=== PATIENT | male | born 1980 | race Caucasian/White ===

== ENCOUNTER 2023-04-10 11:02 | Emergency (ER) | payer OTHER, SELFPAY ==
--- NOTE | ~2023-04-10 | XR_ITS ---
EXAMINATION: XR CHEST CLINICAL INFORMATION: Cough and fever. COMPARISON: None available. TECHNIQUE: 2 views of the chest were obtained. FINDINGS: No significant abnormality is noted involving the heart, lungs, mediastinum, bony thorax or soft tissues. XR/XR chest 2V IMPRESSION: No acute cardiopulmonary process.
[2023-04-10 11:06] VITALS: BP 130/83; PULSE 120; RESP 20; TEMP 37.5; O2SAT 99; BMI 33.0
--- NOTE | 2023-04-10 11:06 | ED.GENADULT ---
HPI - General Adult General Chief complaint: Fever Stated complaint: fever of 102 Time Seen by Provider: 04/10/23 11:13 Source: patient Mode of arrival: ambulatory Limitations: no limitations History of Present Illness HPI narrative: 42 y/o M with asthma, peripheral vascular disease, alcoholism and ?cardiomyopathy. Patient complains of fevers, chills, non-productive cough and headaches for 2 days. His live-in girlfriend reports similar symptoms and tested positive for Flu-A last week. Patient has tried taking Mucinex for his symptoms and reports minimal improvement. He also reports some nausea, diarrhea, L ear pain, shortness of breath upon exertion and chest discomfort upon coughing. Patient reports past alcoholism but has limited his drinking to 1 beer a day. Patient states that he has been through withdrawals before and this does not feel the same. Patient denies vomiting and dizziness. Patient reports since having COVID in the spring he has had intermittent chest pain/palpitations/headaches/insomnia/brain fog and has been to the ER at [facility] several times. He has seen a tunneling machine operator outpatient and had a echo 2 weeks ago which he does not know the results of. He has not seen his PCP as he recently moved here and doesnt have one. Related Data Allergies Allergy/AdvReac Type Severity Reaction Status Date / Time Penicillins [PCN] Allergy Rash Verified 04/10/23 11:08 Review of Systems Review of Systems: Yes all other systems are reviewed and are negative Constitutional: Constitutional: Reports no additional constitutional complaints, Denies body ache(s), Reports chills, Reports fever(s), Reports headache(s) and Denies weakness Eyes: Eyes: Reports no additional eye complaints and Denies change in vision ENT: Reports system reviewed and no additional complaints, except as documented, Denies dizziness, Reports otalgia, Reports headache(s), Denies nasal congestion, Denies nasal discharge and Denies neck pain Cardiovascular: Cardiovascular: Reports no additional cardiovascular complaints, Reports chest pain, Denies leg edema and Reports dyspnea Respiratory: Respiratory: Reports no additional respiratory complaints, Reports cough and Reports dyspnea Gastrointestinal: Gastrointestinal: Reports no additional gastrointestinal complaints, Denies abdominal pain, Reports diarrhea, Reports nausea and Denies vomiting Genitourinary: Genitourinary: Denies urinary incontinence Musculoskeletal: Musculoskeletal: Reports no additional musculoskeletal complaints, Denies back pain, Denies arthralgias, Denies joint swelling, Denies neck pain, Denies numbness and Denies tingling Integumentary/Breasts: Skin/Breast: Reports system reviewed and no additional complaints, except as docu and Denies rash Neurologic: Reports system reviewed and no additional complaints, except as documented, Denies dizziness, Reports headache(s), Denies numbness, Denies tingling and Denies weakness [facility] Past Medical History Attestation statement: The following information was validated with the patient. Source: old records reviewed and nursing notes reviewed Social History Social History Smoked in Last 30 Days: No Substance Use Type: Marijuana Substance Use Frequency: Occasionally Advance Directives: No Advance Directives Information Provided: Yes Physical Exam ED Vital Signs: Vital Signs - 24 hr 04/10/23 11:06 04/10/23 12:35 04/10/23 14:42 Temperature 99.5 F 100.9 F H 100.4 F Pulse Rate 120 H 104 H Respiratory Rate 20 20 Blood Pressure 130/83 Pulse Oximetry 99 99 Oxygen Delivery Method Room Air BMI result Body Mass Index 33.0 Const General: cooperative, healthy appearing, comfortable and no acute distress Orientation/consciousness: patient oriented x3 Limitations: no limitations HENMT Head: Yes normal to inspection Ears: hearing grossly normal bilaterally and TM's normal bilaterally General nose exam: Normal external nose present Face and sinus: Yes normal facial exam Mouth: Normal oral and palatal mucosa present Throat: Yes posterior oropharynx normal, Yes tonsils normal and Yes uvula midline Eyes General: appearance normal, both eyes and all related structures Pupils: Equal, round and reactive pupils present Neck Neck: Yes normal visual inspection, Yes full ROM, Yes no lymphadenopathy and Yes no meningeal signs Chest Chest palpation & inspection: normal inspection of the chest Resp Effort & Inspection: normal respiratory effort Auscultation: clear to auscultation bilaterally Cardio Rate: tachycardic (112) Rhythm: regular rhythm Peripheral pulses: Peripheral pulses 2+ throughout GI Inspection: Yes normal to inspection Palpation (GI): Soft to palpation and nontender Auscultation: normal bowel sounds General: Yes no CVA tenderness Back/Spine/Pelvis Back: no CVA tenderness Thoracic/Lumbar Spine: thoracic and lumbar spine normal to inspection Skin General skin exam: no rashes or lesions noted Neuro General: patient oriented x3, moves all extremities and no meningeal signs Cranial nerves: Yes Equal, round and reactive pupils present Cognition (Neuro): normal cognition Gait exam (Neuro): Normal gait present Extrem General: Yes normal to inspection, Yes no pedal edema and Yes no calf tenderness Course Course Course Narrative: This is a rapid medical exam: Additional HPI, ROS, PE not included below will be deferred to primary provider. Patient is a 42-year-old male presenting to the emergency department with complaint of fever, tmax of 103, for 2-3 days. Girlfriend reports that she recently tested positive for flu A, was on Tamiflu. She reports that patient has long Covid. He has been having shortness of breath in addition to fevers. Has only been using ibuprofen, no Tylenol. Plan: flu, covid, CXR Reevaluation(s) Reevaluation #1: Labs are unremarkable. EKG shows no ischemic changes. Chest x-ray is negative for infection. Patient is positive for influenza A. Temperature and heart rate are improving. Patient is tolerating p.o.. Will discharge home with supportive care. Reviewed worrisome signs and symptoms of when to return to the emergency room. Comfortable plan for discharge home. Medications Administered Discontinued Medications Generic Name Dose Route Start Last Admin Trade Name Glenny PRN Reason Stop Dose Admin Acetaminophen 975 mg 04/10/23 11:55 04/10/23 12:37 Acetaminophen 325 Mg Tablet PO 04/10/23 11:56 975 mg ONCE ONE Administration Sodium Chloride 1,000 mls @ 999 mls/hr 04/10/23 12:56 04/10/23 13:48 Ns IV 04/10/23 13:56 999 mls/hr .Q1H1M STA Administration Medical Decision Making Medical Decision Making MDM Narrative: 42 y/o M with asthma, peripheral vascular disease, alcoholism and ?cardiomyopathy here w/ fevers, chills, non-productive cough, headaches, ear pain, nausea, diarrhea, SOB, chest discomfort with coughing for 3 days. His live-in girlfriend reports similar symptoms and tested positive for Flu-A last week. Patient has tried taking Mucinex for his symptoms and reports minimal improvement. Patient reports since having COVID in the spring he has had intermittent chest pain/palpitations/headaches/insomnia/brain fog and has been to the ER at [facility] several times. He has seen a tunneling machine operator outpatient and had a echo 2 weeks ago which he does not know the results of. He has not seen his PCP as he recently moved here and doesn't have one. On arrival patient with fever, tachycardia likely secondary to fever. LS CTA. No meningeal signs or lymphadenopathy. Abdomen soft nontender will check labs, EKG, chest x-ray, COVID and flu testing will give Tylenol, place IV and give IV fluid Will obtain echocardiogram report from [facility] Differential Diagnosis Differential Diagnoses: The differential diagnosis associated with the presentation includes influenza, viral syndrome, pneumonia low concern for PE- with no risk factors ( no recent travel, recent surgery, personal or family history), no clinical findings concerning for DVT low concern for ACS with nonexertional symptoms, nonischemic EKG and negative troponin Lab Data MDM Lab Attestation statement: I reviewed the patient's lab results. Unremarkable- with exception of flu A positive 04/10/23 13:40 04/10/23 13:40 Labs: Lab Results 04/10/23 04/10/23 04/10/23 Range/Units 12:11 12:11 13:40 WBC 7.0 (4.8-10.8) X10*3/uL RBC 4.62 (4.60-5.80) X10*6/uL Hgb 14.0 (14.0-18.0) g/dl Hct 41.5 L (42.0-52.0) % MCV 89.8 (80.0-98.0) fL MCH 30.3 (27.0-33.0) pg MCHC 33.7 (31.0-36.0) g/dl RDW 14.5 (11.0-16.0) % Plt Count 200 (160-400) X10*3/uL MPV 10.0 (9.4-12.4) fL Immature Gran % (Auto) 0.3 (0.0-0.4) % Neut % (Auto) 85.4 H (45-73) % Lymph % (Auto) 5.1 L (20-40) % Jerome % (Auto) 8.6 (2-11) % Eos % (Auto) 0.3 (0-4) % Baso % (Auto) 0.3 (0-2) % Lymph # (Auto) 0.4 L (1.2-4.9) X10*3/uL Jerome # (Auto) 0.6 (0.1-1.2) X10*3/uL Eos # (Auto) 0.0 (0.0-0.4) X10*3/uL Baso # (Auto) 0.0 (0.0-0.2) X10*3/uL Abs Immat Gran (auto) 0.02 (0.00-0.03) X10*3/uL Absolute Neuts (auto) 6.0 (2.0-8.3) x10*3/uL Absolute Nucleated RBC 0.000 (0.0-0.012) X10*3/uL Nucleated RBC % (auto) 0.0 (0.0-0.2) /100WBC Sodium (135-145) mmol/L Potassium (3.3-5.1) mmol/L Chloride (96-108) mmol/L Carbon Dioxide (22-29) mmol/L Anion Gap (12-20) BUN (9-16) mg/dL Creatinine (0.5-1.4) mg/dL Estim Creat Clear Calc Estimated GFR Random Glucose (60-115) mg/dL Calcium (8.4-10.2) mg/dL Total Bilirubin (0.0-1.0) mg/dL Direct Bilirubin (0.0-0.5) mg/dL AST (5-37) U/L ALT (0-40) U/L Alkaline Phosphatase (39-117) U/L Troponin I High Sens (<3.5-35.0) ng/L Total Protein (6.5-8.0) g/dL Albumin (3.5-5.0) g/dL COVID-19 (GONZALO) Negative (Negative) COVID-19 Clin Com See Note Influenza Type A (YUDY) Positive A (Negative) Influenza Type B (YUDY) Negative (Negative) Influenza A & B Note See Note 04/10/23 04/10/23 Range/Units 13:40 13:40 WBC (4.8-10.8) X10*3/uL RBC (4.60-5.80) X10*6/uL Hgb (14.0-18.0) g/dl Hct (42.0-52.0) % MCV (80.0-98.0) fL MCH (27.0-33.0) pg MCHC (31.0-36.0) g/dl RDW (11.0-16.0) % Plt Count (160-400) X10*3/uL MPV (9.4-12.4) fL Immature Gran % (Auto) (0.0-0.4) % Neut % (Auto) (45-73) % Lymph % (Auto) (20-40) % Jerome % (Auto) (2-11) % Eos % (Auto) (0-4) % Baso % (Auto) (0-2) % Lymph # (Auto) (1.2-4.9) X10*3/uL Jerome # (Auto) (0.1-1.2) X10*3/uL Eos # (Auto) (0.0-0.4) X10*3/uL Baso # (Auto) (0.0-0.2) X10*3/uL Abs Immat Gran (auto) (0.00-0.03) X10*3/uL Absolute Neuts (auto) (2.0-8.3) x10*3/uL Absolute Nucleated RBC (0.0-0.012) X10*3/uL Nucleated RBC % (auto) (0.0-0.2) /100WBC Sodium 136 (135-145) mmol/L Potassium 3.7 (3.3-5.1) mmol/L Chloride 100 (96-108) mmol/L Carbon Dioxide 23 (22-29) mmol/L Anion Gap 17 (12-20) BUN 6 L (9-16) mg/dL Creatinine 0.76 (0.5-1.4) mg/dL Estim Creat Clear Calc 167.0 Estimated GFR > 60 Random Glucose 114 (60-115) mg/dL Calcium 9.4 (8.4-10.2) mg/dL Total Bilirubin 0.8 (0.0-1.0) mg/dL Direct Bilirubin 0.3 (0.0-0.5) mg/dL AST 27 (5-37) U/L ALT 26 (0-40) U/L Alkaline Phosphatase 86 (39-117) U/L Troponin I High Sens < 2.7 (<3.5-35.0) ng/L Total Protein 8.1 H (6.5-8.0) g/dL Albumin 4.4 (3.5-5.0) g/dL COVID-19 (GONZALO) (Negative) COVID-19 Clin Com Influenza Type A (YUDY) (Negative) Influenza Type B (YUDY) (Negative) Influenza A & B Note Independent Interpretation I performed an independent interpretation of an: EKG and Plain X-Ray Interpretation: I independently reviewed the chest x-ray and agree with the radiology report I independently reviewed the EKG which shows sinus tachycardia with a rate of 109, normal [place], normal QRS, normal QT Radiology Impression Discussion of test interpretation with radiology: I have reviewed the radiologist's reading. Radiologist Impression: [address] [address] XRay Report Signed Patient: Alejandro Sanchez MR#: [id number] : 1980 Acct:[id number] Age/Sex: 42 / M ADM Date: 04/10/23 Loc: .ED Attending Dr: Ordering Physician: Maisha Nunez NP Date of Service: 04/10/23 Procedure(s): XR chest 2V Accession Number(s): [id number] cc: Maisha Nunez NP~ EXAMINATION: XR CHEST CLINICAL INFORMATION: Cough and fever. COMPARISON: None available. TECHNIQUE: 2 views of the chest were obtained. FINDINGS: No significant abnormality is noted involving the heart, lungs, mediastinum, bony thorax or soft tissues. XR/XR chest 2V IMPRESSION: No acute cardiopulmonary process. Independent Historian Clinical information obtained from an independent historian. History obtained from or confirmed by: Spouse External Record Review External record reviewed: Prior outpatient radiology reviewed outpatient echocardiogram from a 03/31/2023 from [facility] which shows normal LV systolic function, EF 58%, normal LV diastolic function. LV concentric remodeling. Normal RV size and systolic function. No significant valvular disease identified Prescription Management I considered prescription management with: Antiviral patient with symptoms for 3 days with nausea and diarrhea. We discussed that Tamiflu is not recommended as patient has GI symptoms currently and due to length of symptoms it would not likely be helpful at this point. Discharge Plan Discharge Clinical Impression: Influenza Patient Disposition: Home, Self-Care Instructions: Influenza (ED) Additional Instructions: Alternate Motrin and Tylenol for pain or fever as needed Increase fluids, rest Return for worsening symptoms Referrals: Physician,Unknown J [Primary Care Provider] - 1 week Interventions: ED Discharge Assessment Last Done: 04/10/23 14:56 Discharge Date/Time: 04/10/23 15:00
[2023-04-10 12:35] VITALS: TEMP 38.3
[2023-04-10] MEDS: Acetaminophen 325 MG TABLET 975 MG PO (12:37)
[2023-04-10 12:40] LABS: COVID-19 Test Negative (Negative); IDNOW Serial# 08D9AD1C; IDNOW Serial# BCCEAD1C; Influenza A Positive (Negative); Influenza B2 Negative (Negative)
--- NOTE | 2023-04-10 12:56 | ECG_ITS ---
Test Reason : sob Blood Pressure : / mmHG Vent. Rate : 109 BPM Atrial Rate : 109 BPM P-R Int : 136 ms QRS Dur : 102 ms QT Int : 336 ms P-R-T Axes : 039 056 049 degrees QTc Int : 452 ms Sinus tachycardia Otherwise normal ECG No previous ECGs available Referred By: Charity Dejesus Electronically Signed By:MIA TORRES
[2023-04-10 13:45] LABS: MANUAL DIFF FLAG NO
[2023-04-10] MEDS: 0.9 % Sodium Chloride 1,000 ML 999 ML IV (13:48)
[2023-04-10 13:52] LABS: Basophils Percent Auto 0.3 % (0-2); Eosinophils Percent Auto 0.3 % (0-4); Hematocrit 41.5 % (42.0-52.0); Imm Gran Abs Auto 0.02 X10*3/uL (0.00-0.03); Imm Gran Pct Auto 0.3 % (0.0-0.4); Lymphocytes Absolute Auto 0.4 X10*3/uL (1.2-4.9); Lymphocytes Percent Auto 5.1 % (20-40); Mean Corpuscular HGB Conc 33.7 g/dl (31.0-36.0); Mean Corpuscular Hemoglobin 30.3 pg (27.0-33.0); Mean Corpuscular Volume 89.8 fL (80.0-98.0); Monocytes Absolute Auto 0.6 X10*3/uL (0.1-1.2); Monocytes Percent Auto 8.6 % (2-11); Neutrophils Percent Auto 85.4 % (45-73); Platelet Count 200 X10*3/uL (160-400); Red Blood Count 4.62 X10*6/uL (4.60-5.80); Red Cell Distribution Width 14.5 % (11.0-16.0)
[2023-04-10 14:08] LABS: Alanine Aminotransferase 26 U/L (0-40); Albumin Level 4.4 g/dL (3.5-5.0); Alkaline Phosphatase 86 U/L (39-117); Anion Gap 17 (12-20); Aspartate Amino Transferase 27 U/L (5-37); Bilirubin Direct 0.3 mg/dL (0.0-0.5); Bilirubin Total 0.8 mg/dL (0.0-1.0); Blood Urea Nitrogen 6 mg/dL (9-16); Calcium 9.4 mg/dL (8.4-10.2); Carbon Dioxide 23 mmol/L (22-29); Chloride 100 mmol/L (96-108); Estimated Glomerular Filt Rate > 60; Glucose Random 114 mg/dL (60-115); Potassium 3.7 mmol/L (3.3-5.1); Sodium 136 mmol/L (135-145); Total Protein 8.1 g/dL (6.5-8.0)
[2023-04-10 14:12] LABS: Troponin-I High Sensitivity < 2.7 ng/L (<3.5-35.0)
[2023-04-10 14:42] VITALS: PULSE 104; RESP 20; TEMP 38; O2SAT 99
== END 2023-04-10 15:00 | disposition home or self-care (01) ==
PROVIDERS: Nurse Practitioner Family; Registered Nurse Emergency; Emergency Provider Emergency Medicine
DX: J10.1 Influenza due to other identified influenza virus with other respiratory manifestations (principal); R50.9 Fever, unspecified; Z20.822 Contact with and (suspected) exposure to COVID-19
CPT/HCPCS: 36415; 71046; 80048; 80076; 84484; 85025; 87502; 87635; 93005; 99283; 99285

== ENCOUNTER → 2023-04-10 12:56 | Outpatient (BNV) | payer OTHER, SELFPAY | PROVIDERS: Emergency Provider Emergency Medicine; Visit Provider Internal Medicine | DX: R00.0 Tachycardia, unspecified (principal) | CPT/HCPCS: 93010 ==

== ENCOUNTER 2023-04-28 10:37 | Emergency (ER) | payer OTHER, SELFPAY ==
[2023-04-28] VITALS (7 sets, daily range): BP systolic 136–160; BP diastolic 68–108; PULSE 81–108; RESP 16–19; TEMP 36.6–36.8; O2SAT 98–100; BMI 35.5
--- NOTE | ~2023-04-28 | CT_ITS ---
EXAMINATION: CT HEAD WITHOUT CONTRAST CLINICAL INFORMATION: Severe headache, rule out intracranial abnormality. COMPARISON: None available. TECHNIQUE: Contiguous axial imaging was performed from the skull base to vertex without intravenous administration of contrast. Coronal and sagittal reformatted images were obtained. This CT examination was performed using dose optimization techniques as appropriate, variously including the following: *Automated exposure control *Adjustment of mA and/or kV according to patient size (this includes techniques or standardized protocols for targeted exams where dose is matched to indication/reason for exam; i.e. extremities or head) *Use of iterative reconstruction technique DLP: 661 mGy-cm FINDINGS: The cortical sulci are normal. The lateral ventricles are symmetrical. The third and fourth ventricles are in their normal midline position. The basilar and prepontine cisterns are unremarkable. There is no acute intra or extracerebral abnormality. There is no mass effect or midline shift. Sections through the bony calvarium are unremarkable. The paranasal sinuses are clear. The bony orbits and orbital contents are unremarkable. CT/CT head/brain wo IV con IMPRESSION: No acute intracranial pathology.
--- NOTE | 2023-04-28 11:03 | ECG_ITS ---
Test Reason : weakness Blood Pressure : / mmHG Vent. Rate : 083 BPM Atrial Rate : 083 BPM P-R Int : 142 ms QRS Dur : 108 ms QT Int : 372 ms P-R-T Axes : 022 048 041 degrees QTc Int : 437 ms Normal sinus rhythm Incomplete right bundle branch block Borderline ECG When compared with ECG of 10-APR-2023 13:07, Incomplete right bundle branch block is now Present Referred By: Yanely Medina Electronically Signed By:RASHID SANTOS
[2023-04-28 11:34] LABS: MANUAL DIFF FLAG NO
--- NOTE | 2023-04-28 11:34 | PC.NURSE ---
Pt reporting long covid since getting covid 6 Months ago. Reporting he had a trip to [facility] recently. He has multiple generalized complaints, LONG/N/dizziness/weakness with no resolve. is at bedside currently. IV placed, labs obtained, provider at bedside.
[2023-04-28 11:37] LABS: Basophils Percent Auto 0.4 % (0-2); Eosinophils Percent Auto 0.4 % (0-4); Hematocrit 40.3 % (42.0-52.0); Hemoglobin 13.7 g/dl (14.0-18.0); Imm Gran Abs Auto 0.01 X10*3/uL (0.00-0.03); Imm Gran Pct Auto 0.2 % (0.0-0.4); Lymphocytes Absolute Auto 0.6 X10*3/uL (1.2-4.9); Lymphocytes Percent Auto 12.1 % (20-40); Mean Corpuscular Hemoglobin 30.8 pg (27.0-33.0); Mean Corpuscular Volume 90.6 fL (80.0-98.0); Mean Platelet Volume 10.1 fL (9.4-12.4); Monocytes Absolute Auto 0.2 X10*3/uL (0.1-1.2); Monocytes Percent Auto 3.6 % (2-11); Neutrophils Absolute Auto 4.4 x10*3/uL (2.0-8.3); Neutrophils Percent Auto 83.3 % (45-73); Platelet Count 188 X10*3/uL (160-400); Red Blood Count 4.45 X10*6/uL (4.60-5.80); Red Cell Distribution Width 14.3 % (11.0-16.0); White Blood Count 5.3 X10*3/uL (4.8-10.8)
--- NOTE | 2023-04-28 11:47 | ED_ITS ---
HPI - General Adult General Chief complaint: Headache Stated complaint: Multiple Complaints Time Seen by Provider: 04/28/23 11:00 Source: patient Mode of arrival: ambulatory Limitations: no limitations History of Present Illness HPI narrative: Patient is a 42 year old male presenting with a primary complaint of headaches over the past 6 months. Patient explains that he has diffuse headaches that ache in his ears, head, and face. Patient explains that over the past 6 months he has also had intermittent palpitations, chest pain, shortness of breath, diarrhea, dysuria, depression and anxiety. Patient explains he had COVID for the fourth time and traveled to [facility] right before the onset of these symptoms. Patient used to drink 2 bottles of tequila per day but has cut down sicne these symptoms started and now endorses drinking about 3 nips and a beer per day. Denies drug use aside from occasional marijuana use. Related Data Previous Rx's Medication Instructions Recorded naproxen 500 mg tablet 500 mg PO BID #14 tabs 04/28/23 Allergies Allergy/AdvReac Type Severity Reaction Status Date / Time Penicillins [PCN] Allergy Rash Verified 04/28/23 10:40 Review of Systems Review of Systems: Constitutional : + 10 pound weight loss over a week ( self reported), Fever, Chills, Fatigue, Malaise ENT/Mouth : No sore throat, No Rhinorrhea Eyes: No Eye Pain, No Swelling, No Redness Cardiovascular : No Chest Pain, No SOB, + Dyspnea on Exertion, No Orthopnea, No Edema, No Palpitations Respiratory : No Cough, No Sputum, No Wheezing Gastrointestinal : No Nausea, No Vomiting, No Diarrhea, No Constipation, No abdo ekta Pain, No Hematochezia, No Melena Genitourinary : + Dysuria, No Urinary Frequency, No Hematuria, Musculoskeletal : + Myalgias, No joint pain, No Joint Swelling Skin : No Skin Lesions, No rash Neuro : +diffuse headche, No Weakness, No Numbness, No Dizziness Psych : + Anxiety/Panic, Depression All other systems reviewed and are negative Yes all other systems are reviewed and are negative [facility] Past Medical History Attestation statement: The following information was validated with the patient. Source: old records reviewed and nursing notes reviewed Social History Social History Alcohol intake: never Smoked in Last 30 Days: No Use of substances other than those prescribed or required for medical reasons: No Substance Use Type: Marijuana Advance Directives: No Physical Exam ED Vital Signs: Vital Signs - 24 hr 04/28/23 10:40 04/28/23 10:58 04/28/23 11:35 Temperature 98 F 98.3 F Pulse Rate 100 82 83 Respiratory Rate 19 16 Blood Pressure 160/100 H 148/93 H 148/90 H Pulse Oximetry 100 98 Oxygen Delivery Method Room Air Room Air 04/28/23 11:39 04/28/23 11:41 04/28/23 14:50 Temperature 97.9 F Pulse Rate 97 108 H 81 Respiratory Rate 18 Blood Pressure 148/101 H 146/108 H 136/68 Pulse Oximetry 100 Oxygen Delivery Method Room Air BMI result Body Mass Index 35.5 VSS Appearance: Alert.? Oriented X3.? No acute distress.? Head: Normocephalic, atraumatic, no step-offs or deformities Eyes: Pupils equal, round and reactive to light.? ENT: Pharynx normal.? Neck: Normal inspection.? Neck supple.?No meningeal signs CVS: Normal heart rate and rhythm.? Pulses normal.? Respiratory: No respiratory distress.? Breath sounds normal.? Abdomen: Soft and nontender.? Skin: Skin warm and dry.? Normal skin color.? Normal skin turgor.? Extremities: No lower extremity edema.? No calf ttp. 5/5 strength to bilateral upper and lower extremities Back: No midline tenderness, no C-spine tenderness, full range of motion, no CVA tenderness bilaterally Neuro: Coordination including finger to nose and arm raise intact. Oriented X 3.? No motor deficit.? No sensory deficit. CN 2-12 intact NIH Stroke Scale 0 Course Reevaluation(s) Reevaluation #1: CBC with a normocytic anemia, appears to be around patient's baseline. Chemistry no acute electrolyte abnormalities requiring intervention. Patient's transaminases are elevated in the 2-1 fashion likely secondary to chronic alcohol abuse, bilirubin of 1.5 however no abdominal tenderness to palpation, no signs of acute abdomen, cholangitis, cholecystitis, pancreatitis. Troponin negative, EKG nonischemic unlikely ACS. Patient's D-dimer negative, unlikely PE. Coags unremarkable. Head CT unremarkable. Time: 13:40 Reevaluation #2: ESR normal. Unlikely temporal arteritis. CIWA not impressive (4), unlikely acute alcohol withdrawal. UA without infection. Patient to be discharged home with naproxen. Will have him follow-up with neurology due to headaches. Educated patient on diagnosis and treatment plan, answered all question, patient verbalizes understanding. At this time patient will be discharged home, advised to return with new or worsening symptoms. Educated on worrisome signs and symptoms and when to return. At this time I feel comfortable discharge home. Time: 15:38 Reevaluation #3: Patient does report he is feeling much better at time of discharge, headache gone. Would like information for Neurology office in the area will give him neuro follow-up information. Time: 15:42 Medications Administered Discontinued Medications Generic Name Dose Route Start Last Admin Trade Name Freq PRN Reason Stop Dose Admin Ketorolac Tromethamine 30 mg 04/28/23 12:38 04/28/23 12:58 Ketorolac Tromethamine 15 Mg/Ml Vial IM 04/28/23 12:39 30 mg ONCE ONE Administration Medical Decision Making Medical Decision Making MDM Narrative: 12:15 42 year old male presenting with a primary complaint of headaches worsening over the past 6 months. Overwhelming review of systems for the past few months. Exam benign. NIH Stroke Scale 0. This is potentially headaches secondary to dehydration as patient has expressed that they do not drink much water at all. This is unlikely encephalopathy, meningitis, encephalitis. No signs of intracranial hemorrhage, stroke, posterior stroke. Chest pain and shortness of breath appear to be chronic in nature, no signs of ACS, PE at this time. I do not suspect pneumonia. No signs of flail chest, pneumothorax, dissection, ruptured aneurysm. Diarrhea likely chronic, no recent antibiotic use, unlikely C diff, will rule out electrolyte abnormalities. Will rule out UTI. I do not suspect temporal arteritis/giant cell. Unlikely Guillain-Latta. Other differentials include acute alcohol intox ication or alcohol withdrawal. This could also be sinusitis versus allergies. Plan: labs, urine, imaging Differential Diagnosis Differential Diagnoses: The differential diagnosis associated with the presentation includes This is potentially headaches secondary to dehydration as patient has expressed that they do not drink much water at all. This is unlikely encephalopathy, meningitis, encephalitis. No signs of intracranial hemorrhage, stroke, posterior stroke. Chest pain and shortness of breath appear to be chronic in nature, no signs of ACS, PE at this time. I do not suspect pneumonia. No signs of flail chest, pneumothorax, dissection, ruptured aneurysm. Diarrhea likely chronic, no recent antibiotic use, unlikely C diff, will rule out electrolyte abnormalities. Will rule out UTI. I do not suspect temporal arteritis/giant cell. Unlikely Guillain-Latta. Other differentials include acute alcohol intoxication or alcohol withdrawal. This could also be sinusitis versus allergies. Admission/Observation Consideration of admission/observation: Escalation of care including admission/observation considered Not indicated. Lab Data MDM Lab Attestation statement: I reviewed the patient's lab results. AST ALT elevated in a 2:1 fasion consistent with chronic alcohol use. 04/28/23 11:30 04/28/23 11:30 Labs: Lab Results 04/28/23 04/28/23 04/28/23 Range/Units 11:30 11:30 11:30 WBC 5.3 (4.8-10.8) X10*3/uL RBC 4.45 L (4.60-5.80) X10*6/uL Hgb 13.7 L (14.0-18.0) g/dl Hct 40.3 L (42.0-52.0) % MCV 90.6 (80.0-98.0) fL MCH 30.8 (27.0-33.0) pg MCHC 34.0 (31.0-36.0) g/dl RDW 14.3 (11.0-16.0) % Plt Count 188 (160-400) X10*3/uL MPV 10.1 (9.4-12.4) fL Immature Gran % (Auto) 0.2 (0.0-0.4) % Neut % (Auto) 83.3 H (45-73) % Lymph % (Auto) 12.1 L (20-40) % [place] % (Auto) 3.6 (2-11) % Eos % (Auto) 0.4 (0-4) % Baso % (Auto) 0.4 (0-2) % Lymph # (Auto) 0.6 L (1.2-4.9) X10*3/uL [place] # (Auto) 0.2 (0.1-1.2) X10*3/uL Eos # (Auto) 0.0 (0.0-0.4) X10*3/uL Baso # (Auto) 0.0 (0.0-0.2) X10*3/uL Abs Immat Gran (auto) 0.01 (0.00-0.03) X10*3/uL Absolute Neuts (auto) 4.4 (2.0-8.3) x10*3/uL Absolute Nucleated RBC 0.000 (0.0-0.012) X10*3/uL Nucleated RBC % (auto) 0.0 (0.0-0.2) /100WBC ESR (0-15) MM/HR PT (11.1-13.3) SEC INR (0.9-1.1) D-Dimer High Sensitivty NG/ML Sodium 137 (135-145) mmol/L Potassium 4.0 (3.3-5.1) mmol/L Chloride 101 (96-108) mmol/L Carbon Dioxide 26 (22-29) mmol/L Anion Gap 14 (12-20) BUN 9 (9-16) mg/dL Creatinine 0.80 (0.5-1.4) mg/dL Estim Creat Clear Calc 164.5 Estimated GFR > 60 Random Glucose 96 (60-115) mg/dL Calcium 9.7 (8.4-10.2) mg/dL Magnesium 1.6 (1.6-2.6) mg/dL Total Bilirubin 1.5 H (0.0-1.0) mg/dL AST 327 H (5-37) U/L ALT 168 H (0-40) U/L Alkaline Phosphatase 80 (39-117) U/L Troponin I High Sens < 2.7 (<3.5-35.0) ng/L Total Protein 7.9 (6.5-8.0) g/dL Albumin 4.3 (3.5-5.0) g/dL Urine Color Urine Appearance Urine pH (5.0-9.0) Ur Specific [place] (1.005-1.025) Urine Protein (Neg-Trace) mg/dL Urine Glucose (UA) (Negative) mg/dL Urine Ketones (Negative) mg/dL Urine Blood (Negative) Urine Nitrite (Negative) Ur Leukocyte Esterase (Negative) 08/22/23 08/22/23 08/22/23 Range/Units 11:30 11:30 14:53 WBC (4.8-10.8) X10*3/uL RBC (4.60-5.80) X10*6/uL Hgb (14.0-18.0) g/dl Hct (42.0-52.0) % MCV (80.0-98.0) fL MCH (27.0-33.0) pg MCHC (31.0-36.0) g/dl RDW (11.0-16.0) % Plt Count (160-400) X10*3/uL MPV (9.4-12.4) fL Immature Gran % (Auto) (0.0-0.4) % Neut % (Auto) (45-73) % Lymph % (Auto) (20-40) % [place] % (Auto) (2-11) % Eos % (Auto) (0-4) % Baso % (Auto) (0-2) % Lymph # (Auto) (1.2-4.9) X10*3/uL [place] # (Auto) (0.1-1.2) X10*3/uL Eos # (Auto) (0.0-0.4) X10*3/uL Baso # (Auto) (0.0-0.2) X10*3/uL Abs Immat Gran (auto) (0.00-0.03) X10*3/uL Absolute Neuts (auto) (2.0-8.3) x10*3/uL Absolute Nucleated RBC (0.0-0.012) X10*3/uL Nucleated RBC % (auto) (0.0-0.2) /100WBC ESR 10 (0-15) MM/HR PT 10.5 L (11.1-13.3) SEC INR 0.9 (0.9-1.1) D-Dimer High Sensitivty < 150 NG/ML Sodium (135-145) mmol/L Potassium (3.3-5.1) mmol/L Chloride (96-108) mmol/L Carbon Dioxide (22-29) mmol/L Anion Gap (12-20) BUN (9-16) mg/dL Creatinine (0.5-1.4) mg/dL Estim Creat Clear Calc Estimated GFR Random Glucose (60-115) mg/dL Calcium (8.4-10.2) mg/dL Magnesium (1.6-2.6) mg/dL Total Bilirubin (0.0-1.0) mg/dL AST (5-37) U/L ALT (0-40) U/L Alkaline Phosphatase (39-117) U/L Troponin I High Sens (<3.5-35.0) ng/L Total Protein (6.5-8.0) g/dL Albumin (3.5-5.0) g/dL Urine Color Yellow Urine Appearance Clear Urine pH 7.0 (5.0-9.0) Ur Specific [place] 1.015 (1.005-1.025) Urine Protein Negative (Neg-Trace) mg/dL Urine Glucose (UA) Negative (Negative) mg/dL Urine Ketones 15 (Negative) mg/dL Urine Blood Negative (Negative) Urine Nitrite Negative (Negative) Ur Leukocyte Esterase Negative (Negative) Independent Interpretation I performed an independent interpretation of an: EKG (EKG with a ventricular rate of 83, TN normal, QRS normal, QT/QTC normal. EKG with incomplete right bundle-branch block, this is new. No ST elevations or inversions concerning for ischemia) and CT Scan Interpretation: No masses, acute bleeds or midline shift noted. CT/CT head/brain wo IV con IMPRESSION: No acute intracranial pathology. Radiology Impression Discussion of test interpretation with radiology: I have reviewed the radiologist's reading. Radiologist Impression: CT/CT head/brain wo IV con IMPRESSION: No acute intracranial pathology. Tests considered The following testing was considered but not selected: Breath sounds clear, perc negative no indication for chest imaging, no trauma. Core Measures AMI core measures followed: Yes Measure exclusions: not indicated Critical Care Time Critical Care Time Critical Care Time: No Discharge Plan Discharge Clinical Impression: Headache, Diarrhea, Chest pain, Shortness of breath Patient Disposition: Home, Self-Care Instructions: Chest Pain (ED), Acute Headache (ED), Acute Diarrhea (ED), Nutrition Tips for Relief of Diarrhea (ED), Shortness of Breath (ED) Additional Instructions: Take your medications as prescribed. If you were prescribed antibiotics today, it is important that you take your medication to their entirety, do not skip any doses, do not finish them early. Follow-up with your primary care provider this week. Return to the emergency department with new or worsening symptoms. Such as fevers, chills, chest pain, shortness of breath, nausea, vomiting, dizziness, headache, vision changes, lethargy In case of emergency call 911 Prescriptions: New naproxen 500 mg tablet 500 mg PO BID Qty: 14 0RF Referrals: [facility] [place] [facility] [Provider Group] - 2 days Physician,None [Primary Care Provider] - 2 days
[2023-04-28 11:51] LABS: Alanine Aminotransferase 168 U/L (0-40); Albumin Level 4.3 g/dL (3.5-5.0); Alkaline Phosphatase 80 U/L (39-117); Anion Gap 14 (12-20); Aspartate Amino Transferase 327 U/L (5-37); Bilirubin Total 1.5 mg/dL (0.0-1.0); Blood Urea Nitrogen 9 mg/dL (9-16); Calcium 9.7 mg/dL (8.4-10.2); Carbon Dioxide 26 mmol/L (22-29); Chloride 101 mmol/L (96-108); Creatinine Clr Calc Pharmacy 164.5; Estimated Glomerular Filt Rate > 60; Glucose Random 96 mg/dL (60-115); Magnesium 1.6 mg/dL (1.6-2.6); Sodium 137 mmol/L (135-145); Total Protein 7.9 g/dL (6.5-8.0)
[2023-04-28 11:55] LABS: INTERNATIONAL NORM RATIO 0.9 (0.9-1.1); Prothrombin Time 10.5 SEC (11.1-13.3)
[2023-04-28 11:57] LABS: Troponin-I High Sensitivity < 2.7 ng/L (<3.5-35.0)
[2023-04-28 12:14] LABS: Erythrocyte Sedimentation Rate 10 MM/HR (0-15)
[2023-04-28 12:47] LABS: D Dimer High Sensitivity < 150 NG/ML
[2023-04-28] MEDS: Ketorolac Tromethamine 15 MG/ML VIAL 30 MG IM (12:58)
[2023-04-28 15:03] LABS: Appearance Urine Clear; Color Urine Yellow; Glucose Urine UA Negative (Negative); Leukocyte Esterase Urine Negative (Negative); Nitrite Urine Negative (Negative); Specific Gravity - Urine 1.015 (1.005-1.025); Urine Blood Negative (Negative); Urine Ketones 15 mg/dL (Negative); Urine Protein Negative (Neg-Trace)
[2023-04-29 13:34] LABS: CRP High Sensitivity 4.3 mg/L
== END 2023-04-28 16:04 | disposition home or self-care (01) ==
PROVIDERS: Physician Assistant; Emergency Provider Emergency Medicine
DX: R07.9 Chest pain, unspecified (principal); R51.9 Headache, unspecified; R19.7 Diarrhea, unspecified; R06.02 Shortness of breath; D64.9 Anemia, unspecified; F12.90 Cannabis use, unspecified, uncomplicated
CPT/HCPCS: 36415; 70450; 80053; 81003; 83735; 84484; 85025; 85379; 85610; 85652; 86141; 93005; 96372; 99284; 99285; J1885

== ENCOUNTER 2023-06-10 10:48 | Outpatient (REF) | payer OTHER, SELFPAY | END 2023-06-10 10:49 | disposition home or self-care (01) | LOC: HO.HHCL 10:48 | PROVIDERS: Visit Provider Emergency Medicine | DX: Z13.89 Encounter for screening for other disorder (principal) ==

== ENCOUNTER 2023-06-11 22:30 | Outpatient (REF) | payer MEDICAID, SELFPAY | END 2023-06-11 22:31 | disposition home or self-care (01) | LOC: HO.LNP 22:30 | PROVIDERS: Visit Provider Emergency Medicine | DX: R79.89 Other specified abnormal findings of blood chemistry (principal); K92.1 Melena | CPT/HCPCS: 82274 ==

== ENCOUNTER 2023-06-12 08:43 | Outpatient (REF) | payer MEDICAID, SELFPAY | END 2023-06-12 08:44 | disposition home or self-care (01) | LOC: HO.LAB 08:43 | PROVIDERS: Visit Provider Emergency Medicine | DX: K92.1 Melena (principal); R79.89 Other specified abnormal findings of blood chemistry; I87.2 Venous insufficiency (chronic) (peripheral) | CPT/HCPCS: 36415; 80053; 82150; 82270; 83036; 83690; 83880; 85025; 85652; 86704; 86706; 86709; 86803; 87177; 87209; 87338; 87340; 87507 ==

== ENCOUNTER 2023-07-16 07:48 | Outpatient (REF) | payer MEDICAID, SELFPAY ==
--- NOTE | ~2023-07-16 | US_ITS ---
EXAMINATION: US ABDOMEN COMPLETE CLINICAL INFORMATION: Elevated LFTs. COMPARISON: None available. TECHNIQUE: Real-time imaging of the abdominal viscera. FINDINGS: PANCREAS: Normal. ABDOMINAL AORTA: The proximal, mid, and distal segments are normal in caliber. INFERIOR VENA CAVA: Visualized portions are normal. LIVER: Liver is enlarged measuring at least 17.9 cm in span. The liver contour is normal. Increased hepatic echogenicity which can be seen in the setting of hepatic steatosis or underlying liver disease. No focal hepatic lesion. There is no intrahepatic biliary duct dilatation seen. GALLBLADDER: Normal. The gallbladder is physiologically distended without evidence of stones, sludge, polyps, wall thickening or pericholecystic fluid. COMMON BILE DUCT: Normal in caliber measuring 0.4 cm in diameter. RIGHT KIDNEY: Normal. No hydronephrosis. No renal calculi or focal parenchymal lesions. The kidney measures 11.8 cm in maximum dimension. LEFT KIDNEY: Normal. No hydronephrosis. No renal calculi or focal parenchymal lesions. The kidney measures 12.6 cm in maximum dimension. SPLEEN: Normal. The spleen measures 10.2 cm in maximum dimension. FREE FLUID: None. US/US abdomen complete IMPRESSION: Hepatomegaly. Increased hepatic echogenicity which can be seen in the setting of hepatic steatosis or underlying liver disease.
== END 2023-07-16 07:49 | disposition home or self-care (01) ==
LOC: HO.US 07:48
PROVIDERS: Visit Provider Family Medicine
DX: R79.89 Other specified abnormal findings of blood chemistry (principal)
CPT/HCPCS: 76700

== ENCOUNTER 2023-08-11 20:07 | Inpatient (IN) | payer OTHER, MEDICAID, SELFPAY ==
[2023-08-11 20:26] VITALS: BP 150/110; PULSE 115; RESP 20; TEMP 36.7; O2SAT 98; BMI 34.3
--- NOTE | 2023-08-11 20:27 | ED.GENADULT ---
HPI - General Adult General Chief complaint: Psychiatric Symptoms Stated complaint: DRINKING ALL WEEK/TOOK PILLS AMITRIPTYLINE Time Seen by Provider: 08/11/23 23:36 Source: patient and family Mode of arrival: ambulatory Limitations: no limitations History of Present Illness HPI narrative: 43 yo male with significant grief reaction after the loss of his mother, ETOH abuse in and out of rehab started on amitryptiline and naltrexone. Went to mother's house today to deal with some things then at home ingested 4 of his amitryptiline total dose 40mg - he states he is not sure why possible SI vs depression. He also drank. He is very depressed. Has chronic on and off chest pain. Last travel was back in May. MD complaint: depression, ETOH abuse Onset (ago): month(s) Radiation: non-radiation Severity: moderate Relieving factors: none Exacerbating factors: other (life stress) Associated symptoms: other (chest pain, depression, vague SI) Treatments prior to arrival: none Related Data Previous Rx's Medication Instructions Recorded naproxen 500 mg tablet 500 mg PO BID #14 tabs 04/28/23 Allergies Allergy/AdvReac Type Severity Reaction Status Date / Time Penicillins [PCN] Allergy Rash Verified 04/28/23 10:40 Review of Systems Review of Systems: Constitutional : No Fever, No Chills ENT/Mouth : No Ear Pain, No Nasal Congestion, No sore throat Eyes: No Eye Pain, No Swelling, No Redness Cardiovascular : pos Chest Pain, No SOB Respiratory : No Cough, No Sputum, No Dyspnea Gastrointestinal : No Nausea, No Vomiting, No Diarrhea, No Hematochezia, No Melena Genitourinary : No Dysuria, No Urinary Frequency, No Hematuria Musculoskeletal : No Myalgias Skin : No Skin Lesions, No rash Neuro : No Weakness, No Numbness, No Paresthesias, No Dizziness, No Headache Psych : positive Anxiety, positive Depression, vague SI no HI Heme/Lymph: No Lymphadenopathy Endocrine : No Polyuria, No Polydipsia All other systems reviewed and are negative [facility] Past Medical History Attestation statement: The following information was validated with the patient. Medical History Alcohol abuse Social History Social History Alcohol intake: current Alcohol intake frequency: 3 or more drinks per day Alcohol type: beer and hard liquor Smoked in Last 30 Days: No Use of substances other than those prescribed or required for medical reasons: No Substance Use Type: Marijuana Advance Directives: No Advance Directives Information Provided: Yes Physical Exam ED Vital Signs: Vital Signs - 24 hr 08/11/23 20:26 08/12/23 00:32 08/12/23 03:28 Temperature 98.1 F 98.3 F 97.7 F Pulse Rate 115 H 94 86 Respiratory Rate 20 12 13 Blood Pressure 150/110 H 151/98 H 130/81 Pulse Oximetry 98 99 98 Oxygen Delivery Method Room Air Room Air Room Air Oxygen Flow Rate 08/12/23 04:23 08/12/23 06:44 Temperature 97.8 F 97.7 F Pulse Rate 94 94 Respiratory Rate 16 16 Blood Pressure 137/86 141/91 H Pulse Oximetry 99 97 Oxygen Delivery Method Nasal Cannula Nasal Cannula Oxygen Flow Rate 2 2 BMI result Body Mass Index 34.3 Appearance: Somnolent but easily woken. Oriented X3. No acute distress. Eyes: Pupils equal, round and reactive to light. ENT: Pharynx normal. Neck: Normal inspection. Neck supple. CVS: Normal heart rate and rhythm. Pulses normal. Respiratory: No respiratory distress. Breath sounds normal. Abdomen: Soft and nontender. Skin: Skin warm and dry. Normal skin color. Normal skin turgor. Extremities: No lower extremity edema. No calf ttp Neuro: Oriented X 3. No motor deficit. No sensory deficit. Course Course Course Narrative: This is a rapid medical exam: Additional HPI, ROS, PE not included below will be deferred to primary provider. Patient is a 43-year-old male presenting to the ED after bingeing on alcohol this week. Has been in outpatient recovery since his mother a few months ago. Friend states he was cleaning out his mother's house this week, increasing his stress. Friend states outpatient treatment has not been working, feels patient requires inpatient level of care. Patient took 3 amytriptylline with alcohol prior to arrival. He denies suicidal ideation or homicidal ideation but reports depression. Denies auditory or visual hallucinations. Reports feeling tremulous now. Denies history of withdrawal seizures. Also complains of chest pain with inspiration. Plan: EKG, labs, CXR Reevaluation(s) Reevaluation #1: Physician observation started at 1am Patient placed in physician observation because the patient needed more time for CARE team to assess the need for psych admission. At the time observation was started the patient's vitals were stable, patient is sleepy but oriented, Neuro: nonfocal, CV RRR, Lungs clear 2 EKGs normal at baseline for qrs and qtc ingestion was 6+ hours ago 08/12/23--713--physician observation continued. Repeat EKG at 06:00AM with QTC of 467, unchanged. Labs reviewed. AST/ALT/alk phos acute on chronically elevated likely from ETOH abuse. Ethanol 430 on arrival. Pending CARE eval. Appears patient was placed on nasal cannula early this morning. O2 stable, patient no distress, oxygen shut off -814--patient was evaluated by CARE team and will be inpatient bed search Medications Administered Generic Name Dose Route Start Last Admin Trade Name Freq PRN Reason Stop Dose Admin Lorazepam 2 mg 08/11/23 23:54 08/12/23 07:49 Lorazepam 1 Mg Tablet PO 2 mg Q2H PRN Administration Alcohol Withdrawal Discontinued Medications Generic Name Dose Route Start Last Admin Trade Name Freq PRN Reason Stop Dose Admin Thiamine HCl 100 mg 08/11/23 23:54 08/12/23 00:47 Thiamine Hcl 100 Mg Tablet PO 08/11/23 23:55 100 mg ONCE ONE Administration Medical Decision Making Medical Decision Making MDM Narrative: 43 yo male with hx of depression and ETOH abuse here with ingestion of 40mg of amitryptline at 630pm - unsure if this was SI he is very vague he is also intoxicated. He is failing outpatient ETOH rehabs likely due to underlying mental health issues. Will obtain labs, repeat trop, repeat EKG and refer to CARE team. keep on tele, PRN ativan and observation until he can be seen. Differential Diagnosis Differential Diagnoses: The differential diagnosis associated with the presentation includes ETOH abuse, overdose, ingestion. Admission/Observation Consideration of admission/observation: Escalation of care including admission/observation considered observe until seen by CARE team Consult Healthcare Provider Management of the patient was discussed with: Behavioral Health Provider Lab Data MDM Lab Attestation statement: I reviewed the patient's lab results. 08/11/23 20:47 08/11/23 20:47 Labs: Lab Results 08/11/23 08/12/23 Range/Units 20:47 00:46 WBC 4.8 (4.8-10.8) X10*3/uL RBC 4.49 L (4.60-5.80) X10*6/uL Hgb 14.2 (14.0-18.0) g/dl Hct 41.1 L (42.0-52.0) % MCV 91.5 (80.0-98.0) fL MCH 31.6 (27.0-33.0) pg MCHC 34.5 (31.0-36.0) g/dl RDW 15.7 (11.0-16.0) % Plt Count 220 D (160-400) X10*3/uL MPV 10.4 (9.4-12.4) fL Immature Gran % (Auto) 0.2 (0.0-0.4) % Neut % (Auto) 56.1 (45-73) % Lymph % (Auto) 36.9 (20-40) % [place] % (Auto) 5.6 (2-11) % Eos % (Auto) 0.0 (0-4) % Baso % (Auto) 1.2 (0-2) % Lymph # (Auto) 1.8 (1.2-4.9) X10*3/uL [place] # (Auto) 0.3 (0.1-1.2) X10*3/uL Eos # (Auto) 0.0 (0.0-0.4) X10*3/uL Baso # (Auto) 0.1 (0.0-0.2) X10*3/uL Abs Immat Gran (auto) 0.01 (0.00-0.03) X10*3/uL Absolute Neuts (auto) 2.7 (2.0-8.3) x10*3/uL Absolute Nucleated RBC 0.000 (0.0-0.012) X10*3/uL Nucleated RBC % (auto) 0.0 (0.0-0.2) /100WBC PT 9.4 L (11.1-13.3) SEC INR 0.8 L (0.9-1.1) Sodium 145 (135-145) mmol/L Potassium 3.6 D (3.3-5.1) mmol/L Chloride 104 (96-108) mmol/L Carbon Dioxide 23 (22-29) mmol/L Anion Gap 22 H (12-20) BUN 10 (9-16) mg/dL Creatinine 0.79 (0.5-1.4) mg/dL Estim Creat Clear Calc 162.1 Estimated GFR > 60 Random Glucose 111 (60-115) mg/dL Calcium 9.1 (8.4-10.2) mg/dL Magnesium 1.9 (1.6-2.6) mg/dL Total Bilirubin 0.6 (0.0-1.0) mg/dL AST 260 H (5-37) U/L ALT 161 H (0-40) U/L Alkaline Phosphatase 188 H (39-117) U/L Troponin I High Sens 16.3 D 18.0 (<3.5-35.0) ng/L Total Protein 8.7 H (6.5-8.0) g/dL Albumin 4.5 (3.5-5.0) g/dL Urine Opiates Screen Not Detected (Not Detect) Urine Fentanyl Screen Not Detected (Not Detect) Ur Barbiturates Screen Not Detected (Not Detect) Ur Phencyclidine Scrn Not Detected (Not Detect) Ur Amphetamines Screen Not Detected (Not Detect) U Benzodiazepines Scrn Not Detected (Not Detect) Urine Cocaine Screen Not Detected (Not Detect) U Marijuana (THC) Screen POSITIVE H (Not Detect) Ethyl Alcohol 430 H* mg/dL Independent Interpretation I performed an independent interpretation of an: EKG Interpretation: Rate: 108 Rhythm: sinus tach [place]: normal Normal P waves. Normal TIMOTHY. Normal QRS complex. ST T wave : normal no SAMUEL qTC: slightly prolonged prior studies: no acute ischemia The study has been interpreted contemporaneously by me. EKG#2 Rate: 95 Rhythm: NSR [place]: normal Normal P waves. Normal TIMOTHY. incomplete RBBB ST T wave : normal no SAMUEL qTC: 469 prior studies: no change hx of same in past The study has been interpreted contemporaneously by me. EKG #3 Rate: 84 Rhythm: NSR [place]: normal Normal P waves. Normal TIMOTHY. incomplete RBBB ST T wave : normal no SAMUEL qTC: normal 467 prior studies: no change The study has been interpreted contemporaneously by me. . Independent Historian Clinical information obtained from an independent historian. History obtained from or confirmed by: Friend External Record Review External record reviewed: Outpatient record Discharge Plan Discharge Clinical Impression: Elevated liver enzymes Depression Qualifiers: Depression Type: unspecified Qualified Code(s): F32.A - Depression, unspecified Alcohol intoxication Qualifiers: Complication of substance-induced condition: uncomplicated Qualified Code(s): F10.920 - Alcohol use, unspecified with intoxication, uncomplicated Drug overdose Qualifiers: Encounter type: initial encounter Injury intent: undetermined intent Qualified Code(s): T50.904A - Poisoning by unspecified drugs, medicaments and biological substances, undetermined, initial encounter Patient Disposition: Still a Patient Prescriptions: No Action naproxen 500 mg tablet 500 mg PO BID Qty: 14 0RF Interventions: [place]-Suicide Risk Severity Scale Last Done: 08/12/23 00:32
--- NOTE | 2023-08-11 20:32 | ECG_ITS ---
Test Reason : CHEST PAIN Blood Pressure : / mmHG Vent. Rate : 108 BPM Atrial Rate : 108 BPM P-R Int : 156 ms QRS Dur : 106 ms QT Int : 350 ms P-R-T Axes : 038 051 053 degrees QTc Int : 469 ms Artifact in tracing Sinus tachycardia Otherwise normal ECG When compared with ECG of 28-APR-2023 11:31, Incomplete right bundle branch block is no longer Present Referred By: Maisha Nunez Electronically Signed By:MIA TORRES
[2023-08-11 21:00] LABS: MANUAL DIFF FLAG NO
[2023-08-11 21:02] LABS: Basophils Absolute Auto 0.1 X10*3/uL (0.0-0.2); Basophils Percent Auto 1.2 % (0-2); Hematocrit 41.1 % (42.0-52.0); Hemoglobin 14.2 g/dl (14.0-18.0); Imm Gran Abs Auto 0.01 X10*3/uL (0.00-0.03); Imm Gran Pct Auto 0.2 % (0.0-0.4); Lymphocytes Absolute Auto 1.8 X10*3/uL (1.2-4.9); Lymphocytes Percent Auto 36.9 % (20-40); Mean Corpuscular HGB Conc 34.5 g/dl (31.0-36.0); Mean Corpuscular Hemoglobin 31.6 pg (27.0-33.0); Mean Corpuscular Volume 91.5 fL (80.0-98.0); Mean Platelet Volume 10.4 fL (9.4-12.4); Monocytes Absolute Auto 0.3 X10*3/uL (0.1-1.2); Monocytes Percent Auto 5.6 % (2-11); Neutrophils Absolute Auto 2.7 x10*3/uL (2.0-8.3); Neutrophils Percent Auto 56.1 % (45-73); Platelet Count 220 X10*3/uL (160-400); Red Blood Count 4.49 X10*6/uL (4.60-5.80); Red Cell Distribution Width 15.7 % (11.0-16.0); White Blood Count 4.8 X10*3/uL (4.8-10.8)
[2023-08-11 21:06] LABS: INTERNATIONAL NORM RATIO 0.8 (0.9-1.1); Prothrombin Time 9.4 SEC (11.1-13.3)
[2023-08-11 21:10] LABS: Amphetamine Screen Urine Not Detected (Not Detect); Barbiturates, Urine Not Detected (Not Detect); Benzodiazepines Screen Urine Not Detected (Not Detect); Cannabinoid Screen Urine POSITIVE (Not Detect); Cocaine Screen Urine Not Detected (Not Detect); Fentanyl, urine Not Detected (Not Detect); Opiate Screen Urine Not Detected (Not Detect); Phencyclidine Screen Urine Not Detected (Not Detect)
[2023-08-11 21:16] LABS: Alanine Aminotransferase 161 U/L (0-40); Albumin Level 4.5 g/dL (3.5-5.0); Alkaline Phosphatase 188 U/L (39-117); Anion Gap 22 (12-20); Aspartate Amino Transferase 260 U/L (5-37); Bilirubin Total 0.6 mg/dL (0.0-1.0); Blood Urea Nitrogen 10 mg/dL (9-16); Calcium 9.1 mg/dL (8.4-10.2); Carbon Dioxide 23 mmol/L (22-29); Chloride 104 mmol/L (96-108); Creatinine Clr Calc Pharmacy 162.1; Estimated Glomerular Filt Rate > 60; Ethanol 430 mg/dL; Glucose Random 111 mg/dL (60-115); Magnesium 1.9 mg/dL (1.6-2.6); Potassium 3.6 mmol/L (3.3-5.1); Sodium 145 mmol/L (135-145); Total Protein 8.7 g/dL (6.5-8.0)
[2023-08-11 21:22] LABS: Troponin-I High Sensitivity 16.3 ng/L (<3.5-35.0)
--- NOTE | 2023-08-11 23:54 | ECG_ITS ---
Test Reason : REPEAT Blood Pressure : / mmHG Vent. Rate : 095 BPM Atrial Rate : 095 BPM P-R Int : 116 ms QRS Dur : 108 ms QT Int : 374 ms P-R-T Axes : 047 045 056 degrees QTc Int : 469 ms Normal sinus rhythm Incomplete right bundle branch block Borderline ECG When compared with ECG of 11-AUG-2023 20:42, Incomplete right bundle branch block is now Present Referred By: Jerri Vyas Electronically Signed By:MIA TORRES
[2023-08-12 00:32] VITALS: BP 151/98; PULSE 94; RESP 12; TEMP 36.8; O2SAT 99
--- NOTE | 2023-08-12 00:42 | MHC.EDTECH ---
Patient placed on the machine stuffer and repeat EKG taken per order.
[2023-08-12] MEDS: Thiamine HCL 100 MG TABLET PO (00:47)
--- NOTE | 2023-08-12 00:52 | MHC.EDTECH ---
Belonging list completed and copy placed in chart. Locked in the [facility]
[2023-08-12 03:28] VITALS: BP 130/81; PULSE 86; RESP 13; TEMP 36.5; O2SAT 98
[2023-08-12 04:23] VITALS: BP 137/86; PULSE 94; RESP 16; TEMP 36.6; O2SAT 99
--- NOTE | 2023-08-12 04:25 | MHC.EDTECH ---
Hourly rounds and vitals completed
--- NOTE | 2023-08-12 06:00 | ECG_ITS ---
Test Reason : REPEAT Blood Pressure : / mmHG Vent. Rate : 084 BPM Atrial Rate : 084 BPM P-R Int : 140 ms QRS Dur : 116 ms QT Int : 396 ms P-R-T Axes : 025 044 056 degrees QTc Int : 467 ms Normal sinus rhythm Incomplete right bundle branch block Borderline ECG When compared with ECG of 12-AUG-2023 00:40, No significant change was found Referred By: Jerri Vyas Electronically Signed By:MIA TORRES
[2023-08-12 06:44] VITALS: BP 141/91; PULSE 94; RESP 16; TEMP 36.5; O2SAT 97
[2023-08-12] MEDS: LORazepam 1 MG TABLET 2 MG PO ×2 (07:49→12:42)
[2023-08-12 08:58] LABS: COVID-19 Test Negative (Negative); IDNOW Serial# BCCEAD1C
--- NOTE | 2023-08-12 10:09 | PHA.MEDREC ---
Pharmacy Consult ? Medication Reconciliation Pharmacy has completed the medication reconciliation.
--- NOTE | 2023-08-12 10:14 | PC.NURSE ---
patient brought over the pod from bed 7, placed in 8. ambulated independently with strong steady gait. offered PRN medications, patient refused at this time. states that he feels tired and just wants to try to sleep at this time.
[2023-08-12 10:48] VITALS: BP 170/105; PULSE 114; RESP 16; TEMP 37.2; O2SAT 97
--- NOTE | 2023-08-12 11:13 | PC.NURSE ---
CIWA of 17, medicated with phenobarb PO. resting quietly in bh8 with visitor at bedside
[2023-08-12 16:50] VITALS: BP 157/90; PULSE 88; TEMP 36.6
[2023-08-12] MEDS: traZODone HCL 50 MG TABLET PO (22:34)
[2023-08-12] MEDS: Omeprazole 40 MG CAPSULE.DR PO (22:34)
[2023-08-12] MEDS: Ibuprofen 400 MG TABLET PO (22:35)
--- NOTE | 2023-08-13 01:59 | PC.ADMIT ---
An German-speaking male, aged 43 years was admitted [place] [facility] as a CV at 12:50 following referral [place] [facility] [place]. Pt is not known to [facility] and pt reports that he has no history of IPLOC. Pt was accompanied to ED by his girlfriend secondary to pt disclosing to her he had taken an intentional overdose of amitriptyline in addition to drinking a significant amount of Etoh. Pt had stated to his girlfriend I don't want to wake up and I want to be go be with my mother . Pt's mother is recently in April. Pt's partner reported pt has been isolating in the home, with low energy, with increased depressive symptoms, reduced appetite and increased alcohol use. Pt has history of substance abuse treatment, is connected with [facility] for therapy and psychiatric medication provider. Pt has a 5 year old child with his ex- who him 3 years ago. Pt reports being hurt that she left him for a woman. Pt reported it is hard for him to interact with his ex- regarding the care of their child. COLON was positive for marijuana only; BAL was 430 upon arrival [place] [facility] Pt was unable to fully participate in admission due to mental status and Etoh withdrawal symptoms. Pt reported anxiety 8/10 and depression 8-9/10. Pt denies current SI, saying he can seek help from staff if needed. Pt denies HI and AVH. Pt reported face, body and head pain 8/10; order obtained for PRN ibuprofen which appeared to have good effect. Pt reports poor sleep for three months with difficulty falling and remaining asleep and Pt is open to medication management. Medical issues include: H. Pylori, and Long Covid. Pt has a history of Etoh withdrawal seizures. [id number] done; admission orders obtained, initial treatment plan done, but needs to be signed. Pt still needs to do safety tool. Pt is resting in room on 15 minute safety checks at this time.
[2023-08-13] MEDS: Omeprazole 40 MG CAPSULE.DR PO ×2 (05:39→16:05)
[2023-08-13] MEDS: Multivitamin TABLET 1 TAB PO (07:53)
[2023-08-13] MEDS: PHENobarbitaL 30 MG TABLET 60 MG PO ×3 (07:53→20:55)
[2023-08-13] MEDS: Thiamine HCL 100 MG TABLET PO (07:54)
[2023-08-13] MEDS: Ibuprofen 400 MG TABLET PO ×2 (08:05→18:21)
[2023-08-13 08:15] VITALS: BP 158/84; PULSE 73; RESP 16; TEMP 36.3; O2SAT 98
[2023-08-13 09:14] LABS: Estimated Average Glucose 105 mg/dL; Hemoglobin A1c % 5.3 % (<6.0)
[2023-08-13 09:27] LABS: Cholesterol 275 mg/dL (<200); HDL Cholesterol 115 mg/dL (>40); LDL Cholesterol Calculated 148 mg/dL (<100); Magnesium 1.7 mg/dL (1.6-2.6); Triglycerides 60 mg/dL (<150)
[2023-08-13 09:41] LABS: Free T4 (Free Thyroxine) 0.81 ng/dL (0.71-1.85); Thyroid Stimulating Hormone 1.94 uIU/mL (0.32-4.0)
[2023-08-13 09:54] LABS: Folate 16.5 ng/mL (> or = 4.0); Vitamin B12 523 pg/mL (200-900)
--- NOTE | 2023-08-13 09:54 | HO.PSYADMNOT ---
HPI Date of Service: 08/13/23 Chief Complaint: SI-s/p overdose, Alcohol use disorder; depression Sources of Information: patient interviewed, chart reviewed and crisis/core team assessment reviewed HPI Subjective Notes: Gentile Warning and Conditional Voluntary Narrative: Patient is a 43-year-old male with history of depression, anxiety, alcohol dependence who presents for worsening depression, with transient SI and the face of psychosocial stressors and alcoholism. Patient reports that he has been sad since his mother this past April. He endorses low energy, isolating. He was at his mother's house this past week, triggering worsening depressive feelings and he took some of her amitriptyline, saying it was in an attempt to sleep. He acknowledges that he did make a comment that he wanted to not wake up and to join his mother and says at the time that thought did pass through his mind; however he is not thinking that way anymore and his son is a strong protective factor. Patient endorses much anxiety over visiting his son whose biological mother is not favorably disposed towards him. Pt is in etoh withdrawal, uncomfortable and conversation completed. Medical Evaluation Reviewed: Yes [facility] Medical History Alcohol use disorder MDD (major depressive disorder), recurrent severe, without psychosis Alcohol abuse Family History: deferred Social History: out of work due to etoh born in [place]; moved [place] at 13 yo lives with female partner for past 3 years has 5 yo son from previous marriage who lives with mother but father remains involved Substance History: chronic alcohol abuse/dependence Trauma History: deferred Diagnostics Vital Signs (24Hr): Vital Signs - 24 hr 08/12/23 10:48 08/12/23 16:50 08/13/23 08:15 Temperature 98.9 F 97.8 F 97.3 F Pulse Rate 114 H 88 73 Respiratory Rate 16 16 Blood Pressure 170/105 H 157/90 H 158/84 H Pulse Oximetry 97 98 Oxygen Delivery Method Room Air Room Air BMI result Body Mass Index 34.3 Labs 08/11/23 20:47 08/11/23 20:47 Labs: Laboratory Results - last 48 hr 08/11/23 08/12/23 08/12/23 20:47 00:46 08:39 WBC 4.8 RBC 4.49 L Hgb 14.2 Hct 41.1 L MCV 91.5 MCH 31.6 MCHC 34.5 RDW 15.7 Plt Count 220 D MPV 10.4 Immature Gran % (Auto) 0.2 Neut % (Auto) 56.1 Lymph % (Auto) 36.9 [place] % (Auto) 5.6 Eos % (Auto) 0.0 Baso % (Auto) 1.2 Lymph # (Auto) 1.8 [place] # (Auto) 0.3 Eos # (Auto) 0.0 Baso # (Auto) 0.1 Abs Immat Gran (auto) 0.01 Absolute Neuts (auto) 2.7 Absolute Nucleated RBC 0.000 Nucleated RBC % (auto) 0.0 PT 9.4 L INR 0.8 L Sodium 145 Potassium 3.6 D Chloride 104 Carbon Dioxide 23 Anion Gap 22 H BUN 10 Creatinine 0.79 Estim Creat Clear Calc 162.1 Estimated GFR > 60 Random Glucose 111 Estimat Average Glucose Hemoglobin A1c % Calcium 9.1 Magnesium 1.9 Total Bilirubin 0.6 AST 260 H ALT 161 H Alkaline Phosphatase 188 H Troponin I High Sens 16.3 D 18.0 Total Protein 8.7 H Albumin 4.5 Triglycerides Cholesterol LDL Cholesterol, Calc HDL Cholesterol TSH Free T4 Urine Opiates Screen Not Detected Urine Fentanyl Screen Not Detected Ur Barbiturates Screen Not Detected Ur Phencyclidine Scrn Not Detected Ur Amphetamines Screen Not Detected U Benzodiazepines Scrn Not Detected Urine Cocaine Screen Not Detected U Marijuana (THC) Screen POSITIVE H Ethyl Alcohol 430 H* COVID-19 ([facility]) Negative COVID-19 Clin Com See Note 08/13/23 08:34 WBC RBC Hgb Hct MCV MCH MCHC RDW Plt Count MPV Immature Gran % (Auto) Neut % (Auto) Lymph % (Auto) [place] % (Auto) Eos % (Auto) Baso % (Auto) Lymph # (Auto) [place] # (Auto) Eos # (Auto) Baso # (Auto) Abs Immat Gran (auto) Absolute Neuts (auto) Absolute Nucleated RBC Nucleated RBC % (auto) PT INR Sodium Potassium Chloride Carbon Dioxide Anion Gap BUN Creatinine Estim Creat Clear Calc Estimated GFR Random Glucose Estimat Average Glucose 105 Hemoglobin A1c % 5.3 Calcium Magnesium 1.7 Total Bilirubin AST ALT Alkaline Phosphatase Troponin I High Sens Total Protein Albumin Triglycerides 60 Cholesterol 275 H LDL Cholesterol, Calc 148 H HDL Cholesterol 115 TSH 1.94 Free T4 0.81 Urine Opiates Screen Urine Fentanyl Screen Ur Barbiturates Screen Ur Phencyclidine Scrn Ur Amphetamines Screen U Benzodiazepines Scrn Urine Cocaine Screen U Marijuana (THC) Screen Ethyl Alcohol COVID-19 ([facility]) COVID-19 Clin Com Meds/Allergies Meds Home Medications Medication Instructions Recorded Confirmed Type amitriptyline 10 mg tablet 10 mg PO BEDTIME 08/12/23 08/12/23 History naltrexone 50 mg tablet 50 mg PO DAILY 08/12/23 08/12/23 History thiamine HCl (vitamin B1) 100 mg 100 mg PO DAILY 08/12/23 08/12/23 History tablet Allergies Allergies Allergy/AdvReac Type Severity Reaction Status Date / Time Penicillins [PCN] Allergy Rash Verified 04/28/23 10:40 Mental Status Exam Mental Status Exam Narrative: Pt is alert and oriented; behavior is cooperative, calm,; patient is not in distress; dressed in hospital attire with unkempt hair, disheveled; mood is described as depressed and affect congruent, downcast, tearful; eye contact appropriate; Speech is normal rate, volume and prosody and not pressured; no psychomotor agitation/retardation present; thought process is organized and goal directed; Thought content is on son, missing his mother, hiding his alcoholism; otherwise pertinent to relevant topics and without any delusional content, paranoid ideations or grandiosity; denies any SI/HI. There is no evidence of perceptual disturbance. Patients insight and judgment impaired. Assessment & Plan Assessment & Plan (1) MDD (major depressive disorder), recurrent severe, without psychosis: Status: Acute Code(s): F33.2 - Major depressive disorder, recurrent severe without psychotic features (2) Alcohol use disorder: Status: Acute Code(s): F10.90 - Alcohol use, unspecified, uncomplicated (3) Alcohol withdrawal: Status: Acute Code(s): F10.939 - Alcohol use, unspecified with withdrawal, unspecified Plan Patient is a 43-year-old male with history of depression, anxiety, alcohol dependence who presents for worsening depression, with transient SI and the face of psychosocial stressors and alcoholism. Patient reports that he has been sad since his mother this past April. He endorses low energy, isolating. He was at his mother's house this past week, triggering worsening depressive feelings and he took some of her amitriptyline, saying it was in an attempt to sleep. He acknowledges that he did make a comment that he wanted to not wake up and to join his mother and says at the time that thought did pass through his mind; however he is not thinking that way anymore and his son is a strong protective factor. Patient endorses much anxiety over visiting his son whose biological mother is not favorably disposed towards him. Pt is in etoh withdrawal, uncomfortable and conversation completed. Plan: CV q15min Phenobarb taper CIWA with phenbarb as prn will address meds for depression/anxiety as detox more completes Patient educated on: diagnosis and substance abuse Informed Consent: understands Reason for continued inpatient stay Substantial Risk for: inability to function Statement Statement: I have reviewed the history and physical and performed a pertinent examination on my patient. No changes have occurred unless specified. If the History and Physical was not performed prior to admission, the Hospitalist's service will be consulted for completing the admission physical. Time Spent With Patient Time: Total time managing care of this patient today ____ minutes.
[2023-08-13] MEDS: LORazepam 1 MG TABLET 2 MG PO (11:41)
[2023-08-13 16:37] VITALS: BP 141/89; PULSE 89; TEMP 36.9; O2SAT 99
[2023-08-13] MEDS: hydrOXYzine HCL 25 MG TABLET PO (18:21)
[2023-08-14] MEDS: Omeprazole 40 MG CAPSULE.DR PO ×2 (05:57→16:44)
[2023-08-14 08:00] VITALS: BP 148/80; PULSE 70; TEMP 37.1; O2SAT 98
[2023-08-14] MEDS: Thiamine HCL 100 MG TABLET PO (08:48)
[2023-08-14] MEDS: Multivitamin TABLET 1 TAB PO (08:48)
[2023-08-14] MEDS: PHENobarbitaL 30 MG TABLET 60 MG PO ×2 (08:49→20:42)
--- NOTE | 2023-08-14 10:00 | P.PNPSI_ITS ---
Subjective Subjective Date of Service: 08/14/23 Reason For Visit: SI-s/p overdose, Alcohol use disorder; depression Interim History: met with patient; discussed with team Remains depressed and anxious; discussed medications. Correction patient was prescribed amitriptyline which he took several of this past week (not his mother's) amitriptyline. Patient started to acknowledge that he has more serious issues with alcoholism then he was 1st able to admit; however he wants to work on it by himself in the community and is low leaning against going to a program. Discussed medications , risks/side effects and he agrees trial of Prozac. Has insomnia and agrees to clonidine Mental Status Exam Mental Status Exam Narrative: Pt is alert and oriented; behavior is cooperative, calm,; patient is not in distress; dressed in hospital attire with unkempt hair; mood is described as depressed and affect congruent, downcast but more calm; eye contact appropriate; Speech is normal rate, volume and prosody and not pressured; no psychomotor agitation/retardation present; thought process is organized and goal directed; Thought content is on son, missing his mother, hiding his alcoholism; otherwise pertinent to relevant topics and without any delusional content, paranoid ideations or grandiosity; denies any SI/HI. There is no evidence of perceptual disturbance. Patients insight and judgment impaired but improving Diagnostics Vital Signs (24Hr): Vital Signs - 24 hr 08/13/23 16:37 Temperature 98.4 F Pulse Rate 89 Blood Pressure 141/89 H Pulse Oximetry 99 Oxygen Delivery Method Room Air BMI result Body Mass Index 34.3 Labs 08/11/23 20:47 08/11/23 20:47 Labs: Laboratory Results - last 48 hr 08/13/23 08:34 Estimat Average Glucose 105 Hemoglobin A1c % 5.3 Magnesium 1.7 Triglycerides 60 Cholesterol 275 H LDL Cholesterol, Calc 148 H HDL Cholesterol 115 Vitamin B12 523 Folate 16.5 TSH 1.94 Free T4 0.81 Medications Medications Current Medications Al Hydroxide/Mg Hydroxide (Magnesium Hydrox/Alum Hydrox 30 Ml Oral.Susp) 30 ml PO Q6H PRN PRN Reason: Heartburn/Nausea Hydroxyzine HCl (Hydroxyzine Hcl 25 Mg Tablet) 25 mg PO Q6H PRN PRN Reason: Anxiety Last Admin: 08/13/23 18:21 Dose: 25 mg Ibuprofen (Ibuprofen 400 Mg Tablet) 400 mg PO Q6H PRN PRN Reason: Pain, Moderate(Pain Scale 4-6) Last Admin: 08/13/23 18:21 Dose: 400 mg Magnesium Hydroxide (Milk Of Magnesia 30 Ml Oral.Susp) 30 ml PO DAILY PRN PRN Reason: Constipation Multivitamins/Vitamin C (Multivitamin Tablet) 1 tab PO DAILY NATE Last Admin: 08/14/23 08:48 Dose: 1 tab Omeprazole (Omeprazole 40 Mg Capsule.Dr) 40 mg PO BID@0630,1630 [facility] Last Admin: 08/14/23 05:57 Dose: 40 mg Phenobarbital (Phenobarbital 30 Mg Tablet) 60 mg PO BID [facility]; Protocol Stop: 08/14/23 21:01 Last Admin: 08/14/23 08:49 Dose: 60 mg Phenobarbital (Phenobarbital 30 Mg Tablet) 30 mg PO BID [facility]; Protocol Stop: 08/16/23 21:01 Phenobarbital (Phenobarbital 30 Mg Tablet) 30 mg PO DAILY NATE; Protocol Stop: 08/18/23 09:01 Phenobarbital (Phenobarbital 30 Mg Tablet) 60 mg PO Q4H PRN PRN Reason: CIWA 7-11 Last Admin: 08/13/23 20:55 Dose: 60 mg Phenobarbital 100 mg/ (Phenobarbital 30 mg) 130 mg PO Q4H PRN PRN Reason: CIWA>12 Last Admin: 08/13/23 16:07 Dose: 130 mg Thiamine HCl (Thiamine Hcl 100 Mg Tablet) 100 mg PO DAILY NATE Last Admin: 08/14/23 08:48 Dose: 100 mg Trazodone HCl (Trazodone Hcl 50 Mg Tablet) 50 mg PO BEDTIME MRX1 PRN PRN Reason: Insomnia Last Admin: 08/12/23 22:34 Dose: 50 mg Allergies Allergies Allergy/AdvReac Type Severity Reaction Status Date / Time Penicillins [PCN] Allergy Rash Verified 04/28/23 10:40 Assessment & Plan Assessment & Plan (1) MDD (major depressive disorder), recurrent severe, without psychosis: Status: Acute Code(s): F33.2 - Major depressive disorder, recurrent severe without psychotic features (2) Alcohol use disorder: Status: Acute Code(s): F10.90 - Alcohol use, unspecified, uncomplicated (3) Alcohol withdrawal: Status: Acute Code(s): F10.939 - Alcohol use, unspecified with withdrawal, unspecified Plan Patient is a 43-year-old male with history of depression, anxiety, alcohol dependence who presents for worsening depression, with transient SI and the face of psychosocial stressors and alcoholism. Patient reports that he has been sad since his mother this past April. He endorses low energy, isolating. He was at his mother's house this past week, triggering worsening depressive feelings and he took extra pills of HIS own amitriptyline, saying it was in an attempt to sleep. He acknowledges that he did make a comment that he wanted to not wake up and to join his mother and says at the time that thought did pass through his mind; however he is not thinking that way anymore and his son is a strong protective factor. Patient endorses much anxiety over visiting his son whose biological mother is not favorably disposed towards him. Pt is in etoh withdrawal, uncomfortable and conversation completed. 08/14Remains depressed and anxious; discussed medications. Correction patient was prescribed amitriptyline which he took several of this past week (not his mother's) amitriptyline. Patient started to acknowledge that he has more serious issues with alcoholism then he was 1st able to admit; however he wants to work on it by himself in the community and is low leaning against going to a program. Discussed medications , risks/side effects and he agrees trial of Prozac. Has insomnia and agrees to clonidine Plan: 3 day q15min start Prozac 10mg start clonidine 0.1mg qhs for insmnia Phenobarb taper CIWA with phenbarb as prn will address meds for depression/anxiety as detox more completes Patient educated on: diagnosis, medication risk/benefits and substance abuse Informed Consent: understands Reason for continued inpatient stay Substantial Risk for: rapid decompensation Time Spent With Patient Time: Total time managing care of this patient today ____ minutes.
[2023-08-14] MEDS: hydrOXYzine HCL 25 MG TABLET PO ×2 (11:47→20:41)
[2023-08-14] MEDS: cloNIDine HCL 0.1 MG TABLET PO ×2 (16:44→20:41)
[2023-08-14] MEDS: FLUoxetine HCl 10 MG CAPSULE PO (16:44)
[2023-08-14 18:00] VITALS: BP 114/82; PULSE 110; RESP 18; TEMP 36.6; O2SAT 100
[2023-08-14] MEDS: traZODone HCL 50 MG TABLET PO (20:41)
[2023-08-15] MEDS: Omeprazole 40 MG CAPSULE.DR PO ×2 (05:39→16:11)
[2023-08-15] MEDS: Thiamine HCL 100 MG TABLET PO (08:09)
[2023-08-15] MEDS: PHENobarbitaL 30 MG TABLET PO ×2 (08:09→22:34)
[2023-08-15] MEDS: FLUoxetine HCl 10 MG CAPSULE PO (08:09)
[2023-08-15] MEDS: Multivitamin TABLET 1 TAB PO (08:09)
[2023-08-15 08:15] VITALS: BP 123/78; PULSE 80; RESP 18; TEMP 36.6; O2SAT 98
--- NOTE | 2023-08-15 11:38 | HO.PSYCHPN ---
Subjective Subjective Date of Service: 08/15/23 Reason For Visit: SI-s/p overdose, Alcohol use disorder; depression Subjective Notes: Conditional Voluntary and 3 Day Interim History: Patient was seen and discussed in rounds today. Records and plans were reviewed. He feels that he is doing better. He historically has difficult detox is and is now on phenobarbital detox protocol. Eating and sleeping adequately. Some complaint of drowsiness during the day which we discussed. Current medications were reviewed with him. No changes were made eating and sleeping adequately. Review of Systems Review of Systems Yes all other systems are reviewed and are negative Mental Status Exam Mental Status Exam Narrative: In today's visit he is alert, oriented and pleasant. Normal speech. Good eye contact. Affect is appropriate and constricted. No signs of psychosis. No overt signs of withdrawals. Cognitively is intact. No SI. Judgment is in Diagnostics Vital Signs (24Hr): Vital Signs - 24 hr 08/14/23 18:00 08/15/23 08:15 Temperature 97.8 F 97.8 F Pulse Rate 110 H 80 Respiratory Rate 18 18 Blood Pressure 114/82 123/78 Pulse Oximetry 100 98 Oxygen Delivery Method Room Air Room Air BMI result Body Mass Index 34.3 Labs 08/11/23 20:47 08/11/23 20:47 Medications Medications Current Medications Al Hydroxide/Mg Hydroxide (Magnesium Hydrox/Alum Hydrox 30 Ml Oral.Susp) 30 ml PO Q6H PRN PRN Reason: Heartburn/Nausea Clonidine HCl (Clonidine Hcl 0.1 Mg Tablet) 0.1 mg PO BEDTIME NATE; Protocol Last Admin: 08/14/23 20:41 Dose: 0.1 mg Clonidine HCl (Clonidine Hcl 0.1 Mg Tablet) 0.1 mg PO Q4H PRN; Protocol PRN Reason: anxiety Fluoxetine HCl (Fluoxetine Hcl 10 Mg Capsule) 10 mg PO DAILY NATE Last Admin: 08/15/23 08:09 Dose: 10 mg Hydroxyzine HCl (Hydroxyzine Hcl 25 Mg Tablet) 25 mg PO Q6H PRN PRN Reason: Anxiety Last Admin: 08/14/23 20:41 Dose: 25 mg Ibuprofen (Ibuprofen 400 Mg Tablet) 400 mg PO Q6H PRN PRN Reason: Pain, Moderate(Pain Scale 4-6) Last Admin: 08/13/23 18:21 Dose: 400 mg Magnesium Hydroxide (Milk Of Magnesia 30 Ml Oral.Susp) 30 ml PO DAILY PRN PRN Reason: Constipation Multivitamins/Vitamin C (Multivitamin Tablet) 1 tab PO DAILY [facility] Last Admin: 08/15/23 08:09 Dose: 1 tab Omeprazole (Omeprazole 40 Mg Capsule.Dr) 40 mg PO BID@0630,1630 [facility] Last Admin: 08/15/23 05:39 Dose: 40 mg Phenobarbital (Phenobarbital 30 Mg Tablet) 30 mg PO BID [facility]; Protocol Stop: 08/16/23 21:01 Last Admin: 08/15/23 08:09 Dose: 30 mg Phenobarbital (Phenobarbital 30 Mg Tablet) 30 mg PO DAILY [facility]; Protocol Stop: 08/18/23 09:01 Phenobarbital (Phenobarbital 30 Mg Tablet) 60 mg PO Q2H PRN PRN Reason: CIWA 7-11 Phenobarbital 100 mg/ (Phenobarbital 30 mg) 130 mg PO Q2H PRN PRN Reason: CIWA>12 Thiamine HCl (Thiamine Hcl 100 Mg Tablet) 100 mg PO DAILY [facility] Last Admin: 08/15/23 08:09 Dose: 100 mg Trazodone HCl (Trazodone Hcl 50 Mg Tablet) 50 mg PO BEDTIME MRX1 PRN PRN Reason: Insomnia Last Admin: 08/14/23 20:41 Dose: 50 mg Allergies Allergies Allergy/AdvReac Type Severity Reaction Status Date / Time Penicillins [PCN] Allergy Rash Verified 04/28/23 10:40 Assessment & Plan Assessment & Plan (1) MDD (major depressive disorder), recurrent severe, without psychosis: Status: Acute Code(s): F33.2 - Major depressive disorder, recurrent severe without psychotic features (2) Alcohol use disorder: Status: Acute Code(s): F10.90 - Alcohol use, unspecified, uncomplicated (3) Alcohol withdrawal: Status: Acute Code(s): F10.939 - Alcohol use, unspecified with withdrawal, unspecified Plan Patient is a 43-year-old male with history of depression, anxiety, alcohol dependence who presents for worsening depression, with transient SI and the face of psychosocial stressors and alcoholism. Patient reports that he has been sad since his mother this past April. He endorses low energy, isolating. He was at his mother's house this past week, triggering worsening depressive feelings and he took extra pills of HIS own amitriptyline, saying it was in an attempt to sleep. He acknowledges that he did make a comment that he wanted to not wake up and to join his mother and says at the time that thought did pass through his mind; however he is not thinking that way anymore and his son is a strong protective factor. Patient endorses much anxiety over visiting his son whose biological mother is not favorably disposed towards him. Pt is in etoh withdrawal, uncomfortable and conversation completed. 08/14Remains depressed and anxious; discussed medications. Correction patient was prescribed amitriptyline which he took several of this past week (not his mother's) amitriptyline. Patient started to acknowledge that he has more serious issues with alcoholism then he was 1st able to admit; however he wants to work on it by himself in the community and is low leaning against going to a program. Discussed medications , risks/side effects and he agrees trial of Prozac. Has insomnia and agrees to clonidine Plan: 3 day q15min start Prozac 10mg start clonidine 0.1mg qhs for insmnia Phenobarb taper CIWA with phenbarb as prn will address meds for depression/anxiety as detox more completes 08/15: Continue current plans and regimen. Continue current withdrawal protocol Patient educated on: medication risk/benefits Reason for continued inpatient stay Substantial Risk for: med/psych decompensation Time Spent With Patient Time: Total time managing care of this patient today ____ minutes.
[2023-08-15] MEDS: Ibuprofen 400 MG TABLET PO (14:21)
[2023-08-15 16:20] VITALS: BP 144/92; PULSE 112; TEMP 36.3
[2023-08-15 17:15] VITALS: BP 147/86; PULSE 88
[2023-08-15] MEDS: cloNIDine HCL 0.1 MG TABLET PO (22:33)
[2023-08-15] MEDS: traZODone HCL 50 MG TABLET PO (22:33)
[2023-08-16] MEDS: Omeprazole 40 MG CAPSULE.DR PO ×2 (05:45→17:11)
[2023-08-16] MEDS: FLUoxetine HCl 10 MG CAPSULE PO (08:27)
[2023-08-16] MEDS: Multivitamin TABLET 1 TAB PO (08:27)
[2023-08-16] MEDS: PHENobarbitaL 30 MG TABLET PO ×2 (08:27→20:49)
[2023-08-16] MEDS: Thiamine HCL 100 MG TABLET PO (08:27)
[2023-08-16 08:31] VITALS: BP 116/82; PULSE 85; RESP 18; TEMP 36.5; O2SAT 97
--- NOTE | 2023-08-16 10:54 | P.PNPSI_ITS ---
Subjective Subjective Date of Service: 08/16/23 Reason For Visit: SI-s/p overdose, Alcohol use disorder; depression Subjective Notes: Conditional Voluntary and 3 Day Interim History: Patient was seen and discussed in rounds today. Records and plans were reviewed. He is feeling much better and feels that every day is improving further. He states that his diarrhea is also better. Continues to have some depression and anxiety. No groups attended. He is still scoring on his CIWA. He complains of sleeping and I will increase his trazodone to 100 mg. No other changes were made today Review of Systems Review of Systems Sleep and still some diarrhea Yes all other systems are reviewed and are negative Mental Status Exam Mental Status Exam Narrative: In today's visit he is alert, oriented and pleasant. Normal speech. Good eye contact. Affect is appropriate and varied. No signs of psychosis. No overt signs of withdrawals. Cognitively is intact. No SI. Judgment is in Diagnostics Vital Signs (24Hr): Vital Signs - 24 hr 08/15/23 16:20 08/15/23 17:15 08/16/23 08:31 Temperature 97.4 F 97.7 F Pulse Rate 112 H 88 85 Respiratory Rate 18 Blood Pressure 144/92 H 147/86 H 116/82 Pulse Oximetry 97 Oxygen Delivery Method Room Air BMI result Body Mass Index 34.3 Labs 08/11/23 20:47 08/11/23 20:47 Medications Medications Current Medications Al Hydroxide/Mg Hydroxide (Magnesium Hydrox/Alum Hydrox 30 Ml Oral.Susp) 30 ml PO Q6H PRN PRN Reason: Heartburn/Nausea Clonidine HCl (Clonidine Hcl 0.1 Mg Tablet) 0.1 mg PO BEDTIME NATE; Protocol Last Admin: 08/15/23 22:33 Dose: 0.1 mg Clonidine HCl (Clonidine Hcl 0.1 Mg Tablet) 0.1 mg PO Q4H PRN; Protocol PRN Reason: anxiety Fluoxetine HCl (Fluoxetine Hcl 10 Mg Capsule) 10 mg PO DAILY NATE Last Admin: 08/16/23 08:27 Dose: 10 mg Hydroxyzine HCl (Hydroxyzine Hcl 25 Mg Tablet) 25 mg PO Q6H PRN PRN Reason: Anxiety Last Admin: 08/14/23 20:41 Dose: 25 mg Ibuprofen (Ibuprofen 400 Mg Tablet) 400 mg PO Q6H PRN PRN Reason: Pain, Moderate(Pain Scale 4-6) Last Admin: 08/15/23 14:21 Dose: 400 mg Magnesium Hydroxide (Milk Of Magnesia 30 Ml Oral.Susp) 30 ml PO DAILY PRN PRN Reason: Constipation Multivitamins/Vitamin C (Multivitamin Tablet) 1 tab PO DAILY [facility] Last Admin: 08/16/23 08:27 Dose: 1 tab Omeprazole (Omeprazole 40 Mg Capsule.Dr) 40 mg PO BID@0630,1630 [facility] Last Admin: 08/16/23 05:45 Dose: 40 mg Phenobarbital (Phenobarbital 30 Mg Tablet) 30 mg PO BID [facility]; Protocol Stop: 08/16/23 21:01 Last Admin: 08/16/23 08:27 Dose: 30 mg Phenobarbital (Phenobarbital 30 Mg Tablet) 30 mg PO DAILY [facility]; Protocol Stop: 08/18/23 09:01 Phenobarbital (Phenobarbital 30 Mg Tablet) 60 mg PO Q2H PRN PRN Reason: CIWA 7-11 Phenobarbital 100 mg/ (Phenobarbital 30 mg) 130 mg PO Q2H PRN PRN Reason: CIWA>12 Last Admin: 08/15/23 17:46 Dose: 130 mg Thiamine HCl (Thiamine Hcl 100 Mg Tablet) 100 mg PO DAILY [facility] Last Admin: 08/16/23 08:27 Dose: 100 mg Trazodone HCl (Trazodone Hcl 50 Mg Tablet) 50 mg PO BEDTIME MRX1 PRN PRN Reason: Insomnia Last Admin: 08/15/23 22:33 Dose: 50 mg Allergies Allergies Allergy/AdvReac Type Severity Reaction Status Date / Time Penicillins [PCN] Allergy Rash Verified 04/28/23 10:40 Assessment & Plan Assessment & Plan (1) MDD (major depressive disorder), recurrent severe, without psychosis: Status: Acute Code(s): F33.2 - Major depressive disorder, recurrent severe without psychotic features (2) Alcohol use disorder: Status: Acute Code(s): F10.90 - Alcohol use, unspecified, uncomplicated (3) Alcohol withdrawal: Status: Acute Code(s): F10.939 - Alcohol use, unspecified with withdrawal, unspecified Plan Patient is a 43-year-old male with history of depression, anxiety, alcohol dependence who presents for worsening depression, with transient SI and the face of psychosocial stressors and alcoholism. Patient reports that he has been sad since his mother this past April. He endorses low energy, isolating. He was at his mother's house this past week, triggering worsening depressive feelings and he took extra pills of HIS own amitriptyline, saying it was in an attempt to sleep. He acknowledges that he did make a comment that he wanted to not wake up and to join his mother and says at the time that thought did pass through his mind; however he is not thinking that way anymore and his son is a strong protective factor. Patient endorses much anxiety over visiting his son whose biological mother is not favorably disposed towards him. Pt is in etoh withdrawal, uncomfortable and conversation completed. 08/14Remains depressed and anxious; discussed medications. Correction patient was prescribed amitriptyline which he took several of this past week (not his mother's) amitriptyline. Patient started to acknowledge that he has more serious issues with alcoholism then he was 1st able to admit; however he wants to work on it by himself in the community and is low leaning against going to a program. Discussed medications , risks/side effects and he agrees trial of Prozac. Has insomnia and agrees to clonidine Plan: 3 day q15min start Prozac 10mg start clonidine 0.1mg qhs for insmnia Phenobarb taper CIWA with phenbarb as prn will address meds for depression/anxiety as detox more completes 08/15: Continue current plans and regimen. Continue current withdrawal protocol 08/16: Continue current regimen and plans and increased trazodone to 100 mg Patient educated on: medication risk/benefits Reason for continued inpatient stay Substantial Risk for: med/psych decompensation Time Spent With Patient Time: Total time managing care of this patient today ____ minutes.
[2023-08-16] MEDS: Ibuprofen 400 MG TABLET PO (11:51)
[2023-08-16 18:00] VITALS: BP 153/81; PULSE 100; TEMP 36.9; O2SAT 100
[2023-08-16] MEDS: PHENobarbitaL 30 MG TABLET 60 MG PO (19:01)
[2023-08-16] MEDS: cloNIDine HCL 0.1 MG TABLET PO (20:50)
[2023-08-17] MEDS: Omeprazole 40 MG CAPSULE.DR PO ×2 (05:48→16:22)
[2023-08-17] MEDS: Ibuprofen 400 MG TABLET PO ×2 (06:30→20:46)
[2023-08-17 08:00] VITALS: BP 143/81; PULSE 92; RESP 18; TEMP 36.7; O2SAT 99
--- NOTE | 2023-08-17 09:13 | P.PNPSI_ITS ---
Subjective Subjective Date of Service: 08/17/23 Reason For Visit: SI-s/p overdose, Alcohol use disorder; depression Interim History: Met with Patient; discussed with team; reviewed chart Reports that his mood is better and that anxiety is down. He is also optimistic about pursuing sobriety. Discussed struggles and vulnerability to relapse; patient remains adamant that he does not want a program or other help from inpatient team and that he will work out his sobriety on his own. Pt placed a 3 day notice that is coming due and he feels ready for discharge. He feels withdrawals pretty much over and that medications are helpful. Patient does not want any appointments saying he already has a provider and therapist that he will follow up with all his own. He will be returning to live with his girlfriend. Patient also complained about a mild headache, some nausea and vomiting 1 time this morning, with also feeling a little dizzy at once point. Labs ordered and patient tested positive for RSV. Mental Status Exam Mental Status Exam Narrative: Pt is alert and oriented; behavior is cooperative, calm, friendly; patient is not in distress; dressed in hospital attire, adequately groomed; mood is described as good and affect congruent, brighter, calm; eye contact appropriate; Speech is normal rate, volume and prosody and not pressured; no psychomotor agitation/retardation present; thought process is organized and goal directed; Thought content is on discharge, outpatient treatment some; otherwise pertinent to relevant topics and without any delusional content, paranoid ideations or grandiosity; denies any SI/HI. There is no evidence of perceptual disturbance. Patients insight and judgment fair Diagnostics Vital Signs (24Hr): Vital Signs - 24 hr 08/16/23 18:00 Temperature 98.4 F Pulse Rate 100 Blood Pressure 153/81 H Pulse Oximetry 100 Oxygen Delivery Method Room Air BMI result Body Mass Index 34.3 Labs 08/11/23 20:47 08/11/23 20:47 Medications Medications Current Medications Al Hydroxide/Mg Hydroxide (Magnesium Hydrox/Alum Hydrox 30 Ml Oral.Susp) 30 ml PO Q6H PRN PRN Reason: Heartburn/Nausea Clonidine HCl (Clonidine Hcl 0.1 Mg Tablet) 0.1 mg PO BEDTIME NATE; Protocol Last Admin: 08/16/23 20:50 Dose: 0.1 mg Clonidine HCl (Clonidine Hcl 0.1 Mg Tablet) 0.1 mg PO Q4H PRN; Protocol PRN Reason: anxiety Fluoxetine HCl (Fluoxetine Hcl 10 Mg Capsule) 10 mg PO DAILY [facility] Last Admin: 08/16/23 08:27 Dose: 10 mg Hydroxyzine HCl (Hydroxyzine Hcl 25 Mg Tablet) 25 mg PO Q6H PRN PRN Reason: Anxiety Last Admin: 08/14/23 20:41 Dose: 25 mg Ibuprofen (Ibuprofen 400 Mg Tablet) 400 mg PO Q6H PRN PRN Reason: Pain, Moderate(Pain Scale 4-6) Last Admin: 08/17/23 06:30 Dose: 400 mg Magnesium Hydroxide (Milk Of Magnesia 30 Ml Oral.Susp) 30 ml PO DAILY PRN PRN Reason: Constipation Multivitamins/Vitamin C (Multivitamin Tablet) 1 tab PO DAILY [facility] Last Admin: 08/16/23 08:27 Dose: 1 tab Omeprazole (Omeprazole 40 Mg Capsule.Dr) 40 mg PO BID@0630,1630 [facility] Last Admin: 08/17/23 05:48 Dose: 40 mg Phenobarbital (Phenobarbital 30 Mg Tablet) 30 mg PO DAILY [facility]; Protocol Stop: 08/18/23 09:01 Phenobarbital (Phenobarbital 30 Mg Tablet) 60 mg PO Q2H PRN PRN Reason: CIWA 7-11 Last Admin: 08/16/23 19:01 Dose: 60 mg Phenobarbital 100 mg/ (Phenobarbital 30 mg) 130 mg PO Q2H PRN PRN Reason: CIWA>12 Last Admin: 08/15/23 17:46 Dose: 130 mg Thiamine HCl (Thiamine Hcl 100 Mg Tablet) 100 mg PO DAILY [facility] Last Admin: 08/16/23 08:27 Dose: 100 mg Trazodone HCl (Trazodone Hcl 100 Mg Tablet) 100 mg PO BEDTIME MRX1 PRN PRN Reason: Insomnia Allergies Allergies Allergy/AdvReac Type Severity Reaction Status Date / Time Penicillins [PCN] Allergy Rash Verified 04/28/23 10:40 Assessment & Plan Assessment & Plan (1) MDD (major depressive disorder), recurrent severe, without psychosis: Status: Acute Code(s): F33.2 - Major depressive disorder, recurrent severe without psychotic features (2) Alcohol use disorder: Status: Acute Code(s): F10.90 - Alcohol use, unspecified, uncomplicated (3) Alcohol withdrawal: Status: Acute Code(s): F10.939 - Alcohol use, unspecified with withdrawal, unspecified Plan Patient is a 43-year-old male with history of depression, anxiety, alcohol dependence who presents for worsening depression, with transient SI and the face of psychosocial stressors and alcoholism. Patient reports that he has been sad since his mother this past April. He endorses low energy, isolating. He was at his mother's house this past week, triggering worsening depressive feelings and he took extra pills of HIS own amitriptyline, saying it was in an attempt to sleep. He acknowledges that he did make a comment that he wanted to not wake up and to join his mother and says at the time that thought did pass through his mind; however he is not thinking that way anymore and his son is a strong protective factor. Patient endorses much anxiety over visiting his son whose biological mother is not favorably disposed towards him. Pt is in etoh withdrawal, uncomfortable and conversation completed. 08/14Remains depressed and anxious; discussed medications. Correction patient was prescribed amitriptyline which he took several of this past week (not his mother's) amitriptyline. Patient started to acknowledge that he has more serious issues with alcoholism then he was 1st able to admit; however he wants to work on it by himself in the community and is low leaning against going to a program. Discussed medications , risks/side effects and he agrees trial of Prozac. Has insomnia and agrees to clonidine 08/15: He feels that he is doing better. He historically has difficult detox is and is now on phenobarbital detox protocol. Eating and sleeping adequately. Some complaint of drowsiness during the day which we discussed. Current medications were reviewed with him. No changes were made eating and sleeping adequately. 08/16 He is feeling much better and feels that every day is improving further. He states that his diarrhea is also better. Continues to have some depression and anxiety. No groups attended. He is still scoring on his CIWA. He complains of sleeping and I will increase his trazodone to 100 mg. No other changes were made today 08/17 Reports that his mood is better and that anxiety is down. He is also optimistic about pursuing sobriety. Discussed struggles and vulnerability to relapse; patient remains adamant that he does not want a program or other help from inpatient team and that he will work out his sobriety on his own. Pt placed a 3 day notice that is coming due and he feels ready for discharge. He feels withdrawals pretty much over and that medications are helpful. Patient does not want any appointments saying he already has a provider and therapist that he will follow up with all his own. He will be returning to live with his girlfriend. While patient remains vulnerable to relapse and mood dysregulation, he is not in imminent risk for harm to self or others. Denies any SI at all and maintains that he was never actually suicidal. Patient reports that his mood is good; He is future oriented and optimistic with noticeably brighter affect. Patient is appropriate to continue treatment in the commute Patient also complained about a mild headache, some nausea and vomiting 1 time this morning, with also feeling a little dizzy at once point. Labs ordered and patient tested positive for RSV. Plan: 3 day q15min Continue Prozac 10mg Continue clonidine 0.1mg qhs for insmnia Phenobarb taper DC CIWA Patient educated on: diagnosis, medication risk/benefits, substance abuse, therapeutic strategies and medical condition Informed Consent: understands Reason for continued inpatient stay Substantial Risk for: stable for discharge Time Spent With Patient Time: Total time managing care of this patient today ____ minutes.
[2023-08-17] MEDS: Thiamine HCL 100 MG TABLET PO (09:27)
[2023-08-17] MEDS: Multivitamin TABLET 1 TAB PO (09:27)
[2023-08-17] MEDS: FLUoxetine HCl 10 MG CAPSULE PO (09:28)
[2023-08-17] MEDS: hydrOXYzine HCL 25 MG TABLET PO ×2 (09:28→20:38)
[2023-08-17] MEDS: PHENobarbitaL 30 MG TABLET PO (09:28)
[2023-08-17] MEDS: PHENobarbitaL 30 MG TABLET 60 MG PO (09:30)
[2023-08-17 14:53] LABS: Influenza A PCR NEGATIVE (Negative); Influenza B PCR NEGATIVE (Negative); Resp Syncy Virus RNA Qual PCR POSITIVE (Negative); SARS COV2 PCR INHOUSE NEGATIVE (Negative)
[2023-08-17] MEDS: cloNIDine HCL 0.1 MG TABLET PO ×2 (16:23→20:38)
--- NOTE | 2023-08-17 16:56 | PM.PSYDC ---
DS: Providers Provider Date of Service: 08/18/23 Date of admission: 08/12/23 12:23 Date of discharge: 08/18/23 Primary care physician: [facility] Attending physician on admission: Adolfo Bailey Consults: 08/12/23 07:33 Addiction Medicine Stat Consulting Provider: Addiction Covering Reason for consultation: unsure if dual dx heavy ETOH but also serious depression Attending physician on discharge: Adolfo Bailey DS: Diagnosis Discharge Diagnosis (1) MDD (major depressive disorder), recurrent severe, without psychosis: Status: Acute (2) Alcohol use disorder: Status: Acute (3) Alcohol withdrawal: Status: Acute DS: Medications Discharge Medications Home Medications: Home Medications Medication Instructions Recorded Confirmed thiamine HCl (vitamin B1) 100 mg 100 mg PO DAILY 08/12/23 08/12/23 tablet Previous Rx's Medication Instructions Recorded clonidine HCl 0.1 mg tablet 0.1 mg PO BEDTIME 30 days #30 tabs 08/17/23 fluoxetine 10 mg capsule 10 mg PO DAILY 30 days #30 caps 08/17/23 hydroxyzine HCl 25 mg tablet 25 mg PO Q6H PRN Anxiety 30 days 08/17/23 #30 tabs trazodone 100 mg tablet 100 mg PO BEDTIME PRN insomnia 30 08/17/23 days #30 tabs Mental Status Exam Mental Status Exam Narrative: Pt is alert and oriented; behavior is cooperative, calm, friendly; patient is not in distress; dressed in hospital attire, adequately groomed; mood is described as good and affect congruent, brighter, calm; eye contact appropriate; Speech is normal rate, volume and prosody and not pressured; no psychomotor agitation/retardation present; thought process is organized and goal directed; Thought content is on discharge, outpatient treatment some; otherwise pertinent to relevant topics and without any delusional content, paranoid ideations or grandiosity; denies any SI/HI. There is no evidence of perceptual disturbance. Patients insight and judgment fair Data Data Completed and Pending Completed studies during hospitalization [Text1]: 08/11/23 08/12/23 08/12/23 20:47 00:46 08:39 WBC 4.8 RBC 4.49 L Hgb 14.2 Hct 41.1 L MCV 91.5 MCH 31.6 MCHC 34.5 RDW 15.7 Plt Count 220 D MPV 10.4 Immature Gran % (Auto) 0.2 Neut % (Auto) 56.1 Lymph % (Auto) 36.9 [place] % (Auto) 5.6 Eos % (Auto) 0.0 Baso % (Auto) 1.2 Lymph # (Auto) 1.8 [place] # (Auto) 0.3 Eos # (Auto) 0.0 Baso # (Auto) 0.1 Abs Immat Gran (auto) 0.01 Absolute Neuts (auto) 2.7 Absolute Nucleated RBC 0.000 Nucleated RBC % (auto) 0.0 PT 9.4 L INR 0.8 L Sodium 145 Potassium 3.6 D Chloride 104 Carbon Dioxide 23 Anion Gap 22 H BUN 10 Creatinine 0.79 Estim Creat Clear Calc 162.1 Estimated GFR > 60 Random Glucose 111 Estimat Average Glucose Hemoglobin A1c % Calcium 9.1 Magnesium 1.9 Total Bilirubin 0.6 AST 260 H ALT 161 H Alkaline Phosphatase 188 H Troponin I High Sens 16.3 D 18.0 Total Protein 8.7 H Albumin 4.5 Triglycerides Cholesterol LDL Cholesterol, Calc HDL Cholesterol Vitamin B12 Folate TSH Free T4 Urine Opiates Screen Not Detected Urine Fentanyl Screen Not Detected Ur Barbiturates Screen Not Detected Ur Phencyclidine Scrn Not Detected Ur Amphetamines Screen Not Detected U Benzodiazepines Scrn Not Detected Urine Cocaine Screen Not Detected U Marijuana (THC) Screen POSITIVE H Ethyl Alcohol 430 H* COVID-19 ([facility]) Negative COVID-19 Clin Com See Note Influenza Type A (PCR) Influenza Type B (PCR) RSV RNA Qual (PCR) SARS-CoV-2 RNA (RT-PCR) 08/13/23 08/17/23 08:34 13:30 WBC RBC Hgb Hct MCV MCH MCHC RDW Plt Count MPV Immature Gran % (Auto) Neut % (Auto) Lymph % (Auto) [place] % (Auto) Eos % (Auto) Baso % (Auto) Lymph # (Auto) [place] # (Auto) Eos # (Auto) Baso # (Auto) Abs Immat Gran (auto) Absolute Neuts (auto) Absolute Nucleated RBC Nucleated RBC % (auto) PT INR Sodium Potassium Chloride Carbon Dioxide Anion Gap BUN Creatinine Estim Creat Clear Calc Estimated GFR Random Glucose Estimat Average Glucose 105 Hemoglobin A1c % 5.3 Calcium Magnesium 1.7 Total Bilirubin AST ALT Alkaline Phosphatase Troponin I High Sens Total Protein Albumin Triglycerides 60 Cholesterol 275 H LDL Cholesterol, Calc 148 H HDL Cholesterol 115 Vitamin B12 523 Folate 16.5 TSH 1.94 Free T4 0.81 Urine Opiates Screen Urine Fentanyl Screen Ur Barbiturates Screen Ur Phencyclidine Scrn Ur Amphetamines Screen U Benzodiazepines Scrn Urine Cocaine Screen U Marijuana (THC) Screen Ethyl Alcohol COVID-19 ([facility]) COVID-19 Clin Com Influenza Type A (PCR) NEGATIVE Influenza Type B (PCR) NEGATIVE RSV RNA Qual (PCR) POSITIVE A SARS-CoV-2 RNA (RT-PCR) NEGATIVE DS: Summary Hospital Course Hospital Course: Patient is a 43-year-old male with history of depression, anxiety, alcohol dependence who presents for worsening depression, with transient SI and the face of psychosocial stressors and alcoholism. Patient reports that he has been sad since his mother this past April. He endorses low energy, isolating. He was at his mother's house this past week, triggering worsening depressive feelings and he took extra pills of HIS own amitriptyline, saying it was in an attempt to sleep. He acknowledges that he did make a comment that he wanted to not wake up and to join his mother and says at the time that thought did pass through his mind; however he is not thinking that way anymore and his son is a strong protective factor. Patient endorses much anxiety over visiting his son whose biological mother is not favorably disposed towards him. Pt is in etoh withdrawal, uncomfortable and conversation completed. Hospital course: On a admission, patient depressed and withdrawing from alcohol; he was placed on a CIWA with a phenobarb taper and phenobarb for as a p.r.n.; patient completed detox without incident. 08/14Remains depressed and anxious; discussed medications. Correction patient was prescribed amitriptyline which he took several of this past week (not his mother's) amitriptyline. Patient started to acknowledge that he has more serious issues with alcoholism then he was 1st able to admit; however he wants to work on it by himself in the community and is low leaning against going to a program. Discussed medications , risks/side effects and he agrees trial of Prozac. Has insomnia and agrees to clonidine 08/15: He feels that he is doing better. He historically has difficult detox is and is now on phenobarbital detox protocol. Eating and sleeping adequately. Some complaint of drowsiness during the day which we discussed. Current medications were reviewed with him. No changes were made eating and sleeping adequately. 08/16 He is feeling much better and feels that every day is improving further. He states that his diarrhea is also better. Continues to have some depression and anxiety. No groups attended. He is still scoring on his CIWA. He complains of sleeping; increased his trazodone to 100 mg. 08/17 Reports that his mood is better and that anxiety is down. He is also optimistic about pursuing sobriety. Talked about continued insomnia and patient did not end up taking trazodone so he agrees to have it scheduled. Discussed struggles and vulnerability to relapse; patient remains adamant that he does not want a program or other help from inpatient team and that he will work out his sobriety on his own. Pt placed a 3 day notice that is coming due and he feels ready for discharge. He feels withdrawals pretty much over and that medications are helpful. Patient does not want any appointments saying he already has a provider and therapist that he will follow up with all his own. He will be returning to live with his girlfriend. Though not attending groups and not engaged much with others, Patient has remained in good behavioral and impulse control while on the unit, appropriate with peers and staff. While patient remains vulnerable to relapse and mood dysregulation, he is not in imminent risk for harm to self or others. Denies any SI at all and maintains that he was never actually suicidal. Patient reports that his mood is good; He is future oriented and optimistic with noticeably brighter affect. Patient is appropriate to continue treatment in the commute. -positive for RSV. Time spent discussing smoking cessation with patient: 3 to 10 minutes Status at Discharge Functional status at discharge: independent ambulation Overall status at discharge: patient is back to baseline Time Spent with Patient Time attestation: Total time managing care of this patient today ____ minutes. Time spent: Less than 30 minutes Discharge Plan Discharge Anticipated Discharge Date/Time: 08/18/23 11:00 Patient Disposition: Home, Self-Care Discharge Diagnosis: MDD, recurrent, severe without psychotic features, in partial remission Referrals: [facility] (therapy) [facility] [Other] - 08/19/23 9:30 am (Hospital Discharge appointment with therapist Appointment is by tele-health) [facility] [Primary Care Provider] - 1 Week Discharge Medications: New clonidine HCl 0.1 mg Tablet 0.1 mg PO BEDTIME 30 Days Qty: 30 0RF Protocol: Hold for SBP< HOLD for SBP < : 90 fluoxetine 10 mg Capsule 10 mg PO DAILY 30 Days Qty: 30 0RF hydroxyzine HCl 25 mg Tablet 25 mg PO Q6H PRN (Reason: Anxiety) 30 Days Qty: 30 0RF trazodone 100 mg Tablet 100 mg PO BEDTIME PRN (Reason: insomnia) 30 Days Qty: 30 0RF Continued thiamine HCl (vitamin B1) 100 mg tablet 100 mg PO DAILY Discontinued naltrexone 50 mg tablet 50 mg PO DAILY amitriptyline 10 mg tablet 10 mg PO BEDTIME Discharge Orders: Discharge Order (Routine); Ordered 08/18/23 Ordered By: Adolfo Bailey Diet: Regular diet Activity on Discharge: As tolerated Stand Alone Forms: Patient Portal Discharge page Care Plan Goals: Maintain mood and safe behaviors Take medications as prescribed Continue to pursue sobriety Practice coping skills Continue with outpatient providers and reach out to them as needed Health Concerns: Mood stability and behaviors Sobriety RSV Plan of Treatment: Follow up with your PCP, psychiatric provider and other outpatient providers regarding above concerns Take medications as prescribed Assessment: Risk assessment at time of discharge:? Patient was interviewed prior to discharge and found to be fully oriented and without any SI or HI. Patient has improved insight and judgment and wants to continue treatment. Patient is not in imminent risk of harm to self or others and has a safety plan that includes presenting to the closest ER or calling 911 if feeling unsafe.? Patient has been observed closely by nursing and unit staff throughout admission; patient has not engaged in any behaviors that suggest dangerousness to self or others and has demonstrated appropriate behaviors and impulse control
[2023-08-17 18:00] VITALS: BP 138/79; PULSE 91; TEMP 36.8; O2SAT 100
[2023-08-17] MEDS: traZODone HCL 50 MG TABLET PO (20:38)
[2023-08-17] MEDS: traZODone HCL 100 MG TABLET PO (20:38)
[2023-08-18] MEDS: Omeprazole 40 MG CAPSULE.DR PO (06:03)
[2023-08-18 08:35] VITALS: BP 116/71; PULSE 75; RESP 16; TEMP 36.9; O2SAT 99
[2023-08-18] MEDS: FLUoxetine HCl 10 MG CAPSULE PO (09:41)
[2023-08-18] MEDS: PHENobarbitaL 30 MG TABLET PO (09:41)
[2023-08-18] MEDS: Multivitamin TABLET 1 TAB PO (09:41)
[2023-08-18] MEDS: Thiamine HCL 100 MG TABLET PO (09:41)
[2023-08-18] MEDS: Ibuprofen 400 MG TABLET PO (09:47)
== END 2023-08-18 11:26 | disposition home or self-care (01) | DRG 751 ==
LOC: HO.ED 08-12 13:49 → HO.PM5 08-12 13:58
PROVIDERS: Physician Assistant; Registered Nurse Emergency; Admitting Provider Clinical Nurse Specialist Psychiatric/Mental Health, Adult; Emergency Provider Emergency Medicine; Visit Provider Psychiatry & Neurology Psychiatry
DX: F33.2 Major depressive disorder, recurrent severe without psychotic features (principal); F10.229 Alcohol dependence with intoxication, unspecified; T43.011A Poisoning by tricyclic antidepressants, accidental (unintentional), initial encounter; F10.239 Alcohol dependence with withdrawal, unspecified; Z20.822 Contact with and (suspected) exposure to COVID-19; Y90.8 Blood alcohol level of 240 mg/100 ml or more; Z79.899 Other long term (current) drug therapy
CPT/HCPCS: 0241U; 36415; 80053; 80061; 80307; 82607; 82746; 83036; 83735; 84439; 84443; 84484; 85025; 85610; 87635; 93005; 99285; S9485

== ENCOUNTER → 2023-08-11 20:32 | Outpatient (BNV) | payer MEDICAID, SELFPAY | PROVIDERS: Admitting Provider Clinical Nurse Specialist Psychiatric/Mental Health, Adult; Emergency Provider Emergency Medicine; Visit Provider Internal Medicine | DX: R00.0 Tachycardia, unspecified (principal) | CPT/HCPCS: 93010 ==

== ENCOUNTER → 2023-08-12 06:00 | Outpatient (BNV) | payer MEDICAID, SELFPAY | PROVIDERS: Admitting Provider Clinical Nurse Specialist Psychiatric/Mental Health, Adult; Emergency Provider Emergency Medicine; Visit Provider Internal Medicine | DX: R00.0 Tachycardia, unspecified (principal) | CPT/HCPCS: 93010 ==

== ENCOUNTER → 2023-08-12 12:23 | Outpatient (BNV) | payer OTHER, SELFPAY | PROVIDERS: Admitting Provider Clinical Nurse Specialist Psychiatric/Mental Health, Adult; Emergency Provider Emergency Medicine; Visit Provider Psychiatry & Neurology Psychiatry | DX: F33.2 Major depressive disorder, recurrent severe without psychotic features (principal); F10.90 Alcohol use, unspecified, uncomplicated; F10.939 Alcohol use, unspecified with withdrawal, unspecified | CPT/HCPCS: 99231; 99232 ==

== ENCOUNTER 2023-09-22 14:31 | Outpatient (AMB) | payer MEDICAID, SELFPAY ==
--- NOTE | 2023-09-22 14:30 | MHC.OFFVIS ---
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 Works on feet 12+ hours a day. 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 Complaints include pain over varicosities, swelling of lower extremities, cramping, fatigue, and heaviness of the lower extremities. 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 It is noted more so in left leg. Patient has had prior ablation and microphlebectomy of the right lower extremity done at [facility] over 8 years ago for venous ulceration Patient denies any history of DVT/ PE. Patient denies any history of phlebitis. Trial of compression includes - prescription compression for several years They now present for vascular evaluation regarding their varicose veins. PFSH Medical History Alcohol use disorder MDD (major depressive disorder), recurrent severe, without psychosis Alcohol abuse Social History Household Members: Other Household Members Other:: girlfriend Housing: Apartment Do you presently have visiting nurse or other home services: No Unable to assess alcohol history related to: Unknown Alcohol intake: current Alcohol intake frequency: 3 or more drinks per day Alcohol type: beer and hard liquor Patient Tobacco Use Status: Never used Tobacco Second Hand Smoke Exposure: No (Unknown, pt unable to participate fully in admission.) Substance Use Type: Marijuana service: No Sexual orientation: Straight/Heterosexual Review of Systems Const Reports as per HPI ENT Reports no additional complaints Card Denies chest pain, Denies chest pain at rest and Denies chest pain with activity Resp Denies chest congestion and Denies cough GI Reports no additional complaints Musc Details: pain over varicosities, aching of lower extremities, swelling, cramping, heaviness and tiredness, itching Denies abnormal gait Skin/Breast Reports pruritus and Denies wounds Neuro Reports no additional complaints and Denies abnormal gait Psych Denies no additional complaints Physical Exam Vital Signs: BMI result Body Mass Index 34.2 Const General: cooperative, healthy appearing and comfortable Orientation/consciousness: oriented to person, oriented to place and oriented to time Neck Carotids: no bruits Chest Chest palpation & inspection: normal inspection of the chest and normal palpation of entire chest wall Resp Effort & Inspection: normal respiratory effort and able to speak in complete sentences Cardio Rate: regular rate Heart sounds: S1 normal heart sound present and S2 normal heart sound present Peripheral pulses: Peripheral pulses 2+ throughout GI Inspection: Yes normal to inspection Skin Other: +2 edema, large rope-like varicosities greater than 4 mm left thigh and calf CEAP Classification C5 - evidence of healed ulceration Ep - Etiology Primary As - superficial veins P - reflux General skin exam: dry skin Neuro General: oriented to person, oriented to place and oriented to time Extrem Right lower extremity: full ROM, normal capillary refill and edema Left lower extremity: full ROM, normal capillary refill and edema Psych Mental Status: mental status grossly normal Assessment & Plan Assessment & Plan (1) Varicose veins of left lower extremity with inflammation: Code(s): I83.12 - Varicose veins of left lower extremity with inflammation Plan: In short, the patient has evidence of venous insufficiency. I have discussed the pathophysiology with the patient. In addition I have provided informational material regarding venous disease to the patient. We have discussed conservative measures including compression, elevation, and exercise. I have also provided a handout regarding appropriate use of compression stockings and where to purchase good compression stockings as well. I have taken the liberty of ordering venous insufficiency testing with the patient. They will follow up with me after testing. The patient had an opportunity to ask questions regarding the treatment plan. All questions were answered. Imaging studies, laboratory studies and physical exam results were discussed and reviewed in detail. No major barriers to understanding were identified. The patient expressed understanding and agreement with the above treatment plan. The patient is aware they should contact our office by phone for worsening of the current condition or the appearance of new symptoms. Thank you for allowing me to participate in the vascular care of this patient. If you have any questions or concerns regarding the treatment for the above condition please do not hesitate to contact me. The office telephone contact is [phone]. This note is constructed using voice recognition software. While every effort has been made to ensure accuracy, fiction and nonfiction prose writer errors may have been included. Thank you for allowing me to participate in the care of your patient. Yours sincerely, Lorenzo Genao MD, FACS, R.P.V.I. (2) Varicose veins of right lower extremity with inflammation: Comment: 2014 - right great saphenous vein ablation and microphlebectomy done at [facility] Code(s): I83.11 - Varicose veins of right lower extremity with inflammation Plan: Plan to Reimage Orders: Orders US venous insuf bilat 1 Week I83.12 - Varicose veins of left lower extremity with inflammation Coding Level of Care Code New Pt Level 4 (14775) Diagnoses Varicose veins of left lower extremity with inflammation I83.12 Varicose veins of right lower extremity with inflammation I83.11
[2023-09-22 14:35] VITALS: BMI 34.2
== END 2023-09-22 15:39 | disposition home or self-care (01) ==
PROVIDERS: PCP Family Medicine; Referring Provider Family Medicine; Visit Provider Surgery Vascular Surgery
DX: I83.12 Varicose veins of left lower extremity with inflammation (principal); I83.11 Varicose veins of right lower extremity with inflammation
CPT/HCPCS: 99203

== ENCOUNTER → 2023-09-22 14:31 | Outpatient (BNVA) | payer MEDICAID, SELFPAY | PROVIDERS: Visit Provider Surgery Vascular Surgery | DX: I83.12 Varicose veins of left lower extremity with inflammation (principal); I83.11 Varicose veins of right lower extremity with inflammation | CPT/HCPCS: 99202 ==

== ENCOUNTER 2023-10-07 10:20 | Outpatient (REF) | payer MEDICAID, SELFPAY ==
--- NOTE | ~2023-10-07 | US_ITS ---
EXAMINATION: US LOWER EXTREMITY VENOUS (REFLUX EXAM), BILATERAL CLINICAL INDICATION: Chronic venous insufficiency with lower extremity varicose veins, pain. Question of ablation in the right lower extremity COMPARISON: None. TECHNIQUE: Color flow triplex imaging and compression Doppler was performed to evaluate both the deep and the superficial systems bilaterally. To evaluate the superficial system, the examination was performed in the upright position. Color-flow Doppler ultrasound and compression ultrasound were utilized. In addition, maneuvers were utilized to demonstrate reflux. FINDINGS: 1. DEEP VENOUS ULTRASOUND OF THE RIGHT LOWER EXTREMITY: Common Femoral Vein: Compressible, normal respiratory variation and augmented flow. Femoral Vein: Compressible, normal color flow and augmentation. Popliteal Vein: Compressible, normal augmentation. Deep Reflux: Deep venous reflux is seen in the mid superficial femoral vein measuring 2192 ms There is no evidence of a Marcano's cyst. Large lymph node seen in the right groin measuring 4.7 x 0.8 x 2.8 cm. 2. SUPERFICIAL ULTRASOUND WITH DOPPLER OF RIGHT LOWER EXTREMITY: GREAT SAPHENOUS VEIN: Saphenofemoral Junction: 1.0 cm; Reflux: 2236 ms Proximal Thigh: 1.0 cm; Reflux: 2040 ms. Note is made of a thickened septation within the proximal great saphenous vein with partial compressibility representing prior treated area with recanalization Mid Thigh: Not visualized Above Knee: 0.5 cm; Reflux: 2148 ms At Knee: 0.7 cm; Reflux: 2256 ms Below Knee: 0.7 cm; Reflux: 1980 ms Mid Calf: 0.3 cm; Reflux: 2844 ms Ankle: 0.3 cm; Reflux: 2064 ms DUPLICATED MEDIAL GREAT SAPHENOUS VEIN: Diameter: None imaged Reflux: NA DUPLICATED LATERAL GREAT SAPHENOUS VEIN: Diameter: None imaged Reflux: NA SMALL SAPHENOUS VEIN: Saphenopopliteal Junction: 0.3 cm; Reflux: 0 ms Proximal: 0.6 cm; Reflux: 1436 ms Distal: 0.4 cm; Reflux: 2236 ms VEIN OF GIACOMINI: Size: NA Reflux: NA PERFORATORS: Location: Mid to distal thigh extending into the great saphenous vein Size: 0.5 cm Reflux: 2140 ms VARICOSITIES: Location: Proximal thigh off the residual great saphenous vein extending to towards the distal thigh, reconnecting with the great saphenous vein Size: 0.4 to 0.7 cm Reflux: 2280 ms VARICOSITIES: Location: Posterior to medial calf between the small saphenous vein and great saphenous vein Size: Ranging from 0.3 to 0.6 cm Reflux: Ranging from 1016 ms to 2336 ms 3. DEEP VENOUS ULTRASOUND OF THE LEFT LOWER EXTREMITY: Common Femoral Vein: Compressible, normal respiratory variation and augmented flow. Femoral Vein: Compressible, normal color flow and augmentation. Popliteal Vein: Compressible, normal augmentation. Deep Reflux: There is no evidence of reflux in the deep system in either the common femoral vein, superficial femoral or the popliteal vein. There is no evidence of a Marcano's cyst. Enlarged lymph nodes seen in the left groin measuring 4.0 x 0.8 x 2.1 cm 4. SUPERFICIAL ULTRASOUND WITH DOPPLER OF LEFT LOWER EXTREMITY: GREAT SAPHENOUS VEIN: Saphenofemoral Junction: 0.7 cm; Reflux: 0 ms Proximal Thigh: 0.3 cm; Reflux: 2076 ms Mid Thigh: Not visualized Above Knee: 0.2 cm; Reflux: 0 ms At Knee: 0.4 cm; Reflux: 0 ms Below Knee: 0.3 cm; Reflux: 0 ms Mid Calf: 0.3 cm; Reflux: 2268 ms Ankle: 0.3 cm; Reflux: 2028 ms DUPLICATED MEDIAL GREAT SAPHENOUS VEIN: Diameter: None imaged Reflux: NA DUPLICATED LATERAL GREAT SAPHENOUS VEIN: Diameter: 0.3 cm Reflux: None SMALL SAPHENOUS VEIN: Saphenopopliteal Junction: 0.4 cm; Reflux: 2100 ms Proximal: 0.4 cm; Reflux: 2020 ms Distal: 0.3 cm; Reflux: 0 ms VEIN OF GIACOMINI: Size: 0.4 cm Reflux: 2208 ms PERFORATORS: Location: Proximal calf into the great saphenous vein and distal calf into the small saphenous Size: 0.3 cm Reflux: 1052 ms VARICOSITIES: Location: Posterior calf off the small saphenous vein Size: Ranging from 0.4 to 0.5 cm Reflux: Ranging from 2288 ms to 2300 ms VARICOSITIES: Location: Medial thigh off the great saphenous vein extending throughout the proximal and mid to thigh anterolaterally and extending into the calf Size: Ranging in size from 0.4 to 0.7 cm Reflux: Ranging from 2000 ms to 2052 ms US/US venous insuf bilat IMPRESSION: Right: Severe reflux throughout the right great saphenous vein. There appears to be recanalization of the previously treated segment of the proximal great saphenous vein. Extensive varicose veins arising from of the great saphenous vein extending throughout the right lower extremity. There is severe reflux in the small saphenous vein with multiple branching varicosities as described above Left: Severe reflux within the proximal left great saphenous vein. Multiple varicose veins arising from the proximal great saphenous vein with appearance of neovascularity. Extensive the varicose veins are extending throughout the thigh and into the calf. Severe reflux in the left small saphenous vein and vein of Giacomini with multiple branching varicosities
== END 2023-10-07 10:21 | disposition home or self-care (01) ==
LOC: HO.US 10:20
PROVIDERS: PCP Family Medicine; Visit Provider Surgery Vascular Surgery
DX: I83.12 Varicose veins of left lower extremity with inflammation (principal)
CPT/HCPCS: 93970

== ENCOUNTER 2023-10-12 13:41 | Outpatient (REF) | payer MEDICAID, SELFPAY ==
[2023-10-12 17:13] LABS: Cholesterol 206 mg/dL (<200); HDL Cholesterol 57 mg/dL (>40); LDL Cholesterol Calculated 124 mg/dL (<100); Triglycerides 125 mg/dL (<150)
[2023-10-12 17:26] LABS: Estimated Average Glucose 94 mg/dL; Hemoglobin A1c % 4.9 % (<6.0)
[2023-10-12 17:51] LABS: CT PCR NOT DETECTED (Not Detect.); NG PCR NOT DETECTED (Not Detect.)
[2023-10-12 19:02] LABS: Reflex LDLD? No
[2023-10-13 07:27] LABS: Syphilis Screen Nonreactive (Nonreactive)
[2023-10-13 07:40] LABS: HBS Num1 112.05 mIU/mL (0-7.99); HIV AB/AG Nonreactive (Nonreactive); HIV Num 1 0.06 S/CO (0.00-0.99); Hepatitis B Core Antibody Nonreactive (Nonreactive); ~HepC Num1 0.15 S/CO (0.00-0.79); ~Hepatitis B Surface Antibody REACTIVE (Nonreactive); ~Hepatitis C Antibody Nonreactive (Nonreactive)
== END 2023-10-12 13:42 | disposition home or self-care (01) ==
LOC: HO.HHCL 13:41
PROVIDERS: Visit Provider Family Medicine
DX: R30.0 Dysuria (principal); R35.0 Frequency of micturition; I42.9 Cardiomyopathy, unspecified; R42 Dizziness and giddiness
CPT/HCPCS: 0353U; 80061; 83036; 86704; 86706; 86780; 86803; 87389

== ENCOUNTER 2023-10-16 10:01 | Outpatient (REF) | payer MEDICAID, SELFPAY ==
[2023-10-16 11:39] LABS: Appearance Urine Clear; Color Urine Yellow; Glucose Urine UA Negative (Negative); Leukocyte Esterase Urine Negative (Negative); Nitrite Urine Negative (Negative); PH 5.5 (5.0-9.0); Urine Blood Negative (Negative); Urine Ketones Negative (Negative); Urine Protein Negative (Neg-Trace)
[2023-10-16 11:47] LABS: Bacteria Urine None Seen (None Seen); Hyaline Casts Urine 0-2 /LPF (0-2); RBC Urine 0-2 /HPF (0-2); Squamous Epithelial Cell Urine 0-2 /HPF (0-2); WBC Urine 0-5 /HPF (0-5)
[2023-10-16 12:09] LABS: Alanine Aminotransferase 25 U/L (0-40); Albumin Level 4.1 g/dL (3.5-5.0); Alkaline Phosphatase 75 U/L (39-117); Anion Gap 12 (12-20); Aspartate Amino Transferase 23 U/L (5-37); Bilirubin Total 0.4 mg/dL (0.0-1.0); Blood Urea Nitrogen 15 mg/dL (9-16); Calcium 9.1 mg/dL (8.4-10.2); Carbon Dioxide 27 mmol/L (22-29); Chloride 105 mmol/L (96-108); Estimated Glomerular Filt Rate > 60; Glucose Random 107 mg/dL (60-115); Sodium 140 mmol/L (135-145); Total Protein 7.6 g/dL (6.5-8.0)
[2023-10-16 12:24] LABS: Prostate Specific Antigen 0.27 ng/mL (<0.05-4.0)
[2023-10-16 12:31] LABS: HBsAGNum1 0.37 S/CO (0.00-0.99); Hepatitis B Surface Antigen Negative (Negative)
== END 2023-10-16 10:02 | disposition home or self-care (01) ==
LOC: HO.HHCL 10:01
PROVIDERS: Visit Provider Family Medicine
DX: R30.0 Dysuria (principal); R74.01 Elevation of levels of liver transaminase levels; R35.0 Frequency of micturition
CPT/HCPCS: 36415; 80053; 81001; 84153; 87338; 87340

== ENCOUNTER 2023-11-05 08:51 | Outpatient (AMB) | payer MEDICAID, SELFPAY ==
[2023-11-05 08:56] VITALS: BMI 34.7
--- NOTE | 2023-11-05 08:56 | A.OFFVIS_ITS ---
Intake Vital Signs 11/05/23 08:56 Height 6 ft 1 in Weight 263 lb BMI 34.7 Intake Visit Reasons: Follow Up 10/07 US Intake Note: Patient presents for follow up. Had a on 10/07/23. States he can walk for about 5 minutes before he feels a burning sensation in his right leg. Minimal pain in left leg. ? Hx of ablation around 8-10 years ago on his right leg. Accompanied by: Self / Same As Patient Allergies Penicillins [PCN] Allergy (Verified 11/05/23 09:03) Rash HPI Follow Up 10/07 US HPI Details Pleasant 43-year-old gentleman presents for follow-up regarding painful swollen lower extremities. He has undergone venous insufficiency testing. His legs continue to be a source of discomfort for him. 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 Also shows that his previous healed ulceration in the right calf also is a source of discomfort for him. He now presents for follow-up with venous insufficiency testing. Of note compression stockings have provided minimal relief. [facility] Medical History Alcohol use disorder MDD (major depressive disorder), recurrent severe, without psychosis Alcohol abuse Social History Household Members: Other Household Members Other:: girlfriend Housing: Apartment Do you presently have visiting nurse or other home services: No Unable to assess alcohol history related to: Unknown Alcohol intake: current Alcohol intake frequency: 3 or more drinks per day Alcohol type: beer and hard liquor Patient Tobacco Use Status: Never used Tobacco Second Hand Smoke Exposure: No (Unknown, pt unable to participate fully in admission.) Substance Use Type: Marijuana service: No Sexual orientation: Straight/Heterosexual Review of Systems Const Reports as per HPI ENT Reports no additional complaints Card Denies chest pain, Denies chest pain at rest and Denies chest pain with activity Resp Denies chest congestion and Denies cough GI Reports no additional complaints Musc Details: pain over varicosities, aching of lower extremities, swelling, cramping, heaviness and tiredness, itching Denies abnormal gait Skin/Breast Reports pruritus and Denies wounds Neuro Reports no additional complaints and Denies abnormal gait Psych Denies no additional complaints Physical Exam Vital Signs: BMI result Body Mass Index 34.7 Const General: cooperative, healthy appearing and comfortable Orientation/consciousness: oriented to person, oriented to place and oriented to time Neck Carotids: no bruits Chest Chest palpation & inspection: normal inspection of the chest and normal palpation of entire chest wall Resp Effort & Inspection: normal respiratory effort and able to speak in complete sentences Cardio Rate: regular rate Heart sounds: S1 normal heart sound present and S2 normal heart sound present Peripheral pulses: Peripheral pulses 2+ throughout GI Inspection: Yes normal to inspection Skin Other: +2 edema, large rope-like varicosities greater than 4 mm bilateral calfs CEAP Classification C5 - healed ulcer Ep - Etiology Primary As - superficial veins P - reflux General skin exam: dry skin Neuro General: oriented to person, oriented to place and oriented to time Extrem Right lower extremity: full ROM, normal capillary refill and edema Left lower extremity: full ROM, normal capillary refill and edema Psych Mental Status: mental status grossly normal Results Reviewed Results Reviewed: Brief summary of venous insufficiency testing is as follows: right great saphenous vein: Positive right small saphenous vein: Positive right accessory vein: none present left great saphenous vein: Positive left small saphenous vein: Positive left accessory vein: none present Please note there is no evidence of any venous aneurysms or significant tortuosity Assessment & Plan Assessment & Plan (1) Varicose veins of right lower extremity with inflammation: Comment: 2015 - right great saphenous vein ablation and microphlebectomy done at [facility] Code(s): I83.11 - Varicose veins of right lower extremity with inflammation Plan: This patient has varicose veins with inflammation. They continue to be a source of discomfort for the patient. The patient has tried conservative treatment with compression, leg elevation and exercise program for over 3 months time. They have been compliant with all treatment. This has provided minimal relief for the patient. I do not anticipate this course of treatment will alter the underlying etiology. The patient has been scheduled for lower extremity venous treatment inclusive of --- right great saphenous vein radiofrequency ablation. Risks, benefits, and complications of this procedure has been discussed in detail with the patient including but not limited to bleeding, infection, and the development of a DVT. The patient has demonstrated a clear understanding and has consented. We will schedule the patient as soon as possible. Thank you for allowing us to participate in this patient's care. If there are any questions or concerns please do not hesitate to contact us. Coding Level of Care Code Est Pt Level 4 (47890) Diagnoses Varicose veins of right lower extremity with inflammation I83.11
== END 2023-11-05 09:38 | disposition home or self-care (01) ==
PROVIDERS: PCP Family Medicine; Visit Provider Surgery Vascular Surgery
DX: I83.11 Varicose veins of right lower extremity with inflammation (principal)
CPT/HCPCS: 99214

== ENCOUNTER → 2023-11-05 08:51 | Outpatient (BNVA) | payer MEDICAID, SELFPAY | PROVIDERS: PCP Family Medicine; Visit Provider Surgery Vascular Surgery | DX: I83.11 Varicose veins of right lower extremity with inflammation (principal) | CPT/HCPCS: 99212 ==

== ENCOUNTER 2023-11-10 07:50 | Outpatient (REF) | payer MEDICAID, SELFPAY ==
--- NOTE | ~2023-11-10 | MR_ITS ---
EXAMINATION: MR BRAIN WITHOUT AND WITH CONTRAST CLINICAL INFORMATION: Headache, dizziness, left facial numbness, left-sided tinnitus COMPARISON: CT scan of brain on 12/27/2022 TECHNIQUE: Multiplanar, multisequence MRI of the brain was obtained before and after the intravenous administration of 10 mL Gadavist. High-resolution axial T2 weighted images, axial and coronal T1 weighted images of bilateral internal auditory meati were obtained. FINDINGS: Ventricles, sulci and cisterns are normal. No focal cerebral, brainstem or cerebellar lesions with abnormal signal can be seen. Diffusion weighted images show no abnormal regional decrease in diffusion. Contrast enhanced images show normal enhancement of major intra cerebral blood vessels. No enhancing focal cerebral, brainstem or cerebellar lesions can be seen. High-resolution images show normal symmetric bilateral seventh/eighth nerve complexes. Bilateral cochleae and semicircular canals are also normal. Post contrast images show no abnormal asymmetric enhancement or mass lesions in bilateral seventh/eighth nerve complexes or inner ear labyrinth. The pituitary gland is normal. Optic chiasm is not displaced. Cerebellar tonsils position is normal. Bilateral ethmoid sinuses show mild mucosal thickening. Bilateral lower maxillary sinus wall also shows mild circumferential mucosal thickening. MR/MR head/brain wo/w con IMPRESSION: 1. Normal MRI scan of the brain. 2. No focal enhancing cerebral lesion or acute infarction is seen. 3. No evidence of vestibular neuritis or acoustic neuroma.
[2023-11-10] MEDS: gadobutroL 10 ML VIAL IVPUSH (08:51)
== END 2023-11-10 07:51 | disposition home or self-care (01) ==
LOC: HO.MRI 07:50
PROVIDERS: PCP Family Medicine; Visit Provider Family Medicine
DX: H93.12 Tinnitus, left ear (principal); R42 Dizziness and giddiness; G44.89 Other headache syndrome
CPT/HCPCS: 70553; A9585

== ENCOUNTER 2023-12-08 10:04 | Outpatient (AMB) | payer MEDICAID, SELFPAY ==
--- NOTE | 2023-12-08 10:06 | MHC.OFFVIS ---
Intake Vital Signs 12/08/23 10:10 Height 6 ft 1 in Weight 292 lb BMI 38.5 Pulse 88 Pulse Source Pulse Oximeter Pulse Oximetry (%) 98 Oxygen Delivery Method Room Air Intake Visit Reasons: ENP-ETHAN/headache/sleep disturbance/weight gain Intake Note: Patient presents for headache and sleep disturbances Allergies Penicillins [PCN] Allergy (Verified 12/08/23 10:11) Rash HPI HPI Comments History of Present Illness Details 43 y/o male patient present for new in-person visit for sleep consultation. 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 Pt reports difficulty staying sleep, non refreshing sleep and AM headache with daytime tiredness and fatigue. He used to drink alcohol daily, but stopped drinking alcohol a month ago. He gained more than 50 lb over the last year. Sleep questionnaire: Have you ever been diagnosed with a sleep disorder? No. Have you ever had a sleep study in the past? No. Have you ever been treated for a sleep disorder? No. Do you take medications for a sleep disorder? No. Do you snore? Yes. Do you wake up gasping at night? Yes. Do you have episodes of apneas? Yes. If yes, are they witnessed? Yes. Do you have episodes of nocturnal chest pain or dyspnea? Yes. Do you have difficulty initiating sleep? Yes. Do you have difficulty maintaining sleep? Yes. Do you wake up tired? Yes. Do you have headaches upon awakening? Yes. Do you wake up with dry mouth or throat? Yes, sometimes. Do you have GERD? Yes. Do you have nocturia? No. Do you have nocturnal leg cramps? Yes, sometimes. Do you have symptoms of restless legs? Yes, sometimes. Do you act out your dreams? No. Sleep hygiene questionnaire: What is your usual sleep routine? Usual bedtime is at 10 pm; Usual wake up time is at 5-6 am. Do you take naps? No. Is your sleep environment cool, dark, and quiet? Yes. Do you exercise? Walking four times a week. Do you take caffeine or other stimulants? Coffee throughout the day. Do you use electronics in bed? No. What is your work schedule? N/A. Hypersomnolence questionnaire: Do you have daytime tiredness or fatigue? Yes. Do you easily fall asleep when inactive? No. Have you ever had episodes of sudden weakness? No. Have you ever had episodes of sudden weakness associated with strong emotions? No. PFSH Medical History Alcohol use disorder MDD (major depressive disorder), recurrent severe, without psychosis Alcohol abuse Social History Household Members: Other Household Members Other:: girlfriend Housing: Apartment Do you presently have visiting nurse or other home services: No Unable to assess alcohol history related to: Unknown Alcohol intake: current Alcohol intake frequency: 3 or more drinks per day Alcohol type: beer and hard liquor Patient Tobacco Use Status: Never used Tobacco Second Hand Smoke Exposure: No (Unknown, pt unable to participate fully in admission.) Substance Use Type: Marijuana service: No Sexual orientation: Straight/Heterosexual Review of Systems Const All systems reviewed & are unremarkable except as noted in HPI and below Physical Exam Vital Signs: Last Vital Signs Pulse 88 12/08/23 10:10 Pulse Ox 98 12/08/23 10:10 Oxygen Delivery Method Room Air 12/08/23 10:10 BMI result Body Mass Index 38.5 Const General: cooperative Nutritional Appearance: obese Orientation/consciousness: patient oriented x3 Neck Neck: Yes full ROM and Yes supple Resp Effort & Inspection: normal respiratory effort and able to speak in complete sentences Neuro General: patient oriented x3, gait normal and moves all extremities Cranial nerves: Yes CN's II-XII intact bilaterally Cognition (Neuro): normal cognition Gait exam (Neuro): Normal gait present Motor exam (neuro): 5/5 motor strength present throughout Psych Appearance: grossly normal Mental Status: mental status grossly normal Speech and movement: Normal speech and movement present Affect: normal affect Attitude: cooperative Assessment & Plan Assessment & Plan (1) Snoring: Code(s): R06.83 - Snoring (2) Daytime sleepiness: Code(s): R40.0 - Somnolence Plan Pt is advised to undergo home sleep study to assess for sleep apnea. Will f/u with pt after study to discuss results and appropriate treatment options. Sleep hygiene education provided, limit electronic use before bedtime. Pt to call with any worsening concerns or questions. Orders: Orders RT home sleep study Today E66.9 - Obesity, unspecified, R06.83 - Snoring, R40.0 - Somnolence Coding Level of Care Code New Pt Level 3 (72896) Diagnoses Snoring R06.83 Daytime sleepiness R40.0
[2023-12-08 10:10] VITALS: PULSE 88; O2SAT 98; BMI 38.5
== END 2023-12-08 10:40 | disposition home or self-care (01) ==
PROVIDERS: PCP Family Medicine; Visit Provider Nurse Practitioner Family
DX: R06.83 Snoring (principal); R40.0 Somnolence
CPT/HCPCS: 99203

== ENCOUNTER → 2023-12-08 10:04 | Outpatient (BNVA) | payer MEDICAID, SELFPAY | PROVIDERS: PCP Family Medicine; Visit Provider Nurse Practitioner Family | DX: R06.83 Snoring (principal); R40.0 Somnolence | CPT/HCPCS: 99212 ==

== ENCOUNTER 2023-12-18 07:49 | Outpatient (AMB) | payer MEDICAID, SELFPAY ==
--- NOTE | 2023-12-18 07:49 | MHC.OFFVIS ---
Intake Vital Signs 12/18/23 07:50 Height 6 ft 1 in Weight 292 lb BMI 38.5 Intake Visit Reasons: Right GSV RFA Accompanied by: Self / Same As Patient Allergies Penicillins [PCN] Allergy (Verified 12/18/23 07:50) Rash PFSH Medical History Alcohol use disorder MDD (major depressive disorder), recurrent severe, without psychosis Alcohol abuse Social History Household Members: Other Household Members Other:: girlfriend Housing: Apartment Do you presently have visiting nurse or other home services: No Unable to assess alcohol history related to: Unknown Alcohol intake: current Alcohol intake frequency: 3 or more drinks per day Alcohol type: beer and hard liquor Patient Tobacco Use Status: Never used Tobacco Second Hand Smoke Exposure: No (Unknown, pt unable to participate fully in admission.) Substance Use Type: Marijuana service: No Sexual orientation: Straight/Heterosexual Physical Exam Vital Signs: BMI result Body Mass Index 38.5 Office Procedures Vascular Office Procedure Details Details: Diagnosis: Varicose veins with inflammation of right leg Procedure: Endovenous radiofrequency ablation of the right great saphenous vein and accessory right great saphenous vein of the lower extremity. Anesthesia: Local infiltration 10 cc, Tumescent 300 cc. Estimated Blood Loss: Minimal Specimen: Varicose veins The patient was transferred to the procedure suite and the insufficient saphenous vein was mapped by ultrasound and diagrammed on the overlying skin. The depth and diameter of the vein(s) to be treated was documented. The varicose tributary veins and suitable access sites were identified and mapped as well. The patient was then positioned supine on the procedure table. The affected limb was prepped and draped in the usual sterile fashion. The RF catheter was placed on the sterile field, flushed and wiped down, prepared, and connected by a sterile cable. The patient was placed in reverse- Trendelenburg position and local anesthesia was instilled in the skin overlying the access site. A skin incision was made overlying the identified and mapped great saphenous vein entry site. The vein was accessed using ultrasound guidance and the Seldinger technique, a guide wire was introduced through the needle, which was then exchanged over the guide wire for a 6F sheath, which was secured in place. The guide wire was removed and the sheath was flushed. The RF catheter was placed into the vein through the sheath and preferentially, imaging was used to place the catheter tip just inferior to the superficial epigastric vein to preserve normal physiological flow in that vein. Additionally, it was confirmed by ultrasound guidance that the catheter tip was also placed a minimum of 1.5cm distal to the saphenofemoral junction. After the RF catheter position was verified by ultrasound, tumescent anesthesia was infiltrated, under ultrasound guidance, precisely into the perivenous compartment along the entire length of vein from the entry site to the saphenofemoral junction until a halo of fluid was noted around the vein. The patient was then placed in Trendelenburg position to further exsanguinate the superficial venous system. After RF catheter position was again confirmed with ultrasound imaging, and under direct external compression along the length of the heating element, RF energy was applied. The vein was segmentally ablated by heating a 8 cm segment and then indexing the catheter forward by 7.5 cm until the treatment length is completed. Device temperature was maintained at 120 plus or minus 5 degrees C with an initial power level of 40W dropping to below 20W for each treatment. Total vein length treated 8 cm Total cycles of RF 2. In a similar fashion and accessory saphenous vein was ablated. This was more distal and lateral to the great saphenous vein. A below-knee puncture was made. We advanced a 6 Divehi sheath as proximally as it would advance. We then placed tumescence around. After confirming catheter position under ultrasound guidance. The vein was segmentally ablated by heating an 8 cm segment and then index Ng the catheter forward by 7.5 cm until the treatment length was completed. Total vein length was 15 cm with a total of 3 F cycles Repeat ultrasound of the saphenous vein was performed, confirming successful treatment. The catheter and sheath were withdrawn and hemostasis established with direct pressure. After assuring hemostasis, the skin incision over the saphenous vein was closed with a bandage and a compression wrap, and/ or graduated compression stocking was applied from the level of the foot to the most proximal level of the thigh. 88704 - Endovenous RF, 1st Vein 54733 - RF Ablation, subsequent vein All charges added?: Procedure code (CPT) selection complete Assessment & Plan Assessment & Plan (1) Varicose veins of right lower extremity with inflammation: Comment: 2014 - right great saphenous vein ablation and microphlebectomy done at [facility] 12/18/2023 - right great saphenous and accessory saphenous vein radiofrequency ablation Code(s): I83.11 - Varicose veins of right lower extremity with inflammation Plan: See op note Coding Level of Care Code Procedure Only Diagnoses Varicose veins of right lower extremity with inflammation I83.11 CPT Codes Details - Vascular 1: 03322 - Endovenous RF, 1st Vein ([id number]) Details - Vascular 2: 49388 - RF Ablation, subsequent vein ([id number])
[2023-12-18 07:50] VITALS: BMI 38.5
== END 2023-12-18 09:48 | disposition home or self-care (01) ==
PROVIDERS: PCP Family Medicine; Visit Provider Surgery Vascular Surgery
DX: I83.11 Varicose veins of right lower extremity with inflammation (principal)
CPT/HCPCS: 36475; 36476

== ENCOUNTER → 2023-12-18 07:49 | Outpatient (BNVA) | payer MEDICAID, SELFPAY | PROVIDERS: PCP Family Medicine; Visit Provider Surgery Vascular Surgery | DX: I83.11 Varicose veins of right lower extremity with inflammation (principal) | CPT/HCPCS: 36475; 36476 ==

== ENCOUNTER 2023-12-21 14:26 | Outpatient (REF) | payer MEDICAID, SELFPAY ==
--- NOTE | ~2023-12-21 | US_ITS ---
EXAMINATION: TRIPLEX SCANNING OF RIGHT LOWER EXTREMITY; SUPERFICIAL ULTRASOUND WITH DOPPLER OF RIGHT LOWER EXTREMITY CLINICAL INFORMATION: Status post RF ablation of the right great saphenous vein originally performed on 12/18/2023. COMPARISON: Preprocedure studies. TECHNIQUE: Color flow triplex imaging and compression Doppler were performed as well as superficial ultrasound with Doppler. FINDINGS: TRIPLEX SCANNING OF RIGHT LOWER EXTREMITY: Respiratory variation, normal compression and augmented flow are noted throughout the lower extremity. The visualized common femoral vein, femoral vein, profunda femoral vein, popliteal vein and the calf veins show no evidence of deep venous thrombosis. There is no evidence of Marcano's cyst. SUPERFICIAL ULTRASOUND WITH DOPPLER OF RIGHT LOWER EXTREMITY: The right great saphenous vein is occluded from the access site to 2.0 cm before the saphenofemoral junction. There is no extension of thrombus into the deep system. US/US venous duplex LE RT IMPRESSION: 1. Normal triplex scan of the right without evidence of deep venous thrombosis. 2. Excellent appearance status post ablation of the right great saphenous vein.
== END 2023-12-21 14:27 | disposition home or self-care (01) ==
LOC: HO.US 14:26
PROVIDERS: PCP Family Medicine; Visit Provider Surgery Vascular Surgery
DX: M79.604 Pain in right leg (principal)
CPT/HCPCS: 93971

== ENCOUNTER 2024-01-05 08:47 | Outpatient (AMB) | payer MEDICAID, SELFPAY ==
[2024-01-05 08:51] VITALS: BMI 38.3
--- NOTE | 2024-01-05 08:51 | MHC.OFFVIS ---
Vital Signs 01/05/24 08:51 Height 6 ft 1 in Weight 290 lb BMI 38.3 Intake Visit Reasons: F/U R GSV RFA 12/18/23 Intake Note: Patient presents for follow up right gsv rfa. Patient states the first week he felt fine but he states he is experiencing some burning, itching and numbness for the last week. Says he has left knee pain due to bearing more weight on the left leg. Allergies Penicillins [PCN] Allergy (Verified 01/05/24 08:57) Rash HPI HPI F/U R GSV RFA 12/18/23: Details: Very pleasant 43-year-old gentleman presents for follow-up status post right great saphenous vein ablation. Reports that overall his leg has decreased in size. Does continue to have some swelling and discomfort especially in the right calf. Does have large varicosities there as well. Now presents for routine follow-up. Of note postprocedure ultrasound was negative for PFSH Medical History Alcohol use disorder MDD (major depressive disorder), recurrent severe, without psychosis Alcohol abuse Social History Household Members: Other Household Members Other:: girlfriend Housing: Apartment Do you presently have visiting nurse or other home services: No Unable to assess alcohol history related to: Unknown Alcohol intake: current Alcohol intake frequency: 3 or more drinks per day Alcohol type: beer and hard liquor Patient Tobacco Use Status: Never used Tobacco Second Hand Smoke Exposure: No (Unknown, pt unable to participate fully in admission.) Substance Use Type: Marijuana service: No Sexual orientation: Straight/Heterosexual Review of Systems Const All systems reviewed & are unremarkable except as noted in HPI and below Reports no additional complaints ENT Reports Normal hearing present Card Denies chest pain, Denies chest pain at rest, Denies chest pain with activity and Denies pedal edema Resp Denies cough GI Denies abdominal pain Musc Denies abnormal gait, Denies muscle cramps and Denies radiating pain into limb Skin/Breast Denies skin ulcer and Denies wounds Neuro Reports Normal hearing present and Denies abnormal gait Psych Reports no additional complaints Physical Exam Vital Signs: BMI result Body Mass Index 38.3 Const General: cooperative, healthy appearing and comfortable Orientation/consciousness: oriented to person, oriented to place and oriented to time HEENT Head: Yes normal to inspection Neck Neck: Yes normal visual inspection Carotids: no bruits Chest Chest palpation & inspection: normal inspection of the chest Resp Effort & Inspection: normal respiratory effort and able to speak in complete sentences Auscultation: clear to auscultation bilaterally, no crackles, no rales, no rhonchi and no wheezes Cardio Rate: regular rate Rhythm: regular rhythm Heart sounds: S1 normal heart sound present and S2 normal heart sound present Bruits: no carotid bruits Peripheral pulses: Peripheral pulses 2+ throughout GI Inspection: Yes normal to inspection Skin Wounds: no wounds Hair: normal Neuro General: oriented to person, oriented to place and oriented to time Cranial nerves: Yes CN's II-XII intact bilaterally and Yes Normal hearing present Cognition (Neuro): normal cognition Motor exam (neuro): 5/5 motor strength present throughout Extrem Other: venous exam: No significant superficial varicosities or spider telangiectasias, minimal edema General: No clubbing, No cyanosis and No edema Psych Appearance: grossly normal Mental Status: mental status grossly normal Speech and movement: Normal speech and movement present Results Reviewed Results Reviewed: Brief summary of venous insufficiency testing is as follows: right great saphenous vein: Ablated right small saphenous vein: Positive right accessory vein: none present left great saphenous vein: negative left small saphenous vein: Positive left accessory vein: none present Please note there is no evidence of any venous aneurysms or significant tortuosity Assessment & Plan Assessment & Plan (1) Varicose veins of right lower extremity with inflammation: Comment: 2014 - right great saphenous vein ablation and microphlebectomy done at [facility] 12/18/2023 - right great saphenous and accessory saphenous vein radiofrequency ablation Code(s): I83.11 - Varicose veins of right lower extremity with inflammation Category: Medical Plan: This patient has varicose veins with inflammation. They continue to be a source of discomfort for the patient. The patient has tried conservative treatment with compression, leg elevation and exercise program for over 3 months time. They have been compliant with all treatment. This has provided minimal relief for the patient. I do not anticipate this course of treatment will alter the underlying etiology. The patient has been scheduled for lower extremity venous treatment inclusive of --- right small saphenous vein radiofrequency ablation. Risks, benefits, and complications of this procedure has been discussed in detail with the patient including but not limited to bleeding, infection, and the development of a DVT. The patient has demonstrated a clear understanding and has consented. We will schedule the patient as soon as possible. Thank you for allowing us to participate in this patient's care. If there are any questions or concerns please do not hesitate to contact us. Coding Level of Care Code Est Pt Level 4 (58391) Diagnoses Varicose veins of right lower extremity with inflammation I83.11
== END 2024-01-05 09:48 | disposition home or self-care (01) ==
PROVIDERS: PCP Family Medicine; Visit Provider Surgery Vascular Surgery
DX: I83.11 Varicose veins of right lower extremity with inflammation (principal)
CPT/HCPCS: 99214

== ENCOUNTER → 2024-01-05 08:47 | Outpatient (BNVA) | payer MEDICAID, SELFPAY | PROVIDERS: PCP Family Medicine; Visit Provider Surgery Vascular Surgery | DX: I83.11 Varicose veins of right lower extremity with inflammation (principal) | CPT/HCPCS: 99212 ==

== ENCOUNTER 2024-01-11 15:56 | Outpatient (REF) | payer MEDICAID, SELFPAY ==
[2024-01-11 19:20] LABS: Prostate Specific Antigen Scr 0.45 ng/mL (<0.05-4.0)
[2024-01-11 19:31] LABS: TSH reflex Free T4 1.06 uIU/mL (0.32-4.0)
[2024-01-16 16:13] LABS: Testosterone, Total 205 ng/dL (250-1100)
== END 2024-01-11 15:57 | disposition home or self-care (01) ==
LOC: HO.HHCL 15:56
PROVIDERS: Visit Provider Family Medicine
DX: N52.9 Male erectile dysfunction, unspecified (principal)
CPT/HCPCS: 36415; 84153; 84403; 84443

== ENCOUNTER → 2024-01-18 08:43 | Outpatient (REF) | payer MEDICAID, SELFPAY | LOC: HO.SL 08:43 | PROVIDERS: PCP Family Medicine; Visit Provider Nurse Practitioner Family | DX: Z13.89 Encounter for screening for other disorder (principal) ==

== ENCOUNTER 2024-01-29 08:22 | Outpatient (AMB) | payer MEDICAID, SELFPAY ==
--- NOTE | 2024-01-29 08:25 | A.OFFVIS_ITS ---
Vital Signs 01/29/24 08:25 Height 6 ft 1 in Intake Visit Reasons: Right SSV RFA Accompanied by: Self / Same As Patient Allergies Penicillins [PCN] Allergy (Verified 01/29/24 08:25) Rash PFSH Medical History Alcohol use disorder MDD (major depressive disorder), recurrent severe, without psychosis Alcohol abuse Social History Household Members: Other Household Members Other:: girlfriend Housing: Apartment Do you presently have visiting nurse or other home services: No Unable to assess alcohol history related to: Unknown Alcohol intake: current Alcohol intake frequency: 3 or more drinks per day Alcohol type: beer and hard liquor Patient Tobacco Use Status: Never used Tobacco Second Hand Smoke Exposure: No (Unknown, pt unable to participate fully in admission.) Substance Use Type: Marijuana service: No Sexual orientation: Straight/Heterosexual Office Procedures Vascular Office Procedure Details Details: Diagnosis: Varicose veins with inflammation of right leg Procedure: Endovenous radiofrequency ablation of the right small saphenous vein(s) of the lower extremity. Anesthesia: Local infiltration 5 cc, Tumescent 250 cc. Estimated Blood Loss: Minimal Specimen: Varicose veins The patient was transferred to the procedure suite and the insufficient saphenous vein was mapped by ultrasound and diagrammed on the overlying skin. The depth and diameter of the vein(s) to be treated was documented. The varicose tributary veins and suitable access sites were identified and mapped as well. The patient was then positioned supine on the procedure table. The affected limb was prepped and draped in the usual sterile fashion. The patient was placed prone. The RF catheter was placed on the sterile field, flushed and wiped down, prepared, and connected by a sterile cable. The patient was placed in prone position and local anesthesia was instilled in the skin overlying the access site. A skin incision was made overlying the identified and mapped small saphenous vein entry site. The vein was accessed using ultrasound guidance and the Seldinger technique, a guide wire was introduced through the needle, which was then exchanged over the guide wire for a 7F sheath, which was secured in place. The guide wire was removed and the sheath was flushed. The RF catheter was placed into the vein through the sheath. Additionally, it was confirmed by ultrasound guidance that the catheter tip was also placed a minimum of 1.5cm distal to the sapheno popliteal junction. After the RF catheter position was verified by ultrasound, tumescent anesthesia was infiltrated, under ultrasound guidance, precisely into the perivenous compartment along the entire length of vein from the entry site to the sapheno popliteal junction until a halo of fluid was noted around the vein. The patient was then placed in Trendelenburg position to further exsanguinate the superficial venous system. After RF catheter position was again confirmed with ultrasound imaging, and under direct external compression along the length of the heating element, RF energy was applied. The vein was segmentally ablated by heating a 7 cm segment and then indexing the catheter forward by 6.5 cm until the treatment length is completed. Device temperature was maintained at 120 plus or minus 5 degrees C with an initial power level of 40W dropping to below 20W for each treatment. Total vein length treated 13 cm Total cycles of RF 3. Repeat ultrasound of the saphenous vein was performed, confirming successful treatment. The catheter and sheath were withdrawn and hemostasis established with direct pressure. After assuring hemostasis, the skin incision over the saphenous vein was closed with a bandage and a compression wrap. Patient was scheduled for follow-up ultrasound on Thursday. Follow up with us was recommended. 31324 - Endovenous RF, 1st Vein All charges added?: Procedure code (CPT) selection complete Assessment & Plan Assessment & Plan (1) Varicose veins of right lower extremity with inflammation: Comment: 2014 - right great saphenous vein ablation and microphlebectomy done at [facility] 12/18/2023 - right great saphenous and accessory saphenous vein radiofrequency ablation 01/29/2024 - right small saphenous vein radiofrequency ablation Code(s): I83.11 - Varicose veins of right lower extremity with inflammation Category: Medical Plan: See op note Orders: Orders US venous duplex LE RT 02/02/24 M79.604 - Pain in right leg Coding Level of Care Code Procedure Only Diagnoses Varicose veins of right lower extremity with inflammation I83.11 CPT Codes Details - Vascular 1: 19983 - Endovenous RF, 1st Vein ([id number])
== END 2024-01-29 09:23 | disposition home or self-care (01) ==
PROVIDERS: PCP Family Medicine; Visit Provider Surgery Vascular Surgery
DX: I83.11 Varicose veins of right lower extremity with inflammation (principal)
CPT/HCPCS: 36475

== ENCOUNTER → 2024-01-29 08:22 | Outpatient (BNVA) | payer MEDICAID, SELFPAY | PROVIDERS: PCP Family Medicine; Visit Provider Surgery Vascular Surgery | DX: I83.11 Varicose veins of right lower extremity with inflammation (principal) | CPT/HCPCS: 36475 ==

== ENCOUNTER 2024-02-02 09:56 | Outpatient (REF) | payer MEDICAID, SELFPAY ==
--- NOTE | ~2024-02-02 | US_ITS ---
EXAMINATION: US VENOUS ULTRASOUND WITH DOPPLER LOWER EXTREMITY, RIGHT CLINICAL INFORMATION: Please rule out DVT on the right COMPARISON: DVT ultrasound December 21, 2023 TECHNIQUE: Ultrasound of the deep veins is performed from the hip to the calf with compression sonography and color and pulse Doppler assessment. Spectral analysis with color-flow imaging is performed. FINDINGS: There is normal venous compression and respiratory variation and augmented flow. The visualized common femoral vein, superficial femoral vein, profunda femoral vein, popliteal vein, and the trifurcation region shows no evidence of deep venous thrombosis. There is no significant popliteal fossa cyst. The right small saphenous vein is closed status post Venaseal. US/US venous duplex LE RT IMPRESSION: 1. The right small saphenous vein is closed status post Venaseal. 2. No DVT demonstrated in the right lower extremity.
== END 2024-02-02 09:57 | disposition home or self-care (01) ==
LOC: HO.HMGCX 09:56
PROVIDERS: PCP Family Medicine; Visit Provider Surgery Vascular Surgery
DX: M79.604 Pain in right leg (principal)
CPT/HCPCS: 93971

== ENCOUNTER 2024-02-11 08:46 | Outpatient (AMB) | payer MEDICAID, SELFPAY ==
--- NOTE | 2024-02-11 08:50 | A.OFFVIS_ITS ---
Vital Signs 02/11/24 08:51 Height 6 ft 1 in Weight 290 lb BMI 38.3 Intake Visit Reasons: 2 week follow up Right SSV RFA 01/29/24 Intake Note: follow up Right SSV RFA 01/29/24, pt states leg feels fine after procedure, no issues but still has Large VV that is causing itching, burning and numbness. Pt states he works standing long hours at work and has pain for the past 2 years. Pt has bilateral LE rope like VV w/ discoloration worse on the right LE, the inner thigh area in particular bothers him the most. Hx of Right GSV RFA Accompanied by: Self / Same As Patient Allergies Penicillins [PCN] Allergy (Verified 02/11/24 09:02) Rash HPI HPI 2 week follow up Right SSV RFA 01/29/24: Details: Very pleasant 43-year-old gentleman presents for follow-up status post right small saphenous vein radiofrequency ablation. Reports he is doing extremely well. Has had no interval issues. He is now concerned about his left lower extremity. He now presents for follow-up. Of note postprocedure ultrasound was negative for DVT. PFSH Medical History Alcohol use disorder MDD (major depressive disorder), recurrent severe, without psychosis Alcohol abuse Social History Household Members: Other Household Members Other:: girlfriend Housing: Apartment Do you presently have visiting nurse or other home services: No Unable to assess alcohol history related to: Unknown Alcohol intake: current Alcohol intake frequency: 3 or more drinks per day Alcohol type: beer and hard liquor Patient Tobacco Use Status: Never used Tobacco Second Hand Smoke Exposure: No (Unknown, pt unable to participate fully in admission.) Substance Use Type: Marijuana service: No Sexual orientation: Straight/Heterosexual Review of Systems Const All systems reviewed & are unremarkable except as noted in HPI and below Reports no additional complaints ENT Reports Normal hearing present Card Denies chest pain, Denies chest pain at rest, Denies chest pain with activity and Denies pedal edema Resp Denies cough GI Denies abdominal pain Musc Denies abnormal gait, Denies muscle cramps and Denies radiating pain into limb Skin/Breast Denies skin ulcer and Denies wounds Neuro Reports Normal hearing present and Denies abnormal gait Psych Reports no additional complaints Physical Exam Vital Signs: BMI result Body Mass Index 38.3 Const General: cooperative, healthy appearing and comfortable Orientation/consciousness: oriented to person, oriented to place and oriented to time HEENT Head: Yes normal to inspection Neck Neck: Yes normal visual inspection Carotids: no bruits Chest Chest palpation & inspection: normal inspection of the chest Resp Effort & Inspection: normal respiratory effort and able to speak in complete sentences Auscultation: clear to auscultation bilaterally, no crackles, no rales, no rhonchi and no wheezes Cardio Rate: regular rate Rhythm: regular rhythm Heart sounds: S1 normal heart sound present and S2 normal heart sound present Bruits: no carotid bruits Peripheral pulses: Peripheral pulses 2+ throughout GI Inspection: Yes normal to inspection Skin Wounds: no wounds Hair: normal Neuro General: oriented to person, oriented to place and oriented to time Cranial nerves: Yes CN's II-XII intact bilaterally and Yes Normal hearing present Cognition (Neuro): normal cognition Motor exam (neuro): 5/5 motor strength present throughout Extrem Other: venous exam: No significant superficial varicosities or spider telan giectasias, minimal edema General: No clubbing, No cyanosis and No edema Psych Appearance: grossly normal Mental Status: mental status grossly normal Speech and movement: Normal speech and movement present Results Reviewed Results Reviewed: Brief summary of venous insufficiency testing is as follows: right great saphenous vein: negative right small saphenous vein: negative right accessory vein: none present left great saphenous vein: Positive at calf left small saphenous vein: Positive left accessory vein: none present Please note there is no evidence of any venous aneurysms or significant tortuosity Assessment & Plan Assessment & Plan (1) Varicose veins of right lower extremity with inflammation: Comment: 2014 - right great saphenous vein ablation and microphlebectomy done at [facility] 12/18/2023 - right great saphenous and accessory saphenous vein radiofrequency a blation 01/29/2024 - right small saphenous vein radiofrequency ablation Code(s): I83.11 - Varicose veins of right lower extremity with inflammation Category: Medical Plan: Right lower extremity stable. Will work on left lower extremity. (2) Varicose veins of left lower extremity with inflammation: Code(s): I83.12 - Varicose veins of left lower extremity with inflammation Category: Medical Plan: This patient has varicose veins with inflammation. They continue to be a source of discomfort for the patient. The patient has tried conservative treatment with compression, leg elevation and exercise program for over 3 months time. They have been compliant with all treatment. This has provided minimal relief for the patient. I do not anticipate this course of treatment will alter the underlying etiology. The patient has been scheduled for lower extremity venous treatment inclusive of --- left great saphenous vein Cyanoacralate ablation. Risks, benefits, and complications of this procedure has been discussed in detail with the patient including but not limited to bleeding, infection, and the development of a DVT. The patient has demonstrated a clear understanding and has consented. We will schedule the patient as soon as possible. Thank you for allowing us to participate in this patient's care. If there are any questions or concerns please do not hesitate to contact us. Coding Level of Care Code Est Pt Level 4 (70799) Diagnoses Varicose veins of right lower extremity with inflammation I83.11 Varicose veins of left lower extremity with inflammation I83.12
[2024-02-11 08:51] VITALS: BMI 38.3
== END 2024-02-11 09:38 | disposition home or self-care (01) ==
PROVIDERS: PCP Family Medicine; Referring Provider Family Medicine; Visit Provider Surgery Vascular Surgery
DX: I83.11 Varicose veins of right lower extremity with inflammation (principal); I83.12 Varicose veins of left lower extremity with inflammation
CPT/HCPCS: 99214

== ENCOUNTER → 2024-02-11 08:46 | Outpatient (BNVA) | payer MEDICAID, SELFPAY | PROVIDERS: PCP Family Medicine; Visit Provider Surgery Vascular Surgery | DX: I83.11 Varicose veins of right lower extremity with inflammation (principal); I83.12 Varicose veins of left lower extremity with inflammation | CPT/HCPCS: 99212 ==

== ENCOUNTER 2024-03-15 18:23 | Outpatient (REF) | payer MEDICAID, SELFPAY ==
[2024-03-16 09:00] LABS: H Pylori Breath Test Negative (Negative)
== END 2024-03-15 18:24 | disposition home or self-care (01) ==
LOC: HO.HHCLNP 18:23
PROVIDERS: Visit Provider Internal Medicine
DX: R10.13 Epigastric pain (principal)
CPT/HCPCS: 83013

== ENCOUNTER 2024-03-17 08:04 | Outpatient (REF) | payer MEDICAID, SELFPAY ==
--- NOTE | ~2024-03-17 | XR_ITS ---
EXAMINATION: XR BILATERAL KNEES CLINICAL INFORMATION: Osteoarthritis right knee, pain left knee. COMPARISON: None available. TECHNIQUE: AP standing, lateral and sunrise views of each knee. FINDINGS: LEFT KNEE: Large effusion. Minimal narrowing of the medial compartment. Tiny marginal osteophytes. RIGHT KNEE: Small joint effusion. Minimal narrowing of the medial compartment. Tiny marginal osteophytes. XR/XR knee LT 3V IMPRESSION: 1. Large left and small right joint effusions. 2. Minimal degenerative changes bilateral knees.
--- NOTE | ~2024-03-17 | XR_ITS ---
EXAMINATION: XR BILATERAL KNEES CLINICAL INFORMATION: Osteoarthritis right knee, pain left knee. COMPARISON: None available. TECHNIQUE: AP standing, lateral and sunrise views of each knee. FINDINGS: LEFT KNEE: Large effusion. Minimal narrowing of the medial compartment. Tiny marginal osteophytes. RIGHT KNEE: Small joint effusion. Minimal narrowing of the medial compartment. Tiny marginal osteophytes. XR/XR knee RT 3V IMPRESSION: 1. Large left and small right joint effusions. 2. Minimal degenerative changes bilateral knees.
== END 2024-03-17 08:05 | disposition home or self-care (01) ==
LOC: HO.HOSX 08:04
PROVIDERS: Visit Provider Physician Assistant
DX: M17.0 Bilateral primary osteoarthritis of knee (principal)
CPT/HCPCS: 73562; 99212

== ENCOUNTER 2024-03-17 09:44 | Outpatient (AMB) | payer MEDICAID, SELFPAY ==
--- NOTE | 2024-03-17 09:51 | MHC.OFFVIS ---
Intake Visit Reasons: N/P B/L knee Intake Note: Alejandro a 43 year old male who presents today as a new patient for an evaluation of bilateral knee pain. Patient reports this pain started about 3 years ago but states the pain has gotten worse. Pt states the pain radiates down his legs. Pt states it is hard to describe the feeling. Pt denies any previous surgeries or injections. Allergies Penicillins [PCN] Allergy (Verified 03/17/24 10:02) Rash Medication List - Last Reconciled 03/17/24 by Joe Cerda PA-C blood pressure test kit-large As directed omeprazole 20 mg PO BID HPI HPI N/P B/L knee : Details: 43-year-old male who presents to the office today for an evaluation of bilateral knee pain for 3 years. He states he has worsening bilateral knee pain that radiates down to his legs. His pain is aggravated with walking and stair use and experiences a burning sensation with doing these activities. He also c/o back pain as well as numbness and tingling. He has not had any treatment in the past. He has a history of varicose veins. [facility] Medical History Alcohol use disorder MDD (major depressive disorder), recurrent severe, without psychosis Alcohol abuse Social History Household Members: Other Household Members Other:: girlfriend Housing: Apartment Do you presently have visiting nurse or other home services: No Unable to assess alcohol history related to: Unknown Alcohol intake: current Alcohol intake frequency: 3 or more drinks per day Alcohol type: beer and hard liquor Patient Tobacco Use Status: Never used Tobacco Second Hand Smoke Exposure: No (Unknown, pt unable to participate fully in admission.) Substance Use Type: Marijuana service: No Sexual orientation: Straight/Heterosexual Review of Systems Const All systems reviewed & are unremarkable except as noted in HPI and below Physical Exam Const General: cooperative, healthy appearing, comfortable, no acute distress, well developed and alert Orientation/consciousness: patient oriented x3 HEENT Head: Yes normal to inspection, Yes normocephalic and Yes atraumatic Eyes General: appearance normal, both eyes and all related structures Resp Effort & Inspection: normal respiratory effort and able to speak in complete sentences Cardio Rate: regular rate Peripheral pulses: Peripheral pulses 2+ throughout GI Palpation (GI): Soft to palpation Skin Lesions: no lesions Rashes: no rashes Neuro General: patient oriented x3 Extrem Other: Bilateral knee: Skin intact, no erythema or joint effusion. Tenderness along the medial and lateral joint line. Full ROM with crepitus. Negative Kelli?s. No ligamentous laxity. NVI. ? Results Reviewed Results Reviewed: Xrays were obtained in the office today and personally reviewed by me of ladonna knee show mild medial compartment oa Assessment & Plan Assessment & Plan (1) Osteoarthritis of knees, bilateral: Code(s): M17.0 - Bilateral primary osteoarthritis of knee Category: Medical Plan We discussed options which include PT, NSAIDs and injections. The patient will defer on the injection today and proceed with PT and NSAIDs. If symptoms persist, she will contact me for an injection, otherwise, PRN. Orders: Orders PT Evaluation and Treatment Today M17.0 - Bilateral primary osteoarthritis of knee XR knee LT 3V Today M25.562 - Pain in left knee XR knee RT 3V Today M17.11 - Unilateral primary osteoarthritis, right knee Referrals Podiatry Referral M21.612 - Bunion of left foot Patient Instructions: Scribed for Joe Cerda PA-C, by Johnson Alanis medical health researcher, on 03/17/2024 at 10:00 AM EST.? I, Joe Cerda PA-C, have personally reviewed and agree with the information entered by the scribe. Coding Level of Care Code New Pt Level 3 (45844) Diagnoses Osteoarthritis of knees, bilateral M17.0
== END 2024-03-17 12:22 | disposition home or self-care (01) ==
PROVIDERS: PCP Family Medicine; Visit Provider Physician Assistant
DX: M17.0 Bilateral primary osteoarthritis of knee (principal)
CPT/HCPCS: 99203

== ENCOUNTER 2024-04-05 08:29 | Outpatient (AMB) | payer MEDICAID, SELFPAY ==
--- NOTE | 2024-04-05 08:34 | A.OFFVIS_ITS ---
Intake Visit Reasons: erectile dysfunction/ low testosterone Allergies Penicillins [PCN] Allergy (Verified 04/05/24 09:51) Rash Medication List - Last Reconciled 04/05/24 by JAMIN Fish- blood pressure test kit-large As directed omeprazole 20 mg PO BID tadalafil (Cialis) 5 mg PO DAILY 90 days HPI Comments Details: Alejandro is a very pleasant 43-year-old male patient of Dr. Bush. He has a past medical history of admission bilateral osteoarthritis of knees, daytime sleepiness, snoring, alcohol use disorder and major depressive disorder. He presents to the office today as a new patient for ongoing erectile dysfunction. In discussion with the patient today he reports noting over the last 2-3 years he has noted intermittent issues with obtaining and maintaining his erections. He does report morning erections. He denies any previous trauma to the area. He reports having had COVID and the flu multiple times over the last couple of years and feels this has played a role in his erectile dysfunction. He reports having discussed this with his PCP at which time his testosterone was drawn and referral was made to Urology for further assessment evaluation. Recent testosterone labs reviewed with the patient today 01/28 Testosterone 205 and PSA 0.5. Discussed at length potential causes of erectile dysfunction as well as lifestyle modifications. Discussed at length contributing factors. In office urinalysis results reviewed with the patient today. He otherwise denies any bothersome urinary issues. He denies urinary urgency, urinary frequency, incontinence, nocturia, hematuria, dysuria, foul smelling urine, changes to urinary stream, flank pain, fever, and or chills. He is happy with her current voiding parameters. [facility] Medical History Alcohol use disorder MDD (major depressive disorder), recurrent severe, without psychosis Alcohol abuse Social History Household Members: Other Household Members Other:: girlfriend Housing: Apartment Do you presently have visiting nurse or other home services: No Unable to assess alcohol history related to: Unknown Alcohol intake: current Alcohol intake frequency: 3 or more drinks per day [place] type: beer and hard liquor Patient Tobacco Use Status: Never used Tobacco Second Hand Smoke Exposure: No (Unknown, pt unable to participate fully in admission.) Substance Use Type: Marijuana service: No Sexual orientation: Straight/Heterosexual Review of Systems Const All systems reviewed & are unremarkable except as noted in HPI and below Physical Exam Const General: cooperative, healthy appearing, comfortable, no acute distress, well developed, alert and awake Nutritional Appearance: overweight Orientation/consciousness: patient oriented x3 Limitations: no limitations HEENT Head: Yes normal to inspection, Yes normocephalic and Yes atraumatic Ears: hearing grossly normal bilaterally Eyes General: appearance normal, both eyes and all related structures Neck Neck: Yes normal visual inspection and Yes trachea midline Chest Chest palpation & inspection: normal inspection of the chest Resp Effort & Inspection: normal respiratory effort and able to speak in complete sentences Cardio Rate: regular rate GI Inspection: Yes normal to inspection General: Yes no CVA tenderness Back/Spine/Pelvis Back: no CVA tenderness Skin General skin exam: no rashes or lesions noted Neuro General: patient oriented x3 Extrem General: Yes normal to inspection Psych Appearance: grossly normal and well kempt Mental Status: mental status grossly normal Speech and movement: Normal speech and movement present and Clear speech present Affect: normal affect Attitude: cooperative Thought process: Normal thought process present Thought content: Normal thought content present Insight: Fair insight present (Psych) Judgement: Fair judgement present (Psych) Results AMB Urinalysis, Automated UA Leukoctes 0 Vira/uL Last Edit by KATHE Mccurdy on 04/05/24 09:05 UA Nitrite Negative Last Edit by KATHE Mccurdy on 04/05/24 09:05 UA Urobilinogen 0.2 mg/dL Last Edit by KATHE Mccurdy on 04/05/24 09:0 5 UA Protein 15 mg/dL Last Edit by KATHE Mccurdy on 04/05/24 09:05 UA pH 6.0 Last Edit by KATHE Mccurdy on 04/05/24 09:05 UA Blood 0 Reilly/uL Last Edit by KATHE Mccurdy on 04/05/24 09:05 UA Specific [place] 1.020 Last Edit by KATHE Mccurdy on 04/05/24 09: 05 UA Ketone Negative Last Edit by KATHE Mccurdy on 04/05/24 09:05 UA Bilirubin 0 mg/dL Last Edit by KATHE Mccurdy on 04/05/24 09:05 UA Glucose 0 mg/dL Last Edit by KATHE Mccurdy on 04/05/24 09:05 Results Reviewed Results Reviewed: Laboratory Last Values Urine pH (Auto) 6.0 04/05/24 09:04 Specific [place] (Auto) 1.020 04/05/24 09:04 Urine Protein (Auto) 15 mg/dL 04/05/24 09:04 Glucose (UA)(Auto) 0 mg/dL 04/05/24 09:04 Urine Ketones (Auto) Negative 04/05/24 09:04 Urine Blood (Auto) 0 Reilly/uL 04/05/24 09:04 Urine Nitrite (Auto) Negative 04/05/24 09:04 Urine Bilirubin (Auto) 0 mg/dL 04/05/24 09:04 Urine Urobilinogen (Auto) 0.2 mg/dL 04/05/24 09:04 Leukocyte Esterase (Auto) 0 Vira/uL 04/05/24 09:04 Assessment & Plan Assessment & Plan (1) Hypogonadism in male: Code(s): E29.1 - Testicular hypofunction Category: Medical (2) Erectile dysfunction: Code(s): N52.9 - Male erectile dysfunction, unspecified Category: Medical Plan In office urinalysis results reviewed with the patient today; as noted above. Recent testosterone results reviewed with the patient today; as noted above. Discussed at length potential causes of episodes of ED he is experiencing as well as lifestyle modifications; this was discussed at length Start 5 mg of Cialis daily as discussed and prescribed. Will obtain SHBG, estradiol, prolactin, LH, and testosterone free and total for further assessment evaluation. Information provided for urological store for penile pump. Discussed importance of completing sleep study ordered by PCP in correlation of potential sleep apnea with erectile dysfunction as well as overall health and well-being. Follow-up in 3 months with labs to be completed prior; or sooner with any issue s, concerns, and or questions. Orders: Orders AMB Urinalysis Automated Today Z13.9 - Encounter for screening, unspecified Sex Hormone Binding Globulin Today E29.1 - Testicular hypofunction, N52.9 - Male erectile dysfunction, unspecified Estradiol Ultra Sensitive Today E29.1 - Testicular hypofunction Prolactin Today E29.1 - Testicular hypofunction Lutenizing Hormone Today E29.1 - Testicular hypofunction Testosterone, Free/Total Today E29.1 - Testicular hypofunction, N52.9 - Male erectile dysfunction, unspecified Medications: New tadalafil (Cialis) [id number] [facility] [id number] Member [id number] 5 mg PO DAILY 90 days 90 tabs 0RF Patient Instructions: The patient had an opportunity to ask questions regarding the treatment plan. All questions were answered. Physical exam, labs, and imaging were discussed and reviewed in detail. As well as risks, benefits, and discussion of treatment choices. No major barriers to understanding were identified. The patient expressed understanding and agreement with the above treatment plan. The patient was made aware they should contact our office by phone for worsening of their current condition, the appearance of new symptoms, or with any questions or concerns. Compliance is encouraged with any medications and follow up testing that is ordered. It is a privilege to be allowed the opportunity to participate in? your urological care.? Again, if you have any questions or concerns If you have any questions or concerns please do not hesitate to contact me. The office is [phone]. This note is constructed using voice recognition software. While every effort has been made to ensure accuracy lehr stripper errors may have been included. Yours sincerely, LYNDSEY Fish Coding Level of Care Code New Pt Level 4 (02570) Diagnoses Hypogonadism in male E29.1 Erectile dysfunction N52.9
== END 2024-04-05 09:52 | disposition home or self-care (01) ==
PROVIDERS: PCP Family Medicine; Visit Provider Nurse Practitioner Family
DX: E29.1 Testicular hypofunction (principal); N52.9 Male erectile dysfunction, unspecified; Z13.9 Encounter for screening, unspecified
CPT/HCPCS: 99204

== ENCOUNTER → 2024-04-05 08:29 | Outpatient (BNVA) | payer MEDICAID, SELFPAY | PROVIDERS: PCP Family Medicine; Visit Provider Nurse Practitioner Family | DX: E29.1 Testicular hypofunction (principal); N52.9 Male erectile dysfunction, unspecified | CPT/HCPCS: 81003; 99212 ==

== ENCOUNTER 2024-04-06 11:32 | Outpatient (REF) | payer MEDICAID, SELFPAY ==
[2024-04-07 08:12] LABS: Lutenizing Hormone 2.8 mIU/mL (1.5-9.3); Prolactin 9.3 ng/mL (2.0-18.0); Sex Hormone Binding Globulin 26 nmol/L (10-50)
[2024-04-10 16:12] LABS: Testosterone, Free 59.5 pg/mL (35.0-155.0); Testosterone, Total 342 ng/dL (250-1100)
[2024-04-15 23:09] LABS: Estradiol Ultra Sensitive 19 pg/mL (< OR = 29)
== END 2024-04-06 11:33 | disposition home or self-care (01) ==
LOC: HO.HHCL 11:32
PROVIDERS: Visit Provider Nurse Practitioner Family
DX: E29.1 Testicular hypofunction (principal); N52.9 Male erectile dysfunction, unspecified
CPT/HCPCS: 36415; 82670; 83002; 84146; 84270; 84402; 84403

== ENCOUNTER 2024-05-12 13:00 | Outpatient (RCR) | payer MEDICAID, SELFPAY ==
--- NOTE | 2024-05-04 15:19 | MHC.PT.EP ---
[facility] [place] Office [place] Office [place] Office [address] Darion Kitchen [address] [phone] F: [phone] F: [phone] F: [phone] F: [phone] Physical Therapy Plan of Care Date of Evaluation: 05/04/24 Date of Surgery: Diagnosis: OA of B knees Assessment: Pt is a 43 y/o M with hx of varicose veins who is referred to PT for eval and treat of B knee OA who presents with B foot/lower leg pain in addition to knee pain resulting in decreased tolerance or ability for walking, sleeping, working, negotiating stairs and standing for prolonged periods of time at work secondary to decreased B ankle ROM, TTP of L 5th met and R 2nd and 3rd toes, mild swelling dorsal aspect R foot, mild degenerative changes B knee joints and gait abnormalities. Pt is motivated and is deemed an appropriate candidate to receive skilled PT services to address their physical impairments in order to improve their function. Frequency and Duration: The patient will be seen 2x/week for 5 weeks. Short Term Goals: Initiate home exercise program. Pt will report at most 5/10 pain; initial 10/10. Pt will report at most moderate difficulty with HH chores; initial extreme difficulty or unable. [facility]ci Goals: Pt will report little to no difficulty with walking 2 blocks; initial extreme difficulty or unable. Pt will report little to no difficulty standing for 1 hour; initial extreme difficulty or unable. Pt will report little to no difficulty ascending/descending stairs; initial extreme difficulty or unable. Pt will improve LEFI score by 9 points. Treatment Plan: Modalities to reduce pain, spasms and effusion. Manual therapy to restore motion and function. Therapeutic exercise to improve strength and flexibility. Neuromuscular re-education for posture and balance. Therapeutic activities to return to functional activities of daily living. Electronically signed by: Roland Gale PT Please sign and return to therapist. Thank you for your referral.
--- NOTE | 2024-12-19 08:55 | MHC.PT.DC ---
[facility] [place] Office [place] Office [place] Office [address] Caryn Kitchen 140 [facility] [phone] F: [phone] F: [phone] F: [phone] F: [phone] Physical Therapy Discharge Report Diagnosis: OA of B knees Date of Surgery: Date of Evaluation: 05/04/24 Date of Discharge: Treatments to Date: 2 Cancellations to Date: 1 No Shows to Date: Discharge Status: Patient Elected to Stop Discharge Summary: . Electronically signed by: Roland Gale PT. Please sign and return to therapist. Thank you for your referral.
== END 2024-12-19 08:55 | disposition home or self-care (01) ==
LOC: HO.PT 13:00
PROVIDERS: PCP Family Medicine; Visit Provider Physician Assistant
DX: M17.0 Bilateral primary osteoarthritis of knee (principal)
CPT/HCPCS: 97110; 97140; 97161

== ENCOUNTER 2024-05-13 08:26 | Outpatient (AMB) | payer MEDICAID, SELFPAY ==
--- NOTE | 2024-05-13 08:40 | MHC.OFFVIS ---
Intake Visit Reasons: Left Venaseal Accompanied by: Self / Same As Patient Allergies Penicillins [PCN] Allergy (Verified 05/13/24 08:40) [facility] Medical History Alcohol use disorder MDD (major depressive disorder), recurrent severe, without psychosis Alcohol abuse Social History Household Members: Other Household Members Other:: girlfriend Housing: Apartment Do you presently have visiting nurse or other home services: No Unable to assess alcohol history related to: Unknown Alcohol intake: current Alcohol intake frequency: 3 or more drinks per day Alcohol type: beer and hard liquor Patient Tobacco Use Status: Never used Tobacco Second Hand Smoke Exposure: No (Unknown, pt unable to participate fully in admission.) Substance Use Type: Marijuana service: No Sexual orientation: Straight/Heterosexual Office Procedures Vascular Office Procedure Details Details: Diagnosis: Left Leg varicose veins with inflammation Procedure: Endovenous Ablation of the left Great Saphenous Vein with VenaSeal Closure System Anesthesia: Local infiltration 5 cc, Estimated Blood Loss: min Specimen: none Duplex ultrasound was used to map out the insufficient saphenous vein, and access was determined and marked on the overlying skin. The depth and diameter of the vein(s) to be treated was documented. The patient was placed supine on the procedure table and the leg was prepped and draped using sterile technique. Ultasound guidance was again used to localize the access site. 1% lidocaine was injected as a local anesthetic in the subcutaneous tissues at the target location in the GSV in the lower leg. Using ultrasound guidance, access was gained at this location with the 19 gauge thin walled access needle and followed by introduction of a short guidewire, location confirmed with ultrasound. A small, 3 mm incision was made at the access site to allow for introduction and placement of the 7 Fr x7cm introducer/dilator. The dilator and guidewire were removed. The 0.035 guidewire from the VenaSeal kit was then introduced and positioned at the saphenofemoral junction using ultrasound guidance. The 80 cm 7 Fr introducer sheath/dilator was positioned as far proximally as the wire would go as there was an area of occlusion more proximal to that.. The guidewire and dilator were removed, and the remaining sheath was flushed with sterile saline, with the syringe remaining in place prior to the next steps. The cyanoacrylate adhesive was precisely primed into the 5 F delivery catheter and this catheter/syringe combination was attached within the dispenser gun. This assembly was introduced through the 7F sheath and positioned 5 cm caudal of the saphenofemoral junction under ultrasound guidance. The steps from the IFU were followed for dispensing amounts, locations and compression times, 2 aliquots proximally with 30 seconds of compression, and 1 aliquot every 3 cm distally with 30 sec of compression along the course of the vessel. Following the last injection and compression sequence, the catheter and introducer sheath were pulled out from the access site. Hemostasis was achieved with manual compression and an adhesive bandage was applied to the incision. Ultrasound confirmed complete coaptation and closure of the treated segments of the GSV, and the absence of any DVT at the saphenofemoral junction. Treatment time was approximately 3 minutes and the vein length treated was 20 cm. The drapes were removed and the patient cleaned and prepared for discharge. Post op ultrasound check is scheduled for 48-72 hours and the patient was given written post-op instructions. 70135 - Endoven Ther Chem Adhes 1st All charges added?: Procedure code (CPT) selection complete Assessment & Plan Assessment & Plan (1) Varicose veins of left lower extremity with inflammation: Comment: 05/13/2024 - left great saphenous vein Cyanoacralate ablation Code(s): I83.12 - Varicose veins of left lower extremity with inflammation Category: Medical Plan: See op note Coding Level of Care Code Procedure Only Diagnoses Varicose veins of left lower extremity with inflammation I83.12 CPT Codes Details - Vascular 3: 98592 - Endoven Ther Chem Adhes 1st ([id number])
== END 2024-05-13 09:34 | disposition home or self-care (01) ==
PROVIDERS: PCP Family Medicine; Referring Provider Family Medicine; Visit Provider Surgery Vascular Surgery
DX: I83.12 Varicose veins of left lower extremity with inflammation (principal)
CPT/HCPCS: 36482

== ENCOUNTER → 2024-05-13 08:26 | Outpatient (BNVA) | payer MEDICAID, SELFPAY | PROVIDERS: PCP Family Medicine; Visit Provider Surgery Vascular Surgery | DX: I83.12 Varicose veins of left lower extremity with inflammation (principal) | CPT/HCPCS: 36482 ==

== ENCOUNTER 2024-05-16 10:23 | Outpatient (REF) | payer MEDICAID, SELFPAY ==
--- NOTE | ~2024-05-16 | US_ITS ---
EXAMINATION: TRIPLEX SCANNING OF LEFT LOWER EXTREMITY; SUPERFICIAL ULTRASOUND WITH DOPPLER OF LEFT LOWER EXTREMITY CLINICAL INFORMATION: Status post Venaseal of the left great saphenous vein Ambulatory phlebectomy performed: No Originally performed on 05/13/2024. COMPARISON: preprocedure studies. TECHNIQUE: Color flow triplex imaging and compression Doppler were performed as well as superficial ultrasound with Doppler. FINDINGS: LEFT LOWER EXTREMITY DEEP VENOUS SYSTEM: Respiratory variation, normal compression and augmented flow are noted throughout the lower extremity. The visualized common femoral vein, femoral vein, profunda femoral vein, popliteal vein and the calf veins show no evidence of deep venous thrombosis. There is no evidence of Marcano's cyst. SUPERFICIAL VENOUS SYSTEM: The great saphenous vein is occluded from the access site to 2.4 cm before the saphenofemoral junction. There is no extension of thrombus into the deep system. US/US venous duplex LE LT IMPRESSION: 1. No evidence of DVT. 2. Excellent appearance status post ablation of the left great saphenous vein. Electronically signed by: Orestes Yuen MD 05/16/2024 04:09 PM EDT
== END 2024-05-16 10:24 | disposition home or self-care (01) ==
LOC: HO.US 10:23
PROVIDERS: PCP Family Medicine; Visit Provider Surgery Vascular Surgery
DX: M79.605 Pain in left leg (principal)
CPT/HCPCS: 93971

== ENCOUNTER 2024-05-31 09:47 | Outpatient (AMB) | payer MEDICAID, SELFPAY ==
--- NOTE | 2024-05-31 09:59 | MHC.OFFVIS ---
Intake Visit Reasons: 2 week follow up; Left Venaseal Intake Note: Patient presents for 2 week follow up venaseal. Patient is complaining of redness pain and discomfort. He has visible redness in left thigh and left calf. Accompanied by: Self / Same As Patient Allergies Penicillins [PCN] Allergy (Verified 06/01/24 10:42) Rash HPI HPI 2 week follow up; Left Venaseal: Details: Very pleasant 44-year-old gentleman presents for follow-up status post left great saphenous vein ablation. Reports he is doing fairly well. Overall swelling has decreased. He is having a little bit of superficial phlebitis which has been a source of concern for him. He now presents for routine postprocedure follow-up. He continues to use compression. He does have other large varicosities which have been a source of concern for him as they do cause discomfort. PFSH Medical History Varicose vein of leg Alcohol use disorder MDD (major depressive disorder), recurrent severe, without psychosis Alcohol abuse Social History Household Members: Other Household Members Other:: girlfriend Housing: Apartment Do you presently have visiting nurse or other home services: No Unable to assess alcohol history related to: Unknown Alcohol intake: current Alcohol intake frequency: 3 or more drinks per day Alcohol type: beer and hard liquor Patient Tobacco Use Status: Never used Tobacco Second Hand Smoke Exposure: No (Unknown, pt unable to participate fully in admission.) Substance Use Type: Marijuana service: No Sexual orientation: Straight/Heterosexual Review of Systems Const Reports as per HPI ENT Reports no additional complaints Card Denies chest pain, Denies chest pain at rest and Denies chest pain with activity Resp Denies chest congestion and Denies cough GI Reports no additional complaints Musc Details: pain over varicosities, aching of lower extremities, swelling, cramping, heaviness and tiredness, itching Denies abnormal gait Skin/Breast Reports pruritus and Denies wounds Neuro Reports no additional complaints and Denies abnormal gait Psych Denies no additional complaints Physical Exam Const General: cooperative, healthy appearing and comfortable Orientation/consciousness: oriented to person, oriented to place and oriented to time Neck Carotids: no bruits Chest Chest palpation & inspection: normal inspection of the chest and normal palpation of entire chest wall Resp Effort & Inspection: normal respiratory effort and able to speak in complete sentences Cardio Rate: regular rate Heart sounds: S1 normal heart sound present and S2 normal heart sound present Peripheral pulses: Peripheral pulses 2+ throughout GI Inspection: Yes normal to inspection Skin Other: +2 edema, large rope-like varicosities greater than 4 mm CEAP Classification C4 - skin color changes Ep - Etiology Primary As - superficial veins P - reflux General skin exam: dry skin Neuro General: oriented to person, oriented to place and oriented to time Extrem Right lower extremity: full ROM, normal capillary refill and edema Left lower extremity: full ROM, normal capillary refill and edema Psych Mental Status: mental status grossly normal Assessment & Plan Assessment & Plan (1) Varicose veins of right lower extremity with inflammation: Comment: 2014 - right great saphenous vein ablation and microphlebectomy done at [facility] 12/18/2023 - right great saphenous and accessory saphenous vein radiofrequency ablation 01/29/2024 - right small saphenous vein radiofrequency ablation Code(s): I83.11 - Varicose veins of right lower extremity with inflammation Category: Medical Plan: See below (2) Varicose veins of left lower extremity with inflammation: Comment: 05/13/2024 - left great saphenous vein Cyanoacralate ablation Code(s): I83.12 - Varicose veins of left lower extremity with inflammation Category: Medical Plan: In short patient has done well status post left great saphenous vein ablation. At the current time he would like to manage his varicosities conservatively. We did discuss routine conservative measures including compression, elevation, and exercise. He is planning for travel and we did discuss the importance of compression during his travel and the importance of ambulation as well. He will follow up with us after that time to discuss possible small saphenous vein ablation versus microphlebectomy. Thank you for allowing us to assist in his care. If there are any questions or concerns please do not hesitate to contact us Coding Level of Care Code Est Pt Level 3 (87493) Diagnoses Varicose veins of right lower extremity with inflammation I83.11 Varicose veins of left lower extremity with inflammation I83.12
== END 2024-05-31 10:35 | disposition home or self-care (01) ==
PROVIDERS: PCP Family Medicine; Visit Provider Surgery Vascular Surgery
DX: I83.11 Varicose veins of right lower extremity with inflammation (principal); I83.12 Varicose veins of left lower extremity with inflammation
CPT/HCPCS: 99213

== ENCOUNTER → 2024-05-31 09:47 | Outpatient (BNVA) | payer MEDICAID, SELFPAY | PROVIDERS: PCP Family Medicine; Visit Provider Surgery Vascular Surgery | DX: I83.11 Varicose veins of right lower extremity with inflammation (principal); I83.12 Varicose veins of left lower extremity with inflammation | CPT/HCPCS: 99212 ==

== ENCOUNTER 2024-06-01 10:29 | Outpatient (REF) | payer MEDICAID, SELFPAY ==
[2024-06-01 12:40] LABS: Alanine Aminotransferase 19 U/L (0-40); Albumin Level 4.5 g/dL (3.5-5.0); Alkaline Phosphatase 102 U/L (39-117); Aspartate Amino Transferase 18 U/L (5-37); Bilirubin Direct 0.1 mg/dL (0.0-0.5); Bilirubin Total 0.3 mg/dL (0.0-1.0); Lipase 25 U/L (8-78); Total Protein 8.1 g/dL (6.5-8.0)
[2024-06-01 13:20] LABS: Folate 13.3 ng/mL (> or = 4.0); Vitamin B12 416 pg/mL (200-900)
[2024-06-05 14:34] LABS: Vitamin D 25-OH, D2 <4 ng/mL; Vitamin D 25-OH, D3 23 ng/mL; Vitamin D 25-OH, Total 23 ng/mL (30-100)
[2024-06-08 15:53] LABS: Transglutaminase IgA <1.0 U/mL
== END 2024-06-01 10:30 | disposition home or self-care (01) ==
LOC: HO.LAB 10:29
PROVIDERS: PCP Family Medicine; Visit Provider Nurse Practitioner Family
DX: R10.13 Epigastric pain (principal); Z86.19 Personal history of other infectious and parasitic diseases; R19.7 Diarrhea, unspecified; E55.9 Vitamin D deficiency, unspecified; R10.9 Unspecified abdominal pain; R74.01 Elevation of levels of liver transaminase levels
CPT/HCPCS: 36415; 80076; 82306; 82607; 82746; 83690; 86364; 99212

== ENCOUNTER 2024-06-01 10:29 | Outpatient (AMB) | payer MEDICAID, SELFPAY ==
--- NOTE | 2024-06-01 10:42 | A.OFFVIS_ITS ---
Vital Signs 06/01/24 10:46 Height 6 ft 1 in Weight 291 lb 7.218 oz BMI 38.4 BP 146/88 H Blood Pressure Location Lt radial Position Sitting Pulse 78 Pulse Source Pulse Oximeter Pulse Oximetry (%) 99 Oxygen Delivery Method Room Air Intake Visit Reasons: H Pylori and abd pain Intake Note: Alejandro presents in office today for a scheduled initial assessment. CC: Pt reports that he has had multiple episodes of H Pylori over the course of the last year. Most recent episode as of 4 mos ago. Pt has also been reporting nausea, lack of appetite, epigastric pain, constipation, early satiety. Pt has been trying to drink more water lately but has been having difficulty. Pt has been taking his medications for chronic episodic constipation per his PCP without any relief. Pt also has prior hx of heavy EToH use. Pt last had a drink approximately 10 mos ago. 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 Patient reports that he was treated last year couple times for H pylori. Reviewed his records and lost recorded negative H pylori was in March of 2024. Patient is on omeprazole 20 mg twice a day. Patient denies having acid reflux, however patient reports to have epigastric discomfort no med what he eats. Patient denies any nausea or vomiting. Patient denies any dyspepsia, dysphagia or odynophagia. Patient reports that he is moving his bowels daily without any issues. Denies any melena, hematochezia. Patient denies any other GI concerning symptoms. [facility] Medical History History of Helicobacter pylori infection Varicose vein of leg Alcohol use disorder MDD (major depressive disorder), recurrent severe, without psychosis Alcohol abuse Social History (Reviewed 06/01/24 @ 10:53 by Murtaza Salcido [facility]) Household Members: Other Household Members Other:: girlfriend Housing: Apartment Do you presently have visiting nurse or other home services: No Unable to assess alcohol history related to: Unknown Alcohol intake: current Alcohol intake frequency: 3 or more drinks per day Alcohol type: beer and hard liquor Patient Tobacco Use Status: Never used Tobacco Second Hand Smoke Exposure: No (Unknown, pt unable to participate fully in admission.) Substance Use Type: Marijuana service: No Sexual orientation: Straight/Heterosexual Review of Systems Const Denies weight gain and Denies weight loss ENT Reports no additional complaints, Denies dysphagia and Denies odynophagia Card Reports no additional complaints Resp Reports no additional complaints GI Reports abdominal pain (Epigastric), Denies belching, Denies melena, Reports bloating, Denies change in bowel habits, Denies dysphagia, Denies excessive flatus, Denies dyspepsia, Denies heartburn, Denies diarrhea, Denies loose stools , Denies nausea, Denies odynophagia and Denies vomiting Reports no additional complaints Musc Reports no additional complaints Neuro Reports no additional complaints Psych Reports no additional complaints Endo Reports no additional complaints Physical Exam Vital Signs: Last Vital Signs Pulse 78 06/01/24 10:46 BP 146/88 H 06/01/24 10:46 Pulse Ox 99 06/01/24 10:46 Oxygen Delivery Method Room Air 06/01/24 10:46 BMI result Body Mass Index 38.4 Const General: healthy appearing, no acute distress and well developed Nutritional Appearance: well nourished Orientation/consciousness: patient oriented x3 Resp Effort & Inspection: normal respiratory effort, able to speak in complete sentences, no tracheal deviation and symmetric chest movement Auscultation: clear to auscultation bilaterally Cardio Rate: regular rate GI Inspection: Yes normal to inspection and No distended Palpation (GI): Soft to palpation, not firm, nontender and No hepatosplenomegaly present Auscultation: normal bowel sounds General: Yes no CVA tenderness Back/Spine/Pelvis Back: no CVA tenderness Skin General skin exam: elasticity normal, turgor normal and dry skin Neuro General: patient oriented x3 Psych Appearance: grossly normal Mental Status: mental status grossly normal Assessment & Plan Assessment & Plan (1) History of Helicobacter pylori infection: Code(s): Z86.19 - Personal history of other infectious and parasitic diseases Category: Medical (2) Postprandial epigastric pain: Code(s): R10.13 - Epigastric pain Plan Patient will stop taking omeprazole. Will start him on pantoprazole 40 mg daily. Patient was encouraged to avoid dietary triggers in late night snacking. Will check transglutaminase, liver panel, lipase, vitamin B12, folate and vitamin-D levels. Patient will be scheduled to go for upper endoscopy to rule out gastritis, esophagitis, duodenitis, gastric or peptic ulcers, Hernandez's. Patient will return in 3 months, sooner on as needed basis. He is agreeable to this plan and verbalizes understanding of instructions. He was given the opportunity to ask questions and all questions answered. Thank you for allowing me to participate in his care Orders: Orders Transglutaminase IgA Today R10.9 - Unspecified abdominal pain Liver Panel Today R74.01 - Elevation of levels of liver transaminase levels Transglutaminase Ab IgG Today R10.9 - Unspecified abdominal pain Vitamin B12 and Folate Today R19.7 - Diarrhea, unspecified Vitamin D 25-OH (D2 and D3) Today E55.9 - Vitamin D deficiency, unspecified Lipase Today R10.9 - Unspecified abdominal pain Medications: New pantoprazole take one tablet half an hour before breakfast 40 mg PO DAILY 30 tabs 2RF K21.9 - Gastro-esophageal reflux disease without esophagitis Coding Level of Care Code New Pt Level 3 (26508) Diagnoses History of Helicobacter pylori infection Z86.19 Postprandial epigastric pain R10.13 Time Spent (min) 40 Comment 30 minutes spent with patient and additional 10 minutes spent reviewing his records
[2024-06-01 10:46] VITALS: BP 146/88; PULSE 78; O2SAT 99; BMI 38.4
== END 2024-06-01 11:24 | disposition home or self-care (01) ==
PROVIDERS: PCP Family Medicine; Visit Provider Nurse Practitioner Family
DX: Z86.19 Personal history of other infectious and parasitic diseases (principal); R10.13 Epigastric pain
CPT/HCPCS: 99203

== ENCOUNTER 2024-06-06 11:59 | Outpatient (REF) | payer MEDICAID, SELFPAY ==
--- NOTE | ~2024-06-06 | XR_ITS ---
EXAMINATION: XR TOES, LEFT CLINICAL INFORMATION: Left fifth toe injury. COMPARISON: None available. TECHNIQUE: 3 views of the left toes were obtained. FINDINGS: Mildly displaced, oblique fracture through the fifth proximal phalanx which contacts the fifth metatarsophalangeal joint space. The fracture gap measures up to 0.1 cm. No dislocation. Surrounding soft tissue swelling. No joint space narrowing or marginal osteophytes. No osseous erosion. No abnormal soft tissue calcification. XR/XR toe LT min 2V IMPRESSION: Mildly displaced, oblique fracture through the fifth proximal phalanx which contacts the fifth metatarsophalangeal joint space. Electronically signed by: Elijah Bolanos MD 06/06/2024 12:44 PM EDT
== END 2024-06-06 12:00 | disposition home or self-care (01) ==
LOC: HO.HHCX 11:59
PROVIDERS: Visit Provider Emergency Medicine
DX: M79.675 Pain in left toe(s) (principal); S99.922D Unspecified injury of left foot, subsequent encounter
CPT/HCPCS: 73660

== ENCOUNTER 2024-06-21 12:58 | Outpatient (REF) | payer MEDICAID, SELFPAY | END 2024-06-21 12:59 | disposition home or self-care (01) | LOC: HO.HOSX 12:58 | DX: M79.672 Pain in left foot (principal); S92.912A Unspecified fracture of left toe(s), initial encounter for closed fracture | CPT/HCPCS: 73630; 99212 ==

== ENCOUNTER 2024-06-21 14:40 | Outpatient (AMB) | payer MEDICAID, SELFPAY ==
--- NOTE | 2024-06-21 15:05 | MHC.OFFVIS ---
Intake Visit Reasons: FC-FC of proximal phalanx, lesser toe of LT foot Intake Note: Alejandro a 44 year old male who presents today for an evaluation of left foot lesser toe fracture, DOI 06/01/24. Patient reports an injury to his left foot about a week prior to walk in clinic visit. His pain from his fracture has improved however his most concerns is his bilateral foot pain. He was seen by his PCP for bilateral foot pain that has been present for years. States constant pain that has been getting worse making it difficult to stand or walk. He was referred to a foot and ankle specialist. Hx of bilateral leg surgeries veins. Allergies Penicillins [PCN] Allergy (Verified 06/21/24 15:23) Rash HPI HPI FC-FC of proximal phalanx, lesser toe of LT foot: Details: Patient is a 44-year-old male who presents for evaluation of proximal phalanx fracture of the left small toe, date of injury 06/01/2024. Today, the patient reports that he is feeling much better, and then he experiences no pain in his left small toe at baseline. The patient does report that his toe was out of alignment prior to the injury, but since his fracture occurred he feels that his toe was actually an improved alignment from prior to the fracture. Patient reports that his main concern is bilateral foot pain, but he states that his primary care provider already referred him to a foot and ankle specialist for this. No other acute complaints or concerns at this time. [facility] Medical History History of Helicobacter pylori infection Varicose vein of leg Alcohol use disorder MDD (major depressive disorder), recurrent severe, without psychosis Alcohol abuse Social History (Updated 06/21/24 @ 15:16 by Arabella Vee [facility]) Household Members: Other Household Members Other:: girlfriend Housing: Apartment Do you presently have visiting nurse or other home services: No Unable to assess alcohol history related to: Unknown Alcohol intake: current Alcohol intake frequency: 3 or more drinks per day Alcohol type: beer and hard liquor Patient Tobacco Use Status: Former Tobacco user Second Hand Smoke Exposure: No (Unknown, pt unable to participate fully in admission.) Substance Use Type: Marijuana service: No Sexual orientation: Straight/Heterosexual Physical Exam Extrem Other: On inspection, there is a large corn noted on the dorsal aspect of the patient's left small toe There is also noted to be some uriy-[id number]-[id number] edema of the patient's left small toe No erythema, ecchymosis noted No lacerations, abrasions, open areas Patient reports some very mild tenderness to palpation over the proximal phalanx of the left small toe Patient is able to flex and extend all digits of the left foot without difficulty or pain Distal sensation intact Capillary refill brisk Office Procedures AMB Fracture Care Details: Left small toe proximal phalanx fracture Fracture Billing Code: Fracture Billing Code Results Reviewed Results Reviewed: X-rays obtained in the office today and independently reviewed by me, Darron Wong PA-C, demonstrate minimally displaced fracture of the proximal phalanx of the left small toe with evidence of interval bony healing. Assessment & Plan Assessment & Plan (1) Toe fracture, left: Code(s): S92.912A - Unspecified fracture of left toe(s), initial encounter for closed fracture Category: Medical Plan 1. Left small toe proximal phalanx fracture Date of injury 06/01/2024 Patient appears to be recovering well from his injury Patient is educated about the typical recovery course At this time, patient is educated that he should lenny tape the toe to the 4th toe of the left foot for another 1-2 weeks to act as a moving splint Patient is also advised that he should continue to wear supportive footwear when bearing weight Patient was amenable to this plan Patient is advised to keep follow-up appointment with foot and ankle specialist for his bilateral foot pain, and can follow-up with our office with any acute concerns Orders: Orders XR foot LT min 3V Today M79.672 - Pain in left foot Coding Level of Care Code New Pt Level 3 (96195) Diagnoses Toe fracture, left S92.912A CPT Codes Fracture Care - Fracture Billing Code: Fracture Billing Code ([id number])
== END 2024-06-21 15:33 | disposition home or self-care (01) ==
PROVIDERS: PCP Family Medicine
DX: S92.912A Unspecified fracture of left toe(s), initial encounter for closed fracture (principal)
CPT/HCPCS: 99213

== ENCOUNTER 2024-06-27 07:52 | Outpatient (AMB) | payer MEDICAID, SELFPAY ==
--- NOTE | 2024-06-27 07:55 | A.OFFVIS_ITS ---
Vital Signs 06/27/24 07:56 Height 6 ft 1 in Weight 290 lb BMI 38.3 Intake Visit Reasons: 6 mo f/u Intake Note: Patient presents for 6 month follow up. Allergies Penicillins [PCN] Allergy (Verified 06/21/24 15:23) Rash Medication List - Last Reconciled 06/27/24 by JAMIN Hall blood pressure test kit-large As directed cholecalciferol (vitamin D3) 25 mcg PO DAILY melatonin 3 - 9 mg (1 - 3 x 3 mg) PO DAILY 30 days naproxen 500 mg PO pantoprazole 40 mg PO DAILY prazosin 1 mg PO BEDTIME 30 days tadalafil (Cialis) 5 mg PO DAILY 90 days HPI Comments Details: 44-yr-old male presents for follow-up visit of sleep apnea. Pt reports since the last visit, he felt he was sleeping better. However, he was not able to do the previously ordered sleep study as he had his 6th bout of Covid-19. Since, he recovered from the Covid-19 infection, he has not been sleeping as well and having more SOB. Using his prn inhaler a couple of times a month- but does not find it very helpful. He denies usual wheezing unless he has a cold. He does note increased SOB and a bit dizzy when he walks up 3 flights of stairs and carrying something- to his apartment, Sometimes he has SOB when playing w/ his son. He still has snoring, gasping arousals, excessive daytime sleepiness. Also wakes up with vivid dreams- like he was drinking or feeling like he felt drunk and off throughout the day. He has been sober from alcohol x's 11 months- was taking 2 500ml bottles of tequila or whiskey per day. One day, he took 40 nips plus a bottle of alcohol- which required extended hospital stay and that was the last time he drank. He may use a little bit of marijuana or a 5mg THC gummy for sleep. He is falling asleep around 7-9pm, and waking up around 3-4am and cannot fall asleep. He is not currently working as he is recovering from the repeated Covid-19, RSV, and some BLE orthopedic issues. In the past, he tried Melatonin at bedtime- but he felt more awake at night and then was very sleepy during the day. PFSH Medical History History of Helicobacter pylori infection Varicose vein of leg Alcohol use disorder MDD (major depressive disorder), recurrent severe, without psychosis Alcohol abuse Social History Household Members: Other Household Members Other:: girlfriend Housing: Apartment Do you presently have visiting nurse or other home services: No Unable to assess alcohol history related to: Unknown Alcohol intake: current Alcohol intake frequency: 3 or more drinks per day Alcohol type: beer and hard liquor Patient Tobacco Use Status: Former Tobacco user Second Hand Smoke Exposure: No (Unknown, pt unable to participate fully in admission.) Substance Use Type: Marijuana service: No Sexual orientation: Straight/Heterosexual Physical Exam Vital Signs: BMI result Body Mass Index 38.3 Const General: no acute distress Orientation/consciousness: patient oriented x3 HEENT Other: Mallampati stage Resp Effort & Inspection: normal respiratory effort and able to speak in complete sentences Auscultation: clear to auscultation bilaterally Cardio Rate: regular rate Rhythm: regular rhythm Neuro General: patient oriented x3 Cranial nerves: Yes CN's II-XII intact bilaterally Gait exam (Neuro): Normal gait present Motor exam (neuro): 5/5 motor strength present throughout Psych Mental Status: mental status grossly normal Speech and movement: Clear speech present Attitude: cooperative Assessment & Plan Assessment & Plan (1) Snoring: Code(s): R06.83 - Snoring Category: Medical (2) Sleep difficulties: Code(s): G47.9 - Sleep disorder, unspecified Category: Medical (3) Excessive daytime sleepiness: Code(s): G47.19 - Other hypersomnia Category: Medical (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 Code(s): F51.5 - Nightmare disorder Category: Medical Plan Pt advised to undergo HST to assess for sleep apnea. Acknowledged pt's alcohol cessation efforts- continue to attend support groups. Advised pt to discuss w/ PCP if he is needing to use his inhaler > twice a week. I would not recommend regular use of marijuana or THC for this pt for sleep- as it can reduce sleep efficiency, can exacerbate mood s/s, and dependence can occur. Trial Melatonin 3-9mg q evening/sunset in hopes this minimizes nightmares. If ineffective, trial Prazosin 1mg cap daily at bedtime. Sleep resources shared w/ pt to help him better understand and improve his sleep quality, including but not limited to: * Say Good Night to Insomnia? by Yang Linares * Hello Sleep: The Science and Art of Overcoming Insomnia Without Medications? by Anita Mathew * The Sleep Solution: Why Your Sleep is Broken and How to Fix It? by WMala Medrano Will follow-up upon review of above and patient to follow-up in clinic in 6 months or sooner prn. Orders: Orders RT home sleep study Today G47.19 - Other hypersomnia, G47.9 - Sleep disorder, unspecified, R06.83 - Snoring RT home sleep study 01/26/24 E66.9 - Obesity, unspecified, G47.19 - Other hypersomnia, G47.9 - Sleep disorder, unspecified, R06.83 - Snoring, R40.0 - Somnolence Medications: New melatonin at sunset 3 - 9 mg (1 - 3 x 3 mg) PO DAILY 30 days 90 tabs 3RF sleep prazosin 1 mg PO BEDTIME 30 days 30 caps 3RF F51.5 - Nightmare disorder Coding Level of Care Code Est Pt Level 4 (98461) Diagnoses Snoring R06.83 Sleep difficulties G47.9 Excessive daytime sleepiness G47.19 Nightmare disorder F51.5 [place] Sleepiness Scale Questions Sitting and reading: high chance of dozing Watching TV: high chance of dozing Sitting inactive in a theater, movie etc.: high chance of dozing As a passenger in a car for an hour without break: slight chance of dozing Lying down in the afternoon when circumstances permit: moderate chance of dozing Sitting and talking to someone: slight chance of dozing Sitting quietly after lunch without alcohol: moderate chance of dozing In a car, while stopped for a few minutes in the traffic: would never doze ESS < 10: normal, ESS > 12: pathologic: 15
[2024-06-27 07:56] VITALS: BMI 38.3
== END 2024-06-27 08:59 | disposition home or self-care (01) ==
PROVIDERS: PCP Family Medicine; Visit Provider Nurse Practitioner Family
DX: R06.83 Snoring (principal); G47.9 Sleep disorder, unspecified; G47.19 Other hypersomnia; F51.5 Nightmare disorder
CPT/HCPCS: 99214

== ENCOUNTER → 2024-06-27 07:52 | Outpatient (BNVA) | payer MEDICAID, SELFPAY | PROVIDERS: PCP Family Medicine; Visit Provider Nurse Practitioner Family | DX: G47.9 Sleep disorder, unspecified (principal); G47.19 Other hypersomnia; R06.83 Snoring; F51.5 Nightmare disorder | CPT/HCPCS: 99212 ==

== ENCOUNTER 2024-08-16 09:33 | Outpatient (AMB) | payer MEDICAID, SELFPAY ==
--- NOTE | 2024-08-16 09:44 | A.OFFVIS_ITS ---
Vital Signs 08/16/24 09:45 Height 6 ft 1 in Weight 290 lb BMI 38.3 Intake Visit Reasons: Follow Up leg check Intake Note: follow up Leg check w/ hx of Left GSV Venaseal 05/13/24 w/ hx of Right GSV & ASV RFA 12/18/23 & Right SSV RFA 01/29 24 w/ further hx of Right GSV ablation & micro @ [facility] [[email or web address] in 2015. Pt states that Right LE is starting to develop more VV w/ pain. States when standing he has left LE pain and also states he gets red spots on his legs. Accompanied by: Self / Same As Patient Allergies Penicillins [PCN] Allergy (Verified 08/16/24 09:57) Rash HPI HPI Follow Up leg check: Details: Very pleasant 44-year-old gentleman presents for routine follow-up regarding venous disease. He has had previous ablation along with microphlebectomy some of which was done at [facility] [[email or web address] He continues to have rather large varicosities in right lower extremity which have been a source of pain and discomfort for him. He now presents for routine follow-up. [facility] Medical History History of Helicobacter pylori infection Varicose vein of leg Alcohol use disorder MDD (major depressive disorder), recurrent severe, without psychosis Alcohol abuse Social History Household Members: Other Household Members Other:: girlfriend Housing: Apartment Do you presently have visiting nurse or other home services: No Unable to assess alcohol history related to: Unknown Alcohol intake: current Alcohol intake frequency: 3 or more drinks per day Alcohol type: beer and hard liquor Patient Tobacco Use Status: Former Tobacco user Second Hand Smoke Exposure: No (Unknown, pt unable to participate fully in admission.) Substance Use Type: Marijuana service: No Sexual orientation: Straight/Heterosexual Review of Systems Const Reports as per HPI ENT Reports no additional complaints Card Denies chest pain, Denies chest pain at rest and Denies chest pain with activity Resp Denies chest congestion and Denies cough GI Reports no additional complaints Musc Details: pain over varicosities, aching of lower extremities, swelling, cramping, heaviness and tiredness, itching Denies abnormal gait Skin/Breast Reports pruritus and Denies wounds Neuro Reports no additional complaints and Denies abnormal gait Psych Denies no additional complaints Physical Exam Vital Signs: BMI result Body Mass Index 38.3 Const General: cooperative, healthy appearing and comfortable Orientation/consciousness: oriented to person, oriented to place and oriented to time Neck Carotids: no bruits Chest Chest palpation & inspection: normal inspection of the chest and normal palpation of entire chest wall Resp Effort & Inspection: normal respiratory effort and able to speak in complete sentences Cardio Rate: regular rate Heart sounds: S1 normal heart sound present and S2 normal heart sound present Peripheral pulses: Peripheral pulses 2+ throughout GI Inspection: Yes normal to inspection Skin Other: +2 edema, large rope-like varicosities greater than 4 mm right calf and thigh CEAP Classification C4 - skin color changes Ep - Etiology Primary As - superficial veins P - reflux General skin exam: dry skin Neuro General: oriented to person, oriented to place and oriented to time Extrem Right lower extremity: full ROM, normal capillary refill and edema Left lower extremity: full ROM, normal capillary refill and edema Psych Mental Status: mental status grossly normal Assessment & Plan Assessment & Plan (1) Varicose veins of right lower extremity with inflammation: Comment: 2014 - right great saphenous vein ablation and microphlebectomy done at [facility] [[email or web address]] 12/18/2023 - right great saphenous and accessory saphenous vein radiofrequency ablation 01/29/2024 - right small saphenous vein radiofrequency ablation Code(s): I83.11 - Varicose veins of right lower extremity with inflammation Category: Medical Plan: This patient has varicose veins with inflammation. They continue to be a source of discomfort for the patient. The patient has tried conservative treatment with compression, leg elevation and exercise program for over 3 months time. They have been compliant with all treatment. This has provided minimal relief for the patient. I do not anticipate this course of treatment will alter the underlying etiology. The patient has been scheduled for lower extremity venous treatment inclusive of --- right leg microphlebectomy. Risks, benefits, and complications of this procedure has been discussed in detail with the patient including but not limited to bleeding, infection, and the development of a DVT. The patient has demonstrated a clear understanding and has consented. We will schedule the patient as soon as possible. Thank you for allowing us to participate in this patient's care. If there are any questions or concerns please do not hesitate to contact us. Coding Level of Care Code Est Pt Level 4 (88214) Diagnoses Varicose veins of right lower extremity with inflammation I83.11
[2024-08-16 09:45] VITALS: BMI 38.3
== END 2024-08-16 10:24 | disposition home or self-care (01) ==
PROVIDERS: PCP Family Medicine; Visit Provider Surgery Vascular Surgery
DX: I83.11 Varicose veins of right lower extremity with inflammation (principal)
CPT/HCPCS: 99214

== ENCOUNTER → 2024-08-16 09:33 | Outpatient (BNVA) | payer MEDICAID, SELFPAY | PROVIDERS: PCP Family Medicine; Visit Provider Surgery Vascular Surgery | DX: I83.11 Varicose veins of right lower extremity with inflammation (principal) | CPT/HCPCS: 99212 ==

== ENCOUNTER 2024-09-05 14:24 | Outpatient (AMB) | payer MEDICAID, SELFPAY ==
--- NOTE | 2024-09-05 14:28 | MHC.OFFVIS ---
Vital Signs 09/05/24 14:29 Height 6 ft 1 in Weight 292 lb 5.327 oz BMI 38.6 BP 118/76 Blood Pressure Location Rt brachial Position Sitting Pulse 68 Pulse Source Pulse Oximeter Pulse Oximetry (%) 98 Oxygen Delivery Method Room Air Intake Visit Reasons: 3 month follow up Intake Note: ESTABLISHED PATIENT Alejandro presents in office today for a scheduled 3 mos FUV. Meds and Allergies reviewed? Y No recent or relevant surgeries? N Any significant concerns or new changes? Labs done. Pt has not been taking PPI. Pt states that even when he does take it, it does not provide much relief. Pt also feels that he experiences dry mouth w/ the medication? Pharmacy verified? [facility] Pharmacy Director Custom Required: No Allergies Penicillins [PCN] Allergy (Verified 09/05/24 14:29) Rash HPI HPI 3 month follow up: Details: LAST VISIT: History of Helicobacter pylori infection Postprandial epigastric pain Plan Patient will stop taking omeprazole. Will start him on pantoprazole 40 mg daily. Patient was encouraged to avoid dietary triggers in late night snacking. Will check transglutaminase, liver panel, lipase, vitamin B12, folate and vitamin-D levels. Patient will be scheduled to go for upper endoscopy to rule out gastritis, esophagitis, duodenitis, gastric or peptic ulcers, Hernandez's. Patient will return in 3 months, sooner on as needed basis. He is agreeable to this plan and verbalizes understanding of instructions. He was given the opportunity to ask questions and all questions answered. ? Thank you for allowing me to participate in his care Orders Orders Transglutaminase IgA Today R10.9 Liver Panel Today R74.01 Transglutaminase Ab IgG Today R10.9 Vitamin B12 and Folate Today R19.7 Vitamin D 25-OH (D2 and D3) Today E55.9 Lipase Today R10.9 Medications New pantoprazole take one tablet half an hour before breakfast 40 mg PO DAILY 30 tabs 2RF K21.9 TODAY'S VISIT Patient is here today for follow-up and to discuss lab results. Patient had normal lab results. He continues to have epigastric pain postprandially. Patient reports that no matter what he eats or drink he will have epigastric pain. Patient states that even after drinking water he has epigastric burning. Patient reports that he feels full very quickly when he eats. Reports decreased appetite. Occasional postprandial diarrhea. Patient denies melena, hematochezia, unintentional weight loss or ribbon like stools. Reports occasional dyspepsia without dysphagia or odynophagia [facility] Medical History History of Helicobacter pylori infection Varicose vein of leg Alcohol use disorder MDD (major depressive disorder), recurrent severe, without psychosis Alcohol abuse Social History Household Members: Other Household Members Other:: girlfriend Housing: Apartment Do you presently have visiting nurse or other home services: No Unable to assess alcohol history related to: Unknown Alcohol intake: current Alcohol intake frequency: 3 or more drinks per day Alcohol type: beer and hard liquor Patient Tobacco Use Status: Former Tobacco user Second Hand Smoke Exposure: No (Unknown, pt unable to participate fully in admission.) Substance Use Type: Marijuana service: No Sexual orientation: Straight/Heterosexual Review of Systems Const Denies weight gain and Denies weight loss ENT Reports no additional complaints, Denies dysphagia and Denies odynophagia Card Reports no additional complaints Resp Reports no additional complaints GI Reports abdominal pain (Epigastric), Denies belching, Denies melena, Reports bloating, Denies change in bowel habits, Reports tenesmus, Denies dysphagia, Denies excessive flatus, Reports early satiety, Reports dyspepsia, Reports heartburn, Denies diarrhea, Reports loose stools, Denies nausea, Denies odynophagia and Denies vomiting Reports no additional complaints Musc Reports no additional complaints Neuro Reports no additional complaints Psych Reports no additional complaints Endo Reports no additional complaints Physical Exam Vital Signs: Last Vital Signs Pulse 68 09/05/24 14:29 BP 118/76 09/05/24 14:29 Pulse Ox 98 09/05/24 14:29 Oxygen Delivery Method Room Air 09/05/24 14:29 BMI result Body Mass Index 38.6 Const General: healthy appearing and no acute distress Nutritional Appearance: obese Orientation/consciousness: patient oriented x3 Resp Effort & Inspection: normal respiratory effort, able to speak in complete sentences, no tracheal deviation and symmetric chest movement Auscultation: clear to auscultation bilaterally Cardio Rate: regular rate GI Inspection: Yes normal to inspection, No distended and Yes obesity Palpation (GI): Soft to palpation, not firm, nontender and No hepatosplenomegaly present Auscultation: normal bowel sounds General: Yes no CVA tenderness Back/Spine/Pelvis Back: no CVA tenderness Skin General skin exam: elasticity normal, turgor normal and dry skin Neuro General: patient oriented x3 Psych Appearance: grossly normal Mental Status: mental status grossly normal Results Reviewed Results Reviewed: Laboratory Tests 03/15/24 06/01/24 11:10 11:47 Lipase 25 Vitamin B12 416 25-OH Vitamin D Total 23 L Tiss Transglutamin IgG 1.0 Tiss Transglutamin IgA <1.0 H. pylori Breath Test Negative Assessment & Plan Assessment & Plan (1) Postprandial diarrhea: Code(s): K52.9 - Noninfective gastroenteritis and colitis, unspecified (2) History of Helicobacter pylori infection: Code(s): Z86.19 - Personal history of other infectious and parasitic diseases Category: Medical (3) Postprandial epigastric pain: Code(s): R10.13 - Epigastric pain (4) Early satiety: Code(s): R68.81 - Early satiety (5) GERD (gastroesophageal reflux disease): Code(s): K21.9 - Gastro-esophageal reflux disease without esophagitis Qualifiers: Esophagitis presence: esophagitis presence not specified Qualified Code(s): K21.9 - Gastro-esophageal reflux disease without esophagitis Plan Patient reports feeling full very quickly when he eats, will send him for gastric emptying study. Patient will hold pantoprazole for couple weeks and will start famotidine. Patient will return in 2 weeks for H pylori testing. Patient will return in the office in 6 weeks to discuss upper endoscopy. He has postprandial diarrhea will send him for colonoscopy if his symptoms will continue. Patient has no family history of CRC. Patient is agreeable to current plan of care and verbalizes understanding of instructions. He was given the opportunity to ask questions and all questions answered. Thank you for allowing me to participate in his care Orders: Orders NM gastric emptying study Today R68.81 - Early satiety Medications: New famotidine (Pepcid) 20 mg PO BID 40 tabs 0RF K29.70 - Gastritis, unspecified, without bleeding Coding Level of Care Code Est Pt Level 4 (98281) Complex EM visit Add On G2211 Diagnoses Postprandial diarrhea K52.9 History of Helicobacter pylori infection Z86.19 Postprandial epigastric pain R10.13 Early satiety R68.81 Gastroesophageal reflux disease, unspecified whether esophagitis present K21.9 Esophagitis presence: esophagitis presence not specified Time Spent (min) 35 Comment 25 minutes spent with patient and additional 15 minutes spent reviewing his records
[2024-09-05 14:29] VITALS: BP 118/76; PULSE 68; O2SAT 98; BMI 38.6
== END 2024-09-05 15:50 | disposition home or self-care (01) ==
PROVIDERS: PCP Family Medicine; Visit Provider Nurse Practitioner Family
DX: K52.9 Noninfective gastroenteritis and colitis, unspecified (principal); Z86.19 Personal history of other infectious and parasitic diseases; R10.13 Epigastric pain; R68.81 Early satiety; K21.9 Gastro-esophageal reflux disease without esophagitis
CPT/HCPCS: 99214

== ENCOUNTER → 2024-09-05 14:24 | Outpatient (BNVA) | payer MEDICAID, SELFPAY | PROVIDERS: PCP Family Medicine; Visit Provider Nurse Practitioner Family | DX: R68.81 Early satiety (principal); K52.9 Noninfective gastroenteritis and colitis, unspecified; K21.9 Gastro-esophageal reflux disease without esophagitis; R10.13 Epigastric pain; Z86.19 Personal history of other infectious and parasitic diseases | CPT/HCPCS: 99212 ==

== ENCOUNTER 2024-09-19 09:29 | Day surgery (SDC) | payer MEDICAID, SELFPAY ==
[2024-09-19] VITALS (12 sets, daily range): BP systolic 104–131; BP diastolic 63–79; PULSE 56–78; RESP 16–18; TEMP 36.1–36.6; O2SAT 96–100; BMI 37.2
--- NOTE | 2024-09-19 07:50 | MHC.SHP ---
Pre-Procedural Eval Section A - 24 Hr Update-Section A only Date of Service: 09/19/24 The patient is an INPATIENT: No Changes since office visit: Yes Patient answered all questions The patient has been examined within 24 hours of the surgical procedure. The History & Physical has been completed within 30 days and I have reviewed it.: Yes Section B - Complete if H&P > 30 days Chief Complaint: Varicose veins of right lower extremity Allergies: Allergies Allergy/AdvReac Type Severity Reaction Status Date / Time Penicillins [PCN] Allergy Rash Verified 09/05/24 14:29 Plan I have reviewed the history and physical and performed a pertinent physical examination on my patient. No changes have occurred unless specified. Time Spent With Patient Time: Total time managing care of this patient today ____ minutes.
[2024-09-19] MEDS: Lactated Ringers 1,000 ML 100 ML IVCONT (10:45)
--- NOTE | 2024-09-19 10:48 | HO.ANESPROP2 ---
Documented by User: Mayra Clark NP 09/16/24 11:59 HPI - Anesthesia Eval Consult details Narrative: 44yo M for MicroPhlebectomy Hx ETOH abuse causing cardiomyopathy. Follows [facility] Cardiology. Last office visit 2022 and ECHO 2022 with EF 58%. (? true CMP) Per 01/2024 PCP note, no ETOH for months PMFSH Active Problems Active Problems: All Active Problems Excessive daytime sleepiness (Acute) Sleep difficulties (Acute) Nightmare disorder (Acute) Toe fracture, left (Acute) Erectile dysfunction (Acute) Hypogonadism in male (Acute) Bunion of left foot (Acute) Osteoarthritis of knees, bilateral (Acute) Daytime sleepiness (Acute) Snoring (Acute) Varicose veins of right lower extremity with inflammation (Acute) Varicose veins of left lower extremity with inflammation (Acute) History of Helicobacter pylori infection (Acute) Alcohol use disorder (Acute) MDD (major depressive disorder), recurrent severe, without psychosis (Acute) Past Medical History Medical History Transaminitis Long COVID Abnormal stress test Cardiomyopathy Blood pressure elevated without history of HTN History of Helicobacter pylori infection Varicose vein of leg Alcohol use disorder MDD (major depressive disorder), recurrent severe, without psychosis Alcohol abuse Social History Social History (Reviewed 09/05/24 @ 14:29 by Murtaza Salcido [facility]) Household Members: Other Household Members Other:: girlfriend Housing: Apartment Are you a primary veterinarian laboratory animal care to a significant other at home: No Do you presently have visiting nurse or other home services: No Unable to assess alcohol history related to: Unknown Alcohol intake: current Alcohol intake frequency: does not drink Alcohol type: beer and hard liquor Patient Tobacco Use Status: Former Tobacco user Second Hand Smoke Exposure: No (Unknown, pt unable to participate fully in admission.) Use of substances other than those prescribed or required for medical reasons: No Substance Use Type: Marijuana Have you been hit, kicked, punched, or otherwise hurt by someone within the past year? If so, by whom?: No Are you DNR?: No Advance Directives: No Advance Directives Information Provided: Yes Recently lost weight without trying: No Nutrition Risks: No Nutritional Risk service: No Sexual orientation: Straight/Heterosexual Meds Allergies Allergy/AdvReac Type Severity Reaction Status Date / Time Penicillins [PCN] Allergy Rash Verified 09/05/24 14:29 Home Medications ?Medication ?Instructions ?Recorded ?Confirmed ?Last Taken ?Type blood pressure test kit-large #1 ea 09/22/23 04/05/24 Unknown History cholecalciferol (vitamin D3) 25 25 mcg PO DAILY 06/21/24 06/27/24 Unknown History mcg (1,000 unit) tablet naproxen 500 mg tablet 500 mg PO moderate pain 06/21/24 06/27/24 Unknown History Exam Height,Weight and Vital Signs: Weight 131.542 kg Narrative Narrative: ECHO 2022 Nml LV sys function. LVEF 58%. Nml LV diastolic function. LV conc remodeling Nml RV size and sys function No signif valve disease Assessment and Plan Assessment Anesthesia Assessment: Chart Reviewed Documented by User: Flora Molina DO 09/19/24 10:51 PMFSH Past Medical History Medical History Transaminitis Long COVID Abnormal stress test Cardiomyopathy Blood pressure elevated without history of HTN History of Helicobacter pylori infection Varicose vein of leg Alcohol use disorder MDD (major depressive disorder), recurrent severe, without psychosis Alcohol abuse Family History Family history of problems with anesthesia: No Surgical History History of Problems with Anesthesia: No Social History Social History (Reviewed 09/05/24 @ 14:29 by Murtaza Salcido [facility]) Household Members: Other Household Members Other:: girlfriend Housing: Apartment Are you a primary veterinarian laboratory animal care to a significant other at home: No Do you presently have visiting nurse or other home services: No Unable to assess alcohol history related to: Unknown Alcohol intake: current Alcohol intake frequency: does not drink Alcohol type: beer and hard liquor Patient Tobacco Use Status: Former Tobacco user Second Hand Smoke Exposure: No (Unknown, pt unable to participate fully in admission.) Use of substances other than those prescribed or required for medical reasons: No Substance Use Type: Marijuana Have you been hit, kicked, punched, or otherwise hurt by someone within the past year? If so, by whom?: No Are you DNR?: No Advance Directives: No Advance Directives Information Provided: Yes Recently lost weight without trying: No Nutrition Risks: No Nutritional Risk service: No Sexual orientation: Straight/Heterosexual Meds Allergies Allergy/AdvReac Type Severity Reaction Status Date / Time Penicillins [PCN] Allergy Rash Verified 09/05/24 14:29 Home Medications ?Medication ?Instructions ?Recorded ?Confirmed ?Last Taken ?Type blood pressure test kit-large #1 ea 09/22/23 04/05/24 Unknown History cholecalciferol (vitamin D3) 25 25 mcg PO DAILY 06/21/24 06/27/24 Unknown History mcg (1,000 unit) tablet naproxen 500 mg tablet 500 mg PO moderate pain 06/21/24 06/27/24 Unknown History Exam Exam Date and Time: 09/19/24 1045 Height,Weight and Vital Signs: Weight 131.542 kg Height 6 ft 2 in Weight 131.542 kg Vital Signs Temperature 97.9 F 09/19/24 10:41 Pulse Rate 71 09/19/24 10:41 Respiratory Rate 16 09/19/24 10:41 Blood Pressure 104/66 09/19/24 10:41 Pulse Oximetry 96 09/19/24 10:41 Oxygen Delivery Method Room Air 09/19/24 10:41 Temperature 97.9 F 09/19/24 10:41 Pulse Rate 71 09/19/24 10:41 Respiratory Rate 16 09/19/24 10:41 Blood Pressure 104/66 09/19/24 10:41 Pulse Oximetry 96 09/19/24 10:41 Oxygen Delivery Method Room Air 09/19/24 10:41 Airway Mallampati Class: II TM Dist: >3cm Neck ROM: Full Loose/Missing/Broken Teeth: No (patient denies any loose or broken teeth) Heart: S1S2 Lungs: CTAB Assessment and Plan Assessment Anesthesia Assessment: Anesthesia Plan Discussed and Chart Reviewed Final Anesthetic Review Family History of Problems with Anesthesia: No History of Problems with Anesthesia: No NPO: Yes ASA Class: II Final Preanesthetic Review: No Changes in Pt Med Stat, Meds/Allgs Chart Reviewed, Consent Obtained/Reviewed and Anes Risks/Benef Reviewed Patient Risk: Low Procedure Risk: Low Anesthetic Plan Anesthetic Plan: GA and Agree w/ Assess. and Plan Disposition: Standard PACU
[2024-09-19] MEDS: vancomycin/NS 2,000 MG/500 ML PLAST..BAG 250 MG IV (10:57)
--- NOTE | 2024-09-19 12:10 | W.PM.OPN ---
Operative Note Operative Note Date of Service: 09/19/24 Narrative: Operative note by [facility] Preoperative diagnosis: Right leg varicose veins with inflammation Postoperative diagnosis: Same Procedure:1. Right leg microphlebectomy (23) 2. Ligation of venous clusterX2 Surgeon:Lorenzo Genao M.D. Mobile Lounge Driver: Tiera SALGADO Anesthesia: General Specimens: 1 Drains: None Estimated blood loss: 100 mL Indications: Very pleasant 44-year-old gentleman with a prior history of venous disease presents for microphlebectomy The patient has signed the informed consent after reviewing risks, complications, benefits, and alternatives previously discussed with the patient. The patient was given the opportunity to ask any additional questions or voice any concerns. All questions were answered to the patient's satisfaction. Procedure in detail: Varicose veins were marked in the standing position on the right leg and the patient was then placed in the supine position. The right lower extremity was prepared and draped to allow knee flexion in the sterile field. The patient had large superficial varicose veins with significant symptoms of pain. It was therefore determined to perform microphlebectomies of the clusters of varicose veins. The patient had bulging varicose veins which were previously marked in the standing position. A small stab incision was made longitudinally directly overlying the varicose vein in the calf and the varicose vein was grasped with a hemostat aided by a vein hook. It was then dissected as far proximally and distally as possible and avulsed. A total of 23 stab incisions were made and the procedure of stab phlebectomies was repeated 23 times. In addition there was 2 clusters identified 1 in the medial thigh and 1 in the medial calf. These was identified and micro incision was made. Base was identified and residual varicosities were removed. Base was ligated with a 2-0 Polysorb suture. Hemostasis was checked and stab incision sites were closed with steri-strips and sterile dressing was given with gauze and krilex wrap followed by an laina bandage. There were no complications and blood loss was minimal. Post-Op instructions were given and a follow-up appointment was recommended. This note is constructed using voice recognition software. While every effort has been made to ensure accuracy, farm mechanic errors may have been included. Thank you for allowing me to participate in the care of your patient. Yours sincerely, Lorenzo Genao MD, FACS, R.P.V.I.
[2024-09-19] MEDS: fentaNYL citrate/PF 100 MCG/2 ML VIAL 50 MCG IVPUSH ×2 (12:45→12:50)
[2024-09-19] MEDS: Haloperidol Lactate 5 MG/ML VIAL 1 MG IVPUSH (13:06)
== END 2024-09-19 13:54 | disposition home or self-care (01) ==
PROVIDERS: PCP Family Medicine; Visit Provider Surgery Vascular Surgery
PROC: (CPT 37766; principal; 2024-09-19 11:30)
DX: I83.11 Varicose veins of right lower extremity with inflammation (principal); F33.2 Major depressive disorder, recurrent severe without psychotic features; F10.10 Alcohol abuse, uncomplicated; Z86.19 Personal history of other infectious and parasitic diseases; I42.9 Cardiomyopathy, unspecified; R03.0 Elevated blood-pressure reading, without diagnosis of hypertension; R74.01 Elevation of levels of liver transaminase levels; Z79.1 Long term (current) use of non-steroidal anti-inflammatories (NSAID); Z79.899 Other long term (current) drug therapy; Z88.0 Allergy status to penicillin; Z87.891 Personal history of nicotine dependence; Z98.890 Other specified postprocedural states
CPT/HCPCS: 37766; 37785; 88304; J1100; J1630; J2003; J2250; J2405; J2704; J2795; J3010; J3370

== ENCOUNTER → 2024-09-19 09:29 | Outpatient (BNV) | payer MEDICAID, SELFPAY | PROVIDERS: PCP Family Medicine; Visit Provider Surgery Vascular Surgery | DX: I83.11 Varicose veins of right lower extremity with inflammation (principal) | CPT/HCPCS: 37766; 37785 ==

== ENCOUNTER 2024-09-27 12:47 | Outpatient (REF) | payer MEDICAID, SELFPAY ==
--- OUTSIDE RECORDS SUMMARY | 2024-09-28 12:20 | XMS_ITS | Encounter Summary ---
Author Organization [employer] Address [address] [place] [address] 7[address] [place] [address] Care Team Providers Care Quality Control Checker Name Role Phone Kandice Bush MD Primary Care Provider Reason for Referral * Consultation (Routine) - Closed Specialty Diagnoses / Procedures Referred By Radha bell Referred To Contact Urology Diagnoses Erectile dysfunction, unspecified erectile dysfunction type Low testosterone Kandice Bush MD [address] [place] [address] Phone: tel: fax: [facility] Referral ID Status Reason Start Date Expiration Date V isits Requested Visits Authorized [id number] Closed Specialty Services Required 01/21/2024 01/20/2025 6 6 Encounter Details Date Type Department Care Team (Late st Contact Info) Description 01/18/2024 Orders Only [facility] MEDICINE [address] [place] [address] [phone] Kandice Bush MD [address] [place] [address] [phone] Erectile dysfunction, unspecified erectile dysfunction type (Primary [...] documented as of this encounter Care Teams Quality Control Checker Relationship Specialty Start Date End Date Kandice Bush MD [address] [place] [address] PCP - General Family Medicine 06/18/23 documented as of this encounter
--- OUTSIDE RECORDS SUMMARY | 2024-09-28 12:20 | XMS_ITS | Encounter Summary ---
Author Organization [employer] Address [address] [place] [address] 7t [place] [address] Care Team Providers Care Gl Accountant Name Role Phone Kandice Bush MD Primary Care Provider [phone] Reason for Referral * Imaging (Routine) - Closed Specialty Diagnoses / Procedures Referred By Contac t Referred To Contact Radiology Diagnoses Left-sided tinnitus Dizziness Other headache syndrome Procedures Mr Brain w/ and w/o Contrast Kandice Bush MD [address] [place] [address] Phone: tel: fax: [address] Phone: tel: fax: Referral ID Status Reason Start Date Expiration Date Visits Re quested Visits Authorized [id number] Closed 10/13/2023 10/12/2024 1 1 Encounter Details Date Type Department Care Team (Late st Contact Info) Description 10/13/2023 Orders Only [facility] MEDICINE [address] [place] [address] Kandice Bush MD [address] [place], [place] [phone] Left-sided tinnitus (Primary Dx); Dizziness; Other headache [...] EST Narrative 11/13/2023 4:45 PM EST ? [facility] ?[address] ?[place] [address] ? Magnetic Resonance Report ? Signed ? Patient: Blum Castanaza,Alejandro N ?MR ?? #: [id number] ? : 1980 ?Acct:[id number] ? Age/Sex: 43 / M ?ADM Date: 03/05/24 ? Loc: HO.MRI ? Attending Dr: Kandice Bush MD ? Ordering Physician: Kandice Bush MD ?? Date of Service: 11/10/23 ?? Procedure(s): MR head/brain wo/w con ?? Accession Number(s): [id number] ? cc: Kandice Bush MD ? EXAMINATION: [...] ? DD/DT: // 0858 ? TD/TT: ? Certified Hand Therapist: ? Procedure Note Donotuseinterpreter, Image - 11/13/[address] [address] Magnetic Resonance Report Signed Patient: Alejandro Sanchez NMR #: [id number] : 1980Acct:[id number] Age/Sex: 43 / MADM Date: 11/10/23 Loc: HO.MRI Attending Dr: Kandice Bush MD Ordering Physician: Kandice Bush MD Date of Service: 11/10/23 Procedure(s): MR head/brain wo/w con Accession Number(s): [id number] cc: Kandice Bush MD EXAMINATION: MR BRAIN [...] in OV> 11/13/23 1641 DD/ 0858 TD/TT: Certified Hand Therapist: Kandice Bush MD IM MRI PROCEDURES Final Result documented in this encounter Visit Diagnoses Diagnosis Left-sided tinnitus- Primary Unspecified tinnitus Dizziness Dizziness and giddiness Other headache syndrome documented in this encounter Care Teams Gl Accountant Relationship Specialty Start Date End Date Kandice Bush MD [address] [place] [phone] PCP - General Family Medicine 06/18/23 documented as of this encounter
--- OUTSIDE RECORDS SUMMARY | 2024-09-28 12:20 | XMS_ITS | Clinical Summary ---
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 Gimenez / AUD clinic in [facility] - continue current recovery effort and support Assessment & Plan (10/12/2023 4:12 PM EST): - following with Dr. Gimenez / AUD clinic in [facility] - continue current recovery effort and support Assessment & Plan (06/17/2023 5:34 PM EDT): - pt drinks large amount - pt may need to go to Detox first before starting medication - will refer to catalyst recovery operator and AUD clinic Elevated blood pressure read [...] self-monitoring BP. -Pt is already following with mobile heavy equipment operator for cardiomyopathy -Follow up in 3 mo, sooner if any problem arises Cardiomyopathy 06/17/2023 Assessment & Plan (01/17/2024 3:15 PM EDT): - mobile heavy equipment operator: Dr. Henderson [facility], last seen on 01/27/23 - Hx abnormal [...] & Plan (10/12/2023 5:44 AM EST): - mobile heavy equipment operator: Dr. Henderson [facility], last seen on 01/27/23 - Hx abnormal [...] & Plan (06/17/2023 6:13 PM EDT): - mobile heavy equipment operator: Dr. Henderson, [facility], last seen on 01/27/23 - Hx abnormal [...] PM EDT): - continue following specialists at [facility] declines COVID vaccine Assessment & Plan (10/12/2023 4:13 PM EST): - continue following specialists at [facility] declines COVID vaccine Assessment & Plan (06/17/2023 6:17 PM EDT): - continue following specialists at [facility] declines COVID vaccine Headache 06/17/2023 Assessment & [...] - s/p phlebectomy or venous ablation in [facility] - [place] Gen[place] [facility] - compression stocking, leg elevation, reduce sodium [...] Type Department Care Team Description 09/21/2024 Telephone [facility] MEDICINE [address] [place] [address] Di Yoon [place] october09/19/2024 Orders Only GENERIC EXTERNAL DATA DEPARTMENT Provider, Generic External Data 06/29/2024 11:20 AM EDT Office Visit [facility] [address] [place] [address] Jr Garcia MD Foot pain, bilateral (Primary Dx) 06/29/2024 9:00 AM EDT Office Visit [facility] MEDICINE [address] [place] [address] Av Gimenez MD Alcohol use disorder, severe, [...] 9 AM EST 09/19/2024 12:23 PM EST [facility]S - 09/21/2024 10:47 AM EST ----- ------- Name: Alejandro Sanchez ?Age/Sex: 44/M ? : 1980 Unit#: [id number] ?? Attend Dr: Lorenzo Genao MD ?Re09/19/24 ?Status: DEP SDC ? Location: HO.SSS ?Disch: ? ----- ------- SPEC : [id number] ?RECD: 09/19/24-1223 ? STATUS: ??SOUT ? REQ NUM: [id number] ? ALYCIA: 09/19/24-1139 ? SUBM DR: Lorenzo [...] measure up to 0.1 cm in thickness. ??Utilities Estimator And Drafter sections are submitted in a cassette labeled A1. CEDS Copies To: ?? Lorenzo Genao MD ?? [facility] Vascular Services ?? [address] ?? [place] [address] ?? [phone] ?? Kandice Bush MD ?? [facility] ?? [address] [facility] ?? [place] [address] ?? [phone] ----- ------- Signed (signature on file) Leon Irene MD 09/21/24 1047 ? ----- ------- ? END OF REPORT ? us Generic External Data Provider LAB BLOOD ORDERAB LES Final Result Performing Organization Address [facility] Co de Phone Number [facility] [address] [place] [phone] * (ABNORMAL) Lipid Panel with Reflex to Direct LDL (10/12/2023 1:46 PM EST) Triglycerides 125 <150 mg/dL [facility] Comment:Desirable Triglyceri de: less than 150 mg/dLBorderline High Triglyceride 150-199 mg/dLHigh Triglyceride: 200-499 mg/dLVery High Triglyceride: greater than or equal to 5OO mg/dL Cholesterol 206(H) <200 mg/dL [facility] Comment:Desirable Cholestero l: less than 200 mg/dLBorderline High Cholesterol: 200-239 mg/dLHigh Cholesterol: greater than 239 mg/dL LDL Cholesterol Calculated 124(H) <100 mg/dL [facility] Comment:Desirable LDL: less than 100 mg/dLNear Optimal/Above Optimal LDL: 110- 129 mg/dLBorderline High LDL: 130-159 mg/dLHigh LDL: 160-189 mg/dLVery High LDL: greater than or equal to 190 mg/dL HDL Cholesterol 57 >40 mg/dL [facility] Comment:Desirable HDL: great er than 40 mg/dL Note: This HDL assay may give artificially low results in patients with liver disease. Blood 10/12/2023 1:46 PM EST 10/12/2023 4:25 PM EST us Kandice Bush MD LAB BLOOD ORDERABLES Final Resul t Performing Organization Address City/[facility]/ZIP Co de Phone Number [facility] [address] [place] [address] [phone] * Hepatitis C Antibody with Reflex to HCV, RNA, Quantitative, Real-Time PCR (10/12/2023 1:46 PM EST) Hepatitis C Antibody Nonreactive Nonreactive [facility] Comment:Antibodies to HCV no t detected; does not exclude early acuteHCV infection. Blood Venous blood specimen / Unknown 10/12/2023 1:46 PM EST 10/12/2023 4:19 PM EST Kandice Bush MD LAB BLOOD ORDERABLES Final Resul t Performing Organization Address [facility]/ZIP Co de Phone Number [facility] [address] [place] [address] [phone] * HIV-1/2 Antigen and Antibodies, Fourth Generation, with Reflexes (10/12/2023 1:46 PM EST) [facility] HIV AB/AG Nonreactive Nonreactive [facility] Comment:HIV-1 p24 Ag and/or HIV-1/HIV-2 Ab not detected.A test result that is nonreactive does not exclude thepossibility of exposure to or infection with HIV-1 and/orHIV-2. Nonreactive results in this assay for individualswith prior exposure to HIV-1 and/or HIV-2 may be due toantigen and antibody levels that are below the limit ofdetection of this assay.The Sequence HIV Ag/Ab Combo assay result andsupplemental assay results should be interpreted inconjunction with the patient's clinical presentation,history and other laboratory results. If the results areinconsistent with clinical evidence, additional testing issuggested to confirm the result. Blood Venous blood specimen / Unknown 10/12/2023 1:46 PM EST 10/12/2023 4:19 PM EST Kandice Bush MD LAB BLOOD ORDERABLES Final Resul t Performing Organization Address City/[facility]/ZIP Co de Phone Number [facility] [address] [place] [address] [phone] from Last 3 Months or Most Recently Relevant to Health Maintenance Insurance [facility] C3 HSN FULL Care Teams Pile Operator Relationship Specialty Start Date End Date Kandice Bush MD [address] [place] [address] PCP - General Family Medicine 06/18/23
--- OUTSIDE RECORDS SUMMARY | 2024-09-28 12:20 | XMS_ITS | Encounter Summary ---
Author Organization [employer] Address [address] [facility] 7t [place] [address] Care Team Providers Care Contracts Representative Name Role Phone Kandice Bush MD Primary Care Provider [phone] Reason for Visit * Reason Onset Date Comments FYI 08/12/2023 Encounter Details Date Type Department Care Team ([facility] Contact Info) Description 08/12/2023 Telephone [facility] MEDICINE [address] [place], [place] [phone] Kandice Bush MD [address] [place] [address] FYI Social History Tobacco Use Types Packs/Day [...] cancelled due to pt being [place] [facility] yesterday (08/11) for an overdose. Tube Teller did advise rosaura to call after pt is discharged. documented in this encounter Plan of Treatment Not on file documented as of this encounter Visit Diagnoses Not on filedocumented in this encounter Care Teams Contracts Representative Relationship Specialty Start Date End Date Kandice Bush MD [address] [place] [address] PCP - General Family Medicine 06/18/23 documented as of this encounter
--- OUTSIDE RECORDS SUMMARY | 2024-09-28 12:20 | XMS_ITS | Clinical Summary ---
Author Organization [facility] Address [address] [place] [address] Care Team Providers Care Billet Cutter Name Role Phone Patient, Has No Pcp [...] Screening Completed 03/30/2009 Procedures * Due to [place] [employer] law, this organization might not be sharing negative HIV tests. Procedure Name Priority Date/Time Associated Diagnosis Comments HEPATITIS PANEL, ACUTE STAT 03/30/2009 12:15 PM EDT from Last 3 Months or Most Recently Relevant to Health Maintenance Results * Due to [place] [employer] law, this organization might not be sharing negative HIV tests. * Hepatitis Panel, Acute (03/30/2009 12:15 PM EDT) Hepatitis A IgM Antibody Negative Negative [facility] Hepatitis B Core IgM Antibody Negative Negative [facility] Hepatitis B Surface Ag Negative Negative [facility] Hepatitis C Antibody Negative Negative [facility] 03/30/2009 12:1 5 PM EDT 03/30/2009 2:27 PM EDT us Christiane Mathur MD LAB BLOOD ORDERABLES Vonda oreilly Result [facility] [address] [place] [address], from Last 3 Months or Most Recently Relevant to Health Maintenance Insurance [place] Care Teams Billet Cutter Relationship Specialty Start Date End Date Patient, Has No Pcp Or Ref DO NOT EDIT THIS RECORD VIA PROVIDER ON THE FLY PCP - General Furnace Repairer Helper 01/26/23
--- OUTSIDE RECORDS SUMMARY | 2024-09-28 12:20 | XMS_ITS | Encounter Summary ---
Author Organization [employer] Address [address] [place] [address] Care Team Providers Care Vice President Biostatistics Name Role Phone Kandice Bush MD Primary Care Provider [phone] Reason for Visit * Reason Onset Date Comments october recall 09/21/2024 Encounter Details Date Type Department Care Team ([facility] Contact Info) Description 09/21/2024 Telephone [facility]INE [address] [place], [place] [phone] Di Yoon [place] october recall Social History [...] Yoon MA - 09/21/2024 1:47 PM EST bar assistant called patient. No answer. Unable to leave message. Letter sent to contact [facility] to schedule. (October) documented in this encounter Plan of Treatment Not on file documented as of this encounter Visit Diagnoses Not on filedocumented in this encounter Additional Health Concerns Assessment Noted Time PHQ-9 Depression Total Score: 9 06/16/20 24 11:13 AM EDT documented as of this encounter Care Teams Vice President Biostatistics Relationship Specialty Start Date End Date Kandice Bush MD [address] [place] [phone] PCP - General Family Medicine 06/18/23 documented as of this encounter
--- OUTSIDE RECORDS SUMMARY | 2024-09-28 12:20 | XMS_ITS | Encounter Summary ---
Author Organization [employer] Address [address] [place] [address] [address] [place] [address] Care Team Providers Care Locks Tender Name Role Phone Kandice Bush MD Primary Care Provider [phone] Reason for Referral * Consultation (Urgent) - Closed Specialty Diagnoses / Procedures Referred By Contrafael t Referred To Contact Podiatry Diagnoses Heel pain, bilateral Kandice Bush MD [address] [place] [address] Phone: tel: fax: Diaz Rojo DPM Phone: tel: fax: Referral ID Status Reason Start Date Expiration Date V isits Requested Visits Authorized [id number] Closed Specialty Services Required 06/07/2024 06/07/2025 6 6 Encounter Details Date Type Department Care Team (Late st Contact Info) Description 06/03/[address] [facility] MEDICINE [address] [place] [address] [phone] Kandice Bush MD [address] [place], [place] [phone] Heel pain, bilateral (Primary Dx) Social History [...] documented as of this encounter Care Teams Locks Tender Relationship Specialty Start Date End Date Kandice Bush MD [address] [place] [address] PCP - General Family Medicine 06/18/23 documented as of this encounter
--- OUTSIDE RECORDS SUMMARY | 2024-09-28 12:20 | XMS_ITS | Encounter Summary ---
Author Organization [employer] Address [address] [facility] 7t [place] [address] Care Team Providers Care Assembly Person Name Role Phone Kandice Bush MD Primary Care Provider [phone] Encounter Details Date Type Department Care Team ([facility] st Contact Info) Description 09/19/2024 Orders [...] AM EST 09/19/2024 12:23 PM EST Narrative [facility] - 09/21/2024 10:47 AM EST ----- ------- Name: Alejandro Sanchez ?Age/Sex: 44/M ? : 1980 Unit#: [id number] ?? Attend Dr: Lorenzo Genao MD ?Re09/19/24 ?Status: DEP [facility] ? Location: HO.SSS ?Disch: ? ----- ------- SPEC : [id number] ?RECD: 09/19/24 ? STATUS: ??SOUT ? REQ NUM: [id number] ? ALYCIA: 09/19/24 ? SUBM DR: Lorenzo [...] measure up to 0.1 cm in thickness. ??Nurse Advisor sections are submitted in a cassette labeled A1. CEDS Copies To: ?? Lorenzo Genao MD ?? [facility] ?? [address] ?? [place] [address] ?? [phone] ?? Kandice Bush MD ?? [facility] ?? [address] [facility] ?? [place] [address] ?? [phone] ----- ------- Signed (signature on file) Leon Irene MD 09/21/24 1047 ? ----- ------- ? END OF REPORT ? us Generic External Data Provider LAB BLOOD ORDERAB LES Final Result [facility] [address] [facility] [place] [address] [phone] documented in this encounter Visit Diagnoses Not on filedocumented in this encounter Additional Health Concerns Assessment Noted Time PHQ-9 Depression Total Score: 9 06/16/20 24 11:13 AM EDT documented as of this encounter Care Teams Assembly Person Relationship Specialty Start Date End Date Kandice Bush MD [address] [place] [address] PCP - General Family Medicine 06/18/23 documented as of this encounter
--- OUTSIDE RECORDS SUMMARY | 2024-09-28 12:20 | XMS_ITS | Encounter Summary ---
Author Organization [facility] Address [address] [place] [address] Care Team Providers Care Brake Repairer Air Name Role Phone Patient, Has No Pcp Or Ref Primary Care Provider Unavailable Encounter Details Date Type Department Care Team (Late st Contact Info) Description 01/07/2023 Telephone [facility] [address] [place] [address] Crystal Canchola NP [address] [place], [place] [phone] Social History Tobacco Use Types Packs/Day Years [...] documented as of this encounter Care Teams Brake Repairer Air Relationship Specialty Start Date End Date Patient, Has No Pcp Or Ref DO NOT EDIT THIS RECORD VIA PROVIDER ON THE FLY PCP - General Artificial Marble Worker 01/26/23 documented as of this encounter
--- OUTSIDE RECORDS SUMMARY | 2024-09-28 12:20 | XMS_ITS | Referral Summary ---
Author Organization [facility] Address [address] [place] [address] Care Team Providers Care Chainman Name Role Phone Patient, Has No Pcp [...] Not on file Procedures * Due to [place] [employer] law, this organization might not be sharing negative HIV tests. Procedure Name Priority Date/Time Associated Diagnosis Comments HEPATITIS PANEL, ACUTE STAT 03/30/2009 12:15 PM EDT from Last 3 Months or Most Recently Relevant to Health Maintenance Results * Due to [place] [employer] law, this organization might not be sharing negative HIV tests. * Hepatitis Panel, Acute (03/30/2009 12:15 PM EDT) Hepatitis A IgM Antibody Negative Negative [facility] Hepatitis B Core IgM Antibody Negative Negative [facility] Hepatitis B Surface Ag Negative Negative [facility] Hepatitis C Antibody Negative Negative [facility] 03/30/2009 12:1 5 PM EDT 03/30/2009 2:27 PM EDT us Christiane Mathur MD LAB BLOOD ORDERABLES Vonda afia Result [facility] [address] [place] [address], from Last 3 Months or Most Recently Relevant to Health Maintenance [place] [address] [place] [address] MEDICAID Care Teams Chainman Relationship Specialty Start Date End Date Patient, Has No Pcp Or Ref DO NOT EDIT THIS RECORD VIA PROVIDER ON THE FLY PCP - General Pricer 01/26/23
--- OUTSIDE RECORDS SUMMARY | 2024-09-28 12:20 | XMS_ITS | Encounter Summary ---
Author Organization [facility] Address [address] [place] [address] Care Team Providers Care Hog Sticker Name Role Phone Patient, Has No Pcp Or Ref Primary Care Provider Unavailable Encounter Details Date Type Department Care Team (Late st Contact Info) Description 01/07/2023 Orders Only [facility] [address] [place] [address] Crystal Canchola, DINO [address] [place], [place] [phone] Social History Tobacco Use Types Packs/Day Years [...] documented as of this encounter Care Teams Hog Sticker Relationship Specialty Start Date End Date Patient, Has No Pcp Or Ref DO NOT EDIT THIS RECORD VIA PROVIDER ON THE FLY PCP - General Locksmith Apprentice 01/26/23 documented as of this encounter
--- OUTSIDE RECORDS SUMMARY | 2024-09-28 12:20 | XMS_ITS | Encounter Summary ---
Author Organization [employer] Address [address] [facility] 7t [place] [address] Care Team Providers Care Human Resources Generalist Name Role Phone Kandice Bush MD Primary Care Provider [phone] Encounter Details Date Type Department Care Team ([facility] st Contact Info) Description 10/13/2023 Orders Only [facility] MEDICINE [address] [place] [address] Kandice Bush MD [address] [place] [address] Social History Tobacco Use Types Packs/Day Years [...] on filedocumented in this encounter Care Teams Human Resources Generalist Relationship Specialty Start Date End Date Kandice Bush MD [address] [place] [phone] PCP - General Family Medicine 06/18/23 documented as of this encounter
--- OUTSIDE RECORDS SUMMARY | 2024-09-28 12:20 | XMS_ITS | Encounter Summary ---
Author Organization [facility] Address [address] [place] [address] Care Team Providers Care Cloth Seconds Sorter Name Role Phone Patient, Has No Pcp Or Ref Primary Care Provider Unavailable Encounter Details Date Type Department Care Team (Late st Contact Info) Description 01/21/2023 Telephone [facility] Nuclear Medicine [address] [place] [address] Diaz Carrera, RN Social History Tobacco [...] documented as of this encounter Care Teams Cloth Seconds Sorter Relationship Specialty Start Date End Date Patient, Has No Pcp Or Ref DO NOT EDIT THIS RECORD VIA PROVIDER ON THE FLY PCP - General Production Control Coordinating Clerk 01/26/23 documented as of this encounter
[2024-10-02 13:25] LABS: H Pylori Breath Test Negative (Negative)
== END 2024-09-27 12:48 | disposition home or self-care (01) ==
LOC: HO.LNP 12:47
PROVIDERS: PCP Family Medicine; Visit Provider Nurse Practitioner Family
DX: Z86.19 Personal history of other infectious and parasitic diseases (principal)
CPT/HCPCS: 83013; 99211

== ENCOUNTER 2024-09-27 12:47 | Outpatient (AMB) | payer MEDICAID, SELFPAY ==
--- NOTE | 2024-09-27 13:29 | AM.OFFVISNUR ---
Intake Visit Reasons: H.pylori Breath Test Allergies Penicillins [PCN] Allergy (Verified 09/19/24 11:03) Rash Nursing Note Patient presents for collection of H Pylori breath test. Patient has been fasting for 1 hour (nothing to eat, drink, no chewing gum or smoking) has not taken any antacid medication for at least 2 weeks and has no allergies to artificial sweeteners.?? Assessment & Plan Assessment & Plan (1) History of Helicobacter pylori infection: Code(s): Z86.19 - Personal history of other infectious and parasitic diseases Category: Medical Plan Patient presents for collection of H Pylori breath test. Patient has been fasting for 1 hour (nothing to eat, drink, no chewing gum or smoking) has not taken any antacid medication for at least 2 weeks and has no allergies to artificial sweeteners.???This test checks for an overgrowth of bacteria in your stomach. We all have bacteria but some may have more than others. It is treatable. if the test comes back negative there is nothing else to do. If the test result is positive we will treat you with 2 antibiotics and a medication to decrease the acid in your stomach (PPI) for 2 weeks. Two weeks after you have completed the treatment we will retest you to make sure the overgrowth has resolved. Orders: Orders H Pylori Breath Test Today Patient Instructions: Process for specimen collection and reason for testing was explained to the patient. Specimen collection. Patient instructed to take a deep breath and then exhale into the blue bag, filling it up as much as possible. Patient instructed to drink a mixture of water and the artificial sweetener with a straw. A 15 minute wait period was observed. Patient instructed to take a deep breath and then exhale into the pink bag, filling it up as much as possible.?
--- OUTSIDE RECORDS SUMMARY | 2024-09-27 14:22 | XMS_ITS | Referral Summary ---
Author Organization [facility] Address [address] [place] [address] Care Team Providers Care Software Sales Executive Name Role Phone Patient, Has No Pcp Or Ref Primary Care Provider Unavailable Allergies Active Allergy Reactions Criticality Noted Date Comments Penicillins Hives 07/09/2018 Medications ibuprofen (MOTRIN) 200 mg tablet Take 400 mg by mouth daily as needed for pain. Active acetaminophen (TYLENOL) 500 mg tablet Take 500 mg by mouth every 6 hours as needed for pain. Active fluticasone propionate (FLONASE) 50 mcg/actuation nasal spray TAKE 2 SPRAY(S) (INTRANASAL) 1 TIME PER DAY FOR 14 DAYS 0 9 Active benzonatate (TESSALON) 200 mg capsule TAKE 1 CAPSULE BY MOUTH EVERY 8 HOURS NEEDED 0 9 Active Compression Stockings, Knee HighIndications:V enous stasis dermatitis of both lower extremities,Chron ic venous insufficiency,Fannie icose veins of both lower extremities with inflammation 30-40 mmHg by Other route daily. 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 07/13/2018 Venous stasis dermatitis of both lower extremiti es 07/13/2018 Resolved Problems Problem Noted Date Diagnosed Date Resolved Date Varicose ulcer (lower extremity), right 07/13/2018 01/18/2019 Immunizations Name Administration Dates Next Due Tetanus Toxoid, Reduced Diph theria Toxoid, and Acellular Pertussis Vaccine, Adsorbed 07/13/2018 Social History Tobacco Use Types Packs/Day Years Used Date Smoking Tobacco: Former Cigarettes 0.2 5 1 995 - 2000 Smokeless Tobacco: Never Tobacco Cessation:Counseling Given: Not Answered Alcohol Use Standard Drinks/Week Comments Not Currently 0 (1 standard drink = 0.6 oz pur e alcohol) Transportation Answer Date Recorded Please graham the areas for wh ich the patient would like information or assistance: None Apply 01/21/2023 Lack of Transportation (Medical) Not on file 01/21/2023 Housing Stability Answer Date Recorded Please graham the areas for wh ich the patient would like information or assistance: None Apply 01/21/2023 Unable to Pay for Housing in the Last Year Not o n file 01/21/2023 Last EPDS Total Score Not on file 01/21/2023 Unstable Housing in the Last Year Not on file 01/21/2023 Sex and Gender Information Value Date Recorded Sex Assigned at Not on file Legal Sex Male 1:22 PM EDT Gender Identity Not on file Sexual Orientation Not on file 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 Not on file Not on file Last Filed Vital Signs Vital Sign Reading Time Taken Comments Blood Pressure 151/93 03/31/2023 2:19 PM EDT Pulse 88 01/27/2023 12:43 PM EDT Temperature 36.6 ??C (97.9 ??F) 01/21/2023 1:52 PM ED T Respiratory Rate 18 01/27/2023 12:43 PM EDT Oxygen Saturation 100% 01/27/2023 12:43 PM EDT Inhaled Oxygen Concentration - - Weight 121.6 kg (268 lb) 03/31/2023 2:19 PM EDT Height 185.4 cm (6' 1 ) 03/31/2023 2:19 PM EDT Body Mass Index 35.36 03/31/2023 2:19 PM EDT Plan of Treatment Not on file Procedures * Due to [place] [employer] law, this organization might not be sharing negative HIV tests. Procedure Name Priority Date/Time Associated Diagnosis Comments HEPATITIS PANEL, ACUTE STAT 03/30/2009 12:15 PM EDT from Last 3 Months or Most Recently Relevant to Health Maintenance Results * Due to [place] [employer] law, this organization might not be sharing negative HIV tests. * Hepatitis Panel, Acute (03/30/2009 12:15 PM EDT) Hepatitis A IgM Antibody Negative Negative [facility] Hepatitis B Core IgM Antibody Negative Negative [facility] Hepatitis B Surface Ag Negative Negative [facility] Hepatitis C Antibody Negative Negative [facility] 03/30/2009 12:1 5 PM EDT 03/30/2009 2:27 PM EDT us Christiane Mathur MD LAB BLOOD ORDERABLES Vonda afia Result [facility] [address] [place] [address], from Last 3 Months or Most Recently Relevant to Health Maintenance [place] [address] [place] [address] MEDICAID Care Teams Software Sales Executive Relationship Specialty Start Date End Date Patient, Has No Pcp Or Ref DO NOT EDIT THIS RECORD VIA PROVIDER ON THE FLY PCP - General Front Desk Monitor 01/26/23
--- OUTSIDE RECORDS SUMMARY | 2024-09-27 14:22 | XMS_ITS | Clinical Summary ---
Author Organization [facility] Address [address] [place] [address] Care Team Providers Care Museum Exhibit Designer Name Role Phone Patient, Has No Pcp [...] Toxoid, and Acellular Pertussis Vaccine, Adsorbed 07/13/2018 Family History Medical History Relation Name Comments Heart disease Father Myocardial Infarction Father Lupus Mother Relation Name Status Comments Father (Age 41) ? heart at tack Mother Alive Social History Tobacco Use Types Packs/Day Years Used Date Smoking Tobacco: Former Cigarettes 0.2 5 1 995 - 2000 Smokeless Tobacco: Never Tobacco Cessation:Counseling Given: Not Answered Alcohol Use Standard Drinks/Week Comments Not Currently 0 (1 standard drink = 0.6 oz pur e alcohol) Transportation Answer Date Recorded Please graham the areas for ich the patient would like information or assistance: None Apply 01/21/2023 Lack of Transportation (Medical) Not on file 01/21/2023 Housing Stability Answer Date Recorded Please graham the areas for ich the patient would like information or [...] 03/31/2023 2:19 PM EDT Plan of Treatment Health Maintenance Due Date Last Done Comments HIV Screening 1980 Pneumococcal Vaccine: Pediat sarah (0-5 Years) and At-Risk Patients (6-64 Years) (1 of 2 - PCV) 1986 Varicella Vaccines (1 of 2 - 13+ 2-dose series) 1993 Hepatitis B Vaccines (1 of 3 - 19+ 3-dose series) 1999 COVID-19 Vaccine ( season) 2024, 01/04/2021 Influenza Vaccine (#1) 2024 Alcohol/Substance Use Screening 09/07/2024 Depression Screening and Follow-Up 09/07/2024 Social Drivers of Health Annual Screening 09/07/2024 DTaP,Tdap,and Td Vaccines (2 - Td or Tdap) 07/13/2028 07/13/2018 RSV Vaccine (60+ years old a nd patients) (1 - 1-dose 75+ series) 2055 Hepatitis C Screening Completed 03/30/2009 Procedures * Due to [place] [employer] law, this organization might not be sharing negative HIV tests. Procedure Name Priority Date/Time Associated Diagnosis Comments HEPATITIS PANEL, ACUTE STAT 03/30/2009 12:15 PM EDT from Last 3 Months or Most Recently Relevant to Health Maintenance Results * Due to [place] [employer] law, this organization might not be sharing negative HIV tests. * Hepatitis Panel, Acute (03/30/2009 12:15 PM EDT) Hepatitis A IgM Antibody Negative Negative [facility] Hepatitis B Core IgM Antibody Negative Negative [facility] Hepatitis B Surface Ag Negative Negative [facility] Hepatitis C Antibody Negative Negative [facility] 03/30/2009 12:1 5 PM EDT 03/30/2009 2:27 PM EDT us Christiane Mathur MD LAB BLOOD ORDERABLES Vonda oreilly Result [facility] [address] [place] [address], from Last 3 Months or Most Recently Relevant to Health Maintenance Insurance [place] Care Teams Museum Exhibit Designer Relationship Specialty Start Date End Date Patient, Has No Pcp Or Ref DO NOT EDIT THIS RECORD VIA PROVIDER ON THE FLY PCP - General Rubber Worker 01/26/23
--- OUTSIDE RECORDS SUMMARY | 2024-09-27 14:23 | XMS_ITS | Encounter Summary ---
Author Organization [employer] Address [address] [place] [address] [address] [place] [address] Care Team Providers Care Core Cleaner Name Role Phone Kandice Bush MD Primary Care Provider Reason for Referral * Consultation (Routine) - Closed Specialty Diagnoses / Procedures Referred By Radha bell Referred To Contact Urology Diagnoses Erectile dysfunction, unspecified erectile dysfunction type Low testosterone Kandice Bush MD [address] [place] [phone] Phone: tel: fax: [facility] Referral ID Status Reason Start Date Expiration Date V isits Requested Visits Authorized [id number] Closed Specialty Services Required 01/21/2024 01/20/2025 6 6 Encounter Details Date Type Department Care Team (Late st Contact Info) Description 01/18/2024 Orders Only [facility] [address] [place] [phone] Kandice Bush MD [address] [place] [address] [phone] Erectile dysfunction, unspecified erectile dysfunction type (Primary Dx); Low testosterone Social History Tobacco Use Types Packs/Day Years Used Date Smoking Tobacco: Former Cigarettes Passive Smoke Exposure: Past Smokeless Tobacco: Never Depression Answer Date Recorded Patient Health Questionnaire-9 Score 16 01/11/2024 Patient Health Questionnaire-9 Score 16 01/11/2024 Last PHQ-9: Questionnaire Data Not on file 0 01/11/2024 Housing Stability Answer Date Recorded What is your housing situation today? I have marion francis 06/22/[address] you li ve. Do you have problems with any of the following? None of the above 06/22/2023 Food Insecurity Answer Date Recorded Within the past 12 months, y ou worried that your food would run out before you got money to buy more: Never True 06/22/2023 Within the past 12 months,th e food you bought just didn't last and you didn't have enough money to get more: Never True Transportation Answer Date Recorded In the past 12 months, has l ack of transportation kept you from medical appts, meetings, work or from getting things needed for daily living? No 06/22/2023 Utilities Answer Date Recorded In the past 12 months, has t he electric, gas, oil or water company threatened to shut off services in your home? No 06/22/2023 Depression Answer Date Recorded Patient Health Questionnaire-2 Score 6 01/11/2024 Sex and Gender Information Value Date Recorded Sex Assigned at Male 06/10/2023 9:03 AM EDT Legal Sex Male 11:18 AM EDT Gender Identity Male 06/10/2023 9:03 AM EDT Sexual Orientation Straight 06/10/2023 9: 03 AM EDT documented as of this encounter Plan of Treatment Scheduled Referrals Name Type Priority Associated Diagnoses Orde r Schedule Referral to Urology Outpatient Referral Routine Erectile dysfunction, unspecified erectile dysfunction type Low testosterone Expected: 01/18/2024 (Approximate), Expires: 01/17/2025 documented as of this encounter Visit Diagnoses Diagnosis Erectile dysfunction, unspecified erectile dysfunction type- Primary Low testosterone documented in this encounter Additional Health Concerns Assessment Noted Time PHQ-9 Depression Total Score: 16 024 8:57 AM EDT documented as of this encounter Care Teams Core Cleaner Relationship Specialty Start Date End Date Kandice Bush MD [address] [place] [phone] PCP - General Family Medicine 06/18/23 documented as of this encounter
--- OUTSIDE RECORDS SUMMARY | 2024-09-27 14:23 | XMS_ITS | Encounter Summary ---
Author Organization [facility] Address [address] [place] [address] Care Team Providers Care Pullman Car Repairer Name Role Phone Patient, Has No Pcp Or Ref Primary Care Provider Unavailable Encounter Details Date Type Department Care Team (Late st Contact Info) Description 01/07/2023 Orders Only [facility] [address] [place] [address] Crystal Canchola, DINO [address] [place], [place] [phone] Social History Tobacco Use Types Packs/Day Years Used Date Smoking Tobacco: Former Cigarettes 0.2 5 1 995 - 2000 Smokeless Tobacco: Never Alcohol Use Standard Drinks/Week Comments Not Currently 0 (1 standard drink = 0.6 oz pur e alcohol) Sex and Gender Information Value Date Recorded Sex Assigned at Not on file Legal Sex Male 1:22 PM EDT Gender Identity Not on file Sexual Orientation Not on file 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
--- OUTSIDE RECORDS SUMMARY | 2024-09-27 14:23 | XMS_ITS | Encounter Summary ---
Author Organization [employer] Address [address] [facility] 7t [place] [address] Care Team Providers Care Dairy Frozen Manager Name Role Phone Kandice Bush MD Primary Care Provider [phone] Encounter Details Date Type Department Care Team ([facility] st Contact Info) Description 09/19/2024 Orders Only GENERIC EXTERNAL DATA DEPARTMENT Provider, Generic External Data Social History Tobacco Use Types Packs/Day Years Used Date Smoking Tobacco: Former Passive Smoke Exposure: Past Smokeless Tobacco: Never Alcohol Use Standard Drinks/Week Comments Not Currently 0 (1 standard drink = 0.6 oz pur e alcohol) oca Alcohol Answer Date Recorded How often do you have a drink containing alcohol ? 1 02/03/2024 How many drinks containing a lcohol do you have on a typical day when you are drinking? 3 02/03/2024 How often do you have six or more drinks on one occasion? 3 02/03/2024 Depression Answer Date Recorded Patient Health Questionnaire-9 Score 9 06/16/2024 Patient Health Questionnaire-9 Score 9 06/16/2024 Last PHQ-9: Questionnaire Data Not on file 1 Housing Stability Answer Date Recorded What is [...] Answer Date Recorded Patient Health Questionnaire-2 Score 2 06/16/2024 Sex and Gender Information Value Date Recorded Sex Assigned at Male 06/10/2023 9:03 AM EDT Legal Sex Male 11:18 AM EDT Gender Identity Male 06/10/2023 9:03 AM EDT Sexual Orientation Straight 06/10/2023 9: 03 AM EDT documented as of this encounter Plan of Treatment Not on file documented as of this encounter Procedures Procedure Name Priority Date/Time Associated Diagnosis Comments HEMATOXYLIN AND EOSIN STAIN Routine 09/19/2024 11:39 AM EST documented in this encounter Results * Hematoxylin and Eosin Stain (09/19/2024 11:39 AM EST) 09/19/2024 11:3 9 AM EST 09/19/2024 12:23 PM EST Narrative [facility] - 09/21/2024 10:47 AM EST ----- ------- Name: Alejandro Sanchez ?Age/Sex: 44/M ? : 1980 Unit#: [id number] ?? Attend Dr: Lorenzo Genao MD ?Re09/19/24 ?[place]: [facility] ? Location: [facility] ?Disch: ? ----- ------- SPEC : [id number] ?RECD: 09/19/24 ? STATUS: ??SOUT ? REQ NUM: [id number] ? ALYCIA: 09/19/24 ? SUBM DR: Lorenzo Genao MD ? ENTERED: ??09/19/241 ?SP TYPE: Surgical ? OTHR DR: Kandice Bush MD ? ORDERED: ??HE Stain, Gross Micro L3 ? Diagnosis ?? Soft tissue, ?veins right leg,? excision: ??Thick-walled veins consistent with ?? varicosities. ?Clinical History Varicose veins of right lower extremity ?Microscopic Description Microscopic sections reviewed. ? Material Received ?? Veins right leg ? Gross Description Received in formalin labeled ?veins right leg? are multiple segments of smooth and shaggy, saha-pink vessel with attached adipose tissue ranging from 0.4-2.0 cm in greatest dimension and from 0.1 to 0.5 cm in diameter. ??On sectioning the central lumen range from pinpoint to 0.3 cm in diameter and the murray measure up to 0.1 cm in thickness. ??Time Clock Inspector sections are submitted in a cassette labeled A1. CEDS Copies To: ?? Lorenzo Genao MD ?? [facility] ?? [address] ?? [place] [address] ?? [phone] ?? Kandice Bush MD ?? [facility] ?? [address] [facility] ?? [place] [address] ?? [phone] ----- ------- Signed (signature on file) Leon Irene MD 09/21/24 1047 ? ----- ------- ? END OF REPORT ? us Generic External Data Provider LAB BLOOD ORDERAB LES Final Result [facility] [address] [facility] [place] [address] [phone] documented in this encounter Visit Diagnoses Not on filedocumented in this encounter Additional Health Concerns Assessment Noted Time PHQ-9 Depression Total Score: 9 06/16/20 24 11:13 AM EDT documented as of this encounter Care Teams Dairy Frozen Manager Relationship Specialty Start Date End Date Kandice Bush MD [address] [place] [address] PCP - General Family Medicine 06/18/23 documented as of this encounter
--- OUTSIDE RECORDS SUMMARY | 2024-09-27 14:23 | XMS_ITS | Encounter Summary ---
Author Organization [employer] Address [address] [facility] 7t [place] [address] Care Team Providers Care Telephone Station Installer Name Role Phone Kandice Bush MD Primary Care Provider [phone] Reason for Visit * Reason Onset Date Comments FYI 08/12/2023 Encounter Details Date Type Department Care Team ([facility] Contact Info) Description 08/12/2023 Telephone [facility] [address] [place], [place] [phone] Kandice Bush MD [address] [place] [address] FYI Social History Tobacco Use Types Packs/Day Years Used Date Smoking Tobacco: Former Cigarettes Passive Smoke Exposure: Past Smokeless Tobacco: Never Housing Stability Answer Date Recorded What is your housing situation today? I have marionsharon francis 06/22/[address] you [...] Answer Date Recorded Patient Health Questionnaire-2 Score 3 06/17/2023 Sex and Gender Information Value Date Recorded Sex Assigned at Male 06/10/2023 9:03 AM EDT Legal Sex Male 11:18 AM EDT Gender Identity Male 06/10/2023 9:03 AM EDT Sexual Orientation Straight 06/10/2023 9: 03 AM EDT documented as of this encounter Miscellaneous Notes * Telephone Encounter - Mallory Yoon - 08/12/2023 9:00 AM EST Tc from [facility] calling to advise PCP appointment was cancelled due to pt being admitted at [facility] yesterday (08/11) for an overdose. Varnishing Machine Operator did advise rosaura to call after pt is discharged. documented in this encounter Plan of Treatment Not on file documented as of this encounter Visit Diagnoses Not on filedocumented in this encounter Care Teams Telephone Station Installer Relationship Specialty Start Date End Date Kandice Bush MD [address] [place] [phone] PCP - General Family Medicine 06/18/23 documented as of this encounter
--- OUTSIDE RECORDS SUMMARY | 2024-09-27 14:23 | XMS_ITS | Encounter Summary ---
Author Organization [employer] Address [address] [facility] [address]t [place] [address] Care Team Providers Care Lead Security Officer Name Role Phone Kandice Bush MD Primary Care Provider [phone] Encounter Details Date Type Department Care Team ([facility] st Contact Info) Description 10/13/2023 Orders Only [facility] [address] [place] [address] Kandice Bush MD [address] [place] [address] Social History Tobacco Use Types Packs/Day Years [...] on filedocumented in this encounter Care Teams Lead Security Officer Relationship Specialty Start Date End Date Kandice Bush MD [address] [place] [phone] PCP - General Family Medicine 06/18/23 documented as of this encounter
--- OUTSIDE RECORDS SUMMARY | 2024-09-27 14:23 | XMS_ITS | Encounter Summary ---
Author Organization [facility] Address [address] [place] [address] Care Team Providers Care Advisory Intern Name Role Phone Patient, Has No Pcp Or Ref Primary Care Provider Unavailable Encounter Details Date Type Department Care Team (Late st Contact Info) Description 01/07/2023 Telephone [facility] [address] [place] [address] Crystal Canchola NP [address] [place], [place] [phone] Social History Tobacco Use Types Packs/Day Years [...] on file documented as of this encounter Miscellaneous Notes * Telephone Encounter - Crystal Canchola NP - 01/07/2023 8:00 AM EDT Called to screen for COVID treatment, confirmed COVID positive. Sx onset: 01/03/23 Positive test: 01/06/23 DPH criteria: Anxiety, Depression, Former Smoker Vaccination status: Vaccinated and boostered Patient ineligible for Paxlovid due to: Patient Preference Pt agreeable to treatment, will come in 01/07/23 at 1545, 01/08-01/09/23 at 1130 for Remdesivir documented in this encounter Plan of Treatment Not on file documented as of this encounter Visit Diagnoses Not on filedocumented in this encounter Additional Health Concerns Infection Onset Date Last Indicated Resolved Time COVID-19 - Confirmed infection 01/06/2023 01/06/2023 01/21/2023 2:18 AM EDT documented as of this encounter Care Teams Advisory Intern Relationship Specialty Start Date End Date Patient, Has No Pcp Or Ref DO NOT EDIT THIS RECORD VIA PROVIDER ON THE FLY PCP - General Processing Technician 01/26/23 documented as of this encounter
--- OUTSIDE RECORDS SUMMARY | 2024-09-27 14:23 | XMS_ITS | Data Portability ---
Author Organization [place] [facility] Former[facility], Allergy Address [address] [place] [phone] Care Team Providers Care Glaze Carrier Name Role Phone JOSE BRYSON Primary Care Provider Assessment Encounter Date Assessment Date Assessment LastModified by Organization Details LastModified Time 02/24/2024 02/24/2024 Today we discuss ed the pathophysiology of tinnitus and the absence of consistently successful pharmacologic treatments for tinnitus. We discussed masking strategies to decrease awareness of the tinnitus, including using a white noise machine, music, or television.? ? ?We discussed how exposure to loud noise can worsen tinnitus so I recommended hearing protection. We also discussed other ways to potentially help reduce awareness of tinnitus including avoidance of caffeine, salty meals and NSAIDs. In light of the underlying sensorineural hearing loss, the patient may want to consider amplification. This would not only help with hearing, but can also be instrumental in acting as a masking source to help reduce the awareness of tinnitus. His audiogram was normal today. Avoid qtips was discussed the otalgia is related to muscle tension and left TMJ from stress He admits to reducing his alcohol consumption as well dplosky Not available 02/24/2024 15:43:44 Plan of Treatment Reminders Order Date Submit Date Provider Last Modified By Organization Details Last Modified Time Details Appointments None record ed. Lab None record ed. Referral None record ed. Procedures None record ed. Surgeries None record ed. Imaging None record ed. Medication Orders None record ed. Patient TargetsNo targets recorded. Patient InstructionsNo instructions recorded. Reason for Referral None Reported. Results Created Date Observation Date Name Description Value Unit Range Abnormal Flag Note LastModifiedBy Organization Detail LastModifiedTime 04/08/20 24 audio gram No observ ation record ed. BARCODE Not Available 2023 15:21:00 Result Notes None recorded. Problems Name Problem SNOMED Code Status Onset Date Resolution Date Notes Provider Name and Address Organization Details Recorded Time Abnormal auditory perception 41312996 Active 2023 JACQUELINE MUÑOZ [address] [place] [address], [phone], [facility] 15:21:55 Tinnitus of left ear 4057421040814 Active 2023 ANTONIETTA SAM MD [address] [place] [address], [place], [phone], [facility] 15:41:05 Problem Notes None recorded. Procedures Surgical History Date Name Laterality Status Provider Name and Address Organization Details Recorded Time 02/24/2024 Air & Speech Audio with Tymps (39513, 37319 & 59415) completed JACQUELINE MUÑOZ [address] [place] [address], [phone], [facility] 02/24/2024 15:21:44 Imaging Results Imaging Date Name Status LastModified by Organiz ation Details LastModified Time 04/08/2024 audiogram completed BAR[facility] Information no t available 04/08/2024 15:21:00 Procedure Notes None recorded. Medical Equipment None Reported. Allergies Allergen ID Allergen Name Allergen Category Reaction Reaction Severity Criticality Documentation Date Start Date Code Code System Note Provider Name and Address Organization Details Recorded Time 770556 Product containin g penicilli n and antibioti c (product) medicatio n hives Not available Not available 02/24/2024 61571 05 SNOMED Samantha owens [facility] 15:17:00 Vitals Date Recorded Body height Body mass index (BMI) Body weight Provider Name and Address Organization Details Last Updated DateTime 02/24/2024 185.42 cm 38.5 kg/m2 263904.97 g Samantha Nolan [facility] 02/24/2024 15:31:31 Social History None recorded. Functional Status None recorded. Mental Status None recorded. Family History Nothing Reported. Medical History Condition Response Headaches Y Migraines Y Anxiety Y Depression Y Asthma Y Gynecological HistoryNo gynecological history recorded. Obstetrics History GPAL:G 0 P 0 0 0 0 Past Encounters Encounter ID Performer Location Encounter Start Date Encounter Closed Date Diagnosis/Indication Diagnosis SNOMED-CT Code Diagnosis ICD10 Code Diagnosis Note [id number] ANTONIETTA SAM MD [facility] [address] [phone] 02/24/2024 15:01:17 02/24/2024 15:45:33 Abnormal auditory perception 89604835 H93.299 Right Ear:Normal hearing with excellent speech discrimina tion.Type A tympanogra m.Left Ear:Normal hearing with excellent speech discrimina tion.Type A tympanogra m. Tinnitus of left ear 020 [id number] 106 H93.12 Health Concerns Section Related Observation LastModified by Organization Detai ls LastModified Time None Recorded Concern Status LastModified by Organization Details LastModified Time None Recorded Advance Directives Directive None Recorded Payers Encounter Date Sequence Insurance Name Policy Number Policy Scott Covered Member ID Scott Member ID Guarantor Name 02/24/2024 1 [place] [facility] Alejandro N Blum [id number] [facility] Date Note Type Note Provider Name and Address Organization Details Recorded Time 02/24/2024 text/html Left Tinnitusons et 2022 around time he was dx with long COVID5 infections of COVID, 2 RSVhigh alcohol consumption, a handle a day and 10 beers daily x 20 yrshearing left side tinnitus high pitch, non pulsatile.when gets angry emotional feels some left otalgiascratched left ear with qtip and got some blood last year ANTONIETTA SAM MD [address] [place] [address], [phone], [facility] - [facility] 02/24/2024 15:44:07 OBGyn Episode No OBEpisode recorded.
--- OUTSIDE RECORDS SUMMARY | 2024-09-27 14:23 | XMS_ITS | Clinical Summary ---
Author Organization [employer] Address [address] [place] [address] Care Team Providers Care Agricultural Economist Name Role Phone Kandice Bush MD Primary Care Provider [phone] Allergies Active Allergy Reactions Criticality Noted Date Comments Penicillins Hives 07/09/2018 Medications * This document contains information received from the source organization and may not represent a complete record from that organization. Blood Pressure Monitor kit Check blood pressure once daily and as needed 1 kit 3 Active cloNIDine (Catapres) 0.1 MG tablet Take 0.1 mg by mouth at bedtime. 3 Active psyllium (Metamucil Smooth Texture) 58.6 % powder Take 5.12 g (3 g of fiber) by mouth 2 times daily. 283 g 2 4 04/12/20 25 Active docusate sodium (Colace) 100 MG capsule Take 1 tab po bid prn constipation 60 capsule 1 4 Active omeprazole (PriLOSEC) [address] capsuleIndicati ons:H. pylori infection Take 1 capsule (20 mg) by mouth before breakfast and before evening meal. 60 capsule 1 4 Active naproxen (Naprosyn) 500 MG tablet Take 1 tablet (500 mg) by mouth if needed in the morning and at bedtime for moderate pain. 50 tablet 1 4 Active albuterol 108 (90 Base) MCG/ACT inhaler Inhale 2 puffs every 4 (four) hours if needed for wheezing or shortness of breath. 18 g 2 4 06/06/20 25 Active cholecalciferol (Vitamin D-3) 25 MCG (1000 UT) tablet Take 1 tablet (25 mcg) by mouth Once per day. 90 tablet 3 4 Active traMADol (Ultram) 50 MG tabletIndicatio ns:Foot pain, bilateral Take 1 tablet (50 mg) by mouth if needed in the morning, at noon, and at bedtime for severe pain. 15 tablet 4 Active lidocaine (Lidoderm) 5 % patchIndication s:Foot pain, bilateral Apply 1 patch topically Once per day. Remove & discard patch within 12 hours or as directed by MD. May use 2 patches at once. 60 patch 2 4 06/29/20 25 Active Active Problems Problem Noted Date Diagnosed Date Heel pain, bilateral 05/12/2024 Assessment & Plan (05/12/2024 12:07 PM EDT): - likely plantar fascitis - continue wearing comfortable shoes - ice and stretching exercises - patient has already been referred to perforator operator oil well, will check its status Erectile dysfunction 05/12/2024 Assessment & Plan (05/12/2024 12:12 PM EDT): - seen by urologist on 04/05/24 - patient was prescribed Cialis BRBPR (bright red blood per rectum) 04/12/2024 Assessment & Plan (05/12/2024 12:09 PM EDT): - patient has been referred to GI - was advised to contact gi office for follow-up appointment Assessment & Plan (04/12/2024 9:51 PM EDT): From exam small external hemorrhoids and intergluteal erythema /fissure , normal rectal tone and no anal masses palpated , no blood in glove Likely BRPR from hemorrhoids -advised to improve diet and liquids -Px anusol suppositories -clotrimazole cream for fissure Bid for 3-4 weeks and keep area dry and clean -metamucil daily and Colace BID PRN - continue w GI --advised to discuss if symptoms persist Constipation 04/12/2024 Epigastric pain 04/12/2024 Assessment & Plan (04/12/2024 9:51 PM EDT): -f w GI-advised to check w his specialist if already completed h pylori tx and if had ALLA ,if symptoms persist may need EGD----will discuss w GI -increase BID his omeprazole from daily dose ZACHARY (generalized anxiety disorder) 12/02/2023 Left-sided tinnitus 10/12/2023 Assessment & Plan (01/17/2024 3:22 PM EDT): - 11/13/23 Head MRI normal - referred to ENT, appointment in February 2024 - reviewed si/sx to seek a prompt medical attention Assessment & Plan (10/12/2023 4:14 PM EST): - evaluate with MRI - consider referral to ENT - reviewed si/sx to seek a prompt medical attention Moderate episode of recurrent major depressive d isorder 10/12/2023 Assessment & Plan (01/17/2024 3:17 PM EDT): - compounding factors: Loss of his mother; stressful divorce; separation from his son; 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 Alcohol dependence 06/17/2023 Assessment & Plan (02/03/2024 3:19 PM EDT): PROGRESS NOTE: ID: Alejandro is a 43 y.o. cis-male (pronouns he/him/his) with previous documented hx of Depression, Anxiety, and Alcohol Use Disorder MH services including OP Psychotherapy who presents for Anxiety, Depression, and Substance Use Disorder. During IBH Consult Alejandro presenting with depressed mood, loss of interests/pleasure , changes in sleep difficulty staying asleep , change in appetite or weight reduce appetite, trouble concentrating, fatigue/loss of energy, worthlessness , passive suicidal ideation w/o plan, excessive worry/anxiety, difficulty controlling worry, restless/keyed up/On edge, easily fatigued, difficulty concentrating/Mind going blank , irritability, muscle tension, and sleep disturbance difficulty staying asleep , and he reported has been sober for 6 months, but recognized that in stressful situations his mind goes to drinking mode, although he has been able to manage cravings; for a period of 18+ mo, for all symptoms in the context of stress relationship with partner, stress about housing situation, increase in drinking thoughts and stress relationship with brother. PLAN: Continue with current services (defined as services in the past 12 months): Engaged with [facility] Assessment & Plan (01/17/2024 3:17 PM EDT): - following with Dr. Gimenez / AUD clinic in [facility] - continue current recovery effort and support Assessment & Plan (10/12/2023 4:12 PM EST): - following with Dr. Gimenez / AUD clinic in [facility] - continue current recovery effort and support Assessment & Plan (06/17/2023 5:34 PM EDT): - pt drinks large amount - pt may need to go to Detox first before starting medication - will refer to recovery analyst and AUD clinic Elevated blood pressure read ing without diagnosis of hypertension 06/17/2023 Assessment & Plan (01/17/2024 3:16 PM EDT): -Goal BP < 140/90 per JNC-8 and < 130/80 per ACC/AHA guideline (Treatment threshold >= 140/90 ) -Normal today. Previously elevated BP was when patient was drinking alcohol, and likely transient -Continue working on lifestyle modifications -Recommended self-monitoring BP. -Follow up in 3-6 mo, sooner if any problem arises Assessment & Plan (10/12/2023 4:09 PM EST): -Goal BP < 140/90 per JNC-8 and < 130/80 per ACC/AHA guideline (Treatment threshold >= 140/90 ) -Normal today. Previously elevated BP was when patient was drinking alcohol, and likely transient -Continue working on lifestyle modifications -Recommended self-monitoring BP. -Follow up in 3-6 mo, sooner if any problem arises Assessment & Plan (06/17/2023 6:10 PM EDT): -Goal BP < 140/90 per JNC-8 and < 130/80 per ACC/AHA guideline (Treatment threshold >= 140/90 ) - Elevated today -Continue working on lifestyle modifications -Recommended self-monitoring BP. -Pt is already following with school librarian for cardiomyopathy -Follow up in 3 mo, sooner if any problem arises Cardiomyopathy 06/17/2023 Assessment & Plan (01/17/2024 3:15 PM EDT): - school librarian: Dr. Henderson [facility], last seen on 01/27/23 - Hx abnormal stress test, MPI EF50% - TTE on 03/31/23 showed normal cardiac anatomy and function LVEF 58% - current working Dx is due to alcohol use - Follow up with Dr. Henderson as scheduled - Support harm reduction and recovery effort with CRS team - Continue thiamine and folic acid Assessment & Plan (10/12/2023 5:44 AM EST): - school librarian: Dr. Henderson [facility], last seen on 01/27/23 - Hx abnormal stress test, MPI EF50% - TTE on 03/31/23 showed normal cardiac anatomy and function LVEF 58% - current working Dx is due to alcohol use - Follow up with Dr. Henderson as scheduled - Support harm reduction and recovery effort with CRS team - Continue thiamine and folic acid Assessment & Plan (06/17/2023 6:13 PM EDT): - school librarian: Dr. Henderson, [facility], last seen on 01/27/23 - Hx abnormal stress test, MPI EF50% - current working Dx is due to alcohol use - TTE was ordered by Dr. Henderson - Follow up with Dr. Henderson as scheduled - Support harm reduction and recovery effort with CRS team - Restart thiamine and folic acid H. pylori infection 06/17/2023 Assessment & Plan (10/12/2023 4:10 PM EST): - Dx by stool antigen test on 06/12/23 - Incomplete quadruple therapy - will check stool antigen; if still positive, restart treatment - check the status of appointment with GI Assessment & Plan (06/17/2023 6:14 PM EDT): - Dx by stool antigen test on 06/12/23 - Start quadruple therapy - will check stool antigen again after the completion of treatment History of COVID-19 06/17/2023 Assessment & Plan (06/17/2023 6:16 PM EDT): - x 5 - has received monoclonal antibody - long-COVID Long COVID 06/17/2023 Assessment & Plan (01/17/2024 3:17 PM EDT): - continue following specialists at [facility] declines COVID vaccine Assessment & Plan (10/12/2023 4:13 PM EST): - continue following specialists at [facility] declines COVID vaccine Assessment & Plan (06/17/2023 6:17 PM EDT): - continue following specialists at [facility] declines COVID vaccine Headache 06/17/2023 Assessment & Plan (10/12/2023 4:07 PM EST): - Hx seizure-like episode, likely alcohol-related - Seen by neurologist in Jul 2023 - normal head CT in 2022 - Prescribed amitriptyline, but no longer taking - Evaluate with sleep study - Evaluate with head MRI due to unilateral tinnitus and dizziness Assessment & Plan (06/17/2023 6:18 PM EDT): - due to Hx seizure-like episode (likely alcohol-related), will refer to neurologist Transaminitis 06/17/2023 Assessment & Plan (01/17/2024 3:25 PM EDT): - likely due to alcohol use - most recent hepatic panel showed improvement - referred to GI for further evaluation - will discuss about Hep A and B vaccine again at next visit - support harm reduction / recovery effort - US in Jul 2023 showed: Hepatomegaly. Increased hepatic echogenicity which can be seen in the setting of hepatic steatosis or underlying liver disease. - FIB-4 index 0.55 Assessment & Plan (10/12/2023 4:13 PM EST): - likely due to alcohol use - referred to GI for further evaluation - will discuss about Hep A and B vaccine again at next visit - support harm reduction / recovery effort Assessment & Plan (06/17/2023 6:19 PM EDT): - likely due to alcohol use - refer to GI for further evaluation - will discuss about Hep A and B vaccine again at next visit - support harm reduction / recovery effort Obesity (BMI 30-39.9) 08/03/2018 Assessment & Plan (05/12/2024 12:10 PM EDT): - patient was evaluated with sleep study, need to repeat - patient is aware of repeat testing Chronic venous insufficiency 07/20/2018 Assessment & Plan (05/12/2024 12:08 PM EDT): - seen by Dr. Genao on 10/07/23 - Radiofrequencyy ablation of right GSV and accessory right GSV on 12/18/23 - Radiofrequencyy ablation of right SSV on 01/29/24 - upcoming venous ablation for left leg - Continue compression stocking, leg elevation, DASH diet, and exercise - Follow up as scheduled Assessment & Plan (01/17/2024 3:17 PM EDT): - seen by Dr. Genao on 10/07/23 - Radiofrequencyy ablation of right GSV and accessory right GSV on 12/18/23 - Continue compression stocking, leg elevation, DASH diet, and exercise - Follow up as scheduled Assessment & Plan (10/12/2023 4:08 PM EST): - seen by Dr. 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 - compression stocking, leg elevation, reduce sodium and alcohol consumption Assessment & Plan (06/17/2023 6:15 PM EDT): - s/p phlebectomy or venous ablation? - will obtain record - compression stocking, leg elevation, reduce sodium and alcohol consumption Venous stasis dermatitis of both lower extremiti es 07/13/2018 Assessment & Plan (10/12/2023 4:10 PM EST): - avoid scratching / irritation - optimize Tx for venous insufficiency Resolved Problems Problem Noted Date Diagnosed Date Resolved Date Mood disorder 10/12/2023 02/03/2024 Assessment & Plan (10/12/2023 4:34 PM EST): - likely MDD Encounters * This document contains information received from the source organization and may not represent a complete record from that organization. Date Type Department Care Team Description 09/21/2024 Telephone [facility] [address] [place] [id number] Di Yoon [place] october09/19/2024 Orders Only GENERIC EXTERNAL DATA DEPARTMENT Provider, Generic External Data 06/29/2024 11:20 AM EDT Office Visit [facility] [address] [place] [phone] Jr Garcia MD Foot pain, bilateral (Primary Dx) 06/29/2024 9:00 AM EDT Office Visit [facility] [address] [place] [address] Av Gimenez MD Alcohol use disorder, severe, dependence (CMS/HCC) (Primary Dx) 06/29/2024 Travel from Last 3 Months Immunizations Name Administration Dates Next Due Tdap 07/13/2018 Social History Tobacco Use Types Packs/Day Years Used Date Smoking Tobacco: Former Passive Smoke Exposure: Past Smokeless Tobacco: Never Tobacco Cessation:Counseling Given: Not [...] Orientation Straight 06/10/2023 9: 03 AM EDT Last Filed Vital Signs Vital Sign Reading Time Taken Comments Blood Pressure 131/79 06/29/2024 11:47 AM EDT Pulse 67 06/29/2024 11:47 AM EDT Temperature 36.7 ??C (98 ??F) 06/29/2024 11:47 AM EDT Respiratory Rate 18 06/29/2024 11:47 AM EDT Oxygen Saturation 98% 06/29/2024 11:47 AM EDT Inhaled Oxygen Concentration - - Weight 132 kg (291 lb) 06/29/2024 11:47 AM EDT Height 188 cm (6' 2 ) 04/12/2024 1:31 PM EDT Body Mass Index 37.36 04/12/2024 1:31 PM EDT Plan of Treatment Health Maintenance Due Date Last Done Comments Pneumococcal Vaccine: Pediatrics (0 to 5 Years) and At-Risk Patients (6 to 64 Years) (1 of 2 - PCV) 1986 Hepatitis B Vaccines (1 of 3 - 19+ 3-dose series) 1999 COVID-19 Vaccine ( - 2023-2 5 season) 2024 Influenza Vaccine (#1) 2024 SDOH Screening 06/17/2024 06/17/2023 Depression Monitoring (PHQ-9) 12/15/2024, 06/16/2024 Alcohol/Substance Use Screening 02/02/2025 02/03/2024 Depression Screening 06/16/2025 06/16/2024, 06/16/2024 Tobacco Screening 06/29/2025 06/29/2024 DTaP/Tdap/Td Vaccines (2 - T d or Tdap) 07/13/2028 07/13/2018 Lipid Panel 10/12/2028 10/12/2023 Zoster Vaccines (1 of 2) 2030 RSV Patients and Patients Aged 60 years or older (1 - 1-dose 75+ series) 2055 HIV Screening Completed 10/12/2023 Hepatitis C Screening Completed 10/12/2023 , 06/12/2023 HIB Vaccines Aged Out No longer eligi ble based on patient's age to complete this topic HPV Vaccines Aged Out No longer eligi ble based on patient's age to complete this topic Hepatitis A Vaccines Aged Out No long er eligible based on patient's age to complete this topic IPV Vaccines Aged Out No longer eligi ble based on patient's age to complete this topic Meningococcal Vaccine Aged Out No temo sam eligible based on patient's age to complete this topic RSV under 20 months Aged Out No longe r eligible based on patient's age to complete this topic Rotavirus Vaccines Aged Out No longer eligible based on patient's age to complete this topic Procedures Procedure Name Priority Date/Time Associated Diagnosis Comments HEMATOXYLIN AND EOSIN STAIN Routine 09/19/2024 11:39 AM EST HEPATITIS C AB W/REFL TO HCV RNA, QN, PCR Routine 10/12/2023 1:46 PM EST Dysuria HIV 1/2 ANTIGEN/ANTIBODY, FOURTH GENERATION W/RFL Routine 10/12/2023 1:46 PM EST Dysuria LIPID PANEL WITH REFLEX TO DIRECT LDL Routine 10/12/2023 1:46 PM EST Cardiomyopathy, unspecified type (CMS/HCC) from Last 3 Months or Most Recently Relevant to Health Maintenance Results * Hematoxylin and Eosin Stain (09/19/2024 11:39 AM EST) 09/19/2024 11:3 9 AM EST 09/19/2024 12:23 PM EST [facility] - 09/21/2024 10:47 AM EST ----- ------- Name: Alejandro Sanchez ?Age/Sex: 44/M ? : 1980 Unit#: [id number] ?? Attend Dr: Lorenzo Genao MD ?Re09/19/24 ?Status: DEP SDC ? Location: HO.SSS ?Disch: ? ----- ------- SPEC : [id number] ?RECD: 09/19/24-1223 ? STATUS: ??SOUT ? REQ NUM: [id number] ? ALYCIA: 09/19/24-1139 ? SUBM DR: Lorenzo Genao MD ? ENTERED: ??09/19/24-1231 ?SP TYPE: Surgical ? OTHR DR: Kandice [...] measure up to 0.1 cm in thickness. ??Sugar Trucker sections are submitted in a cassette labeled A1. CEDS Copies To: ?? Lorenzo Genao MD ?? [facility] ?? [address] ?? [place] [address] ?? [phone] ?? Kandice Bush MD ?? [facility] ?? [address] [facility] ?? [place] [address] ?? [phone] ----- ------- Signed (signature on file) Leon Irene MD 09/21/24 1047 ? ----- ------- ? END OF REPORT ? us Generic External Data Provider LAB BLOOD ORDERAB LES Final Result Performing Organization Address [facility] Co de Phone Number [facility] [address] [place] [phone] * (ABNORMAL) Lipid Panel with Reflex to Direct LDL (10/12/2023 1:46 PM EST) Triglycerides 125 <150 mg/dL [facility] Comment:Desirable Triglyceri de: less than 150 mg/dLBorderline High Triglyceride 150-199 mg/dLHigh Triglyceride: 200-499 mg/dLVery High Triglyceride: greater than or equal to 5OO mg/dL Cholesterol 206(H) <200 mg/dL [facility] Comment:Desirable Cholestero l: less than 200 mg/dLBorderline High Cholesterol: 200-239 mg/dLHigh Cholesterol: greater than 239 mg/dL LDL Cholesterol Calculated 124(H) <100 mg/dL [facility] Comment:Desirable LDL: less than 100 mg/dLNear Optimal/Above Optimal LDL: 110- 129 mg/dLBorderline High LDL: 130-159 mg/dLHigh LDL: 160-189 mg/dLVery High LDL: greater than or equal to 190 mg/dL HDL Cholesterol 57 >40 mg/dL [facility] Comment:Desirable HDL: great er than 40 mg/dL Note: This HDL assay may give artificially low results in patients with liver disease. Blood 10/12/2023 1:46 PM EST 10/12/2023 4:25 PM EST us Kandice Bush MD LAB BLOOD ORDERABLES Final Resul t Performing Organization Address City/[facility]/ZIP Co de Phone Number [facility] [address] [place] [address] [phone] * Hepatitis C Antibody with Reflex to HCV, RNA, Quantitative, Real-Time PCR (10/12/2023 1:46 PM EST) Hepatitis C Antibody Nonreactive Nonreactive [facility] Comment:Antibodies to HCV no t detected; does not exclude early acuteHCV infection. Blood Venous blood specimen / Unknown 10/12/2023 1:46 PM EST 10/12/2023 4:19 PM EST Kandice Bush MD LAB BLOOD ORDERABLES Final Resul t Performing Organization Address [facility]/ZIP Co de Phone Number [facility] [address] [place] [phone] [phone] * HIV-1/2 Antigen and Antibodies, Fourth Generation, with Reflexes (10/12/2023 1:46 PM EST) [facility] HIV AB/AG Nonreactive Nonreactive [facility] Comment:HIV-1 p24 Ag and/or HIV-1/HIV-2 Ab not detected.A test result that is nonreactive does not exclude thepossibility of exposure to or infection with HIV-1 and/orHIV-2. Nonreactive results in this assay for individualswith prior exposure to HIV-1 and/or HIV-2 may be due toantigen and antibody levels that are below the limit ofdetection of this assay.The MOOVIA HIV Ag/Ab Combo assay result andsupplemental assay results should be interpreted inconjunction with the patient's clinical presentation,history and other laboratory results. If the results areinconsistent with clinical evidence, additional testing issuggested to confirm the result. Blood Venous blood specimen / Unknown 10/12/2023 1:46 PM EST 10/12/2023 4:19 PM EST Kandice Bush MD LAB BLOOD ORDERABLES Final Resul t Performing Organization Address City/[facility]/ZIP Co de Phone Number [facility] [address] [place] [address] [phone] from Last 3 Months or Most Recently Relevant to Health Maintenance Insurance [facility] C3 HSN FULL Care Teams Agricultural Economist Relationship Specialty Start Date End Date Kandice Bush MD [address] [place] [id number] PCP - General Family Medicine 06/18/23
--- OUTSIDE RECORDS SUMMARY | 2024-09-27 14:23 | XMS_ITS | Encounter Summary ---
Author Organization [employer] Address [address] [place] [address] 7t [place] [address] Care Team Providers Care Valet Attendant Name Role Phone Kandice Bush MD Primary Care Provider [phone] Reason for Referral * Imaging (Routine) - Closed Specialty Diagnoses / Procedures Referred By Contac t Referred To Contact Radiology Diagnoses Left-sided tinnitus Dizziness Other headache syndrome Procedures Mr Brain w/ and w/o Contrast Kandice Bush MD [address] [place] [address] Phone: tel: fax: [address] Phone: tel: fax: Referral ID Status Reason Start Date Expiration Date Visits Re quested Visits Authorized [id number] Closed 10/13/2023 10/12/2024 1 1 Encounter Details Date Type Department Care Team (Late st Contact Info) Description 10/13/2023 Orders Only [facility] MEDICINE [address] [place] [address] Kandice Bush MD [address] [place], [place] [phone] Left-sided tinnitus (Primary Dx); Dizziness; Other headache syndrome Social History Tobacco Use Types Packs/Day Years [...] Procedure Name Priority Date/Time Associated Diagnosis Comments MR BRAIN W AND WO CONTRAST Routine 11/10/2023 8:58 AM EST Left-sided tinnitus Dizziness Other headache syndrome documented in this encounter Results * Mr Brain w/ and w/o Contrast (11/10/2023 8:58 AM EST) Anatomical Region Laterality Modality Brain Magnetic Resonan ce 11/10/2023 8:58 AM EST Narrative 11/13/2023 4:45 PM EST ? [facility] ?[address] ?[place] [address] ? Magnetic Resonance Report ? Signed ? Patient: Blum Castanaza,Alejandro N ?MR ?? #: [id number] ? : 1980 ?Acct:[id number] ? Age/Sex: 43 / M ?ADM Date: 03/05/24 ? Loc: HO.MRI ? Attending Dr: Kandice Bush MD ? Ordering Physician: Kandice Bush MD ?? Date of Service: 11/10/23 ?? Procedure(s): MR head/brain wo/w con ?? Accession Number(s): [id number] ? cc: Kandice Bush MD ? EXAMINATION: ?? MR BRAIN WITHOUT AND WITH CONTRAST ? CLINICAL INFORMATION: ?? Headache, dizziness, left facial numbness, left-sided tinnitus ? COMPARISON: ?? CT scan of brain on 12/27/2022 ? TECHNIQUE: ?? Multiplanar, multisequence MRI of the brain was obtained before and ?? after the intravenous administration of 10 mL Gadavist. ?? High-resolution axial T2 weighted images, axial and coronal T1 weighted ?? images of bilateral internal auditory meati were obtained. ? FINDINGS: ?? Ventricles, sulci and cisterns are normal. ? No focal cerebral, brainstem or cerebellar lesions with abnormal signal ?? can be seen. ? Diffusion weighted images show no abnormal regional decrease in ?? diffusion. ?? Contrast enhanced images show normal enhancement of major intra ?? cerebral blood vessels. ??No enhancing focal cerebral, brainstem or ?? cerebellar lesions can be seen. ? High-resolution images show normal symmetric bilateral seventh/eighth ?? nerve complexes. ??Bilateral cochleae and semicircular canals are also ?? normal. ??Post contrast images show no abnormal asymmetric enhancement ?? or mass lesions in bilateral seventh/eighth nerve complexes or inner ?? ear labyrinth. ? The pituitary gland is normal. ??Optic chiasm is not displaced. ?? Cerebellar tonsils position is normal. ?? Bilateral ethmoid sinuses show mild mucosal thickening. Bilateral lower ?? maxillary sinus wall also shows mild circumferential mucosal ?? thickening. ? MR/MR head/brain wo/w con ?? IMPRESSION: ? 1. ??Normal MRI scan of the brain. ? 2. ??No focal enhancing cerebral lesion or acute infarction is seen. ? 3. ??No evidence of vestibular neuritis or acoustic neuroma. ? Dictated By: ?García,Angelina ? Signed By: ?<Electronically signed by Angelina ??García in OV> ?11/13/23 1641 ? DD/DT: // 0858 ? TD/TT: ? Detention Worker: ? Procedure Note Donotuseinterpreter, Image - 11/13/[address] [address] Magnetic Resonance Report Signed Patient: Alejandro Sanchez NMR #: [id number] : 1980Acct:[id number] Age/Sex: 43 / MADM Date: 11/10/23 Loc: HO.MRI Attending Dr: Kandice Bush MD Ordering Physician: Kandice Bush MD Date of Service: 11/10/23 Procedure(s): MR head/brain wo/w con Accession Number(s): [id number] cc: Kandice Bush MD EXAMINATION: MR BRAIN WITHOUT AND WITH CONTRAST CLINICAL INFORMATION: Headache, dizziness, left facial numbness, left-sided tinnitus COMPARISON: CT scan of brain on 12/27/2022 TECHNIQUE: Multiplanar, multisequence MRI of the brain was obtained before and after the intravenous administration of 10 mL Gadavist. High-resolution axial T2 weighted images, axial and coronal T1 weighted images of bilateral internal auditory meati were obtained. FINDINGS: Ventricles, sulci and cisterns are normal. No focal cerebral, brainstem or cerebellar lesions with abnormal signal can be seen. Diffusion weighted images show no abnormal regional decrease in diffusion. Contrast enhanced images show normal enhancement of major intra cerebral blood vessels. No enhancing focal cerebral, brainstem or cerebellar lesions can be seen. High-resolution images show normal symmetric bilateral seventh/eighth nerve complexes. Bilateral cochleae and semicircular canals are also normal. Post contrast images show no abnormal asymmetric enhancement or mass lesions in bilateral seventh/eighth nerve complexes or inner ear labyrinth. The pituitary gland is normal. Optic chiasm is not displaced. Cerebellar tonsils position is normal. Bilateral ethmoid sinuses show mild mucosal thickening. Bilateral lower maxillary sinus wall also shows mild circumferential mucosal thickening. MR/MR head/brain wo/w con IMPRESSION: 1. Normal MRI scan of the brain. 2. No focal enhancing cerebral lesion or acute infarction is seen. 3. No evidence of vestibular neuritis or acoustic neuroma. Dictated By: Angelina Mariano Signed By: <Electronically signed by Angelina Mariano in OV> 11/13/23 1641 DD/ 0858 TD/TT: Detention Worker: Kandice Bush MD IM MRI PROCEDURES Final Result documented in this encounter Visit Diagnoses Diagnosis Left-sided tinnitus- Primary Unspecified tinnitus Dizziness Dizziness and giddiness Other headache syndrome documented in this encounter Care Teams Valet Attendant Relationship Specialty Start Date End Date Kandice Bush MD [address] [place] [address] PCP - General Family Medicine 06/18/23 documented as of this encounter
--- OUTSIDE RECORDS SUMMARY | 2024-09-27 14:23 | XMS_ITS | Encounter Summary ---
Author Organization [facility] Address [address] [place] [address] Care Team Providers Care Election Supervisor Name Role Phone Patient, Has No Pcp Or Ref Primary Care Provider Unavailable Encounter Details Date Type Department Care Team (Late st Contact Info) Description 01/21/2023 Telephone [facility] Nuclear Medicine [address] [place] [address] Diaz Carrera, RN Social History Tobacco Use Types Packs/Day Years [...] documented as of this encounter Care Teams Election Supervisor Relationship Specialty Start Date End Date Patient, Has No Pcp Or Ref DO NOT EDIT THIS RECORD VIA PROVIDER ON THE FLY PCP - General Life Insurance Sales Agent 01/26/23 documented as of this encounter
--- OUTSIDE RECORDS SUMMARY | 2024-09-27 14:23 | XMS_ITS | Encounter Summary ---
Author Organization [employer] Address [address] [place] [address] Care Team Providers Care Automat Car Attendant Name Role Phone Kandice Bush MD Primary Care Provider [phone] Reason for Visit * Reason Onset Date Comments october recall 09/21/2024 Encounter Details Date Type Department Care Team ([facility] Contact Info) Description 09/21/2024 Telephone [facility] MEDICINE [address] [place], [place] [phone] Di Yoon [place] october recall Social History Tobacco Use Types Packs/Day Years [...] encounter Miscellaneous Notes * Telephone Encounter - Di Yoon [place] - 09/21/2024 1:47 PM EST special education teaching assistant called patient. No answer. Unable to leave message. Letter sent to contact [facility] to schedule. (October) documented in this encounter Plan of Treatment Not on file documented as of this encounter Visit Diagnoses Not on filedocumented in this encounter Additional Health Concerns Assessment Noted Time PHQ-9 Depression Total Score: 9 06/16/20 24 11:13 AM EDT documented as of this encounter Care Teams Automat Car Attendant Relationship Specialty Start Date End Date Kandice Bush MD [address] [place] [address] PCP - General Family Medicine 06/18/23 documented as of this encounter
--- OUTSIDE RECORDS SUMMARY | 2024-09-27 14:23 | XMS_ITS | Encounter Summary ---
Author Organization [employer] Address [address] [place] [address] 7t [place] [address] Care Team Providers Care Telecommunications Manager Name Role Phone Kandice Bush MD Primary Care Provider [phone] Reason for Referral * Consultation (Urgent) - Closed Specialty Diagnoses / Procedures Referred By Contrafael t Referred To Contact Podiatry Diagnoses Heel pain, bilateral Kandice Bush MD [address] [place] [address] Phone: tel: fax: Diaz Rojo DPM Phone: tel: fax: Referral ID Status Reason Start Date Expiration Date V isits Requested Visits Authorized [id number] Closed Specialty Services Required 06/07/2024 06/07/2025 6 6 Encounter Details Date Type Department Care Team (Late st Contact Info) Description 06/03/2024 Orders Only [facility] MEDICINE [address] [place] [address] [phone] Kandice Bush MD [address] [place], [place] [phone] Heel pain, bilateral (Primary Dx) Social History Tobacco Use Types Packs/Day Years [...] Answer Date Recorded Patient Health Questionnaire-9 Score 8 03/04/2024 Patient Health Questionnaire-9 Score 8 03/04/2024 Last PHQ-9: Questionnaire Data Not on file 0 03/04/2024 Housing Stability Answer Date Recorded What is [...] Date Recorded Patient Health Questionnaire-2 Score 2 03/04/2024 Sex and Gender Information Value Date Recorded Sex Assigned at Male 06/10/2023 9:03 AM EDT Legal Sex Male 11:18 AM EDT Gender Identity Male 06/10/2023 9:03 AM EDT Sexual Orientation Straight 06/10/2023 9: 03 AM EDT documented as of this encounter Plan of Treatment Scheduled Referrals Name Type Priority Associated Diagnoses Orde r Schedule Referral to Podiatry Outpatient Referral Urgent Heel pain, bilateral Expected: 06/03/2024 (Approximate), Expires: 06/03/2025 documented as of this encounter Visit Diagnoses Diagnosis Heel pain, bilateral- Primary documented in this encounter Additional Health Concerns Assessment Noted Time PHQ-9 Depression Total Score: 8 03/04/20 24 8:22 AM EDT documented as of this encounter Care Teams Telecommunications Manager Relationship Specialty Start Date End Date Kandice Bush MD [address] [place] [address] PCP - General Family Medicine 06/18/23 documented as of this encounter
== END 2024-09-27 13:29 | disposition home or self-care (01) ==
PROVIDERS: PCP Family Medicine; Visit Provider Nurse Practitioner Family
DX: Z86.19 Personal history of other infectious and parasitic diseases (principal)

== ENCOUNTER → 2024-10-04 13:28 | Outpatient (BNVA) | payer MEDICAID, SELFPAY | PROVIDERS: PCP Family Medicine; Visit Provider Physician Assistant Surgical | DX: I83.11 Varicose veins of right lower extremity with inflammation (principal) | CPT/HCPCS: 99212 ==

== ENCOUNTER 2024-10-19 09:18 | Outpatient (AMB) | payer MEDICAID, SELFPAY ==
--- NOTE | 2024-10-19 09:29 | MHC.OFFVIS ---
Vital Signs 10/19/24 09:40 Height 6 ft 2 in Weight 292 lb 12.382 oz BMI 37.6 BP 126/66 Blood Pressure Location Rt brachial Position Sitting Pulse 68 Pulse Source Pulse Oximeter Pulse Oximetry (%) 99 Oxygen Delivery Method Room Air Intake Visit Reasons: 6 weeks FUV, discuss colo Intake Note: ESTABLISHED PATIENT for mgmt of early satiety, hx of H Pylori infx + discuss upcoming colo. Chief Complaint; Nausea w/o vomiting, lack of appetite, reflux, esophageal + abd discomfort (generalized). Pt denies any additional concerns. Surface Miner Required: No Accompanied by: Self / Same As Patient Allergies Penicillins [PCN] Allergy (Verified 10/19/24 09:29) Rash HPI HPI 6 weeks FUV, discuss colo: Details: LAST VISIT Postprandial diarrhea History of Helicobacter pylori infection Postprandial epigastric pain Early satiety GERD (gastroesophageal reflux disease) Plan Patient reports feeling full very quickly when he eats, will send him for gastric emptying study. Patient will hold pantoprazole for couple weeks and will start famotidine. Patient will return in 2 weeks for H pylori testing. Patient will return in the office in 6 weeks to discuss upper endoscopy. He has postprandial diarrhea will send him for colonoscopy if his symptoms will continue. Patient has no family history of CRC. Patient is agreeable to current plan of care and verbalizes understanding of instructions. He was given the opportunity to ask questions and all questions answered. ? Thank you for allowing me to participate in his care Orders Orders NM gastric emptying study Today R68.81 Medications New famotidine (Pepcid) 20 mg PO BID 40 tabs 0RF K29.70 TODAY'S VISIT Patient is here today for follow-up. Patient has appointment next week with nuclear med for gastric emptying study. He continues to feel full postprandially. Epigastric pain occasionally depending on what he eats. Patient reports that almost every morning he wakes up with pain in his stomach. Currently is taking famotidine at bedtime and pantoprazole in the morning. For the most part her symptoms of acid reflux are suppressed, however he still complains of pain in the epigastric area. Feeling of fullness. Abdominal bloating. Occasional postprandial diarrhea. Otherwise patient does not feel like he is constipated. Reports that he feels like he empties his bowels completely. Patient denies any melena, hematochezia. Reports occasional dyspepsia without dysphagia or odynophagia. PFSH Medical History Transaminitis Long COVID Abnormal stress test Cardiomyopathy Blood pressure elevated without history of HTN History of Helicobacter pylori infection Varicose vein of leg Alcohol use disorder MDD (major depressive disorder), recurrent severe, without psychosis Alcohol abuse Social History Household Members: Other Household Members Other:: girlfriend Housing: Apartment Are you a primary manager medicare marketing to a significant other at home: No Do you presently have visiting nurse or other home services: No Unable to assess alcohol history related to: Unknown Alcohol intake: current Alcohol intake frequency: does not drink Alcohol type: beer and hard liquor Patient Tobacco Use Status: Former Tobacco user Second Hand Smoke Exposure: No (Unknown, pt unable to participate fully in admission.) Substance Use Type: Marijuana service: No Sexual orientation: Straight/Heterosexual Review of Systems Const Denies weight gain and Denies weight loss ENT Reports no additional complaints, Denies dysphagia and Denies odynophagia Card Reports no additional complaints Resp Reports no additional complaints GI Reports abdominal pain (Epigastric), Denies belching, Denies melena, Denies bloating, Denies change in bowel habits, Reports constipation (Occasional), Denies dysphagia, Denies excessive flatus, Reports early satiety, Denies dyspepsia, Reports heartburn, Denies diarrhea, Reports loose stools (Occasional postprandially), Denies nausea, Denies odynophagia and Denies vomiting Reports no additional complaints Musc Reports no additional complaints Neuro Reports no additional complaints Psych Reports no additional complaints Endo Reports no additional complaints Physical Exam Const General: healthy appearing and no acute distress Nutritional Appearance: obese Orientation/consciousness: patient oriented x3 Resp Effort & Inspection: normal respiratory effort, able to speak in complete sentences, no tracheal deviation and symmetric chest movement Auscultation: clear to auscultation bilaterally Cardio Rate: regular rate GI Inspection: Yes normal to inspection, No distended and Yes obesity Palpation (GI): Soft to palpation, not firm, nontender and No hepatosplenomegaly present Auscultation: normal bowel sounds General: Yes no CVA tenderness Back/Spine/Pelvis Back: no CVA tenderness Skin General skin exam: elasticity normal, turgor normal and dry skin Neuro General: patient oriented x3 Psych Appearance: grossly normal Mental Status: mental status grossly normal Assessment & Plan Assessment & Plan (1) History of Helicobacter pylori infection: Code(s): Z86.19 - Personal history of other infectious and parasitic diseases Category: Medical (2) Postprandial diarrhea: Code(s): K52.9 - Noninfective gastroenteritis and colitis, unspecified (3) Postprandial epigastric pain: Code(s): R10.13 - Epigastric pain (4) Early satiety: Code(s): R68.81 - Early satiety (5) GERD (gastroesophageal reflux disease): Code(s): K21.9 - Gastro-esophageal reflux disease without esophagitis Qualifiers: Esophagitis presence: esophagitis presence not specified Qualified Code(s): K21.9 - Gastro-esophageal reflux disease without esophagitis Plan Patient will stop pantoprazole and Pepcid and will start taking Nexium in the morning and sucralfate at bedtime. Avoid dietary triggers and late night snacking. Patient has gastric emptying study next week. Message sent to surgical schedulers to book upper endoscopy and colonoscopy for patient. Patient does have change in the bowel pattern more frequent loose stools alternating with constipation. Patient denies melena, hematochezia, unintentional weight loss or ribbon like stools. Patient will return 2-3 months to reassess. He will call our office if he will have any additional concerning symptoms. He is agreeable to this plan and verbalizes understanding of instructions he was given the opportunity to ask questions and all questions answered. Thank you for allowing me to participate in his care Medications: New esomeprazole magnesium (Nexium) 40 mg PO DAILY 30 caps 5RF K21.9 - Gastro-esophageal reflux disease without esophagitis sucralfate 10 mL PO BEDTIME 400 mL 3RF K21.9 - Gastro-esophageal reflux disease without esophagitis Discontinued famotidine (Pepcid) Discontinued Reason: Doctor's Order 20 mg PO BID 40 tabs 0RF K29.70 - Gastritis, unspecified, without bleeding pantoprazole take one tablet half an hour before breakfast Discontinued Reason: Doctor's Order 40 mg PO DAILY 30 tabs 2RF K21.9 - Gastro-esophageal reflux disease without esophagitis Coding Level of Care Code Est Pt Level 4 (33910) Complex EM visit Add On G2211 Diagnoses History of Helicobacter pylori infection Z86.19 Postprandial diarrhea K52.9 Postprandial epigastric pain R10.13 Early satiety R68.81 Gastroesophageal reflux disease, unspecified whether esophagitis present K21.9 Esophagitis presence: esophagitis presence not specified Time Spent (min) 35 Comment 25 minutes spent with patient and additional 10 minutes spent reviewing his records
[2024-10-19 09:40] VITALS: BP 126/66; PULSE 68; O2SAT 99; BMI 37.6
--- OUTSIDE RECORDS SUMMARY | 2024-10-19 10:21 | XMS_ITS | Encounter Summary ---
Author Organization [employer] Address [address] [facility] 7t [place] [address] Care Team Providers Care Car Salesperson Name Role Phone Kandice Bush MD Primary Care Provider [phone] Encounter Details Date Type Department Care Team ([facility] st Contact Info) Description 09/27/2024 Orders Only GENERIC EXTERNAL DATA DEPARTMENT Provider, [...] Procedure Name Priority Date/Time Associated Diagnosis Comments HELICOBACTER PYLORI, UREA BREATH TEST Routine 09/27/2024 1:09 PM EST documented in this encounter Results * Helicobacter pylori, Urea Breath Test (09/27/2024 1:09 PM EST) H. pylori Breath Test Negative Negative [facility] Comment:Antimicrobials, prot on pump inhibitors and bismuthpreparations are known to suppress H. pylori. Ingestingthese medications within two weeks prior to performing thebreath test may produce negative test results. A positiveresult is still clinically valid. 09/27/2024 1:09 PM EST 09/28/2024 10:54 AM EST us Generic External Data Provider LAB BLOOD ORDERAB LES Final Result [facility] [address] [place] [address] [phone] documented in this encounter Visit Diagnoses Not on filedocumented in this encounter Additional Health Concerns Assessment Noted Time PHQ-9 Depression Total Score: 9 06/16/20 24 11:13 AM EDT documented as of this encounter Care Teams Car Salesperson Relationship Specialty Start Date End Date Kandice Bush MD [address] [place] [phone] PCP - General Family Medicine 06/18/23 documented as of this encounter
--- OUTSIDE RECORDS SUMMARY | 2024-10-19 10:21 | XMS_ITS | Clinical Summary ---
Author Organization [employer] Address [address] [facility] 7t [place] [address] Care Team Providers Care Bottle Inspector Name Role Phone Kandice Bush MD Primary Care Provider [phone] Allergies Active Allergy Reactions Criticality Noted Date [...] 60 patch 2 4 06/29/20 25 Active sertraline (Zoloft) 50 MG tabletIndicatio ns:Moderate episode of recurrent major depressive disorder (CMS/HCC),ZACHARY (generalized anxiety disorder) Take 1 tablet (50 mg) by mouth Once per day. 30 tablet 2 5 01/13/20 25 Active hydrOXYzine HCl (Atarax) 10 MG tabletIndicatio ns:ZACHARY (generalized anxiety disorder) Take 1 tablet (10 mg) by mouth every 8 (eight) hours if needed for anxiety. 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 Alcohol dependence 06/17/2023 Assessment [...] with Dr. Gimenez / AUD clinic in [facility] - continue current recovery effort and support Assessment & Plan (10/12/2023 4:12 PM EST): - following with Dr. Gimenez / AUD clinic in [facility] - continue current recovery effort and support Assessment & Plan (06/17/2023 5:34 PM EDT): - pt drinks large amount - pt may need to go to Detox first before starting medication - will refer to disaster recovery specialist and AUD clinic Elevated blood pressure read [...] self-monitoring BP. -Pt is already following with supervisor assembly department for cardiomyopathy -Follow up in 3 mo, sooner if any problem arises Cardiomyopathy 06/17/2023 Assessment & Plan (01/17/2024 3:15 PM EDT): - supervisor assembly department: Dr. Henderson, [facility], last seen on 01/27/23 - Hx abnormal [...] & Plan (10/12/2023 5:44 AM EST): - supervisor assembly department: Dr. Henderson, [facility], last seen on 01/27/23 - Hx abnormal [...] & Plan (06/17/2023 6:13 PM EDT): - supervisor assembly department: Dr. Henderson, [facility], last seen on 01/27/23 - Hx abnormal [...] PM EDT): - continue following specialists at [facility] - declines COVID vaccine Assessment & Plan (10/12/2023 4:13 PM EST): - continue following specialists at [facility] declines COVID vaccine Assessment & Plan (06/17/2023 6:17 PM EDT): - continue following specialists at [facility] - pt declines COVID vaccine Headache 06/17/2023 Assessment & [...] - s/p phlebectomy or venous ablation in [facility] - currently following with Dr. Genao, [facility] - compression stocking, leg elevation, reduce sodium [...] organization. Date Type Department Care Team Description 10/14/2024 9:40 AM EST Office Visit [facility] WALK-IN [address] [address] Av Gimenez MD Moderate episode of recurrent major depressive disorder (CMS/HCC) (Primary Dx); ZACHARY (generalized anxiety disorder) 10/14/2024 Telephone [facility] [address] [address] Anel Gayle RN Nurse Triage 10/11/[address] [facility] MEDICINE [address] [place] [phone] Kandice Bush MD Nurse Triage 09/27/2024 Orders Only GENERIC EXTERNAL DATA DEPARTMENT Provider, Generic External Data 09/21/[address] [address] Di Yoon [place] february recall 09/19/2024 Orders Only GENERIC EXTERNAL DATA DEPARTMENT Provider, Generic External Data from Last 3 Months Immunizations Name Administration [...] Sign Reading Time Taken Comments Blood Pressure 131/84 10/14/2024 9:25 AM EST Pulse 101 10/14/2024 9:45 AM EST Temperature 36.7 ??C (98 ??F) 06/29/2024 11:47 AM EDT Respiratory Rate 18 10/14/2024 9:25 AM EST Oxygen Saturation 97% 10/14/2024 9:25 AM EST Inhaled Oxygen Concentration - - Weight 132 kg (291 lb) 06/29/2024 11:47 AM EDT Height 188 cm (6' 2 ) 04/12/2024 1:31 PM EDT Body Mass Index 37.36 04/12/2024 1:31 PM EDT Plan of Treatment Health Maintenance Due Date Last Done Comments Family Planning (PISQ) 1995 Hepatitis B Vaccines (1 of 3 - 19+ 3-dose series) 1999 Pneumococcal Vaccine: Pediatrics (0 to 5 Years) and At-Risk Patients (6 to 49) Years) (1 of 2 - PCV) 1999 COVID-19 Vaccine ( - 2023-2 5 [...] BREATH TEST Routine 09/27/2024 1:09 PM EST HEMATOXYLIN AND EOSIN STAIN Routine 09/19/2024 11:39 [...] Recently Relevant to Health Maintenance Results * Helicobacter pylori, Urea Breath Test (09/27/2024 1:09 PM EST) H. pylori Breath Test Negative Negative [facility] Comment:Antimicrobials, prot on pump inhibitors and bismuthpreparations are known to suppress H. pylori. Ingestingthese medications within two weeks prior to performing thebreath test may produce negative test results. A positiveresult is still clinically valid. 09/27/2024 1:09 PM EST 09/28/2024 10:54 AM EST us Generic External Data Provider LAB BLOOD ORDERAB LES Final Result Performing Organization Address City/State/[facility] Co de Phone Number [facility] [address] [place] [phone] * Hematoxylin and Eosin Stain (09/19/2024 11:39 AM EST) 09/19/2024 11:3 9 AM EST 09/19/2024 12:23 PM EST Narrative [facility] - 09/21/2024 10:47 AM EST ----- ------- Name: Alejandro Sanchez ?Age/Sex: 44/M ? : 1980 Unit#: [id number] ?? Attend Dr: Lorenzo Genao MD ?Re09/19/24 ?Status: DEP SDC ? Location: HO.SSS ?Disch: ? ----- ------- SPEC : [id number] ?RECD: 09/19/24 ? STATUS: ??SOUT ? REQ NUM: [id number] ? ALYCIA: 09/19/24 ? SUBM DR: Lorenzo Genao MD ? ENTERED: ??09/19/24 ?SP TYPE: Surgical ? OTHR DR: Kandice [...] measure up to 0.1 cm in thickness. ??Fire Regulator sections are submitted in a cassette labeled A1. CEDS Copies To: ?? Lorenzo Genao MD ?? [facility] Vascular Services ?? [address] ?? [place] [address] ?? [phone] ?? Kandice Bush MD ?? [facility] ?? [address] [facility] ?? [place] ?? [phone] ----- ------- Signed (signature on file) Leon Irene MD 09/21/24 1047 ? ----- ------- ? END OF REPORT ? us Generic External Data Provider LAB BLOOD ORDERAB LES Final Result [facility] [address] [place] [address] [phone] * (ABNORMAL) Lipid Panel with Reflex to Direct LDL (10/12/2023 1:46 PM EST) Triglycerides 125 <150 mg/dL [facility] Comment:Desirable Triglyceri de: less than 150 mg/dLBorderline High Triglyceride 150-199 mg/dLHigh Triglyceride: 200-499 mg/dLVery High Triglyceride: greater than or equal to 5OO mg/dL Cholesterol 206(H) <200 mg/dL [facility] Comment:Desirable Cholestero l: less than 200 mg/dLBorderline High Cholesterol: 200-239 mg/dLHigh Cholesterol: greater than 239 mg/dL LDL Cholesterol Calculated 124(H) <100 mg/dL [facility] Comment:Desirable LDL: less than 100 mg/dLNear Optimal/Above Optimal LDL: 110- 129 mg/dLBorderline High LDL: 130-159 mg/dLHigh LDL: 160-189 mg/dLVery High LDL: greater than or equal to 190 mg/dL HDL Cholesterol 57 >40 mg/dL [facility] Comment:Desirable HDL: great er than 40 mg/dL Note: This HDL assay may give artificially low results in patients with liver disease. Blood 10/12/2023 1:46 PM EST 10/12/2023 4:25 PM EST us Kandice Bush MD LAB BLOOD ORDERABLES Final Resul t Performing Organization Address City/[facility]/ZIP Co de Phone Number [facility] [address] [place] [phone] * Hepatitis C Antibody with Reflex to HCV, RNA, Quantitative, Real-Time PCR (10/12/2023 1:46 PM EST) Hepatitis C Antibody Nonreactive Nonreactive [facility] Comment:Antibodies to HCV no t detected; does not exclude early acuteHCV infection. Blood Venous blood specimen / Unknown 10/12/2023 1:46 PM EST 10/12/2023 4:19 PM EST us Kandice Bush MD LAB BLOOD ORDERABLES Final Resul t Performing Organization Address City/[facility]/ZIP Co de Phone Number [facility] [address] [place] [phone] * HIV-1/2 Antigen and Antibodies, Fourth Generation, with Reflexes (10/12/2023 1:46 PM EST) HIV AB/AG Nonreactive Nonreactive [facility] Comment:HIV-1 p24 Ag and/or HIV-1/HIV-2 Ab not detected.A test result that is nonreactive does not exclude thepossibility of exposure to or infection with HIV-1 and/orHIV-2. Nonreactive results in this assay for individualswith prior exposure to HIV-1 and/or HIV-2 may be due toantigen and antibody levels that are below the limit ofdetection of this assay.The DossierView HIV Ag/Ab Combo assay result andsupplemental assay results should be interpreted inconjunction with the patient's clinical presentation,history and other laboratory results. If the results areinconsistent with clinical evidence, additional testing issuggested to confirm the result. Blood Venous blood specimen / Unknown 10/12/2023 1:46 PM EST 10/12/2023 4:19 PM EST us Kandice Bush MD LAB BLOOD ORDERABLES Final Resul t [facility] [address] [place] [phone] from Last 3 Months or Most Recently Relevant to Health Maintenance Insurance [facility] C3 HSN FULL Care Teams Bottle Inspector Relationship Specialty Start Date End Date Kandice Bush MD [address] [place] [phone] PCP - General Family Medicine 06/18/23
--- OUTSIDE RECORDS SUMMARY | 2024-10-19 10:22 | XMS_ITS | Encounter Summary ---
Author Organization [employer] Address [address] [facility] [address] [facility] [address] 7t [place] [address] Care Team Providers Care Thread Winder Automatic Name Role Phone Kandice Bush MD Primary Care Provider [phone] Reason for Visit * Reason Onset Date Comments october recall 09/21/2024 Encounter Details Date Type Department Care Team ([facility] Contact Info) Description 09/21/2024 Telephone [facility] MEDICINE [address] [place], [place] [phone] Di Yoon [place] october recall Social History [...] Yoon MA - 09/21/2024 1:47 PM EST geriatric assistant called patient. No answer. Unable to leave message. Letter sent to contact [facility] to schedule. (October) documented in this encounter Plan of Treatment Not on file documented as of this encounter Visit Diagnoses Not on filedocumented in this encounter Additional Health Concerns Assessment Noted Time PHQ-9 Depression Total Score: 9 06/16/20 24 11:13 AM EDT documented as of this encounter Care Teams Thread Winder Automatic Relationship Specialty Start Date End Date Kandice Bush MD [address] [place] [phone] PCP - General Family Medicine 06/18/23 documented as of this encounter
--- OUTSIDE RECORDS SUMMARY | 2024-10-19 10:22 | XMS_ITS | Referral Summary ---
Author Organization [facility] Address [address] [place] [address] Care Team Providers Care Estate Planner Name Role Phone Patient, Has No Pcp [...] Not on file Procedures * Due to [place] [employer] law, this organization might not be sharing negative HIV tests. Procedure Name Priority Date/Time Associated Diagnosis Comments HEPATITIS PANEL, ACUTE STAT 03/30/2009 12:15 PM EDT from Last 3 Months or Most Recently Relevant to Health Maintenance Results * Due to [place] [employer] law, this organization might not be sharing negative HIV tests. * Hepatitis Panel, Acute (03/30/2009 12:15 PM EDT) Hepatitis A IgM Antibody Negative Negative [facility] Hepatitis B Core IgM Antibody Negative Negative [facility] Hepatitis B Surface Ag Negative Negative [facility] Hepatitis C Antibody Negative Negative [facility] 03/30/2009 12:1 5 PM EDT 03/30/2009 2:27 PM EDT us Christiane Mathur MD LAB BLOOD ORDERABLES Vonda afia Result [facility] [address] [place] [address], from Last 3 Months or Most Recently Relevant to Health Maintenance [place] [address] [address] MEDICAID Care Teams Estate Planner Relationship Specialty Start Date End Date Patient, Has No Pcp Or Ref DO NOT EDIT THIS RECORD VIA PROVIDER ON THE FLY PCP - General Senior Games Technician 01/26/23
--- OUTSIDE RECORDS SUMMARY | 2024-10-19 10:22 | XMS_ITS | Encounter Summary ---
Author Organization [employer] Address [address] [facility] 7t [place] [address] Care Team Providers Care Stem Dryer Maintainer Name Role Phone Kandice Bush MD Primary Care Provider [phone] Reason for Visit * Reason Onset Date Comments Nurse Triage 10/11/2024 Encounter Details Date Type Department Care Team ([facility] Contact Info) Description 10/11/2024 Telephone [facility] MEDICINE [address] [place] [address] Kandice Bush MD [address] [place] [address] Nurse Triage Social History Tobacco Use Types Packs/Day Years [...] the past 12 months, has t he [employer], gas, oil or water company threatened to [...] encounter Miscellaneous Notes * Telephone Encounter - Yoselin Grossman RN - 10/11/2024 3:18 PM EST Call returned to Alejandro Blum to triage below. Reports having hx of Depression and anxiety. Reports over last month having increased depression. Per pt having episodes of crying, feeling sad, fatigued. Per pt not currently on any antidepressant or antianxiety. Per [place] was out of the country [place] 1 month. Pt has not been able to connect with [facility] since February 2024. Pt reports feeling safe in home. Denies any SI/HI. Pt reports being out of work for 1 year. Belives financial worries are affecting him. Offered pt to seek WIC today. Pt states unable to come in today but will seek WIC tomorrow morning. Pt also given number to [facility] [employer] [phone] Pt advised to return call to office PRN. Protocol Used: Depression (Adult) Protocol-Based Disposition: See in Office or Video Visit within 3 Days Video visit offer not recorded Positive Triage Questions: * Depression is getting worse (e.g.,sleeping poorly, less able to do activities of daily living) * Requesting to talk with a counselor (mental health worker, psychiatrist, etc.) * All higher-acuity triage questions were negative Care Advice Discussed: * Depression - Symptoms * Depression - Causes * Reasons To Call Back - Sadness or depression symptoms persist over 2 weeks - You want to talk with a counselor - You feel like harming yourself - You become worse * Telephone Encounter - Kirit Oj - 10/11/2024 3:02 PM EST Symptoms: Depression, Loss of Appetite, Anxiety or Panic Attack Outcome: Schedule an urgent appointment (within 4 hours) or talk to a nurse or provider soon Reason: Anxiety keeps from normal daily activities (such as school or work) The caller accepted this outcome. documented in this encounter Plan of Treatment Not on file documented as of this encounter Visit Diagnoses Not on filedocumented in this encounter Additional Health Concerns Assessment Noted Time PHQ-9 Depression Total Score: 9 06/16/20 24 11:13 AM EDT documented as of this encounter Care Teams Stem Dryer Maintainer Relationship Specialty Start Date End Date Kandice Bush MD [address] [place] [phone] PCP - General Family Medicine 06/18/23 documented as of this encounter
--- OUTSIDE RECORDS SUMMARY | 2024-10-19 10:22 | XMS_ITS | Encounter Summary ---
Author Organization [employer] Address [address] [facility] 7t [place] [address] Care Team Providers Care Boilermaker Helper Name Role Phone Kandice Bush MD Primary Care Provider [phone] Encounter Details Date Type Department Care Team ([facility] st Contact Info) Description 09/19/2024 [...] AM EST 09/19/2024 12:23 PM EST Narrative [facility] - 09/21/2024 10:47 AM EST ----- ------- Name: Alejandro Sanchez ?Age/Sex: 44/M ? : 1980 Unit#: [id number] ?? Attend Dr: Lorenzo Genao MD ?Re09/19/24 ?[facility] ? Location: HO.SSS ?Disch: ? ----- ------- SPEC : [id number] ?RECD: 09/19/24 ? STATUS: ??SOUT ? REQ NUM: [id number] ? ALYCIA: 09/19/24 ? SUBM DR: Lorenzo [...] measure up to 0.1 cm in thickness. ??[employer] Rep sections are submitted in a cassette labeled A1. CEDS Copies To: ?? Lorenzo Genao MD ?? [facility] [place] Services ?? [address] ?? [place] [address] ?? [phone] ?? Kandice Bush MD ?? [facility] ?? [address] [facility] ?? [place] [address] ?? [phone] ----- ------- Signed (signature on file) Leon Irene MD 09/21/24 1047 ? ----- ------- ? END OF REPORT ? us Generic External Data Provider LAB BLOOD ORDERAB LES Final Result [facility] [address] [facility] [place] [address] [phone] documented in this encounter Visit Diagnoses Not on filedocumented in this encounter Additional Health Concerns Assessment Noted Time PHQ-9 Depression Total Score: 9 06/16/20 24 11:13 AM EDT documented as of this encounter Care Teams Boilermaker Helper Relationship Specialty Start Date End Date Kandice Bsuh MD [address] [place] [address] PCP - General Family Medicine 06/18/23 documented as of this encounter
--- OUTSIDE RECORDS SUMMARY | 2024-10-19 10:22 | XMS_ITS | Encounter Summary ---
Author Organization [facility] Address [address] [place] [address] Care Team Providers Care Casino Investigator Name Role Phone Patient, Has No Pcp Or Ref Primary Care Provider Unavailable Encounter Details Date Type Department Care Team (Late st Contact Info) Description 01/21/2023 Telephone [facility] Nuclear Medicine [address] [place] [phone] Diaz Carrera, RN Social History Tobacco [...] documented as of this encounter Care Teams Casino Investigator Relationship Specialty Start Date End Date Patient, Has No Pcp Or Ref DO NOT EDIT THIS RECORD VIA PROVIDER ON THE FLY PCP - General Java Software Architect 01/26/23 documented as of this encounter
--- OUTSIDE RECORDS SUMMARY | 2024-10-19 10:22 | XMS_ITS | Encounter Summary ---
Author Organization [employer] Address [address] [facility] [address] 7[address] [place] [address] Care Team Providers Care Closet Organizer Name Role Phone Kandice Bush MD Primary Care Provider [phone] Reason for Visit * Reason Onset Date Comments Nurse Triage 10/14/2024 Encounter Details Date Type Department Care Team ([facility] Contact Info) Description 10/14/2024 Telephone [facility] [address] [place] [address] Anel Gayle RN Nurse Triage Social History Tobacco Use Types [...] encounter Miscellaneous Notes * Telephone Encounter - Anel Gayle RN - 10/14/2024 9:46 AM EST field service analyst Patient presents to walk-in center with anxiety/ tearfulness. Alejandro reports in the last 2 months he has felt more sad then usual and has been experiencing symptoms that he feels are related to panic attacks. Denies SI at this time. Reports he has been going to [facility] for the last year for Hx alcohol use disorder since he moved here from [place]. Reports he has not been in a couple months because he took a trip to his home country. 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 Offered services at this time. Patient reports he would rather speak with someone familiar to him first. He also would like to schedule an appointment with his PCP Dr. Bush. Vitals: BP 131/84 HR 100s RR 18 SpO2 97% on room air Plan: Report to Dr. Gimenez Patient to remain in patient room to await provider evaluation. Anel Gayle RN documented in this encounter Plan of Treatment Not on file documented as of this encounter Visit Diagnoses Not on filedocumented in this encounter Additional Health Concerns Assessment Noted Time PHQ-9 Depression Total Score: 9 06/16/20 24 11:13 AM EDT documented as of this encounter Care Teams Closet Organizer Relationship Specialty Start Date End Date Kandice Bush MD [address] [place] [address] PCP - General Family Medicine 06/18/23 documented as of this encounter
--- OUTSIDE RECORDS SUMMARY | 2024-10-19 10:22 | XMS_ITS | Encounter Summary ---
Author Organization [facility] Address [address] [place] [address] Care Team Providers Care Molder Labels Name Role Phone Patient, Has No Pcp Or Ref Primary Care Provider Unavailable Encounter Details Date Type Department Care Team (Late st Contact Info) Description 01/07/2023 Orders Only [facility] [address] [place] [address] Crystal Canchola, DINO [address] [place], [place] [phone] Social History Tobacco Use Types Packs/Day Years [...] documented as of this encounter Care Teams Molder Labels Relationship Specialty Start Date End Date Patient, Has No Pcp Or Ref DO NOT EDIT THIS RECORD VIA PROVIDER ON THE FLY PCP - General Impregnator And Drier Helper 01/26/23 documented as of this encounter
--- OUTSIDE RECORDS SUMMARY | 2024-10-19 10:22 | XMS_ITS | Encounter Summary ---
Author Organization [employer] Address [address] [place] [address] 7t [place] [address] Care Team Providers Care Bilingual Loan Processor Name Role Phone Kandice Bush MD Primary Care Provider [phone] Reason for Referral * Consultation (Routine) - Closed Specialty Diagnoses / Procedures Referred By Radha bell Referred To Contact Urology Diagnoses Erectile dysfunction, unspecified erectile dysfunction type Low testosterone Kandice Bush MD [address] [place] [phone] Phone: tel: fax: [facility] Referral ID Status Reason Start Date Expiration Date V isits Requested Visits Authorized [id number] Closed Specialty Services Required 01/21/2024 01/20/2025 6 6 Encounter Details Date Type Department Care Team (Late st Contact Info) Description 01/18/2024 Orders Only [facility] MEDICINE [address] [place] [phone] Kandice Bush MD [address] [place] [address] [phone] Erectile dysfunction, unspecified erectile dysfunction type (Primary [...] documented as of this encounter Care Teams Bilingual Loan Processor Relationship Specialty Start Date End Date Kandice Bush MD [address] [place] [phone] PCP - General Family Medicine 06/18/23 documented as of this encounter
--- OUTSIDE RECORDS SUMMARY | 2024-10-19 10:22 | XMS_ITS | Encounter Summary ---
Author Organization [employer] Address [address] [place] [address] 7t [place] [address] Care Team Providers Care Shear Setter Name Role Phone Kandice Bush MD Primary Care Provider [phone] Reason for Referral * Imaging (Routine) - Closed Specialty Diagnoses / Procedures Referred By Contac t Referred To Contact Radiology Diagnoses Left-sided tinnitus Dizziness Other headache syndrome Procedures Mr Brain w/ and w/o Contrast Kandice Bush MD [address] [place] [address] Phone: tel: fax: [address] Phone: tel: fax: Referral ID Status Reason Start Date Expiration Date Visits Re quested Visits Authorized [id number] Closed 10/13/2023 10/12/2024 1 1 Encounter Details Date Type Department Care Team (Late st Contact Info) Description 10/13/2023 Orders Only [facility] [address] [place] [address] Kandice Bush MD [address] [place], [place] [phone] Left-sided tinnitus (Primary Dx); Dizziness; Other headache [...] EST Narrative 11/13/2023 4:45 PM EST ? [facility] ?[address] ?[place] [address] ? Magnetic Resonance Report ? Signed ? Patient: Blum Castanaza,Alejandro N ?MR ?? #: [id number] ? : 1980 ?Acct:[id number] ? Age/Sex: 43 / M ?ADM Date: 03/05/24 ? Loc: HO.MRI ? Attending Dr: Kandice Bush MD ? Ordering Physician: Kandice Bush MD ?? Date of Service: 11/10/23 ?? Procedure(s): MR head/brain wo/w con ?? Accession Number(s): [id number] ? cc: Kandice Bush MD ? EXAMINATION: [...] ? DD/DT: // 0858 ? TD/TT: ? Drum Plater: ? Procedure Note Donotuseinterpreter, Image - 11/13/[address] [address] Magnetic Resonance Report Signed Patient: Alejandro Sanchez NMR #: [id number] : 1980Acct:[id number] Age/Sex: 43 / MADM Date: 11/10/23 Loc: HO.MRI Attending Dr: Kandice Bush MD Ordering Physician: Kandice Bush MD Date of Service: 11/10/23 Procedure(s): MR head/brain wo/w con Accession Number(s): [id number] cc: Kandice Bush MD EXAMINATION: MR BRAIN [...] vestibular neuritis or acoustic neuroma. Dictated By: Angelian Mariano Signed By: <Electronically signed by Angelina Mariano in OV> 11/13/23 1641 DD/ 0858 TD/TT: Drum Plater: Kandice Bush MD IM MRI PROCEDURES Final Result documented in this encounter Visit Diagnoses Diagnosis Left-sided tinnitus- Primary Unspecified tinnitus Dizziness Dizziness and giddiness Other headache syndrome documented in this encounter Care Teams Shear Setter Relationship Specialty Start Date End Date Kandice Bush MD [address] [place] [address] PCP - General Family Medicine 06/18/23 documented as of this encounter
--- OUTSIDE RECORDS SUMMARY | 2024-10-19 10:22 | XMS_ITS | Encounter Summary ---
Author Organization [employer] Address [address] [facility] 7t [place] [address] Care Team Providers Care Buyers' Agent Name Role Phone Kandice Bush MD Primary Care Provider [phone] Reason for Visit * Reason Comments Anxiety Encounter Details Date Type Department Care Team ([facility] st Contact Info) Description 10/14/2024 9:40 AM EST Office Visit [facility] [address] [place] [address] Av Gimenez MD [address] [place] [address] Moderate episode of recurrent major depressive disorder (CMS/HCC) (Primary Dx); ZACHARY (generalized anxiety disorder) Social History Tobacco Use Types Packs/Day Years [...] AM EDT documented as of this encounter Last Filed Vital Signs Vital Sign Reading Time Taken Comments Blood Pressure 131/84 10/14/2024 9:25 AM EST Pulse 101 10/14/2024 9:45 AM EST Temperature - - Respiratory Rate 18 10/14/2024 9:25 AM EST Oxygen Saturation 97% 10/14/2024 9:25 AM EST Inhaled Oxygen Concentration - - Weight - - Height - - Body Mass Index - - documented in this encounter Progress Notes * Anel Gayle, RN - 10/14/2024 9:20 AM EST Subjective History was provided by the patient. Alejandro Blum is a 44 y.o. male who presents to [facility] for evaluation of anxiety and depression. Recently returned from [facility] where he visited his family for his mother's 1-year anniversary of . Feeling increased sadness and anxiety. Reports insomnia, decreased appetite, and increased irritability. Will be spending the next few days with his brother's family. He is well known to his provider for his AUD treatment. 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 Off MAT. 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 Denies any manic symptoms. Denies CP/SOB/[place]. Denies F/C. Safe to self and others. Objective Vitals: 10/14/24 0925 10/14/24 0945 BP: 131/84 BP Location: Left arm Patient Position: Sitting BP Cuff Size: Large adult Pulse: 106 101 Resp: 18 SpO2: 97% Physical Exam Vitals reviewed. Constitutional: General: He is not in acute distress. Appearance: Normal appearance. He is not ill-appearing, toxic-appearing or diaphoretic. HENT: Head: Normocephalic and atraumatic. Right Ear: External ear normal. Left Ear: External ear normal. Nose: Nose normal. Mouth/Throat: Mouth: Mucous membranes are moist. Pharynx: Oropharynx is clear. Eyes: Extraocular Movements: Extraocular movements intact. Conjunctiva/sclera: Conjunctivae normal. Cardiovascular: Rate and Rhythm: Normal rate and regular rhythm. Heart sounds: Normal heart sounds. Pulmonary: Effort: Pulmonary effort is normal. Breath sounds: Normal breath sounds. Musculoskeletal: Cervical back: Normal range of motion and neck supple. Skin: General: Skin is warm and dry. Neurological: General: No focal deficit present. Mental Status: He is alert and oriented to person, place, and time. Psychiatric: Behavior: Behavior normal. Thought Content: Thought content normal. Judgment: Judgment normal. Comments: Anxious; depressed mood Alejandro was seen today for anxiety. Diagnoses and all orders for this visit: Moderate episode of recurrent major depressive disorder (CMS/HCC) (Primary) - sertraline (Zoloft) 50 MG tablet; Take 1 tablet (50 mg) by mouth Once per day. ZACHARY (generalized anxiety disorder) - sertraline (Zoloft) 50 MG tablet; Take 1 tablet (50 mg) by mouth Once per day. - hydrOXYzine HCl (Atarax) 10 MG tablet; Take 1 tablet (10 mg) by mouth every 8 (eight) hours if needed for anxiety. Patient presents to [facility] due to worsening depression and anxiety Recently returned from a trip to [facility] (was there for 1-year anniversary of his mother's ) His behavioral clinician has been trying to reach out (but he had been out of the country) Will request team to reach out Also advised to return to his [employer] meetings (next Wednesday with this provider) Discussed medications options Will initiate Sertraline 50mg daily with Hydroxyzine 10mg TID prn Potential adverse effects of the medications reviewed Indications for UC/ER use reviewed Advised to contact the clinic if any worsening or persistent symptoms documented in this encounter Plan of Treatment Not on file documented as of this encounter Visit Diagnoses Diagnosis Moderate episode of recurrent major depressive disorder (CMS/HCC)- Primary ZACHARY (generalized anxiety disorder) Generalized anxiety disorder documented in this encounter Additional Health Concerns Assessment Noted Time PHQ-9 Depression Total Score: 9 06/16/20 24 11:13 AM EDT documented as of this encounter Care Teams Buyers' Agent Relationship Specialty Start Date End Date Kandice Bush MD [address] [place] [address] PCP - General Family Medicine 06/18/23 documented as of this encounter
--- OUTSIDE RECORDS SUMMARY | 2024-10-19 10:22 | XMS_ITS | Clinical Summary ---
Author Organization [facility] Address [address] [place] [address] Care Team Providers Care Catalyst Operator Chief Name Role Phone Patient, Has No Pcp [...] Screening Completed 03/30/2009 Procedures * Due to [place] [employer] law, this organization might not be sharing negative HIV tests. Procedure Name Priority Date/Time Associated Diagnosis Comments HEPATITIS PANEL, ACUTE STAT 03/30/2009 12:15 PM EDT from Last 3 Months or Most Recently Relevant to Health Maintenance Results * Due to [place] [employer] law, this organization might not be sharing negative HIV tests. * Hepatitis Panel, Acute (03/30/2009 12:15 PM EDT) Hepatitis A IgM Antibody Negative Negative [facility] Hepatitis B Core IgM Antibody Negative Negative [facility] Hepatitis B Surface Ag Negative Negative [facility] Hepatitis C Antibody Negative Negative [facility] 03/30/2009 12:1 5 PM EDT 03/30/2009 2:27 PM EDT us Christiane Mathur MD LAB BLOOD ORDERABLES Vonda oreilly Result [facility] [address] [place] [address], from Last 3 Months or Most Recently Relevant to Health Maintenance Insurance [place] Care Teams Catalyst Operator Chief Relationship Specialty Start Date End Date Patient, Has No Pcp Or Ref DO NOT EDIT THIS RECORD VIA PROVIDER ON THE FLY PCP - General Hot Pond Operator 01/26/23
--- OUTSIDE RECORDS SUMMARY | 2024-10-19 10:22 | XMS_ITS | Encounter Summary ---
Author Organization [employer] Address [address] [place] [address] 7t [place] [address] Care Team Providers Care Staff Psychiatrist Name Role Phone Kandice Bush MD Primary Care Provider [phone] Reason for Referral * Consultation (Urgent) - Closed Specialty Diagnoses / Procedures Referred By Contrafael t Referred To Contact Podiatry Diagnoses Heel pain, bilateral Kandice Bush MD [address] [place] [address] Phone: tel: fax: Diaz Rojo DPM Phone: tel: fax: Referral ID Status Reason Start Date Expiration Date V isits Requested Visits Authorized [id number] Closed Specialty Services Required 06/07/2024 06/07/2025 6 6 Encounter Details Date Type Department Care Team (Late st Contact Info) Description 06/03/2024 Orders Only [facility] [address] [place] [address] [phone] Kandice Bush MD [address] [place], [place] [phone] Heel pain, bilateral (Primary Dx) Social History [...] documented as of this encounter Care Teams Staff Psychiatrist Relationship Specialty Start Date End Date Kandice Bush MD [address] [place] [address] PCP - General Family Medicine 06/18/23 documented as of this encounter
--- OUTSIDE RECORDS SUMMARY | 2024-10-19 10:22 | XMS_ITS | Encounter Summary ---
Author Organization [facility] Address [address] [place] [address] Care Team Providers Care Crop Or Grain Farmworker Name Role Phone Patient, Has No Pcp Or Ref Primary Care Provider Unavailable Encounter Details Date Type Department Care Team (Late st Contact Info) Description 01/07/2023 Telephone [facility] [address] [place] [address] Crystal Canchola NP [address] [place], [place] [phone] Social History Tobacco Use Types Packs/Day Years [...] documented as of this encounter Care Teams Crop Or Grain Farmworker Relationship Specialty Start Date End Date Patient, Has No Pcp Or Ref DO NOT EDIT THIS RECORD VIA PROVIDER ON THE FLY PCP - General Cardiovascular Technician 01/26/23 documented as of this encounter
--- OUTSIDE RECORDS SUMMARY | 2024-10-19 10:22 | XMS_ITS | Encounter Summary ---
Author Organization [email or web address] Address [address] [facility] 7t [place] [address] Care Team Providers Care Lean Sensei Name Role Phone Kandice Bush MD Primary Care Provider [phone] Reason for Visit * Reason Onset Date Comments FYI 08/12/2023 Encounter Details Date Type Department Care Team ([facility] Contact Info) Description 08/12/2023 Telephone [facility] [address] [place], [place] [phone] Kandice Bush MD [address] [place], [place] [phone] FYI Social History Tobacco Use Types Packs/Day [...] cancelled due to pt being admitted at [facility] yesterday (08/11) for an overdose. Stock Holder did advise rosaura to call after pt is discharged. documented in this encounter Plan of Treatment Not on file documented as of this encounter Visit Diagnoses Not on filedocumented in this encounter Care Teams Lean Sensei Relationship Specialty Start Date End Date Kandice Bush MD [address] [place] [address] PCP - General Family Medicine 06/18/23 documented as of this encounter
--- OUTSIDE RECORDS SUMMARY | 2024-10-19 10:22 | XMS_ITS | Data Portability ---
Author Organization [place] [facility] Address [address] [place] [address] Care Team Providers Care Maintenance Helper Name Role Phone JOSE BRYSON Primary Care [...] Organization Details Recorded Time Abnormal auditory perception 18529194 Active 2023 JACQUELINE MUÑOZ [address] [place] [address], [phone], [facility] 15:21:55 Tinnitus of left ear 7837964776582 Active 2023 ANTONIETTA SAM MD [address] [place] [address], [place], [phone], [facility] 15:41:05 Problem Notes None recorded. Procedures Surgical History Date Name Laterality Status Provider Name and Address Organization Details Recorded Time 02/24/2024 Air & Speech Audio with Tymps (24274, 29196 & 05050) completed JACQUELINE MUÑOZ [address] [place] [address], [phone], [facility] 02/24/2024 15:21:44 Imaging Results Imaging Date Name Status LastModified by Organiz ation Details LastModified Time 04/08/2024 audiogram completed [facility] Information no t available 04/08/2024 15:21:00 Procedure Notes None recorded. Medical Equipment None Reported. Allergies Allergen ID Allergen Name Allergen Category Reaction Reaction Severity Criticality Documentation Date Start Date Code Code System Note Provider Name and Address Organization Details Recorded Time 685246 Product containin g penicilli n and antibioti c (product) medicatio n hives Not available Not available 02/24/2024 12195 05 SNOMED Samantha owens [facility] 15:17:00 Vitals Date Recorded Body height Body mass index (BMI) Body weight Provider Name and Address Organization Details Last Updated DateTime 02/24/2024 185.42 cm 38.5 kg/m2 143961.97 g Samantha Nolan [facility] 02/24/2024 15:31:31 Social History None recorded. [...] Diagnosis Note [id number] ANTONIETTA SAM MD [facility] [address] [address] 02/24/2024 15:01:17 02/24/2024 15:45:33 Abnormal auditory perception 85196828 H93.299 Right Ear:Normal hearing with excellent speech discrimina tion.Type A tympanogra m.Left Ear:Normal hearing with excellent speech discrimina tion.Type A tympanogra m. Tinnitus of left ear 715 0058051 106 H93.12 Health Concerns Section Related Observation LastModified by Organization Detai ls LastModified Time None Recorded Concern Status LastModified by Organization Details LastModified Time None Recorded Advance Directives Directive None Recorded Payers Encounter Date Sequence Insurance Name Policy Number Policy Csott Covered Member ID Scott Member ID Guarantor Name 02/24/2024 1 [place] [facility] Alejandro N Blum [id number] [facility] Notes Date Note Type Note Provider Name [...] some blood last year ANTONIETTA SAM MD [address] [place] [address], [phone], [facility] - [facility] 02/24/2024 15:44:07 OBGyn Episode No OBEpisode recorded.
--- OUTSIDE RECORDS SUMMARY | 2024-10-19 10:22 | XMS_ITS | Encounter Summary ---
Author Organization [employer] Address [address] [facility] 7t [place] [address] Care Team Providers Care Laundrette Owner Name Role Phone Kandice Bush MD Primary Care Provider [phone] Encounter Details Date Type Department Care Team ([facility] st Contact Info) Description 10/13/2023 Orders Only [facility] [address] [place] [address] Kandice Bush MD [address] [place] [address] Social History Tobacco Use Types Packs/Day Years [...] on filedocumented in this encounter Care Teams Laundrette Owner Relationship Specialty Start Date End Date Kandice Bush MD [address] [place] [address] PCP - General Family Medicine 06/18/23 documented as of this encounter
== END 2024-10-19 10:18 | disposition home or self-care (01) ==
PROVIDERS: PCP Family Medicine; Visit Provider Nurse Practitioner Family
DX: Z86.19 Personal history of other infectious and parasitic diseases (principal); K52.9 Noninfective gastroenteritis and colitis, unspecified; R10.13 Epigastric pain; R68.81 Early satiety; K21.9 Gastro-esophageal reflux disease without esophagitis
CPT/HCPCS: 99214

== ENCOUNTER → 2024-10-19 09:18 | Outpatient (BNVA) | payer MEDICAID, SELFPAY | PROVIDERS: PCP Family Medicine; Visit Provider Nurse Practitioner Family | DX: K52.9 Noninfective gastroenteritis and colitis, unspecified (principal); K21.9 Gastro-esophageal reflux disease without esophagitis; R10.13 Epigastric pain; R68.81 Early satiety; Z86.19 Personal history of other infectious and parasitic diseases | CPT/HCPCS: 99212 ==

== ENCOUNTER → 2024-10-25 07:56 | Outpatient (REF) | payer MEDICAID, SELFPAY ==
--- NOTE | ~2024-10-25 | NM_ITS ---
CLINICAL HISTORY: R68.81 - Early satiety NUCLEAR MEDICINE GASTRIC EMPTYING SCINTIGRAPHY Comparison: None Findings: The patient ingested 4 oz of egg whites labeled with 1.0 mCi technetium 99 M sulfur colloid and a piece of toast with jelly followed with a 6 oz glass of water. The patient ingested the entire meal in 4 minutes. After eating, images of the abdomen were obtained in the anterior and posterior projections immediately and every 60 minutes up to 4 hours. Uptake throughout the small bowel is visualized by 1 hour. At 4 hours, there is minimal residual uptake in the distal stomach. At 1 hour, there was 78% retention. (Normal 37-90%) At 2 hours, there was 29% retention. (Normal 30-60 %) At 3 hours, there was 18% retention. (Normal less than 30%) At 4 hours, there was 6% retention. (Normal less than 10%) Impression: No scintigraphic evidence for delayed gastric emptying. This document has been electronically signed by: Yoselin Harrison DO on 10/25/2024 20:09:59
--- OUTSIDE RECORDS SUMMARY | 2024-10-25 07:57 | XMS_ITS | Encounter Summary ---
Author Organization [facility] Address [address] [place] [address] Care Team Providers Care Sporting Goods Sales Manager Name Role Phone Patient, Has No Pcp Or Ref Primary Care Provider Unavailable Encounter Details Date Type Department Care Team (Late st Contact Info) Description 01/07/2023 Orders Only [facility] [address] [place] [address] Crystal Canchola, DINO [address] [place], [place] [phone] Social History Tobacco Use Types Packs/Day Years [...] documented as of this encounter Care Teams Sporting Goods Sales Manager Relationship Specialty Start Date End Date Patient, Has No Pcp Or Ref DO NOT EDIT THIS RECORD VIA PROVIDER ON THE FLY PCP - General Wireless Engineer 01/26/23 documented as of this encounter
--- OUTSIDE RECORDS SUMMARY | 2024-10-25 07:57 | XMS_ITS | Encounter Summary ---
Author Organization [facility] Address [address] [place] [address] Care Team Providers Care Software Integration Developer Name Role Phone Patient, Has No Pcp Or Ref Primary Care Provider Unavailable Encounter Details Date Type Department Care Team (Late st Contact Info) Description 01/07/2023 Telephone [facility] [address] [place] [address] Crystal Canchola NP [address] [place], [place] [phone] Social History Tobacco Use Types Packs/Day Years [...] documented as of this encounter Care Teams Software Integration Developer Relationship Specialty Start Date End Date Patient, Has No Pcp Or Ref DO NOT EDIT THIS RECORD VIA PROVIDER ON THE FLY PCP - General Meter Readers Supervisor 01/26/23 documented as of this encounter
--- OUTSIDE RECORDS SUMMARY | 2024-10-25 07:57 | XMS_ITS | Data Portability ---
Author Organization [place] - [facility] Address [address] [place] [phone] Care Team Providers Care Master Automotive Glass Technician Name Role Phone JOSE BRYSON Primary Care [...] Organization Details Recorded Time Abnormal auditory perception 98948526 Active 2023 JACQUELINE MUÑOZ [address] [place] [address], [phone], [facility] 15:21:55 Tinnitus of left ear 8355237375034 Active 2023 ANTONIETTA SAM MD [address] [place] [address], [place], [phone], [facility] 15:41:05 Problem Notes None recorded. Procedures Surgical History Date Name Laterality Status Provider Name and Address Organization Details Recorded Time 02/24/2024 Air & Speech Audio with Tymps (57469, 75966 & 11231) completed JACQUELINE MUÑOZ [address] [place] [address], [phone], [facility] 02/24/2024 15:21:44 Imaging Results Imaging Date Name Status LastModified by Organiz ation Details LastModified Time 04/08/2024 audiogram completed [facility] Information no t available 04/08/2024 15:21:00 Procedure Notes None recorded. Medical Equipment None Reported. Allergies Allergen ID Allergen Name Allergen Category Reaction Reaction Severity Criticality Documentation Date Start Date Code Code System Note Provider Name and Address Organization Details Recorded Time 070829 Product containin g penicilli n (product) medicatio n hives Not available Not available 02/24/2024 48222 8001 SNOMED Samantha Nolan [facility] 15:17:00 Vitals Date Recorded Body height Body mass index (BMI) Body weight Provider Name and Address Organization Details Last Updated DateTime 02/24/2024 185.42 cm 38.5 kg/m2 197156.97 g Samantha Nolan [facility] 02/24/2024 15:31:31 Social History None recorded. Functional Status None recorded. Mental Status None recorded. Family History Nothing Reported. Medical History Condition Response Anxiety Y Migraines Y Depression Y Asthma Y Headaches Y Gynecological HistoryNo gynecological history recorded. Obstetrics History GPAL:G 0 P 0 0 0 0 Past Encounters Encounter ID Performer Location Encounter Start Date Encounter Closed Date Diagnosis/Indication Diagnosis SNOMED-CT Code Diagnosis ICD10 Code Diagnosis Note [id number] ANTONIETTA SAM MD [facility] [address] [address] 02/24/2024 15:01:17 02/24/2024 15:45:33 Abnormal auditory perception 94396241 H93.299 Right Ear:Normal hearing with excellent speech discrimina tion.Type A tympanogra m.Left Ear:Normal hearing with excellent speech discrimina tion.Type A tympanogra m. Tinnitus of left ear 089 6068068 106 H93.12 Health Concerns Section Related Observation LastModified by Organization Detai ls LastModified Time None Recorded Concern Status LastModified by Organization Details LastModified Time None Recorded Advance Directives Directive None Recorded Payers Encounter Date Sequence Insurance Name Policy Number Policy Scott Covered Member ID Scott Member ID Guarantor Name 02/24/2024 1 [place]: [facility] Alejandro N Blum [id number] Alejandro Blum Notes Date Note Type Note Provider Name [...] some blood last year ANTONIETTA SAM MD [address] [place] [address], [phone], [facility] - [facility] 02/24/2024 15:44:07 OBGyn Episode No OBEpisode recorded.
--- OUTSIDE RECORDS SUMMARY | 2024-10-25 07:57 | XMS_ITS | Encounter Summary ---
Author Organization [facility] Address [address] [place] [address] Care Team Providers Care Professor Of English Name Role Phone Patient, Has No Pcp Or Ref Primary Care Provider Unavailable Encounter Details Date Type Department Care Team (Late st Contact Info) Description 01/21/2023 Telephone [facility] Nuclear Medicine [address] [place] [phone] Diaz Carrera, RN Social History Tobacco [...] documented as of this encounter Care Teams Professor Of English Relationship Specialty Start Date End Date Patient, Has No Pcp Or Ref DO NOT EDIT THIS RECORD VIA PROVIDER ON THE FLY PCP - General Company Pilot 01/26/23 documented as of this encounter
--- OUTSIDE RECORDS SUMMARY | 2024-10-25 07:58 | XMS_ITS | Referral Summary ---
Author Organization [facility] Address [address] [place] [address] Care Team Providers Care Over The Road Driver Name Role Phone Patient, Has No Pcp [...] ulcer (lower extremity), right 07/13/2018 01/18/2019 Immunizations Immunization Administration Dates Next Due Tetanus Toxoid, Reduced [...] Not on file Procedures * Due to [place] [employer] law, this organization might not be sharing negative HIV tests. Procedure Name Priority Date/Time Associated Diagnosis Comments HEPATITIS PANEL, ACUTE STAT 03/30/2009 12:15 PM EDT from Last 3 Months or Most Recently Relevant to Health Maintenance Results * Due to [place] [employer] law, this organization might not be sharing negative HIV tests. * Hepatitis Panel, Acute (03/30/2009 12:15 PM EDT) Hepatitis A IgM Antibody Negative Negative [facility] Hepatitis B Core IgM Antibody Negative Negative [facility] Hepatitis B Surface Ag Negative Negative [facility] Hepatitis C Antibody Negative Negative [facility] 03/30/2009 12:1 5 PM EDT 03/30/2009 2:27 PM EDT us Christiane Mathur MD LAB BLOOD ORDERABLES Vonda afia Result [facility] [address] [place] [address], from Last 3 Months or Most Recently Relevant to Health Maintenance Insurance [address] [address] MEDICAID Care Teams Over The Road Driver Relationship Specialty Start Date End Date Patient, Has No Pcp Or Ref DO NOT EDIT THIS RECORD VIA PROVIDER ON THE FLY PCP - General Algebra Teacher 01/26/23
--- OUTSIDE RECORDS SUMMARY | 2024-10-25 07:58 | XMS_ITS | Clinical Summary ---
Author Organization [facility] Address [address] [place] [address] Care Team Providers Care Net Developer Programmer Name Role Phone Patient, Has No Pcp [...] Date Last Done Comments HIV Screening 1980 Varicella Vaccines (1 of 2 - 13+ 2-dose series) 1993 Hepatitis B Vaccines (1 of 3 - 19+ 3-dose series) 1999 Pneumococcal Vaccine: Pediat sarah (0-5 Years) and At-Risk Patients (6-50 Years) (1 of 2 - PCV) 1999 COVID-19 Vaccine ( season) 2024, 01/04/2021 Influenza Vaccine (#1) 2024 Alcohol/Substance Use Screening 09/07/2024 Depression Screening and Follow-Up 09/07/2024 Social Drivers of Health Annual Screening 09/07/2024 DTaP,Tdap,and Td Vaccines (2 - Td or Tdap) 07/13/2028 07/13/2018 RSV Vaccine (60+ years old a nd patients) (1 - 1-dose 75+ series) 2055 Hepatitis C Screening Completed 03/30/2009 Procedures * Due to [place] [employer] law, this organization might not be sharing negative HIV tests. Procedure Name Priority Date/Time Associated Diagnosis Comments HEPATITIS PANEL, ACUTE STAT 03/30/2009 12:15 PM EDT from Last 3 Months or Most Recently Relevant to Health Maintenance Results * Due to [place] [employer] law, this organization might not be sharing negative HIV tests. * Hepatitis Panel, Acute (03/30/2009 12:15 PM EDT) Hepatitis A IgM Antibody Negative Negative [facility] Hepatitis B Core IgM Antibody Negative Negative [facility] Hepatitis B Surface Ag Negative Negative [facility] Hepatitis C Antibody Negative Negative [facility] 03/30/2009 12:1 5 PM EDT 03/30/2009 2:27 PM EDT us Christiane Mathur MD LAB BLOOD ORDERABLES Vonda oreilly Result [facility] [address] [place] [address], from Last 3 Months or Most Recently Relevant to Health Maintenance Insurance [place] MEDICA[place] Care Teams Net Developer Programmer Relationship Specialty Start Date End Date Patient, Has No Pcp Or Ref DO NOT EDIT THIS RECORD VIA PROVIDER ON THE FLY PCP - General Call Center Agent 01/26/23
== END ==
LOC: HO.NUCMED 07:56
PROVIDERS: PCP Family Medicine; Visit Provider Nurse Practitioner Family
DX: R68.81 Early satiety (principal)
CPT/HCPCS: 78264; A9541

== ENCOUNTER → 2024-10-25 07:57 | Outpatient (BNV) | payer MEDICAID, SELFPAY | PROVIDERS: PCP Family Medicine; Visit Provider Radiology Diagnostic Radiology | DX: R68.81 Early satiety (principal) | CPT/HCPCS: 78264 ==

== ENCOUNTER 2024-11-03 10:35 | Outpatient (AMB) | payer MEDICAID, SELFPAY ==
--- NOTE | 2024-11-03 10:37 | A.OFFVIS_ITS ---
Intake Visit Reasons: Leg issues s/p right micro Intake Note: Patient presents for s/p right micro. Patient states he has pain in his right leg, also has a vein that is painful on his left leg. Accompanied by: Self / Same As Patient Allergies Penicillins [PCN] Allergy (Verified 11/03/24 10:38) Rash HPI HPI Leg issues s/p right micro: Details: Alejandro is presenting today for concerns of ongoing pain. He is status post right leg microphlebectomy on 09/19/2024 in the OR. He states his right upper thigh area continues to have pain, particularly when he is walking longer distances, standing, or climbing stairs. He states he is now having concerns with his left lower extremity. He states he has been taking ibuprofen as well as applying CBD cream, which has been helping with the pain. PFSH Medical History Transaminitis Long COVID Abnormal stress test Cardiomyopathy Blood pressure elevated without history of HTN History of Helicobacter pylori infection Varicose vein of leg Alcohol use disorder MDD (major depressive disorder), recurrent severe, without psychosis Alcohol abuse Social History Household Members: Other Household Members Other:: girlfriend Housing: Apartment Are you a primary patient care manager to a significant other at home: No Do you presently have visiting nurse or other home services: No Unable to assess alcohol history related to: Unknown Alcohol intake: current Alcohol intake frequency: does not drink Alcohol type: beer and hard liquor Patient Tobacco Use Status: Former Tobacco user Second Hand Smoke Exposure: No (Unknown, pt unable to participate fully in admission.) Substance Use Type: Marijuana service: No Sexual orientation: Straight/Heterosexual Review of Systems Const Reports as per HPI and Denies weakness ENT Reports Normal hearing present and Denies dizziness Card Reports as per HPI, Denies chest pain, Denies chest pain at rest, Denies chest pain with activity, Denies dyspnea and Denies dyspnea on exertion Resp Reports as per HPI, Denies cough, Denies dyspnea and Denies dyspnea on exertion GI Reports as per HPI, Denies abdominal pain, Denies nausea and Denies vomiting Musc Denies numbness Skin/Breast Reports as per HPI, Denies erythema and Denies wounds Neuro Reports Normal hearing present, Denies dizziness, Denies numbness, Denies Sensory deficit (Neuro) and Denies weakness Psych Reports no additional complaints Endo Reports no additional complaints Physical Exam Const General: healthy appearing and no acute distress Orientation/consciousness: patient oriented x3 HEENT Head: Yes normal to inspection Ears: hearing grossly normal bilaterally Mouth: Normal oral and palatal mucosa present Resp Effort & Inspection: normal respiratory effort and able to speak in complete sentences Auscultation: clear to auscultation bilaterally Cardio Jugular venous distension: no JVD Rate: regular rate Rhythm: regular rhythm Heart sounds: S1 normal heart sound present and S2 normal heart sound present Bruits: no abdominal aortic bruits, no carotid bruits, no femoral bruits and no renal bruits Peripheral pulses: Peripheral pulses 2+ throughout GI Inspection: Yes normal to inspection Palpation (GI): No Abdominal aortic bruit present Skin General skin exam: no rashes or lesions noted Wounds: no wounds Hair: normal Neuro General: patient oriented x3 Cranial nerves: Yes Normal hearing present Cognition (Neuro): normal cognition Gait exam (Neuro): Normal gait present Motor exam (neuro): 5/5 motor strength present throughout Sensory Exam: No Sensory deficit (Neuro) Extrem Other: Right lower extremity: In the upper thigh area in the incision areas there is some pain to palpation. Steri-Strips are all gone at this point. There was no erythema, bleeding, or discharge noted. There is some scabbing noted on the incision sites. Left lower extremity: Tortuosities noted in the medial thigh as well as over the knee to the tibial tuberosity. Painful to palpation. General: Yes normal to inspection, Yes full ROM, Yes capillary refill normal and Yes normal gait Assessment & Plan Assessment & Plan (1) Varicose veins of right lower extremity with inflammation: Comment: 2015 - right great saphenous vein ablation and microphlebectomy done at [facility] 12/18/2023 - right great saphenous and accessory saphenous vein radiofrequency ablation 01/29/2024 - right small saphenous vein radiofrequency ablation Code(s): I83.11 - Varicose veins of right lower extremity with inflammation Category: Medical Plan: Alejandro is presenting today for concerns of bilateral lower extremity pain. He is status post a microphlebectomy on 09/19/2023, that was performed in the OR. He states that his upper right thigh continues to remain sore, particularly when he is performing any physical activity. He states now his left lower extremity has been hurting more and is looking to get those veins taking care of. I discussed with him that as in the last visit, we will need to wait until he is completely healed from the 1st microphlebectomy before we attempt the microphlebectomy on his left lower extremity. I discussed with him to reach back out to us in approximately 1-2 months, when his right leg has completely healed and he has not pain. I discussed with him that we did take a significant amount of vein though and it will take a while for the healing to completely occur. We discussed to reach out to us in approximately 1-2 months, when his right leg has completely healed. If there are any questions or concerns, please do not hesitate to reach out to us. Coding Level of Care Code Est Pt Level 3 (55441) Diagnoses Varicose veins of right lower extremity with inflammation I83.11
--- OUTSIDE RECORDS SUMMARY | 2024-11-03 12:28 | XMS_ITS | Referral Summary ---
Author Organization [facility] Address [address] [place] [address] Care Team Providers Care Printed Circuit Board Pcb Draftsman Name Role Phone Patient, Has No Pcp [...] Not on file Procedures * Due to [place] [employer] law, this organization might not be sharing negative HIV tests. Procedure Name Priority Date/Time Associated Diagnosis Comments HEPATITIS PANEL, ACUTE STAT 03/30/2009 12:15 PM EDT from Last 3 Months or Most Recently Relevant to Health Maintenance Results * Due to [place] [employer] law, this organization might not be sharing negative HIV tests. * Hepatitis Panel, Acute (03/30/2009 12:15 PM EDT) Hepatitis A IgM Antibody Negative Negative [facility] Hepatitis B Core IgM Antibody Negative Negative [facility] Hepatitis B Surface Ag Negative Negative [facility] Hepatitis C Antibody Negative Negative [facility] 03/30/2009 12:1 5 PM EDT 03/30/2009 2:27 PM EDT us Christiane Mathur MD LAB BLOOD ORDERABLES Vonda afia Result [facility] [address] [place] [address], from Last 3 Months or Most Recently Relevant to Health Maintenance [place] [address] [place] [address] MEDICAID Care Teams Printed Circuit Board Pcb Draftsman Relationship Specialty Start Date End Date Patient, Has No Pcp Or Ref DO NOT EDIT THIS RECORD VIA PROVIDER ON THE FLY PCP - General Camera Storage Clerk 01/26/23
--- OUTSIDE RECORDS SUMMARY | 2024-11-03 12:28 | XMS_ITS | Encounter Summary ---
Author Organization [employer] Address [address] [place] [address] Care Team Providers Care Ornamental Brick Installer Name Role Phone Kandice Bush MD Primary Care Provider [phone] Reason for Visit * Reason Onset Date Comments Nurse Triage 10/14/2024 Encounter Details Date Type Department Care Team ([facility] Contact Info) Description 10/14/2024 Telephone [facility] [address] [place] [address] Anel Gayle RN Nurse Triage Social History [...] Gayle RN - 10/14/2024 9:46 AM EST machine hamper maker Patient presents to walk-in center with anxiety/ tearfulness. Alejandro reports in the last 2 months he has felt more sad then usual and has been experiencing symptoms that he feels are related to panic attacks. Denies SI at this time. Reports he has been going to [facility] for the last year for Hx alcohol use disorder since he moved here from [place]. Reports he has not been in a couple months because he took a trip to his home country. 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 and is missing his [...] documented in this encounter Plan of Treatment Upcoming Encounters Date Type Department Care Team (Late st Contact Info) Description 11/29/2024 1:15 PM EDT Office Visit [facility] [address] [place] [address] Kandice Bush MD [address] [place] [address] documented as of this encounter Visit Diagnoses Not on filedocumented in this encounter Additional Health Concerns Assessment Noted Time PHQ-9 Depression Total Score: 9 06/16/20 24 11:13 AM EDT documented as of this encounter Care Teams Ornamental Brick Installer Relationship Specialty Start Date End Date Kandice Bush MD [address] [place] [phone] PCP - General Family Medicine 06/18/23 documented as of this encounter
--- OUTSIDE RECORDS SUMMARY | 2024-11-03 12:28 | XMS_ITS | Encounter Summary ---
Author Organization [facility] Address [address] [place] [address] Care Team Providers Care Director Search Marketing Strategies Name Role Phone Patient, Has No Pcp Or Ref Primary Care Provider Unavailable Encounter Details Date Type Department Care Team (Late st Contact Info) Description 01/21/2023 Telephone [facility] Nuclear Medicine [address] [place] [phone] Diaz Carrera, RN Social History Tobacco [...] documented as of this encounter Care Teams Director Search Marketing Strategies Relationship Specialty Start Date End Date Patient, Has No Pcp Or Ref DO NOT EDIT THIS RECORD VIA PROVIDER ON THE FLY PCP - General Coil Connector Repairer 01/26/23 documented as of this encounter
--- OUTSIDE RECORDS SUMMARY | 2024-11-03 12:28 | XMS_ITS | Encounter Summary ---
Author Organization [employer] Address [address] [place] [address] [address]t [place] [address] Care Team Providers Care Bar Tender Name Role Phone Kandice Bush MD Primary Care Provider [phone] Reason for Referral * Imaging (Routine) - Closed Specialty Diagnoses / Procedures Referred By Contac t Referred To Contact Radiology Diagnoses Left-sided tinnitus Dizziness Other headache syndrome Procedures Mr Brain w/ and w/o Contrast Kandice Bush MD [address] [place] [address] Phone: tel: fax: [address] Phone: tel: fax: Referral ID Status Reason Start Date Expiration Date Visits Re quested Visits Authorized [id number] Closed 10/13/2023 10/12/2024 1 1 Encounter Details Date Type Department Care Team (Late st Contact Info) Description 10/13/2023 Orders Only [facility] [address] [place] [address] Kandice Bush MD [address] [place], [place] [phone] Left-sided tinnitus (Primary Dx); Dizziness; Other headache [...] as of this encounter Plan of Treatment Upcoming Encounters Date Type Department Care Team (Late st Contact Info) Description 11/29/2024 1:15 PM EDT Office Visit [facility] [address] [place] [address] Kandice Bush MD [address] [place] [address] documented as of this encounter Procedures Procedure [...] EST Narrative 11/13/2023 4:45 PM EST ? [facility] ?[address] ?[place] [address] ? Magnetic Resonance Report ? Signed ? Patient: Blum Castanaza,Alejandro N ?MR ?? #: [id number] ? : 1980 ?Acct:[id number] ? Age/Sex: 43 / M ?ADM Date: 11/10/23 ? Loc: HO.MRI ? Attending Dr: Kandice Bush MD ? Ordering Physician: Kandice Bush MD ?? Date of Service: 11/10/23 ?? Procedure(s): MR head/brain wo/w con ?? Accession Number(s): [id number] ? cc: Kandice Bush MD ? EXAMINATION: [...] neuritis or acoustic neuroma. ? Dictated By: ?Angelina Mariano ? Signed By: ?<Electronically signed by Angelina ??García in OV> ?11/13/23 1641 ? DD/ 0858 ? TD/TT: ? Glass Cutting Machine Operator: ? Procedure Note Donotbibiinterpreter, Image - 11/13/[address] [address] Magnetic Resonance Report Signed Patient: Alejandro Sanchez NMR #: [id number] : 1980Acct:[id number] Age/Sex: 43 / MADM Date: 11/10/23 Loc: HO.MRI Attending Dr: Kandice Bush MD Ordering Physician: Kandice Bush MD Date of Service: 11/10/23 Procedure(s): MR head/brain wo/w con Accession Number(s): [id number] cc: Kandice Bush MD EXAMINATION: MR BRAIN [...] in OV> 11/13/23 1641 DD/ 0858 TD/TT: Glass Cutting Machine Operator: Kandice Bush MD IMG MRI PROCEDURES Final Result documented in this encounter Visit Diagnoses Diagnosis Left-sided tinnitus- Primary Unspecified tinnitus Dizziness Dizziness and giddiness Other headache syndrome documented in this encounter Care Teams Bar Tender Relationship Specialty Start Date End Date Kandice Bush MD [address] [place] [address] PCP - General Family Medicine 06/18/23 documented as of this encounter
--- OUTSIDE RECORDS SUMMARY | 2024-11-03 12:28 | XMS_ITS | Encounter Summary ---
Author Organization [facility] Address [address] [place] [address] Care Team Providers Care Training And Development Specialist Name Role Phone Patient, Has No Pcp Or Ref Primary Care Provider Unavailable Encounter Details Date Type Department Care Team (Late st Contact Info) Description 01/07/2023 Orders Only [facility] [address] [place] [address] Crystal Canchola, DINO [address] [place], [place] [phone] Social History Tobacco Use Types Packs/Day Years [...] documented as of this encounter Care Teams Training And Development Specialist Relationship Specialty Start Date End Date Patient, Has No Pcp Or Ref DO NOT EDIT THIS RECORD VIA PROVIDER ON THE FLY PCP - General Media Analyst 01/26/23 documented as of this encounter
--- OUTSIDE RECORDS SUMMARY | 2024-11-03 12:28 | XMS_ITS | Data Portability ---
Author Organization [facility] Address [address] [place] [phone] Care Team Providers Care Land Planner Name Role Phone JOSE BRYSON Primary Care [...] Organization Details Recorded Time Abnormal auditory perception 20394170 Active 2023 JACQUELINE MUÑOZ [address] [place] [address], [phone], [facility] 15:21:55 Tinnitus of left ear [id number] Active 2023 ANTONIETTA SAM MD [address] [place] [address], [place], [phone], [facility] 15:41:05 Problem Notes None recorded. Procedures Surgical History Date Name Laterality Status Provider Name and Address Organization Details Recorded Time 02/24/2024 Air & Speech Audio with Tymps (17016, 71524 & 92823) completed JACQUELINE MUÑOZ [address] [place] [address], [phone], [facility] 02/24/2024 15:21:44 Imaging Results Imaging Date Name Status LastModified by Organiz ation Details LastModified Time 04/08/2024 audiogram completed [facility] Information no t available 04/08/2024 15:21:00 Procedure Notes None recorded. Medical Equipment None Reported. Allergies Allergen ID Allergen Name Allergen Category Reaction Reaction Severity Criticality Documentation Date Start Date Code Code System Note Provider Name and Address Organization Details Recorded Time 751528 Product containin g penicilli n (product) medicatio n hives Not available Not available 02/24/2024 26720 8001 SNOMED Samantha owens [facility] 15:17:00 Vitals Date Recorded Body height Body mass index (BMI) Body weight Provider Name and Address Organization Details Last Updated DateTime 02/24/2024 185.42 cm 38.5 kg/m2 760730.97 g Samantha Nolan [facility] 02/24/2024 15:31:31 Social History None recorded. Functional Status None recorded. Mental Status None recorded. Family History Nothing Reported. Medical History Condition Response Depression Y Headaches Y Anxiety Y Migraines Y Asthma Y Gynecological HistoryNo gynecological history recorded. Obstetrics History GPAL:G 0 P 0 0 0 0 Past Encounters Encounter ID Performer Location Encounter Start Date Encounter Closed Date Diagnosis/Indication Diagnosis SNOMED-CT Code Diagnosis ICD10 Code Diagnosis Note [id number] ANTONIETTA SAM MD [facility] [address] [phone] 02/24/2024 15:01:17 02/24/2024 15:45:33 Abnormal auditory perception 38280170 H93.299 Right Ear:Normal hearing with excellent speech discrimina tion.Type A tympanogra m.Left Ear:Normal hearing with excellent speech discrimina tion.Type A tympanogra m. Tinnitus of left ear 748 [id number] 106 H93.12 Health Concerns Section Related Observation LastModified by Organization Detai ls LastModified Time None Recorded Concern Status LastModified by Organization Details LastModified Time None Recorded Advance Directives Directive None Recorded Payers Encounter Date Sequence Insurance Name Policy Number Policy Scott Covered Member ID Scott Member ID Guarantor Name 02/24/2024 1 [place] [facility] Alejandro N Blum [id number] Alejandro Blum Notes Date Note Type Note [...] some blood last year ANTONIETTA SAM MD [address] [place] [address], [phone], [facility] 02/24/2024 15:44:07 OBGyn Episode No OBEpisode recorded.
--- OUTSIDE RECORDS SUMMARY | 2024-11-03 12:28 | XMS_ITS | Clinical Summary ---
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 Alcohol dependence 06/17/2023 Assessment [...] with Dr. Gimenez / AUD clinic in [facility] - continue current recovery effort and support Assessment & Plan (10/12/2023 4:12 PM EST): - following with Dr. Gimenez / AUD clinic in [facility] - continue current recovery effort and support Assessment & Plan (06/17/2023 5:34 PM EDT): - pt drinks large amount - pt may need to go to Detox first before starting medication - will refer to strength and conditioning coach and AUD clinic Elevated blood pressure read [...] self-monitoring BP. -Pt is already following with counter professional for cardiomyopathy -Follow up in 3 mo, sooner if any problem arises Cardiomyopathy 06/17/2023 Assessment & Plan (01/17/2024 3:15 PM EDT): - counter professional: Dr. Henderson, [facility], last seen on 01/27/23 - Hx [...] & Plan (10/12/2023 5:44 AM EST): - counter professional: Dr. Henderson, [facility], last seen on 01/27/23 - Hx [...] & Plan (06/17/2023 6:13 PM EDT): - counter professional: Dr. Henderson, [facility], last seen on 01/27/23 - Hx [...] PM EDT): - continue following specialists at [facility] - declines COVID vaccine Assessment & Plan (10/12/2023 4:13 PM EST): - continue following specialists at [facility] declines COVID vaccine Assessment & Plan (06/17/2023 6:17 PM EDT): - continue following specialists at [facility] - pt declines COVID vaccine Headache 06/17/2023 [...] - s/p phlebectomy or venous ablation in [facility] - currently following with Dr. Genao, [facility] - compression stocking, leg elevation, reduce sodium [...] Description 10/14/2024 9:40 AM EST Office Visit [facility] [address] [address] Av Gimenez MD Moderate episode of recurrent major depressive disorder (CMS/HCC) (Primary Dx); ZACHARY (generalized anxiety disorder) 10/14/2024 Telephone [facility] [address] [address] Anel Gayle RN Nurse Triage 10/11/2024 Telephone [facility] [address] [place] [phone] Kandice Bush MD Nurse Triage 09/27/2024 Orders Only GENERIC EXTERNAL DATA DEPARTMENT Provider, Generic External Data 09/21/[address] [address] Di Yoon [place] february recall 09/19/2024 Orders [...] 04/12/2024 1:31 PM EDT Plan of Treatment Upcoming Encounters Date Type Department Care Team (Late st Contact Info) Description 11/29/2024 1:15 PM EDT Office Visit [facility] MED[facility] [address] [place] [address] Kandice Bush MD [address] [place] [address] Health Maintenance Due Date Last Done Comments Family Planning (PISQ) 1995 Hepatitis B Vaccines (1 of 3 - 19+ 3-dose series) 1999 Pneumococcal Vaccine: Pediatrics (0 to 5 Years) and At-Risk Patients (6 to 49) Years) (1 of 2 - PCV) 1999 COVID-19 Vaccine (1 - 2023-2 5 season) 2024 Influenza Vaccine [...] Procedure Name Priority Date/Time Associated Diagnosis Comments NM GASTRIC EMPTYING SOLID Routine 10/25/2024 8:09 PM EST HELICOBACTER PYLORI, UREA BREATH TEST Routine 09/27/2024 [...] Recently Relevant to Health Maintenance Results * NM Gastric Emptying Solid (10/25/2024 8:09 PM EST) Anatomical Region Laterality Modality Body Nuclear Medicine 10/25/2024 8:09 PM EST Narrative 10/25/2024 8:12 PM EST ? [facility] ?[address] ?[place] [address] ?Nuclear Medicine Report ? Signed ? Patient: Alejandro Sanchez ?MR ?? #: [id number] ? : 1980 ?Acct:[id number] ? Age/Sex: 44 / M ?ADM Date: 10/25/24 ? Loc: HO.NUCMED ? Attending Dr: Alicja SOLORIO ? Ordering Physician: Alicja Connor ?? Date of Service: 10/25/24 ?? Procedure(s): NM gastric emptying study ?? Accession Number(s): [id number] ? cc: Alicja Connor; Kandice Bush MD ? CLINICAL HISTORY: R68.81 - Early satiety ? NUCLEAR MEDICINE GASTRIC EMPTYING SCINTIGRAPHY ? Comparison: None ? Findings: ?? The patient ingested 4 oz of egg whites labeled with 1.0 mCi technetium 99 ?? M sulfur colloid and a piece of toast with jelly followed with a 6 oz ?? glass of water. ?? The patient ingested the entire meal in 4 minutes. ?? After eating, images of the abdomen were obtained in the anterior and ?? posterior projections immediately and every 60 minutes up to 4 hours. ? Uptake throughout the small bowel is visualized by 1 hour. ?? At 4 hours, there is minimal residual uptake in the distal stomach. ? At 1 hour, there was 78% retention. (Normal 37-90%) ?? At 2 hours, there was 29% retention. (Normal 30-60 %) ?? At 3 hours, there was 18% retention. (Normal less than 30%) ?? At 4 hours, there was 6% retention. (Normal less than 10%) ? Impression: ?? No scintigraphic evidence for delayed gastric emptying. ? This document has been electronically signed by: Yoselin Harrison, DO on ?? 10/25/2024 20:09:59 ? Dictated By: ?Yoselin Harrison MD ? Signed By: ?<Electronically signed by Yoselin Harrison MD in OV> ?10/25/242010 ? DD/ 08 ? TD/TT: 10/25/242008 ? Senior Software Development Engineer: ? Procedure Note Rosa, Image - 10/25/2024 [place] [address] Nuclear Medicine Report Signed Patient: Alejandro Sanchez [facility] #: [id number] : 1980Acct:[id number] Age/Sex: 44 / MADM Date: 10/25/24 Loc: [facility] Attending Dr: Alicja SOLORIO Ordering Physician: Alicja Connor Date of Service: 10/25/24 Procedure(s): NM gastric emptying study Accession Number(s): [id number] cc: Alicja Connor; Kandice Bush MD CLINICAL HISTORY: R68.81 - Early satiety NUCLEAR MEDICINE GASTRIC EMPTYING SCINTIGRAPHY Comparison: None Findings: The patient ingested 4 oz of egg whites labeled with 1.0 mCi technetium 99 M sulfur colloid and a piece of toast with jelly followed with a 6 oz glass of water. The patient ingested the entire meal in 4 minutes. After eating, images of the abdomen were obtained in the anterior and posterior projections immediately and every 60 minutes up to 4 hours. Uptake throughout the small bowel is visualized by 1 hour. At 4 hours, there is minimal residual uptake in the distal stomach. At 1 hour, there was 78% retention. (Normal 37-90%) At 2 hours, there was 29% retention. (Normal 30-60 %) At 3 hours, there was 18% retention. (Normal less than 30%) At 4 hours, there was 6% retention. (Normal less than 10%) Impression: No scintigraphic evidence for delayed gastric emptying. This document has been electronically signed by: Yoselin Harrison DO on 10/25/2024 20:09:59 Dictated By: Yoselin Harrison MD Signed By: <Electronically signed by Yoselin Harrison MD in OV> 10/25/242010 DD/ 08 TD/TT: 10/25/242008 Senior Software Development Engineer: [facility] External Provider IMG NM PROCEDURES Edited Result - Final * Helicobacter pylori, Urea Breath Test (09/27/2024 1:09 PM EST) H. pylori Breath Test Negative Negative [facility] Comment:Antimicrobials, prot on pump inhibitors and bismuthpreparations are known to suppress H. pylori. Ingestingthese medications within two weeks prior to performing thebreath test may produce negative test results. A positiveresult is still clinically valid. 09/27/2024 1:09 PM EST 09/28/2024 10:54 AM EST Generic External Data Provider LAB BLOOD ORDERAB LES Final Result [facility] [address] [place] [phone] * Hematoxylin and Eosin Stain (09/19/2024 11:39 AM EST) 09/19/2024 11:3 9 AM EST 09/19/2024 12:23 PM EST Narrative [facility] - 09/21/2024 10:47 AM EST ----- ------- Name: Alejandro Sanchez ?Age/Sex: 44/M ? : 1980 Unit#: [id number] ?? Attend Dr: Lorenzo Genao MD ?Re09/19/24 ?Status: DEP SDC ? Location: HO.SSS ?Disch: ? ----- ------- SPEC : [id number] ?RECD: 09/19/24-1222 ? STATUS: ??SOUT ? REQ NUM: [id number] ? ALYCIA: 09/19/24-1139 ? SUBM DR: Lorenzo [...] measure up to 0.1 cm in thickness. ??Poacher Operator sections are submitted in a cassette labeled A1. CEDS Copies To: ?? Lorenzo Genao MD ?? [facility] V[facility] Services ?? [address] ?? [place] [address] ?? [phone] ?? Kandice Bush MD ?? [facility] ?? [address] [facility] ?? [place] [address] ?? [phone] ----- ------- Signed (signature on file) Leon Irene MD 09/21/24 1047 ? ----- ------- ? END OF REPORT ? us Generic External Data Provider LAB BLOOD ORDERAB LES Final Result Performing Organization Address [facility] de Phone Number [facility] [address] [place] [phone] * (ABNORMAL) Lipid Panel with Reflex to Direct LDL (10/12/2023 1:46 PM EST) Triglycerides 125 <150 mg/dL [facility] Comment:Desirable Triglyceri de: less than 150 mg/dLBorderline High Triglyceride 150-199 mg/dLHigh Triglyceride: 200-499 mg/dLVery High Triglyceride: greater than or equal to 5OO mg/dL Cholesterol 206(H) <200 mg/dL [facility] Comment:Desirable Cholestero l: less than 200 mg/dLBorderline High Cholesterol: 200-239 mg/dLHigh Cholesterol: greater than 239 mg/dL LDL Cholesterol Calculated 124(H) <100 mg/dL [facility] Comment:Desirable LDL: less than 100 mg/dLNear Optimal/Above Optimal LDL: 110- 129 mg/dLBorderline High LDL: 130-159 mg/dLHigh LDL: 160-189 mg/dLVery High LDL: greater than or equal to 190 mg/dL HDL Cholesterol 57 >40 mg/dL [facility] Comment:Desirable HDL: great er than 40 mg/dL Note: This HDL assay may give artificially low results in patients with liver disease. Blood 10/12/2023 1:46 PM EST 10/12/2023 4:25 PM EST Kandice Bush MD LAB BLOOD ORDERABLES Final Resul t Performing Organization Address [facility] Co de Phone Number [facility] [address] [place] [address] [phone] * Hepatitis C Antibody with Reflex to HCV, RNA, Quantitative, Real-Time PCR (10/12/2023 1:46 PM EST) Hepatitis C Antibody Nonreactive Nonreactive [facility] Comment:Antibodies to HCV no t detected; does not exclude early acuteHCV infection. Blood Venous blood specimen / Unknown 10/12/2023 1:46 PM EST 10/12/2023 4:19 PM EST us Kandice Bush MD LAB BLOOD ORDERABLES Final Resul t Performing Organization Address City/[facility]/ZIP Co de Phone Number [facility] [address] [place] [address] [phone] * HIV-1/2 Antigen and Antibodies, Fourth Generation, with Reflexes (10/12/2023 1:46 PM EST) HIV AB/AG Nonreactive Nonreactive [facility] Comment:HIV-1 p24 Ag and/or HIV-1/HIV-2 Ab not detected.A test result that is nonreactive does not exclude thepossibility of exposure to or infection with HIV-1 and/orHIV-2. Nonreactive results in this assay for individualswith prior exposure to HIV-1 and/or HIV-2 may be due toantigen and antibody levels that are below the limit ofdetection of this assay.The [employer] HIV Ag/Ab Combo assay result andsupplemental assay results should be interpreted inconjunction with the patient's clinical presentation,history and other laboratory results. If the results areinconsistent with clinical evidence, additional testing issuggested to confirm the result. Blood Venous blood specimen / Unknown 10/12/2023 1:46 PM EST 10/12/2023 4:19 PM EST us Kandice Bush MD LAB BLOOD ORDERABLES Final Resul t Performing Organization Address City/[facility]/ZIP Co de Phone Number [facility] [address] [place] [address] [phone] from Last 3 Months or Most Recently Relevant to Health Maintenance Insurance HSN FULL Care Teams Power Plant Assistant Relationship Specialty Start Date End Date Kandice Bush MD [address] [place] [phone] PCP - General Family Medicine 06/18/23
--- OUTSIDE RECORDS SUMMARY | 2024-11-03 12:28 | XMS_ITS | Encounter Summary ---
Author Organization [employer] Address [address] 7[address] [place] [address] Care Team Providers Care Purchasing Internship Name Role Phone Kandice Bush MD Primary Care Provider [phone] Reason for Visit * Reason Comments Anxiety Encounter Details Date Type Department Care Team ([facility] st Contact Info) Description 10/14/2024 9:40 AM EST Office Visit [facility] [address] [place] [phone] Av Gimenez MD [address] [place] [phone] Moderate episode of recurrent major depressive disorder [...] a 44 y.o. male who presents to [facility] for evaluation of anxiety and depression. Recently returned from [facility] where he visited his family for his [...] alcohol recovery. Denies any manic symptoms. Denies CP/SOB/ORWLAND. Denies F/C. Safe to self and others. [...] if needed for anxiety. Patient presents to [facility] due to worsening depression and anxiety Recently returned from a trip to [facility] (was there for 1-year anniversary of his [...] Description 11/29/2024 1:15 PM EDT Office Visit [facility] MEDICINE [address] [place] [address] Kandice Bush MD [address] [place] [address] documented as of this encounter Visit Diagnoses Diagnosis Moderate episode of recurrent major depressive disorder (CMS/HCC)- Primary ZACHARY (generalized anxiety disorder) Generalized anxiety disorder documented in this encounter Additional Health Concerns Assessment Noted Time PHQ-9 Depression Total Score: 9 06/16/20 24 11:13 AM EDT documented as of this encounter Care Teams Purchasing Internship Relationship Specialty Start Date End Date Kandice Bush MD [address] [place] [address] PCP - General Family Medicine 06/18/23 documented as of this encounter
--- OUTSIDE RECORDS SUMMARY | 2024-11-03 12:28 | XMS_ITS | Encounter Summary ---
Author Organization [employer] Address [address] [facility] 7t [place] [address] Care Team Providers Care Network Technician Name Role Phone Kandice Bush MD Primary Care Provider [phone] Reason for Visit * Reason Onset Date Comments Nurse Triage 10/11/2024 Encounter Details Date Type Department Care Team ([facility] Contact Info) Description 10/11/2024 Telephone [facility] MEDIC[facility] [address] [place] [address] Kandice Bush MD [address] [place] [address] Nurse Triage Social History Tobacco Use Types [...] the past 12 months, has t he [employer], gas, oil or water company threatened to [...] has not been able to connect with [facility] since February 2024. Pt reports feeling safe in home. Denies any SI/HI. Pt reports being out of work for 1 year. Belives financial worries are affecting him. Offered pt to seek WIC today. Pt states unable to come in today but will seek WIC tomorrow morning. Pt also given number to [facility] [place] [phone] Pt advised to return call to office [...] become worse * Telephone Encounter - Kirit Mcwilliams - 10/11/2024 3:02 PM EST Symptoms: Depression, [...] Description 11/29/2024 1:15 PM EDT Office Visit [facility] MED[facility] [address] [place] [address] Kandice Bush MD [address] [place] [address] documented as of this encounter Visit Diagnoses Not on filedocumented in this encounter Additional Health Concerns Assessment Noted Time PHQ-9 Depression Total Score: 9 06/16/20 24 11:13 AM EDT documented as of this encounter Care Teams Network Technician Relationship Specialty Start Date End Date Kandice Bush MD [address] [place] [address] PCP - General Family Medicine 06/18/23 documented as of this encounter
--- OUTSIDE RECORDS SUMMARY | 2024-11-03 12:28 | XMS_ITS | Encounter Summary ---
Author Organization [employer] Address [address] [facility] 7t [place] [address] Care Team Providers Care Manager Cable Name Role Phone Kandice Bush MD Primary Care Provider [phone] Reason for Visit * Reason Onset Date Comments FYI 08/12/2023 Encounter Details Date Type Department Care Team ([facility] Contact Info) Description 08/12/2023 Telephone [facility] MED[facility]INE [address] [place], [place] [phone] Kandice Bush MD [address] [place], [place] [phone] FYI Social History Tobacco Use Types Packs/Day [...] cancelled due to pt being admitted [facility] yesterday (08/11) for an overdose. Optomechanical Engineer did advise rosaura to call after pt is discharged. documented in this encounter Plan of Treatment Upcoming Encounters Date Type Department Care Team (Late st Contact Info) Description 11/29/2024 1:15 PM EDT Office Visit [facility] MED[facility]INE [address] [place] [address] Kandice Bush MD [address] [place] [address] documented as of this encounter Visit Diagnoses Not on filedocumented in this encounter Care Teams Manager Cable Relationship Specialty Start Date End Date Kandice Bush MD [address] [place] [address] PCP - General Family Medicine 06/18/23 documented as of this encounter
--- OUTSIDE RECORDS SUMMARY | 2024-11-03 12:28 | XMS_ITS | Encounter Summary ---
Author Organization [employer] Address [address] [place] [address] 7t [place] [address] Care Team Providers Care Operations Management Trainee Name Role Phone Kandice Bush MD Primary Care Provider [phone] Reason for Referral * Consultation (Routine) - Closed Specialty Diagnoses / Procedures Referred By Radha bell Referred To Contact Urology Diagnoses Erectile dysfunction, unspecified erectile dysfunction type Low testosterone Kandice Bush MD [address] [place] [address] Phone: tel: fax: [facility] Referral ID Status Reason Start Date Expiration Date V isits Requested Visits Authorized [id number] Closed Specialty Services Required 01/21/2024 01/20/2025 6 6 Encounter Details Date Type Department Care Team (Late st Contact Info) Description 01/18/2024 Orders Only [facility] MEDICINE [address] [place] [phone] Kandice Bush MD [address] [place] [address] [phone] Erectile dysfunction, unspecified erectile dysfunction type (Primary [...] 1:15 PM EDT Office Visit [facility] MEDICINE [address] [place] [address] Kandice Bush MD [address] [place] [phone] Scheduled Referrals Name Type Priority Associated Diagnoses [...] documented as of this encounter Care Teams Operations Management Trainee Relationship Specialty Start Date End Date Kandice Bush MD [address] [place] [address] PCP - General Family Medicine 06/18/23 documented as of this encounter
--- OUTSIDE RECORDS SUMMARY | 2024-11-03 12:28 | XMS_ITS | Encounter Summary ---
Author Organization [facility] Address [address] [place] [address] Care Team Providers Care Veterinary Physiologist Name Role Phone Patient, Has No Pcp Or Ref Primary Care Provider Unavailable Encounter Details Date Type Department Care Team (Late st Contact Info) Description 01/07/2023 Telephone [facility] [address] [place] [address] Crystal Canchola NP [address] [place], [place] [phone] Social History Tobacco Use Types Packs/Day Years [...] documented as of this encounter Care Teams Veterinary Physiologist Relationship Specialty Start Date End Date Patient, Has No Pcp Or Ref DO NOT EDIT THIS RECORD VIA PROVIDER ON THE FLY PCP - General Correctional Corporal 01/26/23 documented as of this encounter
--- OUTSIDE RECORDS SUMMARY | 2024-11-03 12:28 | XMS_ITS | Clinical Summary ---
Author Organization [facility] Address [address] [place] [address] Care Team Providers Care Compensation Business Partner Name Role Phone Patient, Has No Pcp [...] Screening Completed 03/30/2009 Procedures * Due to [place] [employer] law, this organization might not be sharing negative HIV tests. Procedure Name Priority Date/Time Associated Diagnosis Comments HEPATITIS PANEL, ACUTE STAT 03/30/2009 12:15 PM EDT from Last 3 Months or Most Recently Relevant to Health Maintenance Results * Due to [place] [employer] law, this organization might not be sharing negative HIV tests. * Hepatitis Panel, Acute (03/30/2009 12:15 PM EDT) Hepatitis A IgM Antibody Negative Negative [facility] Hepatitis B Core IgM Antibody Negative Negative [facility] Hepatitis B Surface Ag Negative Negative [facility] Hepatitis C Antibody Negative Negative [facility] 03/30/2009 12:1 5 PM EDT 03/30/2009 2:27 PM EDT us Christiane Mathur MD LAB BLOOD ORDERABLES Vonda oreilly Result [facility] [address] [place] [address], from Last 3 Months or Most Recently Relevant to Health Maintenance Insurance [place] [employer] Care Teams Compensation Business Partner Relationship Specialty Start Date End Date Patient, Has No Pcp Or Ref DO NOT EDIT THIS RECORD VIA PROVIDER ON THE FLY PCP - General Director Of Radiology 01/26/23
--- OUTSIDE RECORDS SUMMARY | 2024-11-03 12:28 | XMS_ITS | Encounter Summary ---
Author Organization [employer] Address [address] [place] [address] 7t [place] [address] Care Team Providers Care Insulation Board Calender Operator Name Role Phone Kandice Bush MD Primary Care Provider [phone] Reason for Referral * Consultation (Urgent) - Closed Specialty Diagnoses / Procedures Referred By Contrafael t Referred To Contact Podiatry Diagnoses Heel pain, bilateral Kandice Bush MD [address] [place] [address] Phone: tel: fax: Diaz Rojo DPM Phone: tel: fax: Referral ID Status Reason Start Date Expiration Date V isits Requested Visits Authorized [id number] Closed Specialty Services Required 06/07/2024 06/07/2025 6 6 Encounter Details Date Type Department Care Team (Late st Contact Info) Description 06/03/2024 Orders Only [facility] MED[facility]INE [address] [place] [phone] Kandice Bush MD [address] [place], [place] [phone] Heel pain, bilateral (Primary Dx) Social History [...] Description 11/29/2024 1:15 PM EDT Office Visit [facility] [address] [place], [place] [phone] Kandice Bush MD [address] [place] [address] Scheduled Referrals Name Type Priority Associated Diagnoses Orde r Schedule Referral to Podiatry Outpatient Referral Urgent Heel pain, bilateral Expected: 06/03/2024 (Approximate), Expires: 06/03/2025 documented as of this encounter Visit Diagnoses Diagnosis Heel pain, bilateral- Primary documented in this encounter Additional Health Concerns Assessment Noted Time PHQ-9 Depression Total Score: 8 03/04/20 24 8:22 AM EDT documented as of this encounter Care Teams Insulation Board Calender Operator Relationship Specialty Start Date End Date Kandice Bush MD [address] [place] [phone] PCP - General Family Medicine 06/18/23 documented as of this encounter
--- OUTSIDE RECORDS SUMMARY | 2024-11-03 12:28 | XMS_ITS | Encounter Summary ---
Author Organization [employer] Address [address] [facility] 7[address] [place] [address] Care Team Providers Care Coat Feller Name Role Phone Kandice Bush MD Primary Care Provider [phone] Encounter Details Date Type Department Care Team ([facility] st Contact Info) Description 10/13/2023 Orders Only [facility] MEDICINE [address] [place] [address] Kandice Bush MD [address] [place] [address] Social History Tobacco Use Types Packs/Day Years [...] Description 11/29/2024 1:15 PM EDT Office Visit [facility] MEDICINE [address] [place] [address] Kandice Bush MD [address] [place] [address] documented as of this encounter Visit Diagnoses Not on filedocumented in this encounter Care Teams Coat Feller Relationship Specialty Start Date End Date Kandice Bush MD [address] [place] [address] PCP - General Family Medicine 06/18/23 documented as of this encounter
== END 2024-11-03 10:55 | disposition home or self-care (01) ==
PROVIDERS: PCP Family Medicine; Visit Provider Physician Assistant Surgical
DX: I83.11 Varicose veins of right lower extremity with inflammation (principal)
CPT/HCPCS: 99024

== ENCOUNTER → 2024-11-03 10:35 | Outpatient (BNVA) | payer MEDICAID, SELFPAY | PROVIDERS: PCP Family Medicine; Visit Provider Physician Assistant Surgical | DX: I83.11 Varicose veins of right lower extremity with inflammation (principal) | CPT/HCPCS: 99212 ==

== ENCOUNTER 2025-01-06 08:20 | Outpatient (AMB) | payer MEDICAID, SELFPAY ==
[2025-01-06 08:35] VITALS: BP 126/74; PULSE 72; O2SAT 96; BMI 35.9
--- NOTE | 2025-01-06 08:35 | A.OFFVIS_ITS ---
Vital Signs 01/06/25 08:35 Height 6 ft 2 in Weight 280 lb BMI 35.9 BP 126/74 Blood Pressure Location Rt brachial Position Sitting Pulse 72 Pulse Source Pulse Oximeter Pulse Oximetry (%) 96 Oxygen Delivery Method Room Air Intake Visit Reasons: f/u from gastric study Intake Note: ESTABLISHED PATIENT for mgmt of early satiety, hx of H Pylori infx. Review results from NM study Chief Complaint; C/O persistence of AM GERD, nausea, general GI upset, and lack of appetite. Pt also reports feelings of exhaustion and malaise possibly related to lack of appetite. Pt comments he only feels hungry once he consumes some cannabis. No additional concerns or sx at this time. Pt does need refill of sucralfate. Data Management Manager Required: No Accompanied by: Self / Same As Patient Allergies Penicillins [PCN] Allergy (Verified 01/06/25 08:45) Rash HPI HPI f/u from gastric study: Details: LAST VISIT: History of Helicobacter pylori infection Postprandial diarrhea Postprandial epigastric pain Early satiety GERD (gastroesophageal reflux disease) Plan Patient will stop pantoprazole and Pepcid and will start taking Nexium in the morning and sucralfate at bedtime. Avoid dietary triggers and late night snacking. Patient has gastric emptying study next week. Message sent to surgical schedulers to book upper endoscopy and colonoscopy for patient. Patient does have change in the bowel pattern more frequent loose stools alternating with constipation. Patient denies melena, hematochezia, unintentional weight loss or ribbon like stools. Patient will return 2-3 months to reassess. He will call our office if he will have any additional concerning symptoms. He is agreeable to this plan and verbalizes understanding of instructions he was given the o pportunity to ask questions and all questions answered. ? Thank you for allowing me to participate in his care Medications New esomeprazole magnesium (Nexium) 40 mg PO DAILY 30 caps 5RF K21.9 sucralfate 10 mL PO BEDTIME 400 mL 3RF K21.9 Discontinued famotidine (Pepcid) Discontinued Reason: Doctor's Order 20 mg PO BID 40 tabs 0RF K29.70 pantoprazole take one tablet half an hour before breakfast Discontinued Reason: Doctor's Order 40 mg PO DAILY 30 tabs 2RF K21.9 TODAY'S VISIT: Patient is here today for follow-up. Patient reports that he continues to have epigastric pain postprandially and sometimes even when he is not eating. Patient reports decreased appetite. Denies dyspepsia, dysphagia or odynophagia. Patient reports that he lost 12 lb since last visit. Patient denies any nausea or vomiting. Reports that his bowel pattern has improved. Denies melena, hematochezia or ribbon like stools. Patient reports that he has not been drinking for over a year. Gastric emptying study was normal. Patient eats 1-2 meals a day. Patient denies any issues with anesthesia in the past. History of sleep apnea, not using CPAP. Has appointment for re-evaluation next month. Patient has a history of cardiomyopathy and has seen cardiology in the past. His research biologist is not from around here. Patient reports that since he stopped drinking he has been feeling well. Denies any shortness of breath or chest pain. Denies any presyncope, syncope, palpitations. PFSH Medical History Transaminitis Long COVID Abnormal stress test Cardiomyopathy Blood pressure elevated without history of HTN History of Helicobacter pylori infection Varicose vein of leg Alcohol use disorder MDD (major depressive disorder), recurrent severe, without psychosis Alcohol abuse Social History (Reviewed 01/06/25 @ 08:54 by Murtaza Salcido [facility]) Household Members: Other Household Members Other:: girlfriend Housing: Apartment Are you a primary health care aide to a significant other at home: No Do you presently have visiting nurse or other home services: No Unable to assess alcohol history related to: Unknown Alcohol intake: current Alcohol intake frequency: does not drink Alcohol type: beer and hard liquor Patient Tobacco Use Status: Former Tobacco user Second Hand Smoke Exposure: No (Unknown, pt unable to participate fully in admission.) Substance Use Type: Marijuana service: No Sexual orientation: Straight/Heterosexual Review of Systems Const Denies weight gain and Denies weight loss ENT Reports no additional complaints, Denies dysphagia and Denies odynophagia Card Reports no additional complaints Resp Reports no additional complaints GI Reports abdominal pain (Epigastric), Denies belching, Denies melena, Denies bloating, Denies change in bowel habits, Reports constipation (Occasional), Denies dysphagia, Denies excessive flatus, Reports early satiety, Denies dyspepsia, Reports heartburn, Denies diarrhea, Reports loose stools (Occasional postprandially), Denies nausea, Denies odynophagia and Denies vomiting Reports no additional complaints Musc Reports no additional complaints Neuro Reports no additional complaints Psych Reports no additional complaints Endo Reports no additional complaints Physical Exam Vital Signs: Last Vital Signs Pulse 72 01/06/25 08:35 BP 126/74 01/06/25 08:35 Pulse Ox 96 01/06/25 08:35 Oxygen Delivery Method Room Air 01/06/25 08:35 BMI result Body Mass Index 35.9 Const General: healthy appearing and no acute distress Nutritional Appearance: obese Orientation/consciousness: patient oriented x3 Resp Effort & Inspection: normal respiratory effort, able to speak in complete sentences, no tracheal deviation and symmetric chest movement Auscultation: clear to auscultation bilaterally Cardio Rate: regular rate GI Inspection: Yes normal to inspection, No distended and Yes obesity Palpation (GI): Soft to palpation, not firm, nontender and No hepatosplenomegaly present Auscultation: normal bowel sounds General: Yes no CVA tenderness Back/Spine/Pelvis Back: no CVA tenderness Skin General skin exam: elasticity normal, turgor normal and dry skin Neuro General: patient oriented x3 Psych Appearance: grossly normal Mental Status: mental status grossly normal Results Reviewed Results Reviewed: GASTRIC EMPTYING STUDY Findings: The patient ingested 4 oz of egg whites labeled with 1.0 mCi technetium 99 M sulfur colloid and a piece of toast with jelly followed with a 6 oz glass of water. The patient ingested the entire meal in 4 minutes. After eating, images of the abdomen were obtained in the anterior and posterior projections immediately and every 60 minutes up to 4 hours. Uptake throughout the small bowel is visualized by 1 hour. At 4 hours, there is minimal residual uptake in the distal stomach. At 1 hour, there was 78% retention. (Normal 37-90%) At 2 hours, there was 29% retention. (Normal 30-60 %) At 3 hours, there was 18% retention. (Normal less than 30%) At 4 hours, there was 6% retention. (Normal less than 10%) Impression: No scintigraphic evidence for delayed gastric emptying. Assessment & Plan Assessment & Plan (1) History of Helicobacter pylori infection: Code(s): Z86.19 - Personal history of other infectious and parasitic diseases Category: Medical (2) Postprandial diarrhea: Code(s): K52.9 - Noninfective gastroenteritis and colitis, unspecified (3) Postprandial epigastric pain: Code(s): R10.13 - Epigastric pain (4) Early satiety: Code(s): R68.81 - Early satiety (5) GERD (gastroesophageal reflux disease): Code(s): K21.9 - Gastro-esophageal reflux disease without esophagitis Qualifiers: Esophagitis presence: esophagitis presence not specified Qualified Code (s): K21.9 - Gastro-esophageal reflux disease without esophagitis Plan Patient will continue taking Nexium every morning. Will change sucralfate to t aking any afternoon and at bedtime. Avoid dietary triggers. Patient was encouraged to eat smaller meals and more often. List of him to recommended given to patient. Discussed with him low FODMAP diet. Patient will be sent for upper endoscopy. Denies any cardiac or respiratory symptoms. Patient is not on any anticoagulation therapy. Patient will be set up for upper endoscopy. He is agreeable to this plan and verbalizes understanding of instructions. He was given the opportunity to ask questions and all questions answered. We will skip going for colonoscopy as patient's bowel regimen got better. Denies any melena, hematochezia. I will see him after the procedure, sooner on as needed basis. He is agreeable to this plan and verbalizes understanding of instructions. He was given the opportunity to ask questions and all questions answered. Thank you for allowing me to participate in his care Medications: Changed From sucralfate 10 mL PO BEDTIME 400 mL 3RF K21.9 - Gastro-esophageal reflux disease without esophagitis To sucralfate 10 mL PO BID 400 mL 3RF K21.9 - Gastro-esophageal reflux disease without esophagitis Coding Level of Care Code Est Pt Level 4 (51979) Complex EM visit Add On G2211 Diagnoses History of Helicobacter pylori infection Z86.19 Postprandial diarrhea K52.9 Postprandial epigastric pain R10.13 Early satiety R68.81 Gastroesophageal reflux disease, unspecified whether esophagitis present K21.9 Esophagitis presence: esophagitis presence not specified Time Spent (min) 40 Comment 25 minutes spent with patient and additional 15 minutes spent reviewing his records
--- OUTSIDE RECORDS SUMMARY | 2025-01-06 08:40 | XMS_ITS | Encounter Summary ---
Author Organization [employer] Address [address] [place] [address] 7[address] [place] [address] Care Team Providers Care Statistical Machine Servicer Name Role Phone Kandice Bush MD Primary Care Provider [phone] Reason for Referral * Imaging (Routine) - Closed Specialty Diagnoses / Procedures Referred By Contac t Referred To Contact Radiology Diagnoses Left-sided tinnitus Dizziness Other headache syndrome Procedures Mr Brain w/ and w/o Contrast Kandice Bush MD [address] [place] [address] Phone: tel: fax: [address] Phone: tel: fax: Referral ID Status Reason Start Date Expiration Date Visits Re quested Visits Authorized [id number] Closed 10/13/2023 10/12/2024 1 1 Encounter Details Date Type Department Care Team (Late st Contact Info) Description 10/13/2023 Orders Only [facility] MEDICINE [address] [place] [address] Kandice Bush MD [address] [place], [place] [phone] Left-sided tinnitus (Primary Dx); Dizziness; Other headache [...] 06/10/2023 9:03 AM EDT Sexual Orientation Straight 11/29/2024 4: 43 PM EDT documented as of this encounter Plan of Treatment Upcoming Encounters Date Type Department Care Team (Late st Contact Info) Description 02/20/2025 9:00 AM EDT Office Visit [facility] OPTOMETRY [address] [place] [address] Sallie Renee, OD [address] [place] [address] documented as of this encounter Procedures Procedure [...] EST Narrative 11/13/2023 4:45 PM EST ? [facility] ?[address] ?[place] [address] ? Magnetic Resonance Report ? Signed ? Patient: Blum Castanaza,Alejandro N ?MR ?? #: [id number] ? : 1980 ?Acct:[id number] ? Age/Sex: 43 / M ?ADM Date: 11/10/23 ? Loc: HO.MRI ? Attending Dr: Kandice Bush MD ? Ordering Physician: Kandice Bush MD ?? Date of Service: 11/10/23 ?? Procedure(s): MR head/brain wo/w con ?? Accession Number(s): [id number] ? cc: Kandice Bush MD ? EXAMINATION: [...] 1641 ? DD/ 0858 ? TD/TT: ? Global Manager: ? Procedure Note Donroloter, Image - 11/13/[address] [address] Magnetic Resonance Report Signed Patient: Alejandro Sanchez NMR #: [id number] : 1980Acct:[id number] Age/Sex: 43 / MADM Date: 11/10/23 Loc: HO.MRI Attending Dr: Kandice Bush MD Ordering Physician: Kandice Bush MD Date of Service: 11/10/23 Procedure(s): MR head/brain wo/w con Accession Number(s): [id number] cc: Kandice Bush MD EXAMINATION: MR BRAIN [...] in OV> 11/13/23 1641 DD/ 0858 TD/TT: Global Manager: Kandice Bush MD IM MRI PROCEDURES Final Result documented in this encounter Visit Diagnoses Diagnosis Left-sided tinnitus- Primary Unspecified tinnitus Dizziness Dizziness and giddiness Other headache syndrome documented in this encounter Care Teams Statistical Machine Servicer Relationship Specialty Start Date End Date Kandice Bush MD [address] [place] [address] PCP - General Family Medicine 06/18/23 documented as of this encounter
--- OUTSIDE RECORDS SUMMARY | 2025-01-06 08:40 | XMS_ITS | Encounter Summary ---
Author Organization [employer] Address [address] [facility] 7t [place] [address] Care Team Providers Care Work Study Student Name Role Phone Kandice Bush MD Primary Care Provider [phone] Reason for Visit * Reason Onset Date Comments FYI 08/12/2023 Encounter Details Date Type Department Care Team ([facility] Contact Info) Description 08/12/2023 Telephone [facility] MEDICINE [address] [place], [place] [phone] Kandice Bush MD [address] [place] [address] FYI Social History Tobacco Use Types Packs/Day [...] PM EDT documented as of this encounter Miscellaneous Notes * Telephone Encounter - Mallory Yoon - 08/12/2023 9:00 AM EST Tc from rosaura calling to advise PCP appointment was cancelled due to pt being admitted at [facility] yesterday (08/11) for an overdose. Hoistman did advise rosaura to call after pt is discharged. documented in this encounter Plan of Treatment Upcoming Encounters Date Type Department Care Team (Late st Contact Info) Description 02/20/2025 9:00 AM EDT Office Visit [facility] OPTOMETRY [address] [place] [address] Sallie Renee, OD [address] [place] [address] documented as of this encounter Visit Diagnoses Not on filedocumented in this encounter Care Teams Work Study Student Relationship Specialty Start Date End Date Kandice Bush MD [address] [place] [address] PCP - General Family Medicine 06/18/23 documented as of this encounter
--- OUTSIDE RECORDS SUMMARY | 2025-01-06 08:40 | XMS_ITS | Encounter Summary ---
Author Organization [facility] Address [address] [place] [address] Care Team Providers Care Hotel Lobby Concierge Name Role Phone Patient, Has No Pcp Or Ref Primary Care Provider Unavailable Encounter Details Date Type Department Care Team (Late st Contact Info) Description 01/07/2023 Telephone [facility] [address] [place] [address] Crystal Canchola NP [address] [place], [place] [phone] Social History Tobacco Use Types Packs/Day Years [...] documented as of this encounter Care Teams Hotel Lobby Concierge Relationship Specialty Start Date End Date Patient, Has No Pcp Or Ref DO NOT EDIT THIS RECORD VIA PROVIDER ON THE FLY PCP - General Drag Down 01/26/23 documented as of this encounter
--- OUTSIDE RECORDS SUMMARY | 2025-01-06 08:40 | XMS_ITS | Encounter Summary ---
Author Organization [employer] Address [address] [place] [address] 7t [place] [address] Care Team Providers Care Outdoor Advertising Leasing Agent Name Role Phone Kandice Bush MD Primary Care Provider [phone] Reason for Referral * Consultation (Urgent) - Closed Specialty Diagnoses / Procedures Referred By Contrafael t Referred To Contact Podiatry Diagnoses Heel pain, bilateral Kandice Bush MD [address] [place] [address] Phone: tel: fax: Diaz Rojo DPM Phone: tel: fax: Referral ID Status Reason Start Date Expiration Date V isits Requested Visits Authorized [id number] Closed Specialty Services Required 06/07/2024 06/07/2025 6 6 Encounter Details Date Type Department Care Team (Late st Contact Info) Description 06/03/2024 Orders Only [facility] MEDICINE [address] [place] [phone] Kandice Bush MD [address] [place], [place] [phone] Heel pain, bilateral (Primary Dx) Social History [...] Description 02/20/2025 9:00 AM EDT Office Visit [facility] OPTOMETRY [address] [place] [address] Sallie Renee, OD [address] [place] [address] Scheduled Referrals Name Type Priority Associated Diagnoses Orde r Schedule Referral to Podiatry Outpatient Referral Urgent Heel pain, bilateral Expected: 06/03/2024 (Approximate), Expires: 06/03/2025 documented as of this encounter Visit Diagnoses Diagnosis Heel pain, bilateral- Primary documented in this encounter Additional Health Concerns Assessment Noted Time PHQ-9 Depression Total Score: 8 03/04/20 24 8:22 AM EDT documented as of this encounter Care Teams Outdoor Advertising Leasing Agent Relationship Specialty Start Date End Date Kandice Bush MD [address] [place] [address] PCP - General Family Medicine 06/18/23 documented as of this encounter
--- OUTSIDE RECORDS SUMMARY | 2025-01-06 08:40 | XMS_ITS | Encounter Summary ---
Author Organization [facility] Address [address] [place] [address] Care Team Providers Care Air Cargo Ground Operations Supervisor Name Role Phone Patient, Has No Pcp Or Ref Primary Care Provider Unavailable Encounter Details Date Type Department Care Team (Late st Contact Info) Description 01/21/2023 Telephone [facility] Nuclear Medicine [address] [place] [address] Diaz Carrera, RN Social History Tobacco [...] documented as of this encounter Care Teams Air Cargo Ground Operations Supervisor Relationship Specialty Start Date End Date Patient, Has No Pcp Or Ref DO NOT EDIT THIS RECORD VIA PROVIDER ON THE FLY PCP - General Optometrist President/Practice Owner 01/26/23 documented as of this encounter
--- OUTSIDE RECORDS SUMMARY | 2025-01-06 08:40 | XMS_ITS | Encounter Summary ---
Author Organization [facility] Address [address] [place] [address] Care Team Providers Care Appliances Sample Maker Name Role Phone Patient, Has No Pcp Or Ref Primary Care Provider Unavailable Encounter Details Date Type Department Care Team (Late st Contact Info) Description 01/07/2023 Orders Only [facility] [address] [place] [address] Crystal Canchola, DINO [address] [place] [address] Social History Tobacco Use Types Packs/Day Years [...] documented as of this encounter Care Teams Appliances Sample Maker Relationship Specialty Start Date End Date Patient, Has No Pcp Or Ref DO NOT EDIT THIS RECORD VIA PROVIDER ON THE FLY PCP - General Drum Carrier 01/26/23 documented as of this encounter
--- OUTSIDE RECORDS SUMMARY | 2025-01-06 08:40 | XMS_ITS | Encounter Summary ---
Author Organization [employer] Address [address] [facility] [address] 7[address] [place] [address] Care Team Providers Care Circuit Design Engineer Name Role Phone Kandice Bush MD Primary Care Provider [phone] Reason for Visit * Reason Comments Recovery Supports Encounter Details Date Type Department Care Team ([facility] st Contact Info) Description 01/03/2025 Patient Outreach [facility] MEDICINE [address] [place] [address] Joe Rosenthal Recovery Supports Social History Tobacco Use Types Packs/Day Years [...] Date Recorded Patient Health Questionnaire-9 Score 16 11/30/2024 Patient Health Questionnaire-9 Score 16 11/30/2024 Last PHQ-9: Questionnaire Data Not on file 0 11/30/2024 Housing Stability Answer Date Recorded What is your housing situation today? I have marion francis 11/21/[address] you li ve. Do you have problems with any of the following? None of the above 11/21/2024 Food Insecurity Answer Date Recorded Within the past 12 months, y ou worried that your food would run out before you got money to buy more: Sometimes True 2024 Within the past 12 months,th e food you bought just didn't last and you didn't have enough money to get more: Sometimes True 11/21/2024 Transportation Answer Date Recorded In the past 12 months, has l ack of transportation kept you from medical appts, meetings, work or from getting things needed for daily living? Yes, it has kept me from medical appointments or getting medications. 11/21/2024 Utilities Answer Date Recorded In the past 12 months, has t he electric, gas, oil or water company threatened to shut off services in your home? No 11/21/2024 Depression Answer Date Recorded Patient Health Questionnaire-2 Score 6 11/30/2024 Internet Access Answer Date Recorded Internet Access Q1 Yes 11/21/2024 Internet Access Q2 Not on file 11/21/2024 Sex and Gender Information Value Date Recorded Sex Assigned at Male 06/10/2023 9:03 AM EDT Legal Sex Male 11:18 AM EDT Gender Identity Male 06/10/2023 9:03 AM EDT Sexual Orientation Straight 11/29/2024 4: 43 PM EDT documented as of this encounter Progress Notes * Joe Rosenthal - 01/03/2025 3:27 PM EDT I met with Alejandro today. Setting: in person at [facility] Recovery Wellness Goals worked on: Physical Health/Mental Health Social Stability Spiritual Wellness Action taken/next steps: Attended recovery support group Additional comments: Joe Rosenthal documented in this encounter Plan of Treatment Upcoming Encounters Date Type Department Care Team (Late st Contact Info) Description 02/20/2025 9:00 AM EDT Office Visit [facility] OPTOMETRY [address] [place] [address] Tarka, Sallie, OD [address] [place] [address] documented as of this encounter Visit Diagnoses Not on filedocumented in this encounter Additional Health Concerns Assessment Noted Time PHQ-9 Depression Total Score: 16 025 9:57 AM EDT documented as of this encounter Care Teams Circuit Design Engineer Relationship Specialty Start Date End Date Kandice Bush MD [address] [place] [address] PCP - General Family Medicine 06/18/23 documented as of this encounter
--- OUTSIDE RECORDS SUMMARY | 2025-01-06 08:40 | XMS_ITS | Encounter Summary ---
Author Organization [employer] Address [address] [facility] [address] [place] [address] Care Team Providers Care Data Control Assistant Name Role Phone Kandice Bush MD Primary Care Provider [phone] Reason for Visit * Reason Comments Recovery Supports Encounter Details Date Type Department Care Team ([facility] st Contact Info) Description 01/02/2025 Patient Outreach [facility] [address] [place] [address] Neto Gonzales [address] [place] [address] Recovery Supports Social History Tobacco Use Types [...] the past 12 months, has t he [employer] gas, oil or water company threatened to [...] as of this encounter Progress Notes * Neto Gonzalse - 01/02/2025 11:59 PM EDT I met with Alejandro today. Setting: in person at [facility] Recovery Wellness Goals worked on: Physical Health/Mental Health, Social Stability, and Spiritual Wellness Action taken/next steps: Attended recovery support group Additional comments: Neto Gonzales documented in this encounter Plan of Treatment Upcoming Encounters Date Type Department Care Team (Late st Contact Info) Description 02/20/2025 9:00 AM EDT Office Visit [facility] [address] [place] [address] Sallie Renee, OD [address] [place] [address] documented as of this encounter Visit Diagnoses Not on filedocumented in this encounter Additional Health Concerns Assessment Noted Time PHQ-9 Depression Total Score: 16 025 9:57 AM EDT documented as of this encounter Care Teams Data Control Assistant Relationship Specialty Start Date End Date Kandice Bush MD [address] [place] [address] PCP - General Family Medicine 06/18/23 documented as of this encounter
--- OUTSIDE RECORDS SUMMARY | 2025-01-06 08:40 | XMS_ITS | Encounter Summary ---
Author Organization [employer] Address [address] [facility] [address] [place] [address] Care Team Providers Care Unemployment Insurance Hearing Officer Name Role Phone Kandice Bush MD Primary Care Provider [phone] Reason for Visit * Reason Comments GBAT Encounter Details Date Type Department Care Team ([facility] Contact Info) Description 01/04/2025 9:00 AM EDT Office Visit [facility] [address] [place] [address] Av Gimenez MD [address] [place] [address] Alcohol use disorder, severe, dependence (CMS/HCC) (Primary Dx) Social History Tobacco Use Types [...] as of this encounter Progress Notes * Av Gimenez MD - 01/04/2025 9:00 AM EDT Patient with AUD presents for his GBAT meeting today. Was previously admitted to [facility] (08/12 - 08/18/2023) for alcohol detox. Also had an RSV infection while in- patient. States no alcohol use since theadmission. Started on Thiamine 100mg daily, Clonidine 0.1mg at bedtime prn, Fluoxetine 10mg daily (not taking), Hydroxzine 25mg tid prn, and Trazodone 100mg at bedtime (decided not to start). No jaundice/icterus. LAST GBAT VISIT 11/30/2024 Patient presents for Group-Based Opioid Treatment for AUD Had a long hiatus from the GBAT Visited [facility] recently Maintaining sobriety, but admits to cravings Thus restarted taking Naltrexone 1 week ago; reports some LONG, but tolerable Will continue for 1 more week and reassess Reviewed the group goals, expectations and policies Consented to the group treatment options Actively participated in the group discussion with the topic of: Managing Psychological Pain Following staff present at the visit: Physician, Postal Clerk, Clinician, Team RN, and MedicalAssistant Opportunities provided to address individual medical/medication/BH concerns TODAY GBAT VISIT 01/04/2025 Patient presents for Group-Based Opioid Treatment for AUD Visited [facility] recently Maintaining sobriety, but admits to cravings Recently resumed Naltrexone PO, but feels like the medication is not helping much Interested in trying Vivitrol injection Will return in 1 week for the injection Not on any opioid pain medications Reviewed the group goals, expectations and policies Consented to the group treatment options Actively participated in the group discussion with the topic of: Starting Over: The Power of Rebuilding Yourself Following staff present at the visit: Physician, Postal Clerk, Clinician, Team RN, and MedicalAssistant Opportunities provided to address individual medical/medication/BH concerns Review of Systems Psychiatric/Behavioral: Negative for behavioral problems and dysphoric mood. The patient is not nervous/anxious. Physical Exam Constitutional: Appearance: Normal appearance. Pulmonary: Effort: Pulmonary effort is normal. Neurological: Mental Status: He is alert. Psychiatric: Mood and Affect: Mood normal. Behavior: Behavior normal. Alejandro was seen today for gbat. Diagnoses and all orders for this visit: Alcohol use disorder, severe, dependence (CMS/HCC) (Primary) - naltrexone ER (Vivitrol) injection; Inject 4 mL (380 mg) into the muscle every 28 (twenty-eight) days. Patient presents for Group-Based Addiction Treatment of AUD Reviewed the group goals, expectations and policies Consented to the group treatment options Actively participated in the group discussed Future discussion topics reviewed Had a long hiatus from the GBAT Visited [facility] recently Maintaining sobriety, but admits to cravings No significant improvement with PO Naltrexone 50mg daily Interested in trying monthly Vivitrol injection (will send Rx for preparation for next week) Will check UTOX prior to the administration Will assess how he is doing with the medication Reviewed behavioral modification and accessing services Group counseling provided with a focus on support system, tools for achieving/maintaining recovery Reviewed barriers for these goals Discussed strategies to address when faced situations that may trigger use [employer] reviewed Following staff present at the visit: Physician, Clinician, Postal Clerk and Electronic Equipment Trades Worker Follow up in 1 week for the next GBAT meeting This information has been disclosed to you from records protected by federal confidentiality rules (42 CFR Part 2). The federal rules prohibit you from making any further disclosure of information inthis record that identifies a patient as having or having had a substance use disorder either directly, by reference to publicly available information, or through verification of such identification by another person unless further disclosure is expressly permitted by the written consent of the individual whose information is being disclosed or as otherwise permitted by (see2.3.1). The federal rules restrict any use of the information to investigate or prosecute with regard to a crime any patient with a substance use disorder, except as provided at 2.12??(5) and 2.65. documented in this encounter Plan of Treatment Upcoming Encounters Date Type Department Care Team (Late st Contact Info) Description 02/20/2025 9:00 AM EDT Office Visit [facility] [address] [place], [place] [id number] TarSallie zhang, OD [address] [place], [place] [phone] documented as of this encounter Visit Diagnoses Diagnosis Alcohol use disorder, severe, dependence (CMS/HCC)- Primary documented in this encounter Additional Health Concerns Assessment Noted Time PHQ-9 Depression Total Score: 16 11/30/ 025 9:57 AM EDT documented as of this encounter Care Teams Unemployment Insurance Hearing Officer Relationship Specialty Start Date End Date Kandice Bush MD [address] [place] [address] PCP - General Family Medicine 06/18/23 documented as of this encounter
--- OUTSIDE RECORDS SUMMARY | 2025-01-06 08:40 | XMS_ITS | Encounter Summary ---
Author Organization [employer] Address [address] [facility] [address] [place] [address] Care Team Providers Care Box Loader Name Role Phone Kandice Bush MD Primary Care Provider [phone] Encounter Details Date Type Department Care Team ([facility] st Contact Info) Description 10/13/2023 Orders Only [facility] [address] [place] [address] Kandice Bush MD [address] [place] [address] Social History Tobacco Use Types Packs/Day Years [...] Description 02/20/2025 9:00 AM EDT Office Visit [facility] [address] [place] [address] Sallie Renee, OD [address] [place] [address] documented as of this encounter Visit Diagnoses Not on filedocumented in this encounter Care Teams Box Loader Relationship Specialty Start Date End Date Kandice Bush MD [address] [place] [address] PCP - General Family Medicine 06/18/23 documented as of this encounter
--- OUTSIDE RECORDS SUMMARY | 2025-01-06 08:40 | XMS_ITS | Clinical Summary ---
Author Organization [employer] Address [address] [facility] [address] [place] [address] Care Team Providers Care Recycler Name Role Phone Kandice Bush MD Primary Care Provider [phone] Allergies Active Allergy Reactions Criticality Noted Date Comments Penicillins Hives 07/09/2018 Medications * This document contains information received from the source organization and may not represent a complete record from that organization. Blood Pressure Monitor kit Check blood pressure once daily and as needed 1 kit 06/17/20 23 Active psyllium (Metamucil Smooth Texture) 58.6 % powder Take 5.12 g (3 g of fiber) by mouth 2 times daily. 283 g 2 04/12/20 24 025 Active docusate sodium (Colace) 100 MG capsule Take 1 tab po bid prn constipation 60 capsule 1 04/12/20 24 Active naproxen (Naprosyn) 500 MG tablet Take 1 tablet (500 mg) by mouth if needed in the morning and at bedtime for moderate pain. 50 tablet 1 06/03/20 24 Active cholecalcifero l (Vitamin D-3) 25 MCG (1000 UT) tablet Take 1 tablet (25 mcg) by mouth Once per day. 90 tablet 3 06/06/20 24 Active lidocaine (Lidoderm) 5 % patchIndicatio ns:Foot pain, bilateral Apply 1 patch topically Once per day. Remove & discard patch within 12 hours or as directed by MD. May use 2 patches at once. 60 patch 2 06/29/20 24 025 Active sertraline (Zoloft) 50 MG tabletIndicati ons:Moderate episode of recurrent major depressive disorder (CMS/HCC),ZACHARY (generalized anxiety disorder) Take 1 tablet (50 mg) by mouth Once per day. 30 tablet 2 10/14/19 25 025 Active hydrOXYzine HCl (Atarax) 10 MG tabletIndicati ons:ZACHARY (generalized anxiety disorder) Take 1 tablet (10 mg) by mouth every 8 (eight) hours if needed for anxiety. 30 tablet 1 10/14/19 25 Active Spacer/Aero-Ho lding Chambers (OptiChamber Jennifer) misc 1 each every 4 (four) hours if needed (asthma). 1 each 11/16/19 25 Active fluticasone (Flonase Allergy Relief) 50 MCG/ACT nasal spray Administer 1 spray into each nostril Once per day. Shake gently. Before first use, prime pump. After use, clean tip and replace cap. 16 g 1 11/16/19 25 026 Active acetaminophen (Tylenol) 500 MG tablet Take 2 tablets (1,000 mg) by mouth every 6 (six) hours if needed for moderate pain or fever for up to 25 doses. 50 tablet 11/16/19 25 Active Ventolin HFA 108 (90 Base) MCG/ACT inhaler INHALE 2 PUFFS BY MOUTH EVERY 4 HOURS NEEDED FOR WHEEZING OR SHORTNESS OF BREATH 18 g 2 11/26/19 25 Active esomeprazole (NexIUM) [address] capsule Take 1 capsule by mouth Once per day. 10/19/19 25 Active prazosin (Minipress) 1 MG capsule Take 1 mg by mouth at bedtime. 06/27/20 24 Active Cialis 5 MG tablet Active sucralfate (Carafate) 1 GM/10ML suspension GIVE 10 ML BY MOUTH AT BEDTIME 10/19/19 25 Active naltrexone ER (Vivitrol) injectionIndic ations:Alcohol use disorder, severe, dependence (CMS/HCC) Inject 4 mL (380 mg) into the muscle every 28 (twenty-eight) days. 1.2 each 1 01/05/20 25 Active traMADol (Ultram) 50 MG tabletIndicati ons:Foot pain, bilateral Take 1 tablet (50 mg) by mouth if needed in the morning, at noon, and at bedtime for severe pain. 15 tablet 06/29/20 24 025 Discontinued Active Problems Problem Noted Date Diagnosed Date GERD (gastroesophageal reflux disease) Assessment & Plan (12/03/2024 6:07 AM EDT): - [place] with [facility], last seen in Oct 2024 - Hx H. Pylori gastritis s/p eradication treatment in 2023 - continue esomeprazole - previously tried omeprazole, famotidine, and pantoprazole Insomnia 12/03/2024 Assessment & Plan (12/03/2024 6:19 AM EDT): - multifactorial - referred to sleep medicine clinic / neurology - currently prescribed prazosin. Heel pain, bilateral 05/12/2024 Assessment & Plan (12/03/2024 6:05 AM EDT): - likely plantar fascitis - continue wearing comfortable shoes - ice and stretching exercises - patient has already been referred to oil well logging engineer, patient will call to reschedule appt Assessment & Plan (05/12/2024 12:07 PM EDT): - likely plantar fascitis - continue wearing comfortable shoes - ice and stretching exercises - patient has already been referred to oil well logging engineer, will check its status Erectile dysfunction 05/12/2024 Assessment & Plan (12/03/2024 6:05 AM EDT): - seen by urologist on 04/05/24 - patient was prescribed Cialis Assessment & Plan (05/12/2024 12:12 PM EDT): - seen by urologist on 04/05/24 - patient was prescribed Cialis Constipation 04/12/2024 Epigastric pain 04/12/2024 Assessment & [...] depressive d isorder 10/12/2023 Assessment & Plan (12/03/2024 6:17 AM EDT): - compounding factors: Loss of his mother; stressful divorce; separation from his son; 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 Alcohol use disorder 06/17/2023 Assessment & Plan (12/03/2024 6:11 AM EDT): - following with Dr. Gimenez / [facility] clinic in [place] - continue current recovery effort and support Assessment & Plan (02/03/2024 3:19 PM EDT): [...] with Dr. Gimenez / [facility] clinic in [place] - continue current recovery effort and support Assessment & Plan (10/12/2023 4:12 PM EST): - following with Dr. Gimenez / [facility] clinic in [place] - continue current recovery effort and support Assessment & Plan (06/17/2023 5:34 PM EDT): - pt drinks large amount - pt may need to go to Detox first before starting medication - will refer to motor coach tour operator and AUD clinic Elevated blood pressure read ing without diagnosis of hypertension 06/17/2023 Assessment & Plan (11/30/2024 1:35 AM EDT): -Goal BP < 140/90 per JNC-8 and < 130/80 per ACC/AHA guideline (Treatment threshold >= 140/90 ) -Normal today. Previously elevated BP was when patient was drinking alcohol, and likely transient -Continue working on lifestyle modifications -Recommended self-monitoring BP. -Follow up in 3-6 mo, sooner if any problem arises - Ordered Comprehensive Metabolic Panel 11/29/24 - Ordered Albumin, Random Urine W/Creatinine 11/29/24 Assessment & Plan (01/17/2024 3:16 PM EDT): [...] self-monitoring BP. -Pt is already following with air pumper for cardiomyopathy -Follow up in 3 mo, sooner if any problem arises Cardiomyopathy 06/17/2023 Assessment & Plan (11/29/2024 9:48 AM EDT): - air pumper: Dr. Henderson, [facility], last seen on 01/27/23 - Hx abnormal stress test, MPI EF50% - TTE on 03/31/23 showed normal cardiac anatomy and function LVEF 58% - current working Dx is due to alcohol use - Follow up with Dr. Henderson as scheduled - Support harm reduction and recovery effort with CRS team - Continue thiamine and folic acid Assessment & Plan (01/17/2024 3:15 PM EDT): - air pumper: Rasheed Farr Olmitz, last seen on 01/27/23 - Hx abnormal [...] & Plan (10/12/2023 5:44 AM EST): - air pumper: Rasheed Farr Olmitz, last seen on 01/27/23 - Hx abnormal [...] & Plan (06/17/2023 6:13 PM EDT): - air pumper: Rasheed Farr Olmitz, last seen on 01/27/23 - Hx abnormal stress test, MPI EF50% - current working Dx is due to alcohol use - TTE was ordered by Dr. Henderson - Follow up with Dr. Henderson as scheduled - Support harm reduction and recovery effort with CRS team - Restart thiamine and folic acid History of Helicobacter pylori infection 023 Assessment & Plan (10/12/2023 4:10 PM EST): [...] PM EDT): - continue following specialists at [facility] declines COVID vaccine Assessment & Plan (10/12/2023 4:13 PM EST): - continue following specialists at [facility] declines COVID vaccine Assessment & Plan (06/17/2023 6:17 PM EDT): - continue following specialists at [facility] declines COVID vaccine Headache 06/17/2023 Assessment & [...] to neurologist Transaminitis 06/17/2023 Assessment & Plan (11/29/2024 9:50 AM EDT): - likely due to alcohol use [...] - FIB-4 index 0.55 Assessment & Plan (01/17/2024 3:25 PM EDT): [...] Obesity (BMI 30-39.9) 08/03/2018 Assessment & Plan (12/03/2024 6:05 AM EDT): - Continue working on lifestyle modifications. - Generic advice as below. Tailor for your unique body, character, and specific condition. Dietary Recommendations: Fruits, vegetables, whole grains, protein foods, and fat-free or low-fat dairy products are healthy choices. Eat different types of protein foods in your diet. This can include seafood, lean meats, poultry, beans, peas, lentils, nuts, seeds, soy products, and eggs. Limit foods and beverages higher in added sugars, saturated fat, and sodium. Exercise Recommendations: At least 150 minutes of moderate-intensity physical activity per week, or an equivalent combination of moderate- and vigorous-intensity activity Assessment & Plan (05/12/2024 12:10 PM EDT): - patient was evaluated with sleep study, need to repeat - patient is aware of repeat testing Chronic venous insufficiency 07/20/2018 Assessment & Plan (12/03/2024 6:08 AM EDT): - followed [place] Dr. Genao / [facility]. Last seen in Oct 2024 - Radiofrequencyy ablation of right GSV and accessory right GSV on 12/18/23 - Radiofrequencyy ablation of right SSV on 01/29/24 - Right leg microphlebectomy and ligation of venous cluster x 2 - Continue compression stocking, leg elevation, DASH diet, and exercise - Follow up as scheduled Assessment & Plan (05/12/2024 12:08 PM EDT): [...] with in flammation 07/13/2018 Assessment & Plan (12/03/2024 6:09 AM EDT): - s/p phlebectomy or venous ablation in [facility] - currently following with Dr. Genao [facility] [place] - Radiofrequencyy ablation of right GSV and accessory right GSV on 12/18/23 - Radiofrequencyy ablation of right SSV on 01/29/24 - Right leg microphlebectomy and ligation of venous cluster x 2 - compression stocking, leg elevation, reduce sodium and alcohol consumption Assessment & Plan (10/12/2023 4:11 PM EST): - s/p phlebectomy or venous ablation in [facility] - currently following with Dr. Genao [facility] - compression stocking, leg elevation, reduce sodium [...] Problem Noted Date Diagnosed Date Resolved Date BRBPR (bright red blood per rectum) 04/12/2024 12/03/2024 Assessment & Plan (05/12/2024 12:09 PM EDT): [...] GI --advised to discuss if symptoms persist Mood disorder 10/12/2023 02/03/2024 Assessment & Plan (10/12/2023 4:34 PM EST): - likely MDD Encounters * This document contains information received from the source organization and may not represent a complete record from that organization. Date Type Department Care Team Description 01/04/2025 9:00 AM EDT Office Visit [facility] [address] [place] [phone] Av Gimenez MD Alcohol use disorder, severe, dependence (CMS/HCC) (Primary Dx) 01/04/2025 Travel 01/03/2025 Patient Outreach [facility] [address] [place] [phone] Joe Rosenthal Recovery Supports 01/02/2025 Patient Outreach [facility] [place] [address] Neto Gonzales Recovery Supports 12/23/2024 Telephone [facility] [place] [address] Car JEFFERY Sevilla may recall 12/22/2024 Patient Outreach [facility] [place] [address] Neto Gonzales Recovery Supports 12/21/2024 Patient Outreach [facility] [place] [address] RosenthalJoe moya Recovery Supports 12/20/2024 Patient Outreach [facility] [place] [address] RosenthalJoe moya Recovery Supports 12/06/2024 Patient Outreach [facility] [place] [address] RosenthalJoe moya Recovery Supports 11/30/2024 9:00 AM EDT Office Visit [facility] [place] [address] Av Gimenez MD Alcohol use disorder, severe, dependence (CMS/HCC) (Primary Dx) 11/30/2024 Travel 11/29/2024 1:15 PM EDT Office Visit [facility] [place] [address] Kandice Bush MD Heel pain, bilateral (Primary Dx); Elevated blood pressure reading without diagnosis of hypertension; Chronic venous insufficiency; Cardiomyopathy, unspecified type (CMS/HCC); Transaminitis; Varicose veins of both lower extremities with inflammation; Screening for lipid disorders; Immunity status testing; Screening for diabetes mellitus; Dietary counseling; Exercise counseling; Class 2 obesity due to excess calories with body mass index (BMI) of 36.0 to 36.9 in adult, unspecified whether serious comorbidity present; Obesity (BMI 30-39.9); Erectile dysfunction, unspecified erectile dysfunction type; Constipation, unspecified constipation type; Gastroesophageal reflux disease, unspecified whether esophagitis present; Moderate episode of recurrent major depressive disorder (CMS/HCC); Alcohol use disorder; Insomnia, unspecified type; Routine screening for STI (sexually transmitted infection); Encounter for screening for respiratory tuberculosis 11/29/2024 Patient Outreach [address] [address] Neto Gonzales Recovery Supports 11/29/2024 Travel 11/25/[address] [phone] Kandice Bush MD chart prep 11/25/[address] [address] Jr Garcia MD 11/21/2024 Patient Outreach [address] [phone] Kandice Bush MD Care Coordination (CHW outreach for SDOH food needs-LVM /) 11/21/2024 Patient Outreach [address] [address] Kandice Bush MD Pre-visit Planning (SDOH Screening positive and Tobacco screening negative) 11/18/2024 Population Health Risk Score [facility] () [address] [phone] Provider, Population Health Generic 11/15/2024 8:40 AM EDT Office Visit [address] [phone] Jr Garcia MD Influenza-like symptoms (Primary Dx); Conjunctivitis of both eyes, unspecified conjunctivitis type; Acute URI 10/14/2024 9:40 AM EST Office Visit [address] [phone] Av Gimenez MD Moderate episode of recurrent major depressive disorder (CMS/HCC) (Primary Dx); ZACHARY (generalized anxiety disorder) 10/14/[address] [phone] Anel Gayle, JOCELIN Nurse Triage 10/11/[address] [phone] Kandice Bush MD Nurse Triage from Last 3 Months Immunizations Name Administration [...] housing situation today? I have marionsharon francis 11/21/[address] you [...] Orientation Straight 11/29/2024 4: 43 PM EDT Last Filed Vital Signs Vital Sign Reading Time Taken Comments Blood Pressure 140/90 11/29/2024 1:53 PM EDT Pulse 111 11/29/2024 1:06 PM EDT Temperature 36.3 ??C (97.3 ??F) 11/29/2024 1:06 PM ED T Respiratory Rate 17 11/29/2024 1:06 PM EDT Oxygen Saturation 98% 11/29/2024 1:06 PM EDT Inhaled Oxygen Concentration - - Weight 129 kg (284 lb) 11/29/2024 1:06 PM EDT Height 188 cm (6' 2 ) 11/29/2024 1:06 PM EDT Body Mass Index 36.46 11/29/2024 1:06 PM EDT Plan of Treatment Upcoming Encounters Date Type Department Care Team (Late st Contact Info) Description 02/20/2025 9:00 AM EDT Office Visit [facility]OM[facility] [address] [place], [place] [phone] Sallie Renee, OD [address] [place], [place] [phone] Health Maintenance Due Date Last Done Comments Family Planning (PISQ) 1995 Hepatitis B Vaccines (1 of 3 - 19+ 3-dose series) 1999 Pneumococcal Vaccine: Pediatrics (0 to 5 Years) and At-Risk Patients (6 to 49) Years) (1 of 2 - PCV) 1999 COVID-19 Vaccine ( - 2023-2 5 season) 2024 Influenza Vaccine (#1) 2024 Alcohol/Substance Use Screening 02/02/2025 02/03/2024 SDOH Screening 11/21/2025 11/21/2024 Depression Screening 11/30/2025 11/30/2024, 11/30/2024 Tobacco Screening 12/03/2025 12/03/2024 DTaP/Tdap/Td Vaccines (2 - T d or [...] Procedure Name Priority Date/Time Associated Diagnosis Comments POCT INFLUENZA B (ID NOW RAPID MOLECULAR) Routine 11/15/2024 8:54 AM EDT Acute URI POCT INFLUENZA A (ID NOW RAPID MOLECULAR) Routine 11/15/2024 8:54 AM EDT Acute URI POCT RAPID STREP A Routine 11/15/2024 8: 54 AM EDT Acute URI POCT RAPID COVID ANTIGEN Routine 11/15/2024 8:54 AM EDT Acute URI NM GASTRIC EMPTYING SOLID Routine 10/25/2024 8:09 PM EST HEPATITIS C AB W/REFL TO HCV RNA, QN, PCR Routine 10/12/2023 1:46 PM EST Dysuria HIV 1/2 ANTIGEN/ANTIBODY, FOURTH GENERATION W/RFL Routine 10/12/2023 1:46 PM EST Dysuria LIPID PANEL WITH REFLEX TO DIRECT LDL Routine 10/12/2023 1:46 PM EST Cardiomyopathy, unspecified type (CMS/HCC) from Last 3 Months or Most Recently Relevant to Health Maintenance Results * Influenza B (ID NOW Rapid Molecular) (11/15/2024 8:54 AM EDT) Influenza B Negative Negative, Indeterminate [facility] Swab 11/15/2024 8:54 AM EDT us Jr Garcia MD POINT OF CARE TEST ENTER/EDIT OR DERABLES Final Result Performing Organization Address [facility] Co de Phone Number [facility] [address] [place] [address] [phone] * Influenza A (ID NOW Rapid Molecular) (11/15/2024 8:54 AM EDT) Pathologist [facility] Influenza A Negative Negative, Indeterminate [facility] Swab 11/15/2024 8:54 AM EDT us Jr Garcia MD POINT OF CARE TEST ENTER/EDIT OR DERABLES Final Result Performing Organization Address [facility] Co de Phone Number [facility] [address] [place] [phone] * POCT Rapid COVID Ag (11/15/2024 8:54 AM EDT) Pathologist [facility] Rapid COVID Ag Negative [facility] Swab 11/15/2024 8:54 AM EDT us Jr Garcia MD POINT OF CARE TEST ENTER/EDIT OR DERABLES Final Result Performing Organization Address [facility] Co de Phone Number [facility] [address] [place] [phone] * POCT rapid strep A manually resulted (11/15/2024 8:54 AM EDT) Pathologist [facility] Rapid Strep A Screen Negative Negative, None Detected [facility] Swab 11/15/2024 8:54 AM EDT us Jr Garcia MD POINT OF CARE TEST ENTER/EDIT OR DERABLES Final Result Performing Organization Address [facility]/ZIP Co de Phone Number [facility] [address] [place] [phone] * NM Gastric Emptying Solid (10/25/2024 8:09 PM EST) Anatomical Region Laterality Modality Body Nuclear Medicine 10/25/2024 8:09 PM EST Narrative 10/25/2024 8:12 PM EST ? [facility] ?[address] ?[place] [address] ?Nuclear Medicine Report ? Signed ? Patient: Blum Марияanaza,Alejandro N ?MR ?? #: [id number] ? : 1980 ?Acct:[id number] ? Age/Sex: 44 / M ?ADM Date: 10/25/24 ? Loc: HO.NUCMED ? Attending Dr: Alicja SOLORIO ? Ordering Physician: Alicja Connor ?? Date of Service: 10/25/24 ?? Procedure(s): NM gastric emptying study ?? Accession Number(s): [id number] ? cc: Alicja Connor; Kandice Bush MD [...] ? DD/ 08 ? TD/TT: 10/25/242008 ? Umbrella Cutter: ? Procedure Note Donotbibiinterpreter, Image - 10/25/[address] [address] Nuclear Medicine Report Signed Patient: Alejandro Sanchez NMR #: [id number] : 1980Acct:[id number] Age/Sex: 44 / MADM Date: 10/25/24 Loc: [facility] Attending Dr: Alicja SOLORIO Ordering Physician: Alicja Connor Date of Service: 10/25/24 Procedure(s): NM gastric emptying study Accession Number(s): [id number] cc: Alicja Connor; Kandice Bush MD CLINICAL [...] in OV> 10/25/242010 DD/ 08 TD/TT: 10/25/242008 Umbrella Cutter: [facility] External Provider IMG NM PROCEDURES Edited Result - Final * (ABNORMAL) Lipid Panel with Reflex to Direct LDL (10/12/2023 1:46 PM EST) Triglycerides 125 <150 mg/dL [facility] Comment:Desirable Triglyceri de: less than 150 mg/dLBorderline High Triglyceride 150-199 mg/dLHigh Triglyceride: 200-499 mg/dLVery High Triglyceride: greater than or equal to 5OO mg/dL Cholesterol 206(H) <200 mg/dL [facility] Comment:Desirable Cholestero l: less than 200 mg/dLBorderline High Cholesterol: 200-239 mg/dLHigh Cholesterol: greater than 239 mg/dL LDL Cholesterol Calculated 124(H) <100 mg/dL [facility] Comment:Desirable LDL: less than 100 mg/dLNear Optimal/Above Optimal LDL: 110- 129 mg/dLBorderline High LDL: 130-159 mg/dLHigh LDL: 160-189 mg/dLVery High LDL: greater than or equal to 190 mg/dL HDL Cholesterol 57 >40 mg/dL [facility] Comment:Desirable HDL: great er than 40 mg/dL Note: This HDL assay may give artificially low results in patients with liver disease. Blood 10/12/2023 1:46 PM EST 10/12/2023 4:25 PM EST Kandice Bush MD LAB BLOOD ORDERABLES Final Resul t [facility] [address] [place] [address] [phone] * Hepatitis C Antibody with Reflex to HCV, RNA, Quantitative, Real-Time PCR (10/12/2023 1:46 PM EST) Hepatitis C Antibody Nonreactive Nonreactive [facility] Comment:Antibodies to HCV no t detected; does not exclude early acuteHCV infection. Blood Venous blood specimen / Unknown 10/12/2023 1:46 PM EST 10/12/2023 4:19 PM EST Kandice Bush MD LAB BLOOD ORDERABLES Final Resul t Performing Organization Address [facility] Co de Phone Number [facility] [address] [place] [phone] * HIV-1/2 Antigen and Antibodies, Fourth Generation, with Reflexes (10/12/2023 1:46 PM EST) [facility] HIV AB/AG Nonreactive Nonreactive [facility] Comment:HIV-1 p24 Ag and/or HIV-1/HIV-2 Ab not detected.A test result that is nonreactive does not exclude thepossibility of exposure to or infection with HIV-1 and/orHIV-2. Nonreactive results in this assay for individualswith prior exposure to HIV-1 and/or HIV-2 may be due toantigen and antibody levels that are below the limit ofdetection of this assay.The [employer] HIV Ag/Ab Combo assay result andsupplemental assay results should be interpreted inconjunction with the patient's clinical presentation,history and other laboratory results. If the results areinconsistent with clinical evidence, additional testing issuggested to confirm the result. Blood Venous blood specimen / Unknown 10/12/2023 1:46 PM EST 10/12/2023 4:19 PM EST Kandice Bush MD LAB BLOOD ORDERABLES Final Resul t Performing Organization Address [facility]/ZIP Co de Phone Number [facility] [address] [place] [phone] from Last 3 Months or Most Recently Relevant to Health Maintenance [place] [address] [place] [address] C3 [employer] F[employer] Care Teams Recycler Relationship Specialty Start Date End Date Kandice Bush MD [address] [place] [phone] PCP - General Family Medicine 06/18/23
--- OUTSIDE RECORDS SUMMARY | 2025-01-06 08:40 | XMS_ITS | Encounter Summary ---
Author Organization [employer] Address [address] [place] [address] [address] [place] [address] Care Team Providers Care Linux Admin Name Role Phone Kandice Bush MD Primary Care Provider Reason for Referral * Consultation (Routine) - Closed Specialty Diagnoses / Procedures Referred By Radha bell Referred To Contact Urology Diagnoses Erectile dysfunction, unspecified erectile dysfunction type Low testosterone Kandice Bush MD [address] [place] [address] Phone: tel: fax: [facility] Referral ID Status Reason Start Date Expiration Date V isits Requested Visits Authorized [id number] Closed Specialty Services Required 01/21/2024 01/20/2025 6 6 Encounter Details Date Type Department Care Team (Late st Contact Info) Description 01/18/2024 Orders Only [facility] [address] [place] [address] [phone] Kandice Bush MD [address] [place] [address] [phone] Erectile dysfunction, unspecified erectile dysfunction type (Primary [...] Description 02/20/2025 9:00 AM EDT Office Visit [facility] [address] [place] [address] Sallie Renee, OD [address] [place] [address] Scheduled Referrals Name Type Priority Associated Diagnoses [...] documented as of this encounter Care Teams Linux Admin Relationship Specialty Start Date End Date Kandice Bush MD [address] [place] [phone] PCP - General Family Medicine 06/18/23 documented as of this encounter
--- OUTSIDE RECORDS SUMMARY | 2025-01-06 08:40 | XMS_ITS | Encounter Summary ---
Author Organization [employer] Address [address] [facility] [address]t [place] [address] Care Team Providers Care Unit Supervisor Name Role Phone Kandice Bush MD Primary Care Provider [phone] Encounter Details Date Type Department Care Team (Latest Contact Info) Description 01/04/2025 Travel Social History Tobacco Use Types Packs/Day Years [...] Description 02/20/2025 9:00 AM EDT Office Visit [facility] [address] [place] [address] Sallie Renee, OD [address] [place] [address] documented as of this encounter Visit Diagnoses Not on filedocumented in this encounter Additional Health Concerns Assessment Noted Time PHQ-9 Depression Total Score: 16 025 9:57 AM EDT documented as of this encounter Care Teams Unit Supervisor Relationship Specialty Start Date End Date Kandice Bush MD [address] [place] [phone] PCP - General Family Medicine 06/18/23 documented as of this encounter
--- OUTSIDE RECORDS SUMMARY | 2025-01-06 08:41 | XMS_ITS | Referral Summary ---
Author Organization [facility] Address [address] [place] [address] Care Team Providers Care Features Reporter Name Role Phone Patient, Has No Pcp [...] Not on file Procedures * Due to [place] [employer] law, this organization might not be sharing negative HIV tests. Procedure Name Priority Date/Time Associated Diagnosis Comments HEPATITIS PANEL, ACUTE STAT 03/30/2009 12:15 PM EDT from Last 3 Months or Most Recently Relevant to Health Maintenance Results * Due to [place] [employer] law, this organization might not be sharing negative HIV tests. * Hepatitis Panel, Acute (03/30/2009 12:15 PM EDT) Hepatitis A IgM Antibody Negative Negative [facility] Hepatitis B Core IgM Antibody Negative Negative [facility] Hepatitis B Surface Ag Negative Negative [facility] Hepatitis C Antibody Negative Negative [facility] 03/30/2009 12:1 5 PM EDT 03/30/2009 2:27 PM EDT us Christiane Mathur MD LAB BLOOD ORDERABLES Vonda afia Result [facility] [address] [place] [address], from Last 3 Months or Most Recently Relevant to Health Maintenance [place] [address] [place] [address] MEDICAID Care Teams Features Reporter Relationship Specialty Start Date End Date Patient, Has No Pcp Or Ref DO NOT EDIT THIS RECORD VIA PROVIDER ON THE FLY PCP - General Fork Repairer 01/26/23
--- OUTSIDE RECORDS SUMMARY | 2025-01-06 08:41 | XMS_ITS | Clinical Summary ---
Author Organization [facility] Address [address] [place] [address] Care Team Providers Care Tailings Dam Pumper Name Role Phone Patient, Has No Pcp [...] - 19+ 3-dose series) 1999 COVID-19 Vaccine (2023-2 5 season) 2024 02/03/2021, 01/04/2021 Alcohol/Substance Use Screening 09/07/2024 Depression Screening and Follow-Up 09/07/2024 Social Drivers of Health Annual Screening 09/07/2024 Influenza Vaccine (Season Ended) 2025 DTaP,Tdap,and Td Vaccines (2 - Td or Tdap) 07/13/2028 07/13/2018 RSV Vaccine (60+ years old and patients) (1 - 1-dose 75+ series) 2055 Hepatitis C Screening Completed 03/30/2009 Pneumococcal Vaccine: Pediatric (0-5 Years) and At-Risk Patients (6-50 Years) Aged Out No longer eligible based on patient's age to complete this topic Procedures * Due to [place] [employer] law, this organization might not be sharing negative HIV tests. Procedure Name Priority Date/Time Associated Diagnosis Comments HEPATITIS PANEL, ACUTE STAT 03/30/2009 12:15 PM EDT from Last 3 Months or Most Recently Relevant to Health Maintenance Results * Due to [place] [employer] law, this organization might not be sharing negative HIV tests. * Hepatitis Panel, Acute (03/30/2009 12:15 PM EDT) Hepatitis A IgM Antibody Negative Negative [facility] Hepatitis B Core IgM Antibody Negative Negative [facility] Hepatitis B Surface Ag Negative Negative [facility] Hepatitis C Antibody Negative Negative [facility] 03/30/2009 12:1 5 PM EDT 03/30/2009 2:27 PM EDT us Christiane Mathur MD LAB BLOOD ORDERABLES Vonda oreilly Result [facility] [address] [place] [address], from Last 3 Months or Most Recently Relevant to Health Maintenance Insurance [place] Care Teams Tailings Dam Pumper Relationship Specialty Start Date End Date Patient, Has No Pcp Or Ref DO NOT EDIT THIS RECORD VIA PROVIDER ON THE FLY PCP - General Field Marketing Manager 01/26/23
--- OUTSIDE RECORDS SUMMARY | 2025-01-06 08:41 | XMS_ITS | Data Portability ---
Author Organization [place] [facility] Address [address] [place] [phone] Care Team Providers Care Derrick Car Operator Name Role Phone JOSE BRYSON Primary Care [...] Organization Details Recorded Time Abnormal auditory perception [id number] Active 2023 JACQUELINE MUÑOZ [address] [place] [address], [place], [phone], [facility] 15:21:55 Tinnitus of left ear [id number] Active 2023 ANTONIETTA SAM MD [address] [address], [place], [phone], [facility] 15:41:05 Problem Notes None recorded. Procedures Surgical History Date Name Laterality Status Provider Name and Address Organization Details Recorded Time 02/24/2024 Air & Speech Audio with Tymps - 60041, 95612 & 67915 completed JACQUELINE MUÑOZ [address] [place] [address], [phone], [facility] 02/24/2024 15:21:44 Imaging Results Imaging Date Name Status LastModified by Organiz ation Details LastModified Time 04/08/2024 audiogram completed [facility] Information no t available 04/08/2024 15:21:00 Procedure Notes None recorded. Medical Equipment None Reported. Allergies Allergen ID Allergen Name Allergen Category Reaction Reaction Severity Criticality Documentation Date Start Date Code Code System Note Provider Name and Address Organization Details Recorded Time 239889 Product containin g penicilli n (product) medicatio n hives Not available Not available 02/24/2024 34320 8001 SNOMED Samantha owens [facility] 15:17:00 Vitals Date Recorded Body height Body mass index (BMI) Body weight Provider Name and Address Organization Details Last Updated DateTime 02/24/2024 185.42 cm 38.5 kg/m2 217994.97 g Samantha Nolan [facility] 02/24/2024 15:31:31 Social History None recorded. [...] Diagnosis Note [id number] ANTONIETTA SAM MD [facility] [address] [place] [address] 02/24/2024 15:01:17 02/24/2024 15:45:33 Abnormal auditory perception [id number] H93.299 Right Ear:Normal hearing with excellent speech discrimina tion.Type A tympanogra m.Left Ear:Normal hearing with excellent speech discrimina tion.Type A tympanogra m. Tinnitus of left ear 730 [id number] H93.12 Health Concerns Section Related Observation LastModified by Organization Detai ls LastModified Time None Recorded Concern Status LastModified by Organization Details LastModified Time None Recorded Advance Directives Directive None Recorded Payers Encounter Date Sequence Insurance Name Policy Number Policy Scott Covered Member ID Scott Member ID Guarantor Name 02/24/2024 1 [place] [facility] Alejandro N Blum [id number] [facility] Notes Date Note Type Note Provider [...] some blood last year ANTONIETTA SAM MD [address] [place] [address], [phone], [facility] - [facility] 02/24/2024 15:44:07 OBGyn Episode No OBEpisode recorded.
== END 2025-01-06 09:44 | disposition home or self-care (01) ==
LOC: HO.HGI 08:21
PROVIDERS: PCP Family Medicine; Visit Provider Nurse Practitioner Family
DX: Z86.19 Personal history of other infectious and parasitic diseases (principal); K52.9 Noninfective gastroenteritis and colitis, unspecified; R10.13 Epigastric pain; R68.81 Early satiety; K21.9 Gastro-esophageal reflux disease without esophagitis
CPT/HCPCS: 99214

== ENCOUNTER → 2025-01-06 08:20 | Outpatient (BNVA) | payer MEDICAID, SELFPAY | PROVIDERS: PCP Family Medicine; Visit Provider Nurse Practitioner Family | DX: K21.9 Gastro-esophageal reflux disease without esophagitis (principal); K52.9 Noninfective gastroenteritis and colitis, unspecified; R10.13 Epigastric pain; R68.81 Early satiety; Z86.19 Personal history of other infectious and parasitic diseases | CPT/HCPCS: 99212 ==

== ENCOUNTER 2025-01-09 08:58 | Outpatient (AMB) | payer MEDICAID, SELFPAY ==
--- OUTSIDE RECORDS SUMMARY | 2025-01-09 09:29 | XMS_ITS | Clinical Summary ---
Author Organization [employer] Address [address] [facility] 7t [place] [address] Care Team Providers Care Talent Consultant Name Role Phone Kandice Bush MD Primary Care Provider [phone] Allergies Active Allergy Reactions Criticality Noted Date [...] (12/03/2024 6:07 AM EDT): - following with [facility], last seen in Oct 2024 - [...] - patient has already been referred to honey processor, patient will call to reschedule appt Assessment & Plan (05/12/2024 12:07 PM EDT): - likely plantar fascitis - continue wearing comfortable shoes - ice and stretching exercises - patient has already been referred to honey processor, will check its status Erectile dysfunction 05/12/2024 [...] son; 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; alcohol use - behavioral health service provider: [...] son; 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 Alcohol use disorder 06/17/2023 Assessment & Plan (12/03/2024 6:11 AM EDT): - following with Dr. Gimenez / [facility]UD clinic in [facility] - continue current recovery effort and support [...] with Dr. Gimenez / [facility]UD clinic in [facility] - continue current recovery effort and support Assessment & Plan (10/12/2023 4:12 PM EST): - following with Dr. Gimenez / [facility]UD clinic in [facility] - continue current recovery effort and support Assessment & Plan (06/17/2023 5:34 PM EDT): - pt drinks large amount - pt may need to go to Detox first before starting medication - will refer to lacrosse coach and AUD clinic Elevated blood pressure [...] self-monitoring BP. -Pt is already following with word processing supervisor for cardiomyopathy -Follow up in 3 mo, sooner if any problem arises Cardiomyopathy 06/17/2023 Assessment & Plan (11/29/2024 9:48 AM EDT): - word processing supervisor: Dr. Henderson, [facility], last seen on 01/27/23 - Hx [...] & Plan (01/17/2024 3:15 PM EDT): - word processing supervisor: Rasheed Farr [place], last seen on 01/27/23 - Hx abnormal [...] & Plan (10/12/2023 5:44 AM EST): - word processing supervisor: Rasheed Farr [place], last seen on 01/27/23 - Hx abnormal [...] & Plan (06/17/2023 6:13 PM EDT): - word processing supervisor: Rasheed Farr [place], last seen on 01/27/23 - Hx abnormal [...] PM EDT): - continue following specialists at [facility] declines COVID vaccine Assessment & Plan (10/12/2023 4:13 PM EST): - continue following specialists at [facility] declines COVID vaccine Assessment & Plan (06/17/2023 6:17 PM EDT): - continue following specialists at [facility] declines COVID vaccine Headache 06/17/2023 [...] EDT): - followed by Dr. Genao / [facility]. Last seen in Oct 2024 [...] - s/p phlebectomy or venous ablation in [facility] - currently following with Dr. Genao [facility] - Radiofrequencyy ablation of right GSV and accessory right GSV on 12/18/23 - Radiofrequencyy ablation of right SSV on 01/29/24 - Right leg microphlebectomy and ligation of venous cluster x 2 - compression stocking, leg elevation, reduce sodium and alcohol consumption Assessment & Plan (10/12/2023 4:11 PM EST): - s/p phlebectomy or venous ablation in [facility] - currently following with Dr. Genao [facility] - compression stocking, leg elevation, reduce sodium [...] Description 01/04/2025 9:00 AM EDT Office Visit [facility] [address] [place] [phone] Av Gimenez MD Alcohol use disorder, severe, dependence (CMS/HCC) (Primary Dx) 01/04/2025 Travel 01/03/2025 Patient Outreach [facility] [address] [place] [phone] Joe Rosenthal Recovery Supports 01/02/2025 Patient Outreach [place] [address] Neto Gonzales Recovery Supports 12/23/2024 Telephone [place] [address] Car JEFFERY Sevilla may recall 12/22/2024 Patient Outreach [place] [address] Neto Gonzales Recovery Supports 12/21/2024 Patient Outreach [place] [address] RosenthalJoe moya Recovery Supports 12/20/2024 Patient Outreach [place] [address] RosenthalJoe moya Recovery Supports 12/06/2024 Patient Outreach [place] [address] RosenthalJoe moya Recovery Supports 11/30/2024 9:00 AM EDT Office Visit [place] [address] Av Gimenez MD Alcohol use disorder, severe, dependence (CMS/HCC) (Primary Dx) 11/30/2024 Travel 11/29/2024 1:15 PM EDT Office Visit [place] [address] Kandice Bush MD Heel pain, bilateral (Primary [...] screening for respiratory tuberculosis 11/29/2024 Patient Outreach [address] [address] Neto Gonzales Recovery Supports 11/29/2024 Travel 11/25/[address] [address] Kandice Bush MD chart prep 11/25/[address] [phone] Jr Garcia MD 11/21/2024 Patient Outreach [address] [phone] Kandice Bush MD Care Coordination (CHW outreach for SDOH food needs-LVM /) 11/21/2024 Patient Outreach [address] [address] Kandice Bush MD Pre-visit Planning (SDOH Screening positive and Tobacco screening negative) 11/18/2024 Population Health Risk Score [facility] () [address] [phone] Provider, Population Health Generic 11/15/2024 8:40 AM EDT Office Visit [address] [phone] Jr Garcia MD Influenza-like symptoms (Primary Dx); Conjunctivitis of both eyes, unspecified conjunctivitis type; Acute URI 10/14/2024 9:40 AM EST Office Visit [address] [phone] Av Gimenez MD Moderate episode of recurrent major depressive disorder (CMS/HCC) (Primary Dx); ZACHARY (generalized anxiety disorder) 10/14/[address] [phone] Anel Gayle RN Nurse Triage from Last 3 Months Immunizations [...] Description 02/20/2025 9:00 AM EDT Office Visit [facility] [address] [place], [place] [phone] Sallie Renee, OD [address] [place], [place] [phone] Health Maintenance Due Date Last Done Comments Family Planning (PISQ) 1995 Hepatitis B Vaccines (1 of 3 - 19+ 3-dose series) 1999 Pneumococcal Vaccine: Pediatrics (0 to 5 Years) and At-Risk Patients (6 to 49) Years) (1 of 2 - PCV) 1999 COVID-19 Vaccine (2023-2 5 season) 2024 Influenza Vaccine (#1) 2024 [...] AM EDT) Influenza B Negative Negative, Indeterminate [facility] Swab 11/15/2024 8:54 AM EDT us Jr Garcia MD POINT OF CARE TEST ENTER/EDIT OR DERABLES Final Result Performing Organization Address [facility] Co de Phone Number [facility] [address] [place] [phone] * Influenza A (ID NOW Rapid Molecular) (11/15/2024 8:54 AM EDT) Influenza A Negative Negative, Indeterminate [facility] Swab 11/15/2024 8:54 AM EDT us Jr Garcia MD POINT OF CARE TEST ENTER/EDIT OR DERABLES Final Result Performing Organization Address [facility] de Phone Number [facility] [address] [place] [phone] * POCT Rapid COVID Ag (11/15/2024 8:54 AM EDT) Rapid COVID Ag Negative [facility] Swab 11/15/2024 8:54 AM EDT us Jr Garcia MD POINT OF CARE TEST ENTER/EDIT OR DERABLES Final Result Performing Organization Address [facility] Co de Phone Number [facility] [address] [place] [phone] * POCT rapid strep A manually resulted (11/15/2024 8:54 AM EDT) [facility] Rapid Strep A Screen Negative Negative, None Detected [facility] Swab 11/15/2024 8:54 AM EDT us Jr Garcia MD POINT OF CARE TEST ENTER/EDIT OR DERABLES Final Result Performing Organization Address [facility] Co de Phone Number [facility] [address] [place] [phone] * NM Gastric Emptying Solid (10/25/2024 8:09 PM EST) Anatomical Region Laterality Modality Body Nuclear Medicine 10/25/2024 8:09 PM EST Narrative 10/25/2024 8:12 PM EST ? [facility] ?[address] ?[place] [address] ?Nuclear Medicine Report ? Signed ? Patient: Alejandro Sanchez N ?MR ?? #: [id number] ? : 1980 ?Acct:[id number] ? Age/Sex: 44 / M ?ADM Date: 10/25/24 ? Loc: HO.NUCMED ? Attending Dr: Alicja SOLORIO ? Ordering Physician: Alicja Connor ?? Date of Service: 10/25/24 ?? Procedure(s): NM gastric emptying study ?? Accession Number(s): [id number] ? cc: Alicja Connor; Kandice Bush MD [...] ? DD/ 08 ? TD/TT: 10/25/242008 ? Aws Consultant: ? Procedure Note Donotbibiinterpreter, Image - 10/25/[address] [address] Nuclear Medicine Report Signed Patient: Alejandro Sanchez [facility] #: [id number] : 1980Acct:[id number] Age/Sex: 44 / MADM Date: 10/25/24 Loc: [facility] Attending Dr: Alicja SOLORIO Ordering Physician: Alicja Connor Date of Service: 10/25/24 Procedure(s): NM gastric emptying study Accession Number(s): [id number] cc: Alicja Connor; Kandice Bush MD CLINICAL [...] in OV> 10/25/242010 DD/ 08 TD/TT: 10/25/242008 Aws Consultant: [facility] External Provider IMG NM PROCEDURES Edited Result - Final * (ABNORMAL) Lipid Panel with Reflex to Direct LDL (10/12/2023 1:46 PM EST) Triglycerides 125 <150 mg/dL [facility] Comment:Desirable Triglyceri de: less than 150 mg/dLBorderline High Triglyceride 150-199 mg/dLHigh Triglyceride: 200-499 mg/dLVery High Triglyceride: greater than or equal to 5OO mg/dL Cholesterol 206(H) <200 mg/dL [facility] Comment:Desirable Cholestero l: less than 200 mg/dLBorderline High Cholesterol: 200-239 mg/dLHigh Cholesterol: greater than 239 mg/dL LDL Cholesterol Calculated 124(H) <100 mg/dL [facility] Comment:Desirable LDL: less than 100 mg/dLNear Optimal/Above Optimal LDL: 110- 129 mg/dLBorderline High LDL: 130-159 mg/dLHigh LDL: 160-189 mg/dLVery High LDL: greater than or equal to 190 mg/dL HDL Cholesterol 57 >40 mg/dL [facility] Comment:Desirable HDL: great er than 40 mg/dL Note: This HDL assay may give artificially low results in patients with liver disease. Blood 10/12/2023 1:46 PM EST 10/12/2023 4:25 PM EST Kandice Bush MD LAB BLOOD ORDERABLES Final Resul t [facility] [address] [place] [phone] * Hepatitis C Antibody with Reflex to HCV, RNA, Quantitative, Real-Time PCR (10/12/2023 1:46 PM EST) Hepatitis C Antibody Nonreactive Nonreactive [facility] Comment:Antibodies to HCV no t detected; does not exclude early acuteHCV infection. Blood Venous blood specimen / Unknown 10/12/2023 1:46 PM EST 10/12/2023 4:19 PM EST us Kandice Bush MD LAB BLOOD ORDERABLES Final Resul t Performing Organization Address [facility] Co de Phone Number [facility] [address] [place] [phone] * HIV-1/2 Antigen and Antibodies, Fourth Generation, with Reflexes (10/12/2023 1:46 PM EST) [facility] HIV AB/AG Nonreactive Nonreactive [facility] Comment:HIV-1 p24 Ag and/or HIV-1/HIV-2 Ab not detected.A test result that is nonreactive does not exclude thepossibility of exposure to or infection with HIV-1 and/orHIV-2. Nonreactive results in this assay for individualswith prior exposure to HIV-1 and/or HIV-2 may be due toantigen and antibody levels that are below the limit ofdetection of this assay.The [employer] HIV Ag/Ab Combo assay result andsupplemental assay results should be interpreted inconjunction with the patient's clinical presentation,history and other laboratory results. If the results areinconsistent with clinical evidence, additional testing issuggested to confirm the result. Blood Venous blood specimen / Unknown 10/12/2023 1:46 PM EST 10/12/2023 4:19 PM EST us Kandice Bush MD LAB BLOOD ORDERABLES Final Resul t Performing Organization Address [facility] Co de Phone Number [facility] [address] [place] [phone] from Last 3 Months or Most Recently Relevant to Health Maintenance Insurance [facility] C3 HSN F[employer] Care Teams Talent Consultant Relationship Specialty Start Date End Date Kandice Bush MD [address] [place] [phone] PCP - General Family Medicine 06/18/23
--- OUTSIDE RECORDS SUMMARY | 2025-01-09 09:29 | XMS_ITS | Encounter Summary ---
Author Organization [employer] Address [address] [facility] 7t [place] [address] Care Team Providers Care Academic Physician Name Role Phone Kandice Bush MD Primary Care Provider [phone] Reason for Visit * Reason Comments GBAT Encounter Details Date Type Department Care Team ([facility] Contact Info) Description 01/04/2025 9:00 AM EDT Office Visit [facility] [address] [place] [address] Av Gimenez MD [address] [place] [address] Alcohol use disorder, severe, dependence (CMS/HCC) (Primary [...] GBAT meeting today. Was previously admitted to [facility] (08/12 - 08/18/2023) for alcohol detox. Also [...] a long hiatus from the GBAT Visited [facility] recently Maintaining sobriety, but admits to cravings Thus restarted taking Naltrexone 1 week ago; reports some LONG, but tolerable Will continue for 1 more week and reassess Reviewed the group goals, expectations and policies Consented to the group treatment options Actively participated in the group discussion with the topic of: Managing Psychological Pain Following staff present at the visit: Physician, Straight Truck Driver, Clinician, Team RN, and MedicalAssistant Opportunities provided to address individual medical/medication/BH concerns TODAY GBAT VISIT 01/04/2025 Patient presents for Group-Based Opioid Treatment for AUD Visited [facility] recently Maintaining sobriety, but admits to [...] Following staff present at the visit: Physician, Straight Truck Driver, Clinician, Team RN, and MedicalAssistant Opportunities provided [...] a long hiatus from the GBAT Visited [facility] recently Maintaining sobriety, but admits to [...] faced situations that may trigger use [place] POT ANNEALER reviewed Following staff present at the visit: Physician, Clinician, Straight Truck Driver and Nursing Unit Manager Follow up in 1 week for the [...] 02/20/2025 9:00 AM EDT Office Visit [facility] [address] [place], [place] [phone] TarSallie zhang, OD [address] [place], [place] [phone] documented as of this encounter Visit Diagnoses Diagnosis Alcohol use disorder, severe, dependence (CMS/HCC)- Primary documented in this encounter Additional Health Concerns Assessment Noted Time PHQ-9 Depression Total Score: 16 11/30/ 025 9:57 AM EDT documented as of this encounter Care Teams Academic Physician Relationship Specialty Start Date End Date Kandice Bush MD [address] [place] [address] PCP - General Family Medicine 06/18/23 documented as of this encounter
--- OUTSIDE RECORDS SUMMARY | 2025-01-09 09:29 | XMS_ITS | Encounter Summary ---
Author Organization [facility] Address [address] [place] [address] Care Team Providers Care Wastewater Manager Name Role Phone Patient, Has No Pcp Or Ref Primary Care Provider Unavailable Encounter Details Date Type Department Care Team (Late st Contact Info) Description 01/07/2023 Orders Only [facility] [address] [place] [address] Crystal Canchola, DINO [address] [place] [address] Social History Tobacco Use Types Packs/Day Years [...] documented as of this encounter Care Teams Wastewater Manager Relationship Specialty Start Date End Date Patient, Has No Pcp Or Ref DO NOT EDIT THIS RECORD VIA PROVIDER ON THE FLY PCP - General Millinery Teacher 01/26/23 documented as of this encounter
--- OUTSIDE RECORDS SUMMARY | 2025-01-09 09:29 | XMS_ITS | Encounter Summary ---
Author Organization [facility] Address [address] [place] [address] Care Team Providers Care Solderer Torch Name Role Phone Patient, Has No Pcp Or Ref Primary Care Provider Unavailable Encounter Details Date Type Department Care Team (Late st Contact Info) Description 01/07/2023 Telephone [facility] [address] [place] [address] Crystal Canchola NP [address] [place], [place] [phone] Social History Tobacco Use Types Packs/Day Years [...] documented as of this encounter Care Teams Solderer Torch Relationship Specialty Start Date End Date Patient, Has No Pcp Or Ref DO NOT EDIT THIS RECORD VIA PROVIDER ON THE FLY PCP - General Victim Advocate 01/26/23 documented as of this encounter
--- OUTSIDE RECORDS SUMMARY | 2025-01-09 09:29 | XMS_ITS | Encounter Summary ---
Author Organization [facility] Address [address] [place] [address] Care Team Providers Care University Administrative Assistant Name Role Phone Patient, Has No Pcp Or Ref Primary Care Provider Unavailable Encounter Details Date Type Department Care Team (Late st Contact Info) Description 01/21/2023 Telephone [facility] Nuclear Medicine [address] [place] [address] Diaz Carrera, RN Social History Tobacco [...] documented as of this encounter Care Teams University Administrative Assistant Relationship Specialty Start Date End Date Patient, Has No Pcp Or Ref DO NOT EDIT THIS RECORD VIA PROVIDER ON THE FLY PCP - General Pot Lining Supervisor 01/26/23 documented as of this encounter
--- OUTSIDE RECORDS SUMMARY | 2025-01-09 09:29 | XMS_ITS | Encounter Summary ---
Author Organization [employer] Address [address] [facility] 7t [place] [address] Care Team Providers Care Job Trainer Name Role Phone Kandice Bush MD Primary Care Provider [phone] Encounter Details Date Type Department Care Team [...] Description 02/20/2025 9:00 AM EDT Office Visit [facility] [address] [place] [address] Sallie Renee, OD [address] [place] [address] documented as of this encounter Visit Diagnoses Not on filedocumented in this encounter Additional Health Concerns Assessment Noted Time PHQ-9 Depression Total Score: 16 025 9:57 AM EDT documented as of this encounter Care Teams Job Trainer Relationship Specialty Start Date End Date Kandice Bush MD [address] [place] [address] PCP - General Family Medicine 06/18/23 documented as of this encounter
--- OUTSIDE RECORDS SUMMARY | 2025-01-09 09:30 | XMS_ITS | Clinical Summary ---
Author Organization [facility] Address [address] [place] [address] Care Team Providers Care Form Layer Name Role Phone Patient, Has No Pcp [...] this topic Procedures * Due to [place] [employer] law, this organization might not be sharing negative HIV tests. Procedure Name Priority Date/Time Associated Diagnosis Comments HEPATITIS PANEL, ACUTE STAT 03/30/2009 12:15 PM EDT from Last 3 Months or Most Recently Relevant to Health Maintenance Results * Due to [place] [employer] law, this organization might not be sharing negative HIV tests. * Hepatitis Panel, Acute (03/30/2009 12:15 PM EDT) Hepatitis A IgM Antibody Negative Negative [facility] Hepatitis B Core IgM Antibody Negative Negative [facility] Hepatitis B Surface Ag Negative Negative [facility] Hepatitis C Antibody Negative Negative [facility] 03/30/2009 12:1 5 PM EDT 03/30/2009 2:27 PM EDT us Christiane Mathur MD LAB BLOOD ORDERABLES Vonda oreilly Result [facility] [address] [place] [address], from Last 3 Months or Most Recently Relevant to Health Maintenance Insurance [place] Care Teams Form Layer Relationship Specialty Start Date End Date Patient, Has No Pcp Or Ref DO NOT EDIT THIS RECORD VIA PROVIDER ON THE FLY PCP - General Cut In Station Operator 01/26/23
--- OUTSIDE RECORDS SUMMARY | 2025-01-09 09:30 | XMS_ITS | Encounter Summary ---
Author Organization [employer] Address [address] [place] [address] 7t [place] [address] Care Team Providers Care Police Detention Attendant Name Role Phone Kandice Bush MD Primary Care Provider [phone] Reason for Referral * Imaging (Routine) - Closed Specialty Diagnoses / Procedures Referred By Contac t Referred To Contact Radiology Diagnoses Left-sided tinnitus Dizziness Other headache syndrome Procedures Mr Brain w/ and w/o Contrast Kandice Bush MD [address] [place] [address] Phone: tel: fax: [address] Phone: tel: fax: Referral ID Status Reason Start Date Expiration Date Visits Re quested Visits Authorized [id number] Closed 10/13/2023 10/12/2024 1 1 Encounter Details Date Type Department Care Team (Late st Contact Info) Description 10/13/2023 Orders Only [facility] [address] [place] [address] Kandice Bush MD [address] [place], [place] [phone] Left-sided tinnitus (Primary Dx); Dizziness; Other headache [...] Description 02/20/2025 9:00 AM EDT Office Visit [facility] [address] [place] [address] Sallie Renee, OD [address] [place] [address] documented as of this encounter Procedures Procedure [...] EST Narrative 11/13/2023 4:45 PM EST ? [facility] ?[address] ?[place] [address] ? Magnetic Resonance Report ? Signed ? Patient: Blum Castanaza,Alejandro N ?MR ?? #: [id number] ? : 1980 ?Acct:[id number] ? Age/Sex: 43 / M ?ADM Date: 11/10/23 ? Loc: HO.MRI ? Attending Dr: Kandice Bush MD ? Ordering Physician: Kandice Bush MD ?? Date of Service: 11/10/23 ?? Procedure(s): MR head/brain wo/w con ?? Accession Number(s): [id number] ? cc: Kandice Bush MD ? EXAMINATION: [...] 1641 ? DD/ 0858 ? TD/TT: ? Box Covering Machine Operator: ? Procedure Note Donroloter, Image - 11/13/[address] [address] Magnetic Resonance Report Signed Patient: Alejandro Sanchez NMR #: [id number] : 1980Acct:[id number] Age/Sex: 43 / MADM Date: 11/10/23 Loc: HO.MRI Attending Dr: Kandice Bush MD Ordering Physician: Kandice Bush MD Date of Service: 11/10/23 Procedure(s): MR head/brain wo/w con Accession Number(s): [id number] cc: Kandice Bush MD EXAMINATION: MR BRAIN [...] neuritis or acoustic neuroma. Dictated By: Angelina Mairano Signed By: <Electronically signed by Angelina Mariano in [place]> 11/13/23 1641 DD/ 0858 TD/TT: Box Covering Machine Operator: Kandice Bush MD IM MRI PROCEDURES Final Result documented in this encounter Visit Diagnoses Diagnosis Left-sided tinnitus- Primary Unspecified tinnitus Dizziness Dizziness and giddiness Other headache syndrome documented in this encounter Care Teams Police Detention Attendant Relationship Specialty Start Date End Date Kandice Bush MD [address] [place] [address] PCP - General Family Medicine 06/18/23 documented as of this encounter
--- OUTSIDE RECORDS SUMMARY | 2025-01-09 09:30 | XMS_ITS | Referral Summary ---
Author Organization [facility] Address [address] [place] [address] Care Team Providers Care Fuel Verification Technician Name Role Phone Patient, Has No Pcp [...] Not on file Procedures * Due to [place] [employer] law, this organization might not be sharing negative HIV tests. Procedure Name Priority Date/Time Associated Diagnosis Comments HEPATITIS PANEL, ACUTE STAT 03/30/2009 12:15 PM EDT from Last 3 Months or Most Recently Relevant to Health Maintenance Results * Due to [place] [employer] law, this organization might not be sharing negative HIV tests. * Hepatitis Panel, Acute (03/30/2009 12:15 PM EDT) Hepatitis A IgM Antibody Negative Negative [facility] Hepatitis B Core IgM Antibody Negative Negative [facility] Hepatitis B Surface Ag Negative Negative [facility] Hepatitis C Antibody Negative Negative [facility] 03/30/2009 12:1 5 PM EDT 03/30/2009 2:27 PM EDT us Christiane Mathur MD LAB BLOOD ORDERABLES Vonda afia Result [facility] [address] [place] [address], from Last 3 Months or Most Recently Relevant to Health Maintenance [place] [address] [address] MEDICAID Care Teams Fuel Verification Technician Relationship Specialty Start Date End Date Patient, Has No Pcp Or Ref DO NOT EDIT THIS RECORD VIA PROVIDER ON THE FLY PCP - General Health Insurance Sales Agent 01/26/23
--- OUTSIDE RECORDS SUMMARY | 2025-01-09 09:30 | XMS_ITS | Encounter Summary ---
Author Organization [employer] Address [address] [place] [address] 7t [place] [address] Care Team Providers Care Hydrogen Plant Operations Manager Name Role Phone Kandice Bush MD Primary Care Provider [phone] Reason for Referral * Consultation (Urgent) - Closed Specialty Diagnoses / Procedures Referred By Contrafael t Referred To Contact Podiatry Diagnoses Heel pain, bilateral Kandice Bush MD [address] [place] [address] Phone: tel: fax: Diaz Rojo DPM Phone: tel: fax: Referral ID Status Reason Start Date Expiration Date V isits Requested Visits Authorized [id number] Closed Specialty Services Required 06/07/2024 06/07/2025 6 6 Encounter Details Date Type Department Care Team (Late st Contact Info) Description 06/03/2024 Orders Only [facility] [address] [place] [phone] Kandice Bush MD [address] [place], [place] [phone] Heel pain, bilateral (Primary Dx) Social History [...] Description 02/20/2025 9:00 AM EDT Office Visit [facility] [address] [place] [address] Sallie Renee, OD [address] [place] [address] Scheduled Referrals Name Type Priority Associated Diagnoses Orde r Schedule Referral to Podiatry Outpatient Referral Urgent Heel pain, bilateral Expected: 06/03/2024 (Approximate), Expires: 06/03/2025 documented as of this encounter Visit Diagnoses Diagnosis Heel pain, bilateral- Primary documented in this encounter Additional Health Concerns Assessment Noted Time PHQ-9 Depression Total Score: 8 03/04/20 24 8:22 AM EDT documented as of this encounter Care Teams Hydrogen Plant Operations Manager Relationship Specialty Start Date End Date Kandice Bush MD [address] [place] [address] PCP - General Family Medicine 06/18/23 documented as of this encounter
--- OUTSIDE RECORDS SUMMARY | 2025-01-09 09:30 | XMS_ITS | Data Portability ---
Author Organization [place] [facility] Address [address] [place] [phone] Care Team Providers Care Railroad Passenger Agent Name Role Phone JOSE BRYSON Primary Care [...] Organization Details Recorded Time Abnormal auditory perception [id number] Active 2023 JACQUELINE MUÑOZ [address] [place] [address], [place], [phone], [facility] 15:21:55 Tinnitus of left ear [id number] Active 2023 ANTONIETTA SAM MD [address] [address], [place], [phone], [facility] 15:41:05 Problem Notes None recorded. Procedures Surgical History Date Name Laterality Status Provider Name and Address Organization Details Recorded Time 02/24/2024 Air & Speech Audio with Tymps - 00182, 17133 & 80840 completed JACQUELINE MUÑOZ [address] [place] [address], [phone], [facility] 02/24/2024 15:21:44 Imaging Results Imaging Date Name Status LastModified by Organiz ation Details LastModified Time 04/08/2024 audiogram completed [facility] Information no t available 04/08/2024 15:21:00 Procedure Notes None recorded. Medical Equipment None Reported. Allergies Allergen ID Allergen Name Allergen Category Reaction Reaction Severity Criticality Documentation Date Start Date Code Code System Note Provider Name and Address Organization Details Recorded Time 247751 Product containin g penicilli n (product) medicatio n hives Not available Not available 02/24/2024 26937 8001 SNOMED Samantha owens [facility] 15:17:00 Vitals Date Recorded Body height Body mass index (BMI) Body weight Provider Name and Address Organization Details Last Updated DateTime 02/24/2024 185.42 cm 38.5 kg/m2 638312.97 g Samantha Nolan [facility] 02/24/2024 15:31:31 Social History None recorded. [...] Diagnosis Note [id number] ANTONIETTA SAM MD ENT[facility] [address] [place] [address] 02/24/2024 15:01:17 02/24/2024 15:45:33 Abnormal auditory perception [id number] H93.299 Right Ear:Normal hearing with excellent speech discrimina tion.Type A tympanogra m.Left Ear:Normal hearing with excellent speech discrimina tion.Type A tympanogra m. Tinnitus of left ear 903 [id number] 106 H93.12 Health Concerns Section Related Observation LastModified by Organization Detai ls LastModified Time None Recorded Concern Status LastModified by Organization Details LastModified Time None Recorded Advance Directives Directive None Recorded Payers Encounter Date Sequence Insurance Name Policy Number Policy Scott Covered Member ID Scott Member ID Guarantor Name 02/24/2024 1 [place] [facility] Alejandro N Blum [id number] [facility] Date Note Type Note Provider Name [...] some blood last year ANTONIETTA SAM MD [address] [place] [address], [phone], [facility] - [facility] 02/24/2024 15:44:07 OBGyn Episode No OBEpisode recorded.
--- OUTSIDE RECORDS SUMMARY | 2025-01-09 09:30 | XMS_ITS | Encounter Summary ---
Author Organization [email or web address] Address [address] [facility] 7t [place] [address] Care Team Providers Care Laborer Cheesemaking Name Role Phone Kandice Bush MD Primary Care Provider [phone] Encounter Details Date Type Department Care Team ([facility] st Contact Info) Description 10/13/2023 Orders Only [facility] [address] [place] [address] Kandice Bush MD [address] [place] [address] Social History Tobacco Use Types Packs/Day Years [...] Description 02/20/2025 9:00 AM EDT Office Visit [facility] [address] [place] [address] Sallie Renee, OD [address] [place] [address] documented as of this encounter Visit Diagnoses Not on filedocumented in this encounter Care Teams Laborer Cheesemaking Relationship Specialty Start Date End Date Kandice Bush MD [address] [place] [address] PCP - General Family Medicine 06/18/23 documented as of this encounter
--- OUTSIDE RECORDS SUMMARY | 2025-01-09 09:30 | XMS_ITS | Encounter Summary ---
Author Organization [employer] Address [address] [place] [address] 7t [place] [address] Care Team Providers Care Social Work Assistant Name Role Phone Kandice Bush MD Primary Care Provider [phone] Reason for Referral * Consultation (Routine) - Closed Specialty Diagnoses / Procedures Referred By Radha bell Referred To Contact Urology Diagnoses Erectile dysfunction, unspecified erectile dysfunction type Low testosterone Kandice Bush MD [address] [place] [address] Phone: tel: fax: [facility] Referral ID Status Reason Start Date Expiration Date V isits Requested Visits Authorized [id number] Closed Specialty Services Required 01/21/2024 01/20/2025 6 6 Encounter Details Date Type Department Care Team (Late st Contact Info) Description 01/18/2024 Orders Only [facility] [address] [place] [phone] Kandice Bush MD [address] [place] [phone] Erectile dysfunction, unspecified erectile dysfunction type (Primary [...] Office Visit [facility] OPT[facility] [address] [place] [address] Sallie Renee, OD [address] [place] [address] Scheduled Referrals Name Type Priority Associated Diagnoses [...] documented as of this encounter Care Teams Social Work Assistant Relationship Specialty Start Date End Date Kandice Bush MD [address] [place] [address] PCP - General Family Medicine 06/18/23 documented as of this encounter
--- OUTSIDE RECORDS SUMMARY | 2025-01-09 09:30 | XMS_ITS | Encounter Summary ---
Author Organization [employer] Address [address] [facility] 7t [place] [address] Care Team Providers Care Gas Engine Operator Generators Name Role Phone Kandice Bush MD Primary Care Provider [phone] Reason for Visit * Reason Onset Date Comments FYI 08/12/2023 Encounter Details Date Type Department Care Team ([facility] Contact Info) Description 08/12/2023 Telephone [facility] [address] [place], [place] [phone] Kandice Bush MD [address] [place] [address] FYI Social History Tobacco Use Types Packs/Day [...] – [place] yesterday (08/11) for an overdose. Actuary Manager did advise rosaura to call after pt is discharged. documented in this encounter Plan of Treatment Upcoming Encounters Date Type Department Care Team (Late st Contact Info) Description 02/20/2025 9:00 AM EDT Office Visit [facility] OPTOMETRY [address] [place] [address] Sallie Renee, OD [address] [place] [address] documented as of this encounter Visit Diagnoses Not on filedocumented in this encounter Care Teams Gas Engine Operator Generators Relationship Specialty Start Date End Date Kandice Bush MD [address] [place] [address] PCP - General Family Medicine 06/18/23 documented as of this encounter
[2025-01-09 09:31] VITALS: BP 120/90; PULSE 65; O2SAT 95; BMI 35.9
--- NOTE | 2025-01-09 09:31 | MHC.OFFVIS ---
Vital Signs 01/09/25 09:31 Height 6 ft 2 in Weight 280 lb BMI 35.9 BP 120/90 H Blood Pressure Location Rt brachial Position Sitting Pulse 65 Pulse Source Pulse Oximeter Pulse Oximetry (%) 95 Oxygen Delivery Method Room Air Intake Visit Reasons: Follow Up Instructional Support Assistant Required: No Accompanied by: Self / Same As Patient Allergies Penicillins [PCN] Allergy (Verified 01/09/25 09:33) Rash Medication List - Last Reconciled 01/09/25 by JAMIN Hall blood pressure test kit-large As directed cholecalciferol (vitamin D3) 25 mcg PO DAILY esomeprazole magnesium (Nexium) 40 mg PO DAILY fluticasone propionate 50 mcg/actuation 1 spray intranasal DAILY melatonin 3 - 9 mg (1 - 3 x 3 mg) PO DAILY 30 days prazosin 1 mg PO BEDTIME 30 days sertraline 50 mg PO DAILY sucralfate 10 mL PO BID tadalafil (Cialis) 5 mg PO DAILY 90 days HPI Comments Details: 44-yr-old male presents for follow-up visit of sleep apnea. Pt did [place]. He reports he can fall asleep, however he continues to have difficulty staying asleep, snoring, gasping arousals- if takes a daytime nap, unrefreshing sleep, and excessive daytime. He has nightmares when he takes daytime naps- even within a 30 minute nap. He feels that since he is not sleeping as well- he is losing his appetite and had weight lose- However he also has GI s/s, GERD, h/o h. pylori- f/b GI. He reports increased depression and anxiety and recently had an unprovoked panic attack, so his recovery and support clinic has started him on sertraline as well as another prn anxiety tx. He feels the sertraline may be making him more drowsy. Pt reports he continues to abstain from alcohol. He may use a little bit of marijuana for sleep- does help some. He is falling asleep around 7-9pm, and waking up around 3-4am and cannot fall asleep. He is not currently working as he is recovering from the repeated Covid-19, RSV, and ongoing BLE orthopedic issues. In the past, he tried Melatonin at bedtime- but he felt more awake at night and then was very sleepy during the day. PFSH Medical History Transaminitis Long COVID Abnormal stress test Cardiomyopathy Blood pressure elevated without history of HTN History of Helicobacter pylori infection Varicose vein of leg Alcohol use disorder MDD (major depressive disorder), recurrent severe, without psychosis Alcohol abuse Social History Household Members: Other Household Members Other:: girlfriend Housing: Apartment Are you a primary transitional care manager to a significant other at home: No Do you presently have visiting nurse or other home services: No Unable to assess alcohol history related to: Unknown Alcohol intake: current Alcohol intake frequency: does not drink Alcohol type: beer and hard liquor Patient Tobacco Use Status: Former Tobacco user Second Hand Smoke Exposure: No (Unknown, pt unable to participate fully in admission.) Substance Use Type: Marijuana service: No Sexual orientation: Straight/Heterosexual Physical Exam Vital Signs: Last Vital Signs Pulse 65 01/09/25 09:31 BP 120/90 H 01/09/25 09:31 Pulse Ox 95 01/09/25 09:31 Oxygen Delivery Method Room Air 01/09/25 09:31 BMI result Body Mass Index 35.9 Const General: no acute distress Orientation/consciousness: patient oriented x3 Resp Effort & Inspection: normal respiratory effort and able to speak in complete sentences Auscultation: clear to auscultation bilaterally Neuro General: patient oriented x3 Cranial nerves: Yes CN's II-XII intact bilaterally Gait exam (Neuro): Normal gait present Motor exam (neuro): 5/5 motor strength present throughout Psych Mental Status: mental status grossly normal Speech and movement: Clear speech present Attitude: cooperative Assessment & Plan Assessment & Plan (1) Sleep difficulties: Code(s): G47.9 - Sleep disorder, unspecified Category: Medical (2) Excessive daytime sleepiness: Code(s): G47.19 - Other hypersomnia Category: Medical (3) Snoring: Code(s): R06.83 - Snoring Category: Medical (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 Code(s): F51.5 - Nightmare disorder Category: Medical Plan Pt is again advised to undergo HST to assess for sleep apnea. Pt did not retry Melatonin, again try Melatonin 3-9mg q evening/sunset in hopes this minimizes nightmares. If ineffective, could consider Prazosin 1mg cap daily at bedtime. Discussed that likely decreased appetite is not the rpimary cause of decreased appetite- as typically poor sleep is a/w increased appetite. Follow-up w/ GI as scheduled. Will follow-up upon review of above and patient to follow-up in clinic in 6 months or sooner prn. Orders: Orders RT home sleep study Today G47.19 - Other hypersomnia, G47.9 - Sleep disorder, unspecified, R06.83 - Snoring Coding Level of Care Code Est Pt Level 3 (67422) Diagnoses Sleep difficulties G47.9 Excessive daytime sleepiness G47.19 Snoring R06.83 Nightmare disorder F51.5 Clarita Sleepiness Scale Questions Sitting and reading: high chance of dozing Watching TV: high chance of dozing Sitting inactive in a theater, movie etc.: moderate chance of dozing As a passenger in a car for an hour without break: moderate chance of dozing Lying down in the afternoon when circumstances permit: high chance of dozing Sitting and talking to someone: would never doze Sitting quietly after lunch without alcohol: high chance of dozing In a car, while stopped for a few minutes in the traffic: would never doze ESS < 10: normal, ESS > 12: pathologic: 16
== END 2025-01-09 10:11 | disposition home or self-care (01) ==
LOC: HO.HSMS 08:59
PROVIDERS: PCP Family Medicine; Visit Provider Nurse Practitioner Family
DX: G47.9 Sleep disorder, unspecified (principal); G47.19 Other hypersomnia; R06.83 Snoring; F51.5 Nightmare disorder
CPT/HCPCS: 99213

== ENCOUNTER → 2025-01-09 08:58 | Outpatient (BNVA) | payer MEDICAID, SELFPAY | PROVIDERS: PCP Family Medicine; Visit Provider Nurse Practitioner Family | DX: G47.9 Sleep disorder, unspecified (principal); G47.19 Other hypersomnia; R06.83 Snoring; F51.5 Nightmare disorder | CPT/HCPCS: 99212 ==

== ENCOUNTER → 2025-01-12 10:20 | Outpatient (BNV) | payer MEDICAID, SELFPAY | PROVIDERS: PCP Family Medicine; Visit Provider Internal Medicine | DX: R10.9 Unspecified abdominal pain (principal); K20.90 Esophagitis, unspecified without bleeding | CPT/HCPCS: 43239 ==

== ENCOUNTER → 2025-01-12 10:20 | Day surgery (SDC) | payer MEDICAID, SELFPAY ==
--- OUTSIDE RECORDS SUMMARY | 2025-01-06 10:11 | XMS_ITS | Encounter Summary ---
Author Organization [email or web address] Address [address] [facility] [address] [place] [address] Care Team Providers Care Satellite Tv Technician Installer Name Role Phone Kandice Bush MD Primary Care Provider [phone] Reason for Visit * Reason Comments Recovery Supports Encounter Details Date Type Department Care Team ([facility] st Contact Info) Description 01/02/2025 Patient Outreach [facility] [address] [place] [address] Neto Gonzales [address] [place] [address] Recovery Supports Social History Tobacco Use Types [...] the past 12 months, has t he [employer], gas, oil or water company threatened to [...] of this encounter Progress Notes * Neto Gonzales - 01/02/2025 11:59 PM EDT I met with Alejandro today. Setting: in person at [facility] Recovery Wellness Goals worked on: Physical Health/Mental Health, Social Stability, and Spiritual Wellness Action taken/next steps: Attended recovery support group Additional comments: Neto Gonzales documented in this encounter Plan of Treatment Upcoming Encounters Date Type Department Care Team (Late st Contact Info) Description 02/20/2025 9:00 AM EDT Office Visit [facility] [address] [place] [address] Sallie Renee, OD [address] [place] [address] documented as of this encounter Visit Diagnoses Not on filedocumented in this encounter Additional Health Concerns Assessment Noted Time PHQ-9 Depression Total Score: 16 025 9:57 AM EDT documented as of this encounter Care Teams Satellite Tv Technician Installer Relationship Specialty Start Date End Date Kandice Bush MD [address] [place] [address] PCP - General Family Medicine 06/18/23 documented as of this encounter
--- OUTSIDE RECORDS SUMMARY | 2025-01-06 10:11 | XMS_ITS | Encounter Summary ---
Author Organization [facility] Address [address] [place] [address] Care Team Providers Care Sand Mill Grinder Name Role Phone Patient, Has No Pcp Or Ref Primary Care Provider Unavailable Encounter Details Date Type Department Care Team (Late st Contact Info) Description 01/07/2023 Orders Only [facility] [address] [place] [address] Crystal Canchola, DINO [address] [place] [address] Social History Tobacco Use Types Packs/Day Years [...] documented as of this encounter Care Teams Sand Mill Grinder Relationship Specialty Start Date End Date Patient, Has No Pcp Or Ref DO NOT EDIT THIS RECORD VIA PROVIDER ON THE FLY PCP - General Power Nut Runner Operator 01/26/23 documented as of this encounter
--- OUTSIDE RECORDS SUMMARY | 2025-01-06 10:11 | XMS_ITS | Clinical Summary ---
Author Organization [employer] Address [address] [facility] 7t [place] [address] Care Team Providers Care Reconcilement Clerk Name Role Phone Kandice Bush MD Primary Care Provider [phone] Allergies Active Allergy Reactions Criticality Noted Date [...] (12/03/2024 6:07 AM EDT): - following with [facility], last seen in Oct 2024 - [...] - patient has already been referred to career and transition teacher, patient will call to reschedule appt Assessment & Plan (05/12/2024 12:07 PM EDT): - likely plantar fascitis - continue wearing comfortable shoes - ice and stretching exercises - patient has already been referred to career and transition teacher, will check its status Erectile dysfunction 05/12/2024 [...] son; 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; alcohol use - behavioral health service provider: [...] son; 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; alcohol use - behavioral health service provider: [facility], talking with a therapist weekly - currently [...] son; 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 Alcohol use disorder 06/17/2023 Assessment & Plan (12/03/2024 6:11 AM EDT): - following with Dr. Gimenez / AUD clinic in [facility] - continue current recovery effort and [...] with Dr. Gimenez / AUD clinic in [facility] - continue current recovery effort and support Assessment & Plan (10/12/2023 4:12 PM EST): - following with Dr. Gimenez / AUD clinic in [facility] - continue current recovery effort and support Assessment & Plan (06/17/2023 5:34 PM EDT): - pt drinks large amount - pt may need to go to Detox first before starting medication - will refer to power and recovery supervisor and AUD clinic Elevated blood pressure read [...] self-monitoring BP. -Pt is already following with volunteer services assistant for cardiomyopathy -Follow up in 3 mo, sooner if any problem arises Cardiomyopathy 06/17/2023 Assessment & Plan (11/29/2024 9:48 AM EDT): - volunteer services assistant: Dr. Henderson, [facility], last seen on 01/27/23 - Hx abnormal [...] & Plan (01/17/2024 3:15 PM EDT): - volunteer services assistant: [employer], last seen on 01/27/23 - Hx abnormal stress test, MPI EF50% - TTE on 03/31/23 showed normal cardiac anatomy and function LVEF 58% - current working Dx is due to alcohol use - Follow up with Dr. Henedrson as scheduled - Support harm reduction and recovery effort with CRS team - Continue thiamine and folic acid Assessment & Plan (10/12/2023 5:44 AM EST): - volunteer services assistant: [employer], last seen on 01/27/23 - Hx abnormal [...] & Plan (06/17/2023 6:13 PM EDT): - volunteer services assistant: [employer], last seen on 01/27/23 - Hx abnormal [...] PM EDT): - continue following specialists at [facility] declines COVID vaccine Assessment & Plan (10/12/2023 4:13 PM EST): - continue following specialists at [facility] declines COVID vaccine Assessment & Plan (06/17/2023 6:17 PM EDT): - continue following specialists at [facility] declines COVID vaccine Headache 06/17/2023 Assessment & [...] EDT): - followed by Dr. Genao / [facility]. Last seen in Oct 2024 [...] s/p phlebectomy or venous ablation in [facility] - currently following with Dr. Genao [facility] - Radiofrequencyy ablation of right GSV and accessory right GSV on 12/18/23 - Radiofrequencyy ablation of right SSV on 01/29/24 - Right leg microphlebectomy and ligation of venous cluster x 2 - compression stocking, leg elevation, reduce sodium and alcohol consumption Assessment & Plan (10/12/2023 4:11 PM EST): - s/p phlebectomy or venous ablation in [facility] - currently following with Dr. Genao [facility] - compression stocking, leg elevation, reduce sodium [...] Description 01/04/2025 9:00 AM EDT Office Visit [facility] [address] [place] [address] Av Gimenez MD Alcohol use disorder, severe, dependence (CMS/HCC) (Primary Dx) 01/04/2025 Travel 01/03/2025 Patient Outreach [facility] [address] [place] [phone] Joe Rosenthal Recovery Supports 01/02/2025 Patient Outreach [facility] [place] [address] Neto Gonzales Recovery Supports 12/23/2024 Telephone [facility] [place] [address] Car JEFFERY Sevilla may recall 12/22/2024 Patient Outreach [facility] [place] [address] Neto Gonzales Recovery Supports 12/21/2024 Patient Outreach [facility] [place] [address] RosenthalJoe moya Recovery Supports 12/20/2024 Patient Outreach [facility] [place] [address] RosenthalJoe moya Recovery Supports 12/06/2024 Patient Outreach [facility] [place] [address] RosenthalJoe moya Recovery Supports 11/30/2024 9:00 AM EDT Office Visit [facility] [place] [address] Av Gimenez MD Alcohol use disorder, severe, dependence (CMS/HCC) (Primary Dx) 11/30/2024 Travel 11/29/2024 1:15 PM EDT Office Visit [facility] [place] [address] Kandice Bush MD Heel pain, bilateral (Primary [...] screening for respiratory tuberculosis 11/29/2024 Patient Outreach [address] [address] Neto Gonzales Recovery Supports 11/29/2024 Travel 11/25/[address] [address] Kandice Bush MD chart prep 11/25/[address] [address] Jr Garcia MD 11/21/2024 Patient Outreach [address] [phone] Kandice Bush MD Care Coordination (CHW outreach for SDOH food needs-LVM /) 11/21/2024 Patient Outreach [address] [address] Kandice Bush MD Pre-visit Planning (SDOH Screening positive and Tobacco screening negative) 11/18/2024 Population Health Risk Score [facility] () [address] [phone] Provider, Population Health Generic 11/15/2024 8:40 AM EDT Office Visit [address] [phone] Jr Garcia MD Influenza-like symptoms (Primary Dx); Conjunctivitis of both eyes, unspecified conjunctivitis type; Acute URI 10/14/2024 9:40 AM EST Office Visit [address] [phone] Av Gimenez MD Moderate episode of recurrent major depressive disorder (CMS/HCC) (Primary Dx); ZACHARY (generalized anxiety disorder) 10/14/[address] [phone] Anel Gayle, JOCELIN Nurse Triage 10/11/[address] [phone] Kandice Bush MD Nurse Triage from Last [...] Description 02/20/2025 9:00 AM EDT Office Visit [facility] [address] [place], [place] [phone] Sallie Renee, OD [address] [place], [place] [phone] Health Maintenance Due Date Last Done Comments [...] AM EDT) Influenza B Negative Negative, Indeterminate [facility] Swab 11/15/2024 8:54 AM EDT us Jr Garcia MD POINT OF CARE TEST ENTER/EDIT OR DERABLES Final Result Performing Organization Address [facility] Co de Phone Number [facility] [address] [place] [address] [phone] * Influenza A (ID NOW Rapid Molecular) (11/15/2024 8:54 AM EDT) Pathologist [facility] Influenza A Negative Negative, Indeterminate [facility] Swab 11/15/2024 8:54 AM EDT us Jr Garcia MD POINT OF CARE TEST ENTER/EDIT OR DERABLES Final Result Performing Organization Address [facility] Co de Phone Number [facility] [address] [place] [phone] * POCT Rapid COVID Ag (11/15/2024 8:54 AM EDT) Pathologist [facility] Rapid COVID Ag Negative [facility] Swab 11/15/2024 8:54 AM EDT us Jr Garcia MD POINT OF CARE TEST ENTER/EDIT OR DERABLES Final Result Performing Organization Address [facility] Co de Phone Number [facility] [address] [place] [phone] * POCT rapid strep A manually resulted (11/15/2024 8:54 AM EDT) Pathologist [facility] Rapid Strep A Screen Negative Negative, None Detected [facility] Swab 11/15/2024 8:54 AM EDT us Jr Garcia MD POINT OF CARE TEST ENTER/EDIT OR DERABLES Final Result Performing Organization Address [facility]/ZIP Co de Phone Number [facility] [address] [place] [address] [phone] * NM Gastric Emptying Solid (10/25/2024 8:09 PM EST) Anatomical Region Laterality Modality Body Nuclear Medicine 10/25/2024 8:09 PM EST Narrative 10/25/2024 8:12 PM EST ? [facility] ?[address] ?[place] [address] ?Nuclear Medicine Report ? Signed ? Patient: Blum Марияanaza,Alejandro N ?MR ?? #: [id number] ? : 1980 ?Acct:[id number] ? Age/Sex: 44 / M ?ADM Date: 10/25/24 ? Loc: HO.NUCMED ? Attending Dr: Alicja SOLORIO ? Ordering Physician: Alicja Connor ?? Date of Service: 10/25/24 ?? Procedure(s): NM gastric emptying study ?? Accession Number(s): [id number] ? cc: Alicja Connor; Kandice Bush MD [...] ? DD/ 08 ? TD/TT: 10/25/242008 ? Salad Maker: ? Procedure Note Donotbibiinterpreter, Image - 10/25/[address] [address] Nuclear Medicine Report Signed Patient: Alejandro Sanchez NMR #: [id number] : 1980Acct:[id number] Age/Sex: 44 / MADM Date: 10/25/24 Loc: [facility] Attending Dr: Alicja SOLORIO Ordering Physician: Alicja Connor Date of Service: 10/25/24 Procedure(s): NM gastric emptying study Accession Number(s): [id number] cc: Alicaj Connor; Kandice Bush MD CLINICAL HISTORY: R68.81 [...] in OV> 10/25/242010 DD/ 08 TD/TT: 10/25/242008 Salad Maker: [facility] External Provider IMG NM PROCEDURES Edited Result - Final * (ABNORMAL) Lipid Panel with Reflex to Direct LDL (10/12/2023 1:46 PM EST) Triglycerides 125 <150 mg/dL [facility] Comment:Desirable Triglyceri de: less than 150 mg/dLBorderline High Triglyceride 150-199 mg/dLHigh Triglyceride: 200-499 mg/dLVery High Triglyceride: greater than or equal to 5OO mg/dL Cholesterol 206(H) <200 mg/dL [facility] Comment:Desirable Cholestero l: less than 200 mg/dLBorderline High Cholesterol: 200-239 mg/dLHigh Cholesterol: greater than 239 mg/dL LDL Cholesterol Calculated 124(H) <100 mg/dL [facility] Comment:Desirable LDL: less than 100 mg/dLNear Optimal/Above Optimal LDL: 110- 129 mg/dLBorderline High LDL: 130-159 mg/dLHigh LDL: 160-189 mg/dLVery High LDL: greater than or equal to 190 mg/dL HDL Cholesterol 57 >40 mg/dL [facility] Comment:Desirable HDL: great er than 40 mg/dL Note: This HDL assay may give artificially low results in patients with liver disease. Blood 10/12/2023 1:46 PM EST 10/12/2023 4:25 PM EST Kandice Bush MD LAB BLOOD ORDERABLES Final Resul t [facility] [address] [place] [address] [phone] * Hepatitis C Antibody with Reflex to HCV, RNA, Quantitative, Real-Time PCR (10/12/2023 1:46 PM EST) Hepatitis C Antibody Nonreactive Nonreactive [facility] Comment:Antibodies to HCV no t detected; does not exclude early acuteHCV infection. Blood Venous blood specimen / Unknown 10/12/2023 1:46 PM EST 10/12/2023 4:19 PM EST Kandice Bush MD LAB BLOOD ORDERABLES Final Resul t Performing Organization Address [facility] Co de Phone Number [facility] [address] [place] [address] [phone] * HIV-1/2 Antigen and Antibodies, Fourth Generation, with Reflexes (10/12/2023 1:46 PM EST) [facility] HIV AB/AG Nonreactive Nonreactive [facility] Comment:HIV-1 p24 Ag and/or HIV-1/HIV-2 Ab not detected.A test result that is nonreactive does not exclude thepossibility of exposure to or infection with HIV-1 and/orHIV-2. Nonreactive results in this assay for individualswith prior exposure to HIV-1 and/or HIV-2 may be due toantigen and antibody levels that are below the limit ofdetection of this assay.The [employer] HIV Ag/Ab Combo assay result andsupplemental assay results should be interpreted inconjunction with the patient's clinical presentation,history and other laboratory results. If the results areinconsistent with clinical evidence, additional testing issuggested to confirm the result. Blood Venous blood specimen / Unknown 10/12/2023 1:46 PM EST 10/12/2023 4:19 PM EST Kandice Bush MD LAB BLOOD ORDERABLES Final Resul t Performing Organization Address [facility]/ZIP Co de Phone Number [facility] [address] [place] [address] [phone] from Last 3 Months or Most Recently Relevant to Health Maintenance [place] [address] [place] [address] C3 HSN FULL Care Teams Reconcilement Clerk Relationship Specialty Start Date End Date Kandice Bush MD [address] [place] [address] PCP - General Family Medicine 06/18/23
--- OUTSIDE RECORDS SUMMARY | 2025-01-06 10:11 | XMS_ITS | Encounter Summary ---
Author Organization [employer] Address [address] [facility] 7t [place] [address] Care Team Providers Care Waste Specialist Name Role Phone Kandice Bush MD Primary Care Provider [phone] Reason for Visit * Reason Comments GBAT Encounter Details Date Type Department Care Team ([facility] Contact Info) Description 01/04/2025 9:00 AM EDT Office Visit [facility] [address] [place] [address] Av Gimenez MD [address] [place] [address] Alcohol use disorder, severe, dependence (CMS/HCC) (Primary [...] GBAT meeting today. Was previously admitted to [facility] (08/12 - 08/18/2023) for alcohol detox. Also [...] a long hiatus from the GBAT Visited [facility] recently Maintaining sobriety, but admits to cravings Thus restarted taking Naltrexone 1 week ago; reports some LONG, but tolerable Will continue for 1 more week and reassess Reviewed the group goals, expectations and policies Consented to the group treatment options Actively participated in the group discussion with the topic of: Managing Psychological Pain Following staff present at the visit: Physician, Vp Of Customer Experience Strategy, Clinician, Team RN, and MedicalAssistant Opportunities provided to address individual medical/medication/BH concerns TODAY GBAT VISIT 01/04/2025 Patient presents for Group-Based Opioid Treatment for AUD Visited [facility] recently Maintaining sobriety, but admits to cravings [...] Following staff present at the visit: Physician, Vp Of Customer Experience Strategy, Clinician, Team RN, and MedicalAssistant Opportunities provided [...] a long hiatus from the GBAT Visited [facility] recently Maintaining sobriety, but admits to cravings [...] faced situations that may trigger use Mass VALVE FITTER reviewed Following staff present at the visit: Physician, Clinician, Vp Of Customer Experience Strategy and Licensed Audiologist Follow up in 1 week for the [...] Description 02/20/2025 9:00 AM EDT Office Visit [facility] [address] [place], [place] [phone] TarSallie zhang, OD [address] [place], [place] [phone] documented as of this encounter Visit Diagnoses Diagnosis Alcohol use disorder, severe, dependence (CMS/HCC)- Primary documented in this encounter Additional Health Concerns Assessment Noted Time PHQ-9 Depression Total Score: 16 11/30/ 025 9:57 AM EDT documented as of this encounter Care Teams Waste Specialist Relationship Specialty Start Date End Date Kandice Bush MD [address] [place] [address] PCP - General Family Medicine 06/18/23 documented as of this encounter
--- OUTSIDE RECORDS SUMMARY | 2025-01-06 10:11 | XMS_ITS | Encounter Summary ---
Author Organization [employer] Address [address] [place] [address] 7t [place] [address] Care Team Providers Care Intellectual Property Counsel Name Role Phone Kandice Bush MD Primary Care Provider [phone] Reason for Referral * Imaging (Routine) - Closed Specialty Diagnoses / Procedures Referred By Contac t Referred To Contact Radiology Diagnoses Left-sided tinnitus Dizziness Other headache syndrome Procedures Mr Brain w/ and w/o Contrast Kandice Bush MD [address] [place] [address] Phone: tel: fax: [address] Phone: tel: fax: Referral ID Status Reason Start Date Expiration Date Visits Re quested Visits Authorized [id number] Closed 10/13/2023 10/12/2024 1 1 Encounter Details Date Type Department Care Team (Late st Contact Info) Description 10/13/2023 Orders Only [facility] [address] [place] [address] Kandice Bush MD [address] [place], [place] [phone] Left-sided tinnitus (Primary Dx); Dizziness; Other headache [...] Description 02/20/2025 9:00 AM EDT Office Visit [facility] [address] [place] [address] Sallie Renee, OD [address] [place] [address] documented as of this encounter Procedures Procedure [...] EST Narrative 11/13/2023 4:45 PM EST ? [facility] ?[address] ?[place] [address] ? Magnetic Resonance Report ? Signed ? Patient: Blum Castanaza,Alejandro N ?MR ?? #: [id number] ? : 1980 ?Acct:[id number] ? Age/Sex: 43 / M ?ADM Date: 11/10/23 ? Loc: HO.MRI ? Attending Dr: Kandice Bush MD ? Ordering Physician: Kandice Bush MD ?? Date of Service: 11/10/23 ?? Procedure(s): MR head/brain wo/w con ?? Accession Number(s): [id number] ? cc: Kandice Bush MD ? EXAMINATION: [...] 1641 ? DD/ 0858 ? TD/TT: ? Auto Body Straightener: ? Procedure Note Donroloter, Image - 11/13/[address] [address] Magnetic Resonance Report Signed Patient: Alejandro Sanchez NMR #: [id number] : 1980Acct:[id number] Age/Sex: 43 / MADM Date: 11/10/23 Loc: HO.MRI Attending Dr: Kandice Bush MD Ordering Physician: Kandice Bush MD Date of Service: 11/10/23 Procedure(s): MR head/brain wo/w con Accession Number(s): [id number] cc: Kandice Bush MD EXAMINATION: MR BRAIN [...] in OV> 11/13/23 1641 DD/ 0858 TD/TT: Auto Body Straightener: Kandice Bush MD IM MRI PROCEDURES Final Result documented in this encounter Visit Diagnoses Diagnosis Left-sided tinnitus- Primary Unspecified tinnitus Dizziness Dizziness and giddiness Other headache syndrome documented in this encounter Care Teams Intellectual Property Counsel Relationship Specialty Start Date End Date Kandiec Bush MD [address] [place] [address] PCP - General Family Medicine 06/18/23 documented as of this encounter
--- OUTSIDE RECORDS SUMMARY | 2025-01-06 10:11 | XMS_ITS | Encounter Summary ---
Author Organization [email or web address] Address [address] [facility] [address] 7[address] [place] [address] Care Team Providers Care Certified Medical Assistant Name Role Phone Kandice Bush MD Primary Care Provider [phone] Reason for Visit * Reason Comments Recovery Supports Encounter Details Date Type Department Care Team ([facility] st Contact Info) Description 01/03/[address] [facility] [address] [place] [address] Joe Rosenthal Recovery Supports Social History Tobacco [...] your housing situation today? I have marion rfancis 11/21/[address] you li [...] with Alejandro today. Setting: in person at [facility] Recovery Wellness Goals worked on: Physical Health/Mental Health Social Stability Spiritual Wellness Action taken/next steps: Attended recovery support group Additional comments: Joe Rosenthal documented in this encounter Plan of Treatment Upcoming Encounters Date Type Department Care Team (Late st Contact Info) Description 02/20/2025 9:00 AM EDT Office Visit [facility] [address] [place] [address] Tarka, Sallie, OD [address] [place] [address] documented as of this encounter Visit Diagnoses Not on filedocumented in this encounter Additional Health Concerns Assessment Noted Time PHQ-9 Depression Total Score: 16 025 9:57 AM EDT documented as of this encounter Care Teams Certified Medical Assistant Relationship Specialty Start Date End Date Kandice Bush MD [address] [place] [address] PCP - General Family Medicine 06/18/23 documented as of this encounter
--- OUTSIDE RECORDS SUMMARY | 2025-01-06 10:11 | XMS_ITS | Encounter Summary ---
Author Organization [facility] Address [address] [place] [address] Care Team Providers Care Military Science Instructor Name Role Phone Patient, Has No Pcp Or Ref Primary Care Provider Unavailable Encounter Details Date Type Department Care Team (Late st Contact Info) Description 01/07/2023 Telephone [facility] [address] [place] [address] Crystal Canchola NP [address] [place], [place] [phone] Social History Tobacco Use Types Packs/Day Years [...] documented as of this encounter Care Teams Military Science Instructor Relationship Specialty Start Date End Date Patient, Has No Pcp Or Ref DO NOT EDIT THIS RECORD VIA PROVIDER ON THE FLY PCP - General Director Traffic And Planning 01/26/23 documented as of this encounter
--- OUTSIDE RECORDS SUMMARY | 2025-01-06 10:11 | XMS_ITS | Encounter Summary ---
Author Organization [employer] Address [address] [facility] 7t [place] [address] Care Team Providers Care Sandfill Operator Surface Name Role Phone Kandice Bush MD Primary Care Provider [phone] Encounter Details Date Type Department Care Team [...] Description 02/20/2025 9:00 AM EDT Office Visit [facility] [address] [place] [address] Sallie Renee, OD [address] [place] [address] documented as of this encounter Visit Diagnoses Not on filedocumented in this encounter Additional Health Concerns Assessment Noted Time PHQ-9 Depression Total Score: 16 025 9:57 AM EDT documented as of this encounter Care Teams Sandfill Operator Surface Relationship Specialty Start Date End Date Kandice Bush MD [address] [place] [phone] PCP - General Family Medicine 06/18/23 documented as of this encounter
--- OUTSIDE RECORDS SUMMARY | 2025-01-06 10:11 | XMS_ITS | Encounter Summary ---
Author Organization [facility] Address [address] [place] [address] Care Team Providers Care Director Of Special Services Name Role Phone Patient, Has No Pcp Or Ref Primary Care Provider Unavailable Encounter Details Date Type Department Care Team (Late st Contact Info) Description 01/21/2023 Telephone [facility] Nuclear Medicine [address] [place] [address] Diaz Carrera, RN Social History Tobacco [...] as of this encounter Care Teams Director Of Special Services Relationship Specialty Start Date End Date Patient, Has No Pcp Or Ref DO NOT EDIT THIS RECORD VIA PROVIDER ON THE FLY PCP - General Cop Breaker 01/26/23 documented as of this encounter
--- OUTSIDE RECORDS SUMMARY | 2025-01-06 10:11 | XMS_ITS | Encounter Summary ---
Author Organization [employer] Address [address] 7t [place] [address] Care Team Providers Care Electron Beam Welding Machine Operator Name Role Phone Kandice Bush MD Primary Care Provider [phone] Encounter Details Date Type Department Care Team ([facility] st Contact Info) Description 10/13/2023 Orders Only [facility] [address] [place] [address] Kandice Bush MD [address] [place] [address] Social History Tobacco Use Types Packs/Day Years [...] Description 02/20/2025 9:00 AM EDT Office Visit [facility] [address] [place] [address] Sallie Renee, OD [address] [place] [address] documented as of this encounter Visit Diagnoses Not on filedocumented in this encounter Care Teams Electron Beam Welding Machine Operator Relationship Specialty Start Date End Date Kandice Bush MD [address] [place] [address] PCP - General Family Medicine 06/18/23 documented as of this encounter
--- OUTSIDE RECORDS SUMMARY | 2025-01-06 10:11 | XMS_ITS | Encounter Summary ---
Author Organization [employer] Address [address] [place] [address] 7t [place] [address] Care Team Providers Care Core Shaper Top Name Role Phone Kandice Bush MD Primary Care Provider [phone] Reason for Referral * Consultation (Urgent) - Closed Specialty Diagnoses / Procedures Referred By Contrafael t Referred To Contact Podiatry Diagnoses Heel pain, bilateral Kandice Bush MD [address] [place] [address] Phone: tel: fax: Diaz Rojo DPM Phone: tel: fax: Referral ID Status Reason Start Date Expiration Date V isits Requested Visits Authorized [id number] Closed Specialty Services Required 06/07/2024 06/07/2025 6 6 Encounter Details Date Type Department Care Team (Late st Contact Info) Description 06/03/2024 Orders Only [facility] MED[facility] [address] [place] [phone] Kandice Bush MD [address] [place], [place] [phone] Heel pain, bilateral (Primary Dx) Social History [...] Description 02/20/2025 9:00 AM EDT Office Visit [facility] [address] [place] [address] Sallie Rneee, OD [address] [place] [address] Scheduled Referrals Name Type Priority Associated Diagnoses [...] as of this encounter Care Teams Core Shaper Top Relationship Specialty Start Date End Date Kandice Bush MD [address] [place] [phone] PCP - General Family Medicine 06/18/23 documented as of this encounter
--- OUTSIDE RECORDS SUMMARY | 2025-01-06 10:12 | XMS_ITS | Referral Summary ---
Author Organization [facility] Address [address] [place] [address] Care Team Providers Care Aluminum Pool Installer Name Role Phone Patient, Has No Pcp [...] Not on file Procedures * Due to [place] [employer] law, this organization might not be sharing negative HIV tests. Procedure Name Priority Date/Time Associated Diagnosis Comments HEPATITIS PANEL, ACUTE STAT 03/30/2009 12:15 PM EDT from Last 3 Months or Most Recently Relevant to Health Maintenance Results * Due to [place] [employer] law, this organization might not be sharing negative HIV tests. * Hepatitis Panel, Acute (03/30/2009 12:15 PM EDT) Hepatitis A IgM Antibody Negative Negative [facility] Hepatitis B Core IgM Antibody Negative Negative [facility] Hepatitis B Surface Ag Negative Negative [facility] Hepatitis C Antibody Negative Negative [facility] 03/30/2009 12:1 5 PM EDT 03/30/2009 2:27 PM EDT us Christiane Mathur MD LAB BLOOD ORDERABLES Vonda afia Result [facility] [address] [place] [address], from Last 3 Months or Most Recently Relevant to Health Maintenance [place] [address] [place] [address] MEDICAID Care Teams Aluminum Pool Installer Relationship Specialty Start Date End Date Patient, Has No Pcp Or Ref DO NOT EDIT THIS RECORD VIA PROVIDER ON THE FLY PCP - General Rejoiner 01/26/23
--- OUTSIDE RECORDS SUMMARY | 2025-01-06 10:12 | XMS_ITS | Encounter Summary ---
Author Organization [employer] Address [address] [place] [address] 7t [place] [address] Care Team Providers Care Drop Hammer Setter Up Name Role Phone Kandice Bush MD Primary Care Provider [phone] Reason for Referral * Consultation (Routine) - Closed Specialty Diagnoses / Procedures Referred By Radha bell Referred To Contact Urology Diagnoses Erectile dysfunction, unspecified erectile dysfunction type Low testosterone Kandice Bush MD [address] [place] [phone] Phone: tel: fax: [facility] Referral ID Status Reason Start Date Expiration Date V isits Requested Visits Authorized [id number] Closed Specialty Services Required 01/21/2024 01/20/2025 6 6 Encounter Details Date Type Department Care Team (Late st Contact Info) Description 01/18/2024 Orders Only [facility] MEDICINE [address] [place] [address] [phone] Kandice Bush MD [address] [place] [address] [phone] Erectile dysfunction, unspecified erectile dysfunction type (Primary [...] Description 02/20/2025 9:00 AM EDT Office Visit [facility] [address] [place] [address] Sallie Renee, OD [address] [place] [address] Scheduled Referrals Name Type Priority Associated Diagnoses [...] documented as of this encounter Care Teams Drop Hammer Setter Up Relationship Specialty Start Date End Date Kandice Bush MD [address] [place] [phone] PCP - General Family Medicine 06/18/23 documented as of this encounter
--- OUTSIDE RECORDS SUMMARY | 2025-01-06 10:12 | XMS_ITS | Clinical Summary ---
Author Organization [facility] Address [address] [place] [address] Care Team Providers Care Equipment Oiler Name Role Phone Patient, Has No Pcp [...] complete this topic Procedures * Due to [place] [employer] law, this organization might not be sharing negative HIV tests. Procedure Name Priority Date/Time Associated Diagnosis Comments HEPATITIS PANEL, ACUTE STAT 03/30/2009 12:15 PM EDT from Last 3 Months or Most Recently Relevant to Health Maintenance Results * Due to [place] [employer] law, this organization might not be sharing negative HIV tests. * Hepatitis Panel, Acute (03/30/2009 12:15 PM EDT) Hepatitis A IgM Antibody Negative Negative [facility] Hepatitis B Core IgM Antibody Negative Negative [facility] Hepatitis B Surface Ag Negative Negative [facility] Hepatitis C Antibody Negative Negative [facility] 03/30/2009 12:1 5 PM EDT 03/30/2009 2:27 PM EDT us Christiane Mathur MD LAB BLOOD ORDERABLES Vonda oreilly Result [facility] [address] [place] [address], from Last 3 Months or Most Recently Relevant to Health Maintenance Insurance [employer] MED[place] Care Teams Equipment Oiler Relationship Specialty Start Date End Date Patient, Has No Pcp Or Ref DO NOT EDIT THIS RECORD VIA PROVIDER ON THE FLY PCP - General Steel Inspector 01/26/23
--- OUTSIDE RECORDS SUMMARY | 2025-01-06 10:12 | XMS_ITS | Encounter Summary ---
Author Organization [employer] Address [address]t [place] [address] Care Team Providers Care Tailor Helper Name Role Phone Kandice Bush MD Primary Care Provider [phone] Reason for Visit * Reason Onset Date Comments FYI 08/12/2023 Encounter Details Date Type Department Care Team ([facility] Contact Info) Description 08/12/2023 Telephone [facility] [address] [place], [place] [phone] Kandice Bsuh MD [address] [place] [address] FYI Social History Tobacco Use Types Packs/Day [...] cancelled due to pt being admitted at [facility] yesterday (08/11) for an overdose. Partner Manager did advise rosaura to call after pt is discharged. documented in this encounter Plan of Treatment Upcoming Encounters Date Type Department Care Team (Late st Contact Info) Description 02/20/2025 9:00 AM EDT Office Visit [facility] [address] [place] [address] Sallie Renee, OD [address] [place] [address] documented as of this encounter Visit Diagnoses Not on filedocumented in this encounter Care Teams Tailor Helper Relationship Specialty Start Date End Date Kandice Bush MD [address] [place] [address] PCP - General Family Medicine 06/18/23 documented as of this encounter
--- NOTE | 2025-01-11 09:16 | P.CONAN_ITS ---
Documented by User: Mayra Clark NP 01/11/25 09:19 HPI - Anesthesia Eval Consult details Narrative: 44yo M for Upper Endoscopy ETOH abuse 2022 - cardiac eval for ? cardiomyopathy by nuc stress. ECHO with EF 58% PMFSH Active Problems Active Problems: All Active Problems Excessive daytime sleepiness (Acute) Sleep difficulties (Acute) Nightmare disorder (Acute) Toe fracture, left (Acute) Erectile dysfunction (Acute) Hypogonadism in male (Acute) Bunion of left foot (Acute) Osteoarthritis of knees, bilateral (Acute) Daytime sleepiness (Acute) Snoring (Acute) Varicose veins of right lower extremity with inflammation (Acute) Varicose veins of left lower extremity with inflammation (Acute) History of Helicobacter pylori infection (Acute) Alcohol use disorder (Acute) MDD (major depressive disorder), recurrent severe, without psychosis (Acute) Past Medical History Medical History CAD (coronary artery disease) Transaminitis Long COVID Abnormal stress test Cardiomyopathy Blood pressure elevated without history of HTN History of Helicobacter pylori infection Varicose vein of leg Alcohol use disorder MDD (major depressive disorder), recurrent severe, without psychosis Alcohol abuse Family History Family history of problems with anesthesia: No Surgical History Surgical History History of surgery on lower extremity History of Problems with Anesthesia: No Social History Social History Household Members: Other Household Members Other:: girlfriend Housing: Apartment Are you a primary animal caretaker supervisor to a significant other at home: No Do you presently have visiting nurse or other home services: No Unable to assess alcohol history related to: Unknown Alcohol intake: current Alcohol intake frequency: former alcohol drinker Alcohol type: beer and hard liquor Patient Tobacco Use Status: Former Tobacco user Second Hand Smoke Exposure: No (Unknown, pt unable to participate fully in admission.) Substance Use Type: Marijuana Substance Use Frequency: Chronic Longstanding Have you been hit, kicked, punched, or otherwise hurt by someone within the past year? If so, by whom?: No Are you DNR?: No Advance Directives: No Advance Directives Information Provided: Yes service: No Sexual orientation: Straight/Heterosexual Meds Allergies Allergy/AdvReac Type Severity Reaction Status Date / Time Penicillins [PCN] Allergy Rash Verified 01/09/25 09:33 Home Medications ?Medication ?Instructions ?Recorded ?Confirmed ?Last Taken ?Type blood pressure test kit-large #1 ea 09/22/23 01/09/25 Unknown History cholecalciferol (vitamin D3) 25 25 mcg PO DAILY 06/21/24 01/12/25 01/08/25 History mcg (1,000 unit) tablet sertraline 50 mg tablet 50 mg PO DAILY 01/06/25 01/12/25 01/05/25 History Exam Narrative Narrative: ECHO 2022 Nml LV sys function. LVEF 58% by biplane method. Nml LV diastolic function. LV concentric remodeling Nml RV size and sys function No signif valve disease EKG 2022 NSR @ 86 Assessment and Plan Assessment Anesthesia Assessment: Chart Reviewed Final Anesthetic Review Family History of Problems with Anesthesia: No History of Problems with Anesthesia: No Documented by User: Gaby Hernández MD 01/12/25 14:43 [facility] Past Medical History Medical History CAD (coronary artery disease) Transaminitis Long COVID Abnormal stress test Cardiomyopathy Blood pressure elevated without history of HTN History of Helicobacter pylori infection Varicose vein of leg Alcohol use disorder MDD (major depressive disorder), recurrent severe, without psychosis Alcohol abuse Family History Family history of problems with anesthesia: No Surgical History Surgical History History of surgery on lower extremity History of Problems with Anesthesia: No Social History Social History Household Members: Other Household Members Other:: girlfriend Housing: Apartment Are you a primary animal caretaker supervisor to a significant other at home: No Do you presently have visiting nurse or other home services: No Unable to assess alcohol history related to: Unknown Alcohol intake: current Alcohol intake frequency: former alcohol drinker Alcohol type: beer and hard liquor Patient Tobacco Use Status: Former Tobacco user Second Hand Smoke Exposure: No (Unknown, pt unable to participate fully in admission.) Substance Use Type: Marijuana Substance Use Frequency: Chronic Longstanding Have you been hit, kicked, punched, or otherwise hurt by someone within the past year? If so, by whom?: No Are you DNR?: No Advance Directives: No Advance Directives Information Provided: Yes service: No Sexual orientation: Straight/Heterosexual Meds Allergies Allergy/AdvReac Type Severity Reaction Status Date / Time Penicillins [PCN] Allergy Rash Verified 01/09/25 09:33 Home Medications ?Medication ?Instructions ?Recorded ?Confirmed ?Last Taken ?Type blood pressure test kit-large #1 ea 09/22/23 01/09/25 Unknown History cholecalciferol (vitamin D3) 25 25 mcg PO DAILY 06/21/24 01/12/25 01/08/25 History mcg (1,000 unit) tablet sertraline 50 mg tablet 50 mg PO DAILY 01/06/25 01/12/25 01/05/25 History Exam Height,Weight and Vital Signs: Height 6 ft 1 in Weight 124 kg Vital Signs Temp Pulse Resp BP Pulse Ox O2 Del Method 01/12/25 12:00 97.6 F 70 18 115/67 97 Room Air Airway Mallampati Class: II TM Dist: >3cm Neck ROM: Full Loose/Missing/Broken Teeth: Yes (Missing molars. No loose or broken teeth) Heart: RRR Lungs: CTAB Assessment and Plan Assessment Anesthesia Assessment: Anesthesia Plan Discussed and Chart Reviewed Final Anesthetic Review Family History of Problems with Anesthesia: No History of Problems with Anesthesia: No NPO: Yes ASA Class: III Final Preanesthetic Review: No Changes in Pt Med Stat, Meds/Allgs Chart Reviewed, Consent Obtained/Reviewed and Anes Risks/Benef Reviewed Patient Risk: Intermediate Procedure Risk: Low Assessment/Block/Sedation in SS: Assess/Block/Sedation-SS Anesthetic Plan Anesthetic Plan: TIVA Disposition: Standard PACU
[2025-01-12 12:00] VITALS: BP 115/67; PULSE 70; RESP 18; TEMP 36.4; O2SAT 97; BMI 36.1
[2025-01-12] MEDS: Lactated Ringers 1,000 ML 100 ML IVCONT (12:00)
--- NOTE | 2025-01-12 12:36 | MHC.SHP ---
Pre-Procedural Eval Section A - 24 Hr Update-Section A only Date of Service: 01/12/25 The patient has been examined within 24 hours of the surgical procedure. The History & Physical has been completed within 30 days and I have reviewed it.: Yes Section B - Complete if H&P > 30 days Chief Complaint: Epigastric pain,gerd Allergies: Allergies Allergy/AdvReac Type Severity Reaction Status Date / Time Penicillins [PCN] Allergy Rash Verified 01/09/25 09:33 Plan Diagnosis/Plan: Unchanged I have reviewed the history and physical and performed a pertinent physical examination on my patient. No changes have occurred unless specified. Time Spent With Patient Time: Total time managing care of this patient today ____ minutes.
--- NOTE | 2025-01-12 14:21 | P.OP_ITS ---
Operative Note Operative Note Date of Service: 01/12/25 Narrative: Procedure: Esophagogastroduodenoscopy Endoscopist: Ilsa De La O MD Indication: Abd pain Anesthesia Provider: Dr Gaby Hernández Anesthesia Type: MAC ?? EGD Procedure:?? The procedure, indications, preparation and potential complications were reviewed with the patient, who indicated understanding and gave written informed consent to proceed. A physical exam was performed. The endoscope was introduced through the mouth, and advanced to the second part of duodenum. The mucosa was carefully examined on slow withdrawal of the endoscope. The patient tolerated the procedure well. There were no immediate complications.? ? EGD Findings:? * Esophagus:? Localized patch of heterotopic gastric mucosa was noted in the upper esophagus. Single erosion measuring 5 mm noted at GE junction. at 38 cm. Middle and lower esophagus forceps biopsies were obtained to rule out eosinophilic esophagitis. * Stomach:? Normal mucosa was noted in the stomach. Retroflexion was performed in the cardia. Random cold forceps gastric biopsies were taken to rule out H Pylori infection. * Duodenum:? Normal mucosa was noted in the whole of the examined duodenum. Cold forceps biopsies were taken from duodenal bulb and second portion of the duodenum to rule out celiac sprue. ? EGD Impressions:? * Inlet patch * Grade A esophagitis (biopsy) * Normal stomach (biopsy) * Normal duodenum (biopsy) ?? Recommendations:?? * Follow biopsy results. Our office will call or send a letter with results within 7-10 days. * Continue PPI therapy. * If H pylori +, patient will be prescribed eradication therapy followed by test of cure. * Avoid NSAIDs. Above has been reviewed with the patient.
[2025-01-12 14:30] VITALS: BP 115/62; PULSE 86; RESP 16; TEMP 36.4; O2SAT 100
[2025-01-12 14:40] VITALS: BP 117/72; PULSE 74; RESP 18; TEMP 36.4; O2SAT 100
== END | disposition home or self-care (01) ==
PROVIDERS: PCP Family Medicine; Visit Provider Internal Medicine
PROC: 0DJ08ZZ Inspection of Upper Intestinal Tract, Via Natural or Artificial Opening Endoscopic (ICD-10-PCS; CPT 43235; principal; 2025-01-12 14:00)
DX: K20.80 Other esophagitis without bleeding (principal); Q39.8 Other congenital malformations of esophagus; K21.9 Gastro-esophageal reflux disease without esophagitis
CPT/HCPCS: 43239; 88305; 88342; J2003

== ENCOUNTER 2025-01-24 08:21 | Outpatient (REF) | payer MEDICAID, SELFPAY ==
--- OUTSIDE RECORDS SUMMARY | 2025-01-24 10:09 | XMS_ITS | Encounter Summary ---
Author Organization [facility] Address [address] [place] [address] Care Team Providers Care Profiler Name Role Phone Patient, Has No Pcp Or Ref Primary Care Provider Unavailable Encounter Details Date Type Department Care Team (Late st Contact Info) Description 01/07/2023 Telephone [facility] Treatment Center [address] [place] [address] Crystal Canchola NP [address] [place], [place] [phone] Social History Tobacco Use Types Packs/Day Years [...] documented as of this encounter Care Teams Profiler Relationship Specialty Start Date End Date Patient, Has No Pcp Or Ref DO NOT EDIT THIS RECORD VIA PROVIDER ON THE FLY PCP - General Marketing Database Coordinator 01/26/23 documented as of this encounter
--- OUTSIDE RECORDS SUMMARY | 2025-01-24 10:09 | XMS_ITS | Clinical Summary ---
Author Organization [employer] Address [address] [facility] 7t [place] [address] Care Team Providers Care Agricultural Equipment Mechanic Name Role Phone Kandice Bush MD Primary Care Provider [phone] Allergies Active Allergy Reactions Criticality Noted Date [...] (12/03/2024 6:07 AM EDT): - following with [facility], last seen in Oct 2024 - [...] - patient has already been referred to button reclaimer, patient will call to reschedule appt Assessment & Plan (05/12/2024 12:07 PM EDT): - likely plantar fascitis - continue wearing comfortable shoes - ice and stretching exercises - patient has already been referred to button reclaimer, will check its status Erectile dysfunction 05/12/2024 [...] son; 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 Gimenez / AUD clinic in [facility] - continue current recovery effort [...] with Dr. Gimenez / [facility] clinic in [facility] - continue current recovery effort and support Assessment & Plan (10/12/2023 4:12 PM EST): - following with Dr. Gimenez / [facility] clinic in [facility] - continue current recovery effort [...] self-monitoring BP. -Pt is already following with cardiology nurse for cardiomyopathy -Follow up in 3 mo, sooner if any problem arises Cardiomyopathy 06/17/2023 Assessment & Plan (11/29/2024 9:48 AM EDT): - cardiology nurse: Dr. Henderson, [facility], last seen on [...] & Plan (01/17/2024 3:15 PM EDT): [facility]27[facility]23 - Hx abnormal [...] & Plan (10/12/2023 5:44 AM EST): - cardiology nurse: Rasheed Farr, last seen on 01/27/23 - [...] & Plan (06/17/2023 6:13 PM EDT): - cardiology nurse: Rasheed Farr [facility], last seen on 01/27/23 [...] PM EDT): - continue following specialists at [facility] declines COVID vaccine Assessment & Plan (10/12/2023 4:13 PM EST): - continue following specialists at [facility] declines COVID vaccine Assessment & Plan (06/17/2023 6:17 PM EDT): - continue following specialists at [facility] declines COVID vaccine Headache 06/17/2023 [...] EDT): - followed by Dr. Genao / [facility]. Last seen in Oct 2024 [...] - s/p phlebectomy or venous ablation in [facility] - currently following [place]. Genao [facility] [place] Radiofrequencyy ablation of right GSV and accessory right GSV on 12/18/23 - Radiofrequencyy ablation of right SSV on 01/29/24 - Right leg microphlebectomy and ligation of venous cluster x 2 - compression stocking, leg elevation, reduce sodium and alcohol consumption Assessment & Plan (10/12/2023 4:11 PM EST): - s/p phlebectomy or venous ablation in [facility] - currently following [place]. Genao, [facility] - compression stocking, leg elevation, reduce sodium [...] 01/17/2025 Patient Outreach [facility] [address] [place] [address] Neto Gonzales [facility] 01/16/2025 Patient Outreach [facility] [address] [place] [address] Neto Gonzales Recovery [facility] 01/13/2025 Telephone [facility] [place] [address] Danielle Romo MA 01/12/2025 Orders Only GENERIC EXTERNAL DATA DEPARTMENT Provider, Generic External Data 01/11/2025 9:00 AM EDT Office Visit [facility] [place] [address] Av Gimenez MD Alcohol use disorder, severe, dependence (CMS/HCC) (Primary Dx) 01/11/2025 Travel 01/04/2025 9:00 AM EDT Office Visit [facility] [place] [address] Av Gimenez MD Alcohol use disorder, severe, dependence (CMS/HCC) (Primary Dx) 01/04/2025 Travel 01/03/2025 Patient Outreach [facility] [place] [address] Joe Rosenthal Recovery Supports 01/02/2025 Patient Outreach [facility] [place] [address] Neto Gonzales [facility] 12/23/2024 Telephone [facility] [place] [address] Di Yoon MA may recall 12/22/2024 Patient Outreach [facility] [place] [address] Neto Gonzales [facility] 12/21/2024 Patient Outreach [facility] [place] [address] Joe Rosenthal Recovery Supports 12/20/2024 Patient Outreach [facility] [place] [address] Joe Rosenthal [facility] 12/06/2024 Patient Outreach [facility] [place] [address] Joe Rosenthal [facility] 11/30/2024 9:00 AM EDT Office Visit [facility] [place] [address] Av Gimenez MD Alcohol use disorder, severe, dependence (CMS/HCC) (Primary Dx) 11/30/2024 Travel 11/29/2024 1:15 PM EDT Office Visit [facility] [address] [place] [phone] Kandice Bush MD Heel pain, bilateral (Primary [...] screening for respiratory tuberculosis 11/29/2024 Patient Outreach [address] [address] Neto Gonzales [facility] 11/29/2024 Travel 11/25/[address] [address] Kandice Bush MD chart prep 11/25/2024 Refill [facility] [address] [place] [address] Jr Garcia MD 11/21/2024 Patient Outreach [address] [address] Kandice Bush MD Care Coordination (CHW outreach for SDOH food needs-LVM /) 11/21/2024 Patient Outreach [address] [address] Kandice Bush MD Pre-visit Planning (SDOH Screening positive and Tobacco screening negative) 11/18/2024 Population Health Risk Score Community Care [facility] (C3) Department [address] [place] [address] [phone] Provider, Population Health Generic 11/15/2024 8:40 AM EDT Office Visit [facility] [address] [place] [address] Jr Garcia MD Influenza-like symptoms (Primary Dx); [...] Office Visit [facility] [address] [place] [address] Sallie Renee, OD [address] [place] [address] Health Maintenance Due Date Last Done Comments [...] 2:17 PM EDT 01/12/2025 3:06 PM EDT [facility] - 01/16/2025 5:16 PM EDT ----- ------- Name: Alejandro Sanchez ?Age/Sex: 44/M ? : 1980 Unit#: [id number] ?? Attend Dr: Ilsa De La O MD ?Re01/12/25 ?Status: REG SDC ? Location: HO.SSS ?Disch: ? ----- ------- SPEC : [id number] ? RECD: 01/12/25-6646 ? STATUS: ??SOUT ? REQ NUM: [id number] ? ALYCIA: 01/12/25-1417 ? SUBM DR: Ilsa [...] Sanchez ?Age/Sex: 44/M ? : 1980 Unit#: [id number] ?? Attend Dr: Ilsa De La O MD ?Re01/12/25 ?Status: REG SDC ? Location: HO.SSS ?Disch: ? ----- ------- SPEC : [id number] ? RECD: 01/12/25-150 ? STATUS: ??SOUT ? REQ NUM: [id number] ? ALYCIA: 01/12/25-1417 ? SUBM DR: Ilsa [...] Copies To: ?? Kandice Bush MD ?? [facility] ?? [address] [facility] ?? [place] [address] ?? [phone] ?? Ilsa De La O MD ?? [facility] ?? [address] ?? [place] [address] ?? [phone] ?? [email or web address] ----- ------- Signed (signature on file) Jessica Lorenzo 01/16/25 1716 ? ----- ------- ? END OF REPORT ? Generic External Data Provider LAB BLOOD ORDERAB LES Final Result Performing Organization Address [facility]/ZIP Co de Phone Number [facility] [address] [place] [phone] * Influenza B (ID NOW Rapid Molecular) (11/15/2024 8:54 AM EDT) [facility] Influenza B Negative Negative, Indeterminate [facility] Swab 11/15/2024 8:54 AM EDT Jr Garcia MD POINT OF CARE TEST ENTER/EDIT OR DERABLES Final Result Performing Organization Address [facility] Co de Phone Number [facility] [address] [place] [phone] * Influenza A (ID NOW Rapid Molecular) (11/15/2024 8:54 AM EDT) [facility] Influenza A Negative Negative, Indeterminate [facility] Swab 11/15/2024 8:54 AM EDT us Jr Garcia MD POINT OF CARE TEST ENTER/EDIT OR DERABLES Final Result Performing Organization Address [facility] Co de Phone Number [facility] [address] [place] [phone] * POCT Rapid COVID Ag (11/15/2024 8:54 AM EDT) Rapid COVID Ag Negative [facility] Swab 11/15/2024 8:54 AM EDT us Jr Garcia MD POINT OF CARE TEST ENTER/EDIT OR DERABLES Final Result Performing Organization Address [facility] de Phone Number [facility] [address] [place] [phone] * POCT rapid strep A manually resulted (11/15/2024 8:54 AM EDT) Pathologist [facility] Rapid Strep A Screen Negative Negative, None Detected [facility] Swab 11/15/2024 8:54 AM EDT us Jr Garcia MD POINT OF CARE TEST ENTER/EDIT OR DERABLES Final Result Performing Organization Address [facility] Phone Number [facility] [address] [place] [phone] * (ABNORMAL) Lipid Panel with Reflex to Direct LDL (10/12/2023 1:46 PM EST) Pathologist [facility] Triglycerides 125 <150 mg/dL [facility] Comment:Desirable Triglyceri de: less than 150 mg/dLBorderline High Triglyceride 150-199 mg/dLHigh Triglyceride: 200-499 mg/dLVery High Triglyceride: greater than or equal to 5OO mg/dL Cholesterol 206(H) <200 mg/dL [facility] Comment:Desirable Cholestero l: less than 200 mg/dLBorderline High Cholesterol: 200-239 mg/dLHigh Cholesterol: greater than 239 mg/dL LDL Cholesterol Calculated 124(H) <100 mg/dL [facility] Comment:Desirable LDL: less than 100 mg/dLNear Optimal/Above Optimal LDL: 110- 129 mg/dLBorderline High LDL: 130-159 mg/dLHigh LDL: 160-189 mg/dLVery High LDL: greater than or equal to 190 mg/dL HDL Cholesterol 57 >40 mg/dL [facility] Comment:Desirable HDL: great er than 40 mg/dL Note: This HDL assay may give artificially low results in patients with liver disease. Blood 10/12/2023 1:46 PM EST 10/12/2023 4:25 PM EST Kandice Bush MD LAB BLOOD ORDERABLES Final Resul t Performing Organization Address [facility]/ZIP Co de Phone Number [facility] [address] [place] [phone] * Hepatitis C Antibody with Reflex to HCV, RNA, Quantitative, Real-Time PCR (10/12/2023 1:46 PM EST) Hepatitis C Antibody Nonreactive Nonreactive [facility] Comment:Antibodies to HCV no t detected; does not exclude early acuteHCV infection. Blood Venous blood specimen / Unknown 10/12/2023 1:46 PM EST 10/12/2023 4:19 PM EST Kandice Bush MD LAB BLOOD ORDERABLES Final Resul t Performing Organization Address City/[facility] Co de Phone Number [facility] [address] [place] [phone] * HIV-1/2 Antigen and Antibodies, Fourth Generation, with Reflexes (10/12/2023 1:46 PM EST) HIV AB/AG Nonreactive Nonreactive [facility] Comment:HIV-1 p24 Ag and/or HIV-1/HIV-2 Ab not detected.A test result that is nonreactive does not exclude thepossibility of exposure to or infection with HIV-1 and/orHIV-2. Nonreactive results in this assay for individualswith prior exposure to HIV-1 and/or HIV-2 may be due toantigen and antibody levels that are below the limit ofdetection of this assay.The [employer] Alinity HIV Ag/Ab Combo assay result andsupplemental assay results should be interpreted inconjunction with the patient's clinical presentation,history and other laboratory results. If the results areinconsistent with clinical evidence, additional testing issuggested to confirm the result. Blood Venous blood specimen / Unknown 10/12/2023 1:46 PM EST 10/12/2023 4:19 PM EST us Kandice Bush MD LAB BLOOD ORDERABLES Final Resul t [facility] [address] [place] [phone] from Last 3 Months or Most Recently Relevant to Health Maintenance Insurance [facility] C3 HSN FULL Care Teams Agricultural Equipment Mechanic Relationship Specialty Start Date End Date Kandice Bush MD [address] [place] [phone] PCP - General Family Medicine 06/18/23
--- OUTSIDE RECORDS SUMMARY | 2025-01-24 10:09 | XMS_ITS | Encounter Summary ---
Author Organization [facility] Address [address] [place] [address] Care Team Providers Care Compressor Station Chief Engineer Name Role Phone Patient, Has No Pcp Or Ref Primary Care Provider Unavailable Encounter Details Date Type Department Care Team (Late st Contact Info) Description 01/07/2023 Orders Only [facility] [address] [place] [address] Crystal Canchola, DINO [address] [place] [address] Social History Tobacco Use Types Packs/Day Years [...] documented as of this encounter Care Teams Compressor Station Chief Engineer Relationship Specialty Start Date End Date Patient, Has No Pcp Or Ref DO NOT EDIT THIS RECORD VIA PROVIDER ON THE FLY PCP - General Supervisor Patching 01/26/23 documented as of this encounter
--- OUTSIDE RECORDS SUMMARY | 2025-01-24 10:10 | XMS_ITS | Encounter Summary ---
Author Organization [employer] Address [address] [facility] 7t [place] [address] Care Team Providers Care Vp Foundation Name Role Phone Kandice Bush MD Primary Care Provider [phone] Reason for Visit * Reason Onset Date Comments FYI 08/12/2023 Encounter Details Date Type Department Care Team ([facility] Contact Info) Description 08/12/2023 Telephone [facility] [address] [place], [place] [phone] Kandice Bush MD [address] [place] [address] FYI Social History Tobacco Use Types Packs/Day [...] cancelled due to pt being admitted at [facility] yesterday (08/11) for an overdose. Reservations Manager did advise rosaura to call after pt is discharged. documented in this encounter Plan of Treatment Upcoming Encounters Date Type Department Care Team (Late st Contact Info) Description 02/20/2025 9:00 AM EDT Office Visit [facility] [address] [place] [address] Sallie Renee, OD [address] [place] [address] documented as of this encounter Visit Diagnoses Not on filedocumented in this encounter Care Teams Vp Foundation Relationship Specialty Start Date End Date Kandice Bush MD [address] [place] [address] PCP - General Family Medicine 06/18/23 documented as of this encounter
--- OUTSIDE RECORDS SUMMARY | 2025-01-24 10:10 | XMS_ITS | Encounter Summary ---
Author Organization [facility] Address [address] [place] [address] Care Team Providers Care Extended Day Teacher Name Role Phone Patient, Has No Pcp Or Ref Primary Care Provider Unavailable Encounter Details Date Type Department Care Team (Late st Contact Info) Description 01/21/2023 Telephone [facility] Nuclear Medicine [address] [place] [address] Diaz Carrera, RN Social History Tobacco [...] documented as of this encounter Care Teams Extended Day Teacher Relationship Specialty Start Date End Date Patient, Has No Pcp Or Ref DO NOT EDIT THIS RECORD VIA PROVIDER ON THE FLY PCP - General Sr Vice President 01/26/23 documented as of this encounter
--- OUTSIDE RECORDS SUMMARY | 2025-01-24 10:10 | XMS_ITS | Encounter Summary ---
Author Organization [employer] Address [address] [facility] 7t [place] [address] Care Team Providers Care Polisher Numeral Name Role Phone Kandice Bush MD Primary Care Provider [phone] Encounter Details Date Type Department Care Team ([facility] st Contact Info) Description 10/13/2023 Orders Only [facility] [address] [place] [address] Kandice Bush MD [address] [place] [address] Social History Tobacco Use Types Packs/Day Years [...] Description 02/20/2025 9:00 AM EDT Office Visit [facility] [address] [place] [address] Sallie Renee, OD [address] [place] [address] documented as of this encounter Visit Diagnoses Not on filedocumented in this encounter Care Teams Polisher Numeral Relationship Specialty Start Date End Date Kandice Bush MD [address] [place] [address] PCP - General Family Medicine 06/18/23 documented as of this encounter
--- OUTSIDE RECORDS SUMMARY | 2025-01-24 10:10 | XMS_ITS | Encounter Summary ---
Author Organization [employer] Address [address] [place] [address] 7 [place] [address] Care Team Providers Care Precipitator Name Role Phone Kandice Bush MD Primary Care Provider [phone] Reason for Referral * Imaging (Routine) - Closed Specialty Diagnoses / Procedures Referred By Contac t Referred To Contact Radiology Diagnoses Left-sided tinnitus Dizziness Other headache syndrome Procedures Mr Brain w/ and w/o Contrast Kandice Bush MD [address] [place] [address] Phone: tel: fax: [address] Phone: tel: fax: Referral ID Status Reason Start Date Expiration Date Visits Re quested Visits Authorized [id number] Closed 10/13/2023 10/12/2024 1 1 Encounter Details Date Type Department Care Team (Late st Contact Info) Description 10/13/2023 Orders Only [facility] [address] [place] [address] Kandice Bush MD [address] [place], [place] [phone] Left-sided tinnitus (Primary Dx); Dizziness; Other headache [...] Description 02/20/2025 9:00 AM EDT Office Visit [facility] [address] [place] [address] Sallie Renee, OD [address] [place] [address] documented as of this encounter Procedures Procedure [...] EST Narrative 11/13/2023 4:45 PM EST ? [facility] ?[address] ?[place] [address] ? Magnetic Resonance Report ? Signed ? Patient: Blum Castanaza,Alejandro N ?MR ?? #: [id number] ? : 1980 ?Acct:[id number] ? Age/Sex: 43 / M ?ADM Date: 11/10/23 ? Loc: HO.MRI ? Attending Dr: Kandice Bush MD ? Ordering Physician: Kandice Bush MD ?? Date of Service: 11/10/23 ?? Procedure(s): MR head/brain wo/w con ?? Accession Number(s): [id number] ? cc: Kandice Bush MD ? EXAMINATION: [...] 1641 ? DD/ 0858 ? TD/TT: ? Traffic Expert: ? Procedure Note Donroloter, Image - 11/13/[address] [address] Magnetic Resonance Report Signed Patient: Alejandro Sanchez NMR #: [id number] : 1980Acct:[id number] Age/Sex: 43 / MADM Date: 11/10/23 Loc: HO.MRI Attending Dr: Kandice Bush MD Ordering Physician: Kandice Bush MD Date of Service: 11/10/23 Procedure(s): MR head/brain wo/w con Accession Number(s): [id number] cc: Kandice Bush MD EXAMINATION: MR BRAIN [...] in OV> 11/13/23 1641 DD/ 0858 TD/TT: Traffic Expert: Kandice Bush MD IM MRI PROCEDURES Final Result documented in this encounter Visit Diagnoses Diagnosis Left-sided tinnitus- Primary Unspecified tinnitus Dizziness Dizziness and giddiness Other headache syndrome documented in this encounter Care Teams Precipitator Relationship Specialty Start Date End Date Kandice Bush MD [address] [place] [phone] PCP - General Family Medicine 06/18/23 documented as of this encounter
--- OUTSIDE RECORDS SUMMARY | 2025-01-24 10:10 | XMS_ITS | Encounter Summary ---
Author Organization [employer] Address [address] [place] [address] 7 [place] [address] Care Team Providers Care Sales Promotion Director Name Role Phone Kandice Bush MD Primary Care Provider [phone] Reason for Referral * Consultation (Urgent) - Closed Specialty Diagnoses / Procedures Referred By Contrafael t Referred To Contact Podiatry Diagnoses Heel pain, bilateral Kandice Bush MD [address] [place] [address] Phone: tel: fax: Diaz Rojo DPM Phone: tel: fax: Referral ID Status Reason Start Date Expiration Date V isits Requested Visits Authorized [id number] Closed Specialty Services Required 06/07/2024 06/07/2025 6 6 Encounter Details Date Type Department Care Team (Late st Contact Info) Description 06/03/2024 Orders Only [facility] [address] [place] [phone] Kandice Bush MD [address] [place], [place] [phone] Heel pain, bilateral (Primary Dx) Social History [...] EDT Office Visit [facility] [address] [place] [address] Sallie Renee, OD [address] [place] [address] Scheduled Referrals Name Type Priority Associated Diagnoses Orde r Schedule Referral to Podiatry Outpatient Referral Urgent Heel pain, bilateral Expected: 06/03/2024 (Approximate), Expires: 06/03/2025 documented as of this encounter Visit Diagnoses Diagnosis Heel pain, bilateral- Primary documented in this encounter Additional Health Concerns Assessment Noted Time PHQ-9 Depression Total Score: 8 03/04/20 24 8:22 AM EDT documented as of this encounter Care Teams Sales Promotion Director Relationship Specialty Start Date End Date Kandice Bush MD [address] [place] [phone] PCP - General Family Medicine 06/18/23 documented as of this encounter
--- OUTSIDE RECORDS SUMMARY | 2025-01-24 10:10 | XMS_ITS | Encounter Summary ---
Author Organization [employer] Address [address] [place] [address] 7 [place] [address] Care Team Providers Care Communication And Outreach Manager Name Role Phone Kandice Bush MD Primary Care Provider [phone] Reason for Referral * Consultation (Routine) - Closed Specialty Diagnoses / Procedures Referred By Radha bell Referred To Contact Urology Diagnoses Erectile dysfunction, unspecified erectile dysfunction type Low testosterone Kandice Bush MD [address] [place] [address] Phone: tel: fax: [facility] Referral ID Status Reason Start Date Expiration Date V isits Requested Visits Authorized [id number] Closed Specialty Services Required 01/21/2024 01/20/2025 6 6 Encounter Details Date Type Department Care Team (Late st Contact Info) Description 01/18/2024 Orders Only [facility] [address] [place] [phone] Kandice Bush MD [address] [place] [phone] Erectile dysfunction, unspecified erectile dysfunction type (Primary [...] Description 02/20/2025 9:00 AM EDT Office Visit [facility] [address] [place] [address] Sallie Renee, OD [address] [place] [address] Scheduled Referrals Name Type Priority Associated Diagnoses [...] documented as of this encounter Care Teams Communication And Outreach Manager Relationship Specialty Start Date End Date Kandice Bush MD [address] [place] [phone] PCP - General Family Medicine 06/18/23 documented as of this encounter
--- OUTSIDE RECORDS SUMMARY | 2025-01-24 10:10 | XMS_ITS | Clinical Summary ---
Author Organization [facility] Address [address] [place] [address] Care Team Providers Care Automobile Body Repair Chief Name Role Phone Patient, Has No [...] complete this topic Procedures * Due to [place] [employer] law, this organization might not be sharing negative HIV tests. Procedure Name Priority Date/Time Associated Diagnosis Comments HEPATITIS PANEL, ACUTE STAT 03/30/2009 12:15 PM EDT from Last 3 Months or Most Recently Relevant to Health Maintenance Results * Due to [place] [employer] law, this organization might not be sharing negative HIV tests. * Hepatitis Panel, Acute (03/30/2009 12:15 PM EDT) Hepatitis A IgM Antibody Negative Negative [facility] Hepatitis B Core IgM Antibody Negative Negative [facility] Hepatitis B Surface Ag Negative Negative [facility] Hepatitis C Antibody Negative Negative [facility] 03/30/2009 12:1 5 PM EDT 03/30/2009 2:27 PM EDT us Christiane Mathur MD LAB BLOOD ORDERABLES Vonda oreilly Result [facility] [address] [place] [address], from Last 3 Months or Most Recently Relevant to Health Maintenance Insurance [place] Care Teams Automobile Body Repair Chief Relationship Specialty Start Date End Date Patient, Has No Pcp Or Ref DO NOT EDIT THIS RECORD VIA PROVIDER ON THE FLY PCP - General Human Resource Analyst 01/26/23
--- OUTSIDE RECORDS SUMMARY | 2025-01-24 10:10 | XMS_ITS | Referral Summary ---
Author Organization [facility] Address [address] [place] [address] Care Team Providers Care Doping Supervisor Name Role Phone Patient, Has No [...] Not on file Procedures * Due to [place] [employer] law, this organization might not be sharing negative HIV tests. Procedure Name Priority Date/Time Associated Diagnosis Comments HEPATITIS PANEL, ACUTE STAT 03/30/2009 12:15 PM EDT from Last 3 Months or Most Recently Relevant to Health Maintenance Results * Due to [place] [employer] law, this organization might not be sharing negative HIV tests. * Hepatitis Panel, Acute (03/30/2009 12:15 PM EDT) Hepatitis A IgM Antibody Negative Negative [facility] Hepatitis B Core IgM Antibody Negative Negative [facility] Hepatitis B Surface Ag Negative Negative [facility] Hepatitis C Antibody Negative Negative [facility] 03/30/2009 12:1 5 PM EDT 03/30/2009 2:27 PM EDT us Christiane Mathur MD LAB BLOOD ORDERABLES Vonda afia Result [facility] [address] [place] [address], from Last 3 Months or Most Recently Relevant to Health Maintenance [place] [address] [place] [address] MEDICAID Care Teams Doping Supervisor Relationship Specialty Start Date End Date Patient, Has No Pcp Or Ref DO NOT EDIT THIS RECORD VIA PROVIDER ON THE FLY PCP - General Guest Associate 01/26/23
[2025-01-24 16:13] LABS: Urine Cytology See Pathology rpt
== END 2025-01-24 08:22 | disposition home or self-care (01) ==
LOC: HO.LAB 08:21
PROVIDERS: PCP Family Medicine; Visit Provider Nurse Practitioner Family
DX: R31.29 Other microscopic hematuria (principal); N52.9 Male erectile dysfunction, unspecified; E11.69 Type 2 diabetes mellitus with other specified complication; Z13.9 Encounter for screening, unspecified; Z79.899 Other long term (current) drug therapy
CPT/HCPCS: 81003; 88112; 99212

== ENCOUNTER 2025-01-24 08:21 | Outpatient (AMB) | payer MEDICAID, SELFPAY ==
--- OUTSIDE RECORDS SUMMARY | 2025-01-24 08:27 | XMS_ITS | Clinical Summary ---
Author Organization [employer] Address [address] [facility] [address] [place] [address] Care Team Providers Care Sanitation Worker Cleaning Machinery Name Role Phone Kandice Bush MD Primary Care Provider [phone] Allergies Active Allergy Reactions Criticality Noted Date [...] per day. 30 tablet 2 10/14/19 25 Active hydrOXYzine HCl (Atarax) 10 MG tabletIndicati [...] Active Problems Problem Noted Date Diagnosed Date At high risk for self harm 01/13/2025 Cannabis use disorder 01/13/2025 GERD (gastroesophageal reflux disease) Assessment & Plan (12/03/2024 6:07 AM EDT): - following with [facility] [place] [facility], [...] - patient has already been referred to methods and procedures analyst, patient will call to reschedule appt Assessment & Plan (05/12/2024 12:07 PM EDT): - likely plantar fascitis - continue wearing comfortable shoes - ice and stretching exercises - patient has already been referred to methods and procedures analyst, will check its status Erectile dysfunction 05/12/2024 [...] si/sx to seek a prompt medical attention Severe episode of recurrent major depressive disorder, without psychotic features 10/12/2023 Assessment & Plan (12/03/2024 6:17 AM EDT): - compounding factors: Loss of his mother; stressful divorce; separation from his son; 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 Alcohol use disorder in remission 06/17/2023 Assessment & Plan (12/03/2024 6:11 AM EDT): - following with Dr. Gimenez / AUD clinic in [facility] - continue current recovery effort and support [...] with Dr. Gimenez / AUD clinic in [facility] - continue current recovery effort and support Assessment & Plan (10/12/2023 4:12 PM EST): - following with Dr. Gimenez / AUD clinic in [facility] - continue current recovery effort and support Assessment & Plan (06/17/2023 5:34 PM EDT): - pt drinks large amount - pt may need to go to Detox first before starting medication - will refer to personal development coach and AUD clinic Elevated blood pressure [...] self-monitoring BP. -Pt is already following with geography professor for cardiomyopathy -Follow up in 3 mo, sooner if any problem arises Cardiomyopathy 06/17/2023 Assessment & Plan (11/29/2024 9:48 AM EDT): - geography professor: Dr. Henderson, [facility], last seen on 01/27/23 - Hx [...] & Plan (01/17/2024 3:15 PM EDT): - [facility] on [facility] - Hx abnormal [...] & Plan (10/12/2023 5:44 AM EST): - geography professor: Rasheed Farr, last seen on 01/27/23 - Hx abnormal [...] & Plan (06/17/2023 6:13 PM EDT): - geography professor: Rasheed Farr [facility], last seen on 01/27/23 - Hx abnormal [...] PM EDT): - continue following specialists at [facility] declines COVID vaccine Assessment & Plan (10/12/2023 4:13 PM EST): - continue following specialists at [facility] declines COVID vaccine Assessment & Plan (06/17/2023 6:17 PM EDT): - continue following specialists at [facility] declines COVID vaccine Headache 06/17/2023 Assessment [...] - [place] Genao [place] [facility] [place] [...] Center - currently following with Dr. Genao [facility] [place] - Radiofrequencyy ablation of right GSV and [...] Medical Center - currently following with Dr. Genao, [facility] - compression stocking, leg [...] organization. Date Type Department Care Team Description 01/17/2025 Patient Outreach [facility] [address] [place] [address] Neto Gonzales Recovery Supports 01/16/2025 Patient Outreach [facility] [address] [place] [address] Neto Gonzales Recovery Supports 01/13/2025 Telephone [facility] [address] Danielle Romo MA 01/12/2025 Orders Only GENERIC EXTERNAL DATA DEPARTMENT Provider, Generic External Data 01/11/2025 9:00 AM EDT Office Visit [facility] [place] [address] Av Gimenez MD Alcohol use disorder, severe, dependence (CMS/HCC) (Primary Dx) 01/11/2025 Travel 01/04/2025 9:00 AM EDT Office Visit [facility] [place] [address] Av Gimenez MD Alcohol use disorder, severe, dependence (CMS/HCC) (Primary Dx) 01/04/2025 Travel 01/03/2025 Patient Outreach [facility] [place] [address] Joe Rosenthal Recovery Supports 01/02/2025 Patient Outreach [facility] [place] [address] Neto Gonzales Recovery Supports 12/23/2024 Telephone [facility] [place] [address] Di Yoon MA may recall 12/22/2024 Patient Outreach [facility] [place] [address] Neto Gonzales Recovery Supp[facility] 12/21/2024 Patient Outreach [facility] [place] [address] Joe Rosenthal Recovery Supports 12/20/2024 Patient Outreach [facility] [place] [address] Joe Rosenthal Recovery Supports 12/06/2024 Patient Outreach [facility] [place] [address] Joe Rosenthal Recovery Supports 11/30/2024 9:00 AM EDT Office Visit [facility] [place] [address] Av Gimenez MD Alcohol use disorder, severe, dependence (CMS/HCC) (Primary Dx) 11/30/2024 Travel 11/29/2024 1:15 PM EDT Office Visit [facility] [address] [place] [phone] Kandice Bush MD Heel pain, bilateral (Primary [...] screening for respiratory tuberculosis 11/29/2024 Patient Outreach [address] [address] Neto Gonzales Recovery Supports 11/29/2024 Travel 11/25/[address] [address] Kandice Bush MD chart prep 11/25/2024 Refill [facility] [address] [place] [phone] Jr Garcia MD 11/21/2024 Patient Outreach [address] [address] Kandice Bush MD Care Coordination (CHW outreach for SDOH food needs-LVM /) 11/21/2024 Patient Outreach [address] [address] Kandice Bush MD Pre-visit Planning (SDOH Screening positive and Tobacco screening negative) 11/18/2024 Population Health Risk Score Community [facility] ([facility]) Department [address] [place] [phone] Provider, Population Health Generic 11/15/2024 8:40 AM EDT Office Visit [facility] [address] [place] [address] Jr Garcia MD Influenza-like symptoms (Primary Dx); Conjunctivitis of both eyes, unspecified conjunctivitis type; Acute URI from Last 3 Months Immunizations Immunization Administration Dates Next Due Tdap 07/13/2018 Social [...] Answer Date Recorded Patient Health Questionnaire-9 Score 23 01/13/2025 Patient Health Questionnaire-9 Score 23 01/13/2025 Last PHQ-9: Questionnaire Data Not on file 0 01/13/2025 Housing Stability Answer Date Recorded What is [...] Date Recorded Patient Health Questionnaire-2 Score 6 01/13/2025 Internet Access Answer Date Recorded Internet Access [...] EDT Office Visit [facility] [address] [place] [address] Sallie Renee, OD [address] [place] [address] Health Maintenance Due Date Last Done Comments Family Planning (PISQ) 1995 Hepatitis B Vaccines (1 of 3 - 19+ 3-dose series) 1999 Pneumococcal Vaccine: Pediatrics (0 to 5 Years) and At-Risk Patients (6 to 49) Years) (1 of 2 - PCV) 1999 COVID-19 Vaccine ( - 2023-2 5 season) 2024 Influenza Vaccine (#1) 2024 Alcohol/Substance Use Screening 02/02/2025 02/03/2024 SDOH Screening 11/21/2025 11/21/2024 Disability Screening 11/29/2025 11/29/2024 Tobacco Screening 12/03/2025 12/03/2024 Depression Screening 01/13/2026 01/13/2025, 01/13/2025 DTaP/Tdap/Td Vaccines (2 - T d or [...] patient's age to complete this topic Meningococcal B Vaccine Aged Out No l onger eligible based on patient's age to complete [...] Diagnosis Comments HEMATOXYLIN AND EOSIN STAIN Routine 01/12/2025 2:17 PM EDT POCT INFLUENZA B (ID NOW RAPID MOLECULAR) Routine 11/15/2024 8:54 AM EDT Acute URI POCT INFLUENZA A (ID NOW RAPID MOLECULAR) Routine 11/15/2024 8:54 AM EDT Acute URI POCT RAPID STREP A Routine 11/15/2024 8: 54 AM EDT Acute URI POCT RAPID COVID ANTIGEN Routine 11/15/2024 8:54 AM EDT Acute URI HEPATITIS C AB W/REFL TO HCV RNA, QN, PCR Routine 10/12/2023 1:46 PM EST Dysuria HIV 1/2 ANTIGEN/ANTIBODY, FOURTH GENERATION W/RFL Routine 10/12/2023 1:46 PM EST Dysuria LIPID PANEL WITH REFLEX TO DIRECT LDL Routine 10/12/2023 1:46 PM EST Cardiomyopathy, unspecified type (CMS/HCC) from Last 3 Months or Most Recently Relevant to Health Maintenance Results * Hematoxylin and Eosin Stain (01/12/2025 2:17 PM EDT) 01/12/2025 2:17 PM EDT 01/12/2025 3:06 PM EDT [facility] - 01/16/2025 5:16 PM EDT ----- ------- Name: Alejandro Sanchez ?Age/Sex: 44/M ? : 1980 Unit#: [id number] ?? Attend Dr: Ilsa De La O MD ?Re01/12/25 ?Status: REG SDC ? Location: HO.SSS ?Disch: ? ----- ------- SPEC : [id number] ? RECD: 01/12/25-5316 ? STATUS: ??SOUT ? REQ NUM: [id number] ? ALYCIA: 01/12/25-1417 ? SUBM DR: Ilsa De La O MD ? ENTERED: ??01/12/25-1511 ?SP TYPE: Surgical ? OTHR DR: Kandice Bush MD ? ORDERED: ??HE Stain/6, Gross Micro L4/4, IHC, H. pylori ? Diagnosis ?? A. ??Duodenum, biopsy: ??Duodenal mucosa with predominantly preserved villi and features of ?? chronic/non-specific duodenitis. ? B. ??Stomach, random, biopsy: ??Gastric antral and body mucosa with minimal chronic ?? inactive gastritis; negative for H. pylori, intestinal metaplasia and dysplasia. ? C. ??Esophagus, lower, biopsy: ??Squamous mucosa with no specific change; no columnar ?? mucosa present. ? D. ??Esophagus, middle, biopsy: ??Squamous mucosa with no specific change; no columnar ?? mucosa present. ?Clinical History Pre-Op Dx: ??Epigastric pain, GERD Post-Op Dx: ??Grade A esophagitis, inlet patch ?Microscopic Description Microscopic sections reviewed. ??Immunostain for H.pylori on B is negative with appropriate control. ? Material Received ?? A. ??Duodenum bx's ?? B. ??Random gastric bx's ?? C. ??Lower esophagus bx's ?? D. ??Middle esophagus bx's ? Gross Description Received in four parts. Part A: ??Received in formalin labeled ?duodenum bx's? are 3 saha-pink irregular tissue fragments ranging from 0.25-0.3 cm, submitted in toto in a cassette labeled A. Part B: ??Received in formalin labeled ?random gastric bx's? are 3 saha-pink irregular and rectangular tissue fragments ranging from 0.25-0.35 cm, submitted in toto in a cassette labeled B. Part C: ??Received in formalin labeled ?lower esophagus bx's? are 2 etienne-white irregular and rectangular tissue fragments measuring 0.2 and 0.4 cm, submitted in toto in a cassette ? CONTINUED ON NEXT PAGE ----- ------- Name: Alejandro Sanchez ?Age/Sex: 44/M ? : 1980 Unit#: [id number] ?? Attend Dr: Ilsa De La O MD ?Re01/12/25 ?Status: REG SDC ? Location: HO.SSS ?Disch: ? ----- ------- SPEC : [id number] ? RECD: 01/12/25-150 ? STATUS: ??SOUT ? REQ NUM: [id number] ? ALYCIA: 01/12/25-1417 ? SUBM DR: Ilsa De La O MD ? ENTERED: ??01/12/25-1511 ?SP TYPE: Surgical ? OTHR DR: Kandice Bush MD ? ORDERED: ??HE Stain/6, Gross Micro L4/4, IHC, H. pylori ? Gross Description ?(Continued) labeled C. Part D: ??Received in formalin labeled ?middle esophagus bx's? are 4 etienne-white irregular and rectangular tissue fragments ranging from 0.2-0.35 cm, submitted in toto in a cassette labeled D. CEDS Special studies ordered and performed: Immunostain for H. pylori on B1. Copies To: ?? Kandice Bush MD ?? [facility] ?? [address] [facility] ?? [place] [address] ?? [phone] ?? Ilsa De La O MD ?? [facility] ?? [address] ?? [place] [address] ?? [phone] ?? [email or web address] ------- Signed (signature on file) Jessica Lorenzo 01/16/25 1716 ? ----- ------- ? END OF REPORT ? Generic External Data Provider LAB BLOOD ORDERAB LES Final Result Performing Organization Address [facility]/ZIP Co de Phone Number [facility] [address] [place] [phone] * Influenza B (ID NOW Rapid Molecular) (11/15/2024 8:54 AM EDT) [facility] Influenza B Negative Negative, Indeterminate [facility] Swab 11/15/2024 8:54 AM EDT Jr Garcia MD POINT OF CARE TEST ENTER/EDIT OR DERABLES Final Result Performing Organization Address [facility] Co de Phone Number [facility] [address] [place] [phone] * Influenza A (ID NOW Rapid Molecular) (11/15/2024 8:54 AM EDT) [facility] Influenza A Negative Negative, Indeterminate [facility] Swab 11/15/2024 8:54 AM EDT us Jr Garcia MD POINT OF CARE TEST ENTER/EDIT OR DERABLES Final Result Performing Organization Address [facility] Co de Phone Number [facility] [address] [place] [phone] * POCT Rapid COVID Ag (11/15/2024 8:54 AM EDT) Rapid COVID Ag Negative [facility] Swab 11/15/2024 8:54 AM EDT us Jr Garcia MD POINT OF CARE TEST ENTER/EDIT OR DERABLES Final Result Performing Organization Address [facility] de Phone Number [facility] [address] [place] [phone] * POCT rapid strep A manually resulted (11/15/2024 8:54 AM EDT) Pathologist [facility] Rapid Strep A Screen Negative Negative, None Detected [facility] Swab 11/15/2024 8:54 AM EDT us Jr Garcia MD POINT OF CARE TEST ENTER/EDIT OR DERABLES Final Result Performing Organization Address [facility] Phone Number [facility] [address] [place] [phone] * (ABNORMAL) Lipid Panel with Reflex to Direct LDL (10/12/2023 1:46 PM EST) Pathologist [facility] Triglycerides 125 <150 mg/dL [facility] Comment:Desirable Triglyceri de: less than 150 mg/dLBorderline High Triglyceride 150-199 mg/dLHigh Triglyceride: 200-499 mg/dLVery High Triglyceride: greater than or equal to 5OO mg/dL Cholesterol 206(H) <200 mg/dL [facility] Comment:Desirable Cholestero l: less than 200 mg/dLBorderline High Cholesterol: 200-239 mg/dLHigh Cholesterol: greater than 239 mg/dL LDL Cholesterol Calculated 124(H) <100 mg/dL [facility] Comment:Desirable LDL: less than 100 mg/dLNear Optimal/Above Optimal LDL: 110- 129 mg/dLBorderline High LDL: 130-159 mg/dLHigh LDL: 160-189 mg/dLVery High LDL: greater than or equal to 190 mg/dL HDL Cholesterol 57 >40 mg/dL [facility] Comment:Desirable HDL: great er than 40 mg/dL Note: This HDL assay may give artificially low results in patients with liver disease. Blood 10/12/2023 1:46 PM EST 10/12/2023 4:25 PM EST Kandice Bush MD LAB BLOOD ORDERABLES Final Resul t Performing Organization Address [facility]/ZIP Co de Phone Number [facility] [address] [place] [phone] * Hepatitis C Antibody with Reflex to HCV, RNA, Quantitative, Real-Time PCR (10/12/2023 1:46 PM EST) Hepatitis C Antibody Nonreactive Nonreactive [facility] Comment:Antibodies to HCV no t detected; does not exclude early acuteHCV infection. Blood Venous blood specimen / Unknown 10/12/2023 1:46 PM EST 10/12/2023 4:19 PM EST Kandice Bush MD LAB BLOOD ORDERABLES Final Resul t Performing Organization Address City/[facility] Co de Phone Number [facility] [address] [place] [phone] * HIV-1/2 Antigen and Antibodies, Fourth Generation, with Reflexes (10/12/2023 1:46 PM EST) HIV AB/AG Nonreactive Nonreactive [facility] Comment:HIV-1 p24 Ag and/or HIV-1/HIV-2 Ab not detected.A test result that is nonreactive does not exclude thepossibility of exposure to or infection with HIV-1 and/orHIV-2. Nonreactive results in this assay for individualswith prior exposure to HIV-1 and/or HIV-2 may be due toantigen and antibody levels that are below the limit ofdetection of this assay.The [employer] Alinity HIV Ag/Ab Combo assay result andsupplemental assay results should be interpreted inconjunction with the patient's clinical presentation,history and other laboratory results. If the results areinconsistent with clinical evidence, additional testing issuggested to confirm the result. Blood Venous blood specimen / Unknown 10/12/2023 1:46 PM EST 10/12/2023 4:19 PM EST us Kandice Bush MD LAB BLOOD ORDERABLES Final Resul t [facility] [address] [place] [phone] from Last 3 Months or Most Recently Relevant to Health Maintenance Insurance [facility] C3 HSN FULL Care Teams Sanitation Worker Cleaning Machinery Relationship Specialty Start Date End Date Kandice Bush MD [address] [place] [phone] PCP - General Family Medicine 06/18/23
--- OUTSIDE RECORDS SUMMARY | 2025-01-24 08:28 | XMS_ITS | Encounter Summary ---
Author Organization [employer] Address [address] [place] [address] 7 [place] [address] Care Team Providers Care Electric Truck Operator Name Role Phone Kandice Bush MD Primary Care Provider [phone] Reason for Referral * Imaging (Routine) - Closed Specialty Diagnoses / Procedures Referred By Contac t Referred To Contact Radiology Diagnoses Left-sided tinnitus Dizziness Other headache syndrome Procedures Mr Brain w/ and w/o Contrast Kandice Bush MD [address] [place] [phone] Phone: tel: fax: [address] Phone: tel: fax: Referral ID Status Reason Start Date Expiration Date Visits Re quested Visits Authorized [id number] Closed 10/13/2023 10/12/2024 1 1 Encounter Details Date Type Department Care Team (Late st Contact Info) Description 10/13/2023 Orders Only [facility] [address] [place] [address] Kandice Bush MD [address] [place], [place] [phone] Left-sided tinnitus (Primary Dx); Dizziness; Other headache [...] [facility] [address] [place] [address] Sallie Renee, OD [address] [place] [address] documented as of this encounter Procedures Procedure [...] EST Narrative 11/13/2023 4:45 PM EST ? [facility] ?[address] ?[place] [address] ? Magnetic Resonance Report ? Signed ? Patient: Blum Castanaza,Alejandro N ?MR ?? #: [id number] ? : 1980 ?Acct:[id number] ? Age/Sex: 43 / M ?ADM Date: 11/10/23 ? Loc: HO.MRI ? Attending Dr: Kandice Bush MD ? Ordering Physician: Kandice Bush MD ?? Date of Service: 11/10/23 ?? Procedure(s): MR head/brain wo/w con ?? Accession Number(s): [id number] ? cc: Kandice Bush MD ? EXAMINATION: [...] 1641 ? DD/ 0858 ? TD/TT: ? Hot Dimpling Machine Operator: ? Procedure Note Donroloter, Image - 11/13/[address] [address] Magnetic Resonance Report Signed Patient: Alejandro Sanchez NMR #: [id number] : 1980Acct:[id number] Age/Sex: 43 / MADM Date: 11/10/23 Loc: HO.MRI Attending Dr: Kandice Bush MD Ordering Physician: Kandice Bush MD Date of Service: 11/10/23 Procedure(s): MR head/brain wo/w con Accession Number(s): [id number] cc: Kandice Bush MD EXAMINATION: MR BRAIN [...] in OV> 11/13/23 1641 DD/ 0858 TD/TT: Hot Dimpling Machine Operator: Kandice Bush MD IM MRI PROCEDURES Final Result documented in this encounter Visit Diagnoses Diagnosis Left-sided tinnitus- Primary Unspecified tinnitus Dizziness Dizziness and giddiness Other headache syndrome documented in this encounter Care Teams Electric Truck Operator Relationship Specialty Start Date End Date Kandice Bush MD [address] [place] [phone] PCP - General Family Medicine 06/18/23 documented as of this encounter
--- OUTSIDE RECORDS SUMMARY | 2025-01-24 08:28 | XMS_ITS | Referral Summary ---
Author Organization [facility] Address [address] [place] [address] Care Team Providers Care Sales Representative Supervisor Name Role Phone Patient, Has No [...] on file Procedures * Due to [place] Bundle [employer] law, this organization might not be sharing negative HIV tests. Procedure Name Priority Date/Time Associated Diagnosis Comments HEPATITIS PANEL, ACUTE STAT 03/30/2009 12:15 PM EDT from Last 3 Months or Most Recently Relevant to Health Maintenance Results * Due to [place] Bundle [employer] law, this organization might not be sharing negative HIV tests. * Hepatitis Panel, Acute (03/30/2009 12:15 PM EDT) Hepatitis A IgM Antibody Negative Negative [facility] Hepatitis B Core IgM Antibody Negative Negative [facility] Hepatitis B Surface Ag Negative Negative [facility] Hepatitis C Antibody Negative Negative [facility] 03/30/2009 12:1 5 PM EDT 03/30/2009 2:27 PM EDT us Christiane Mathur MD LAB BLOOD ORDERABLES Vonda afia Result [facility] [address] [place] [address], from Last 3 Months or Most Recently Relevant to Health Maintenance [place] [address] [place] [address] MEDICAID Care Teams Sales Representative Supervisor Relationship Specialty Start Date End Date Patient, Has No Pcp Or Ref DO NOT EDIT THIS RECORD VIA PROVIDER ON THE FLY PCP - General Workers Compensation Claims Specialist 01/26/23
--- OUTSIDE RECORDS SUMMARY | 2025-01-24 08:28 | XMS_ITS | Encounter Summary ---
Author Organization [employer] Address [address] [facility] 7t [place] [address] Care Team Providers Care Manager Convention Name Role Phone Kandice Bush MD Primary Care Provider [phone] Encounter Details Date Type Department Care Team ([facility] st Contact Info) Description 10/13/2023 Orders Only [facility] [address] [place] [address] Kandice Bush MD [address] [place] [address] Social History Tobacco Use Types Packs/Day Years [...] Description 02/20/2025 9:00 AM EDT Office Visit [facility] [address] [place] [address] Sallie Renee, OD [address] [place] [address] documented as of this encounter Visit Diagnoses Not on filedocumented in this encounter Care Teams Manager Convention Relationship Specialty Start Date End Date Kandice Bush MD [address] [place] [address] PCP - General Family Medicine 06/18/23 documented as of this encounter
--- OUTSIDE RECORDS SUMMARY | 2025-01-24 08:28 | XMS_ITS | Encounter Summary ---
Author Organization [facility] Address [address] [place] [address] Care Team Providers Care Circus Agent Name Role Phone Patient, Has No Pcp Or Ref Primary Care Provider Unavailable Encounter Details Date Type Department Care Team (Late st Contact Info) Description 01/21/2023 Telephone [facility] Nuclear Medicine [address] [place] [phone] Diaz Carrera, RN Social History Tobacco [...] documented as of this encounter Care Teams Circus Agent Relationship Specialty Start Date End Date Patient, Has No Pcp Or Ref DO NOT EDIT THIS RECORD VIA PROVIDER ON THE FLY PCP - General Compounder Helper 01/26/23 documented as of this encounter
--- OUTSIDE RECORDS SUMMARY | 2025-01-24 08:28 | XMS_ITS | Encounter Summary ---
Author Organization [facility] Address [address] [place] [address] Care Team Providers Care Official Court Interpreter Name Role Phone Patient, Has No Pcp Or Ref Primary Care Provider Unavailable Encounter Details Date Type Department Care Team (Late st Contact Info) Description 01/07/2023 Telephone [facility] [address] [place] [address] Crystal Canchola NP [address] [place], [place] [phone] Social History Tobacco Use Types Packs/Day Years [...] documented as of this encounter Care Teams Official Court Interpreter Relationship Specialty Start Date End Date Patient, Has No Pcp Or Ref DO NOT EDIT THIS RECORD VIA PROVIDER ON THE FLY PCP - General Telephone Advice Nurse 01/26/23 documented as of this encounter
--- OUTSIDE RECORDS SUMMARY | 2025-01-24 08:28 | XMS_ITS | Data Portability ---
Author Organization [facility] Address [address] [place] [id number] Care Team Providers Care Component Inspector Name Role Phone JOSE BRYSON Primary Care [...] Organization Details Recorded Time Abnormal auditory perception 94412091 Active 2023 JACQUELINE MUÑOZ [address] [place] [address], [place], [phone], [facility] 15:21:55 Tinnitus of left ear [id number] Active 2023 ANTONIETTA SAM MD [address] [address], [place], [phone], [facility] 15:41:05 Problem Notes None recorded. Procedures Surgical History Date Name Laterality Status Provider Name and Address Organization Details Recorded Time 02/24/2024 Air & Speech Audio with Tymps - 01778, 22481 & 13581 completed JACQUELINE MUÑOZ [address] [place] [address], [phone], [facility] 02/24/2024 15:21:44 Imaging Results Imaging Date Name Status LastModified by Organiz ation Details LastModified Time 04/08/2024 audiogram completed [facility] Information no t available 04/08/2024 15:21:00 Procedure Notes None recorded. Medical Equipment None Reported. Allergies Allergen ID Allergen Name Allergen Category Reaction Reaction Severity Criticality Documentation Date Start Date Code Code System Note Provider Name and Address Organization Details Recorded Time 259620 Product containin g penicilli n (product) medicatio n hives Not available Not available 02/24/2024 [address] [facility] 15:17:00 Vitals Date Recorded Body height Body mass index (BMI) Body weight Provider Name and Address Organization Details Last Updated DateTime 02/24/2024 185.42 cm 38.5 kg/m2 178766.[address] [facility] 02/24/2024 15:31:31 Social History None recorded. Functional Status None recorded. Mental Status None recorded. Family History Nothing Reported. Medical History Condition Response Migraines Y Headaches Y Anxiety Y Depression Y Asthma Y Gynecological HistoryNo gynecological history recorded. Obstetrics History GPAL:G 0 P 0 0 0 0 Past Encounters Encounter ID Performer Location Encounter Start Date Encounter Closed Date Diagnosis/Indication Diagnosis SNOMED-CT Code Diagnosis ICD10 Code Diagnosis Note [id number] ANTONIETTA SAM MD [facility] [address] [place] [address] 02/24/2024 15:01:17 02/24/2024 15:45:33 Abnormal auditory perception 20225570 H93.299 Right Ear:Normal hearing with excellent speech discrimina tion.Type A tympanogra m.Left Ear:Normal hearing with excellent speech discrimina tion.Type A tympanogra m. Tinnitus of left ear 288 [id number] 106 H93.12 Health Concerns Section Related Observation LastModified by Organization Detai ls LastModified Time None Recorded Concern Status LastModified by Organization Details LastModified Time None Recorded Advance Directives Directive None Recorded Payers Insurance Date Sequence Insurance Name Policy Number Policy Scott Covered Member ID Scott Member ID Guarantor Name 02/24/2024 1 [place] [facility] Alejandro N Blum [id number] [facility] Date Note Type Note [...] some blood last year ANTONIETTA SAM MD [address] [place] [address], [phone], [facility] 02/24/2024 15:44:07 OBGyn Episode No OBEpisode recorded.
--- OUTSIDE RECORDS SUMMARY | 2025-01-24 08:28 | XMS_ITS | Clinical Summary ---
Author Organization [facility] Address [address] [place] [address] Care Team Providers Care Truck Repair Supervisor Name Role Phone Patient, Has No [...] complete this topic Procedures * Due to [place] [employer] law, this organization might not be sharing negative HIV tests. Procedure Name Priority Date/Time Associated Diagnosis Comments HEPATITIS PANEL, ACUTE STAT 03/30/2009 12:15 PM EDT from Last 3 Months or Most Recently Relevant to Health Maintenance Results * Due to [place] [employer] law, this organization might not be sharing negative HIV tests. * Hepatitis Panel, Acute (03/30/2009 12:15 PM EDT) Hepatitis A IgM Antibody Negative Negative [facility] Hepatitis B Core IgM Antibody Negative Negative [facility] Hepatitis B Surface Ag Negative Negative [facility] Hepatitis C Antibody Negative Negative [facility] 03/30/2009 12:1 5 PM EDT 03/30/2009 2:27 PM EDT us Christiane Mathur MD LAB BLOOD ORDERABLES Vonda oreilly Result [facility] [address] [place] [address], from Last 3 Months or Most Recently Relevant to Health Maintenance Insurance [place] Care Teams Truck Repair Supervisor Relationship Specialty Start Date End Date Patient, Has No Pcp Or Ref DO NOT EDIT THIS RECORD VIA PROVIDER ON THE FLY PCP - General Psychometric Examiner 01/26/23
--- OUTSIDE RECORDS SUMMARY | 2025-01-24 08:28 | XMS_ITS | Encounter Summary ---
Author Organization [facility] Address [address] [place] [address] Care Team Providers Care Fisher Mussel Name Role Phone Patient, Has No Pcp Or Ref Primary Care Provider Unavailable Encounter Details Date Type Department Care Team (Late st Contact Info) Description 01/07/2023 Orders Only [facility] [address] [place] [address] Crystal Canchola, DINO [address] [place] [address] Social History Tobacco Use Types Packs/Day Years [...] documented as of this encounter Care Teams Fisher Mussel Relationship Specialty Start Date End Date Patient, Has No Pcp Or Ref DO NOT EDIT THIS RECORD VIA PROVIDER ON THE FLY PCP - General Mold Tooler 01/26/23 documented as of this encounter
--- OUTSIDE RECORDS SUMMARY | 2025-01-24 08:28 | XMS_ITS | Encounter Summary ---
Author Organization [employer] Address [address] [place] [address] 7 [place] [address] Care Team Providers Care Yield Engineer Name Role Phone Kandice Bush MD Primary Care Provider Reason for Referral * Consultation (Urgent) - Closed Specialty Diagnoses / Procedures Referred By Contrafael t Referred To Contact Podiatry Diagnoses Heel pain, bilateral Kandice Bush MD [address] [place] [address] Phone: tel: fax: Diaz Rojo DPM Phone: tel: fax: Referral ID Status Reason Start Date Expiration Date V isits Requested Visits Authorized [id number] Closed Specialty Services Required 06/07/2024 06/07/2025 6 6 Encounter Details Date Type Department Care Team (Late st Contact Info) Description 06/03/2024 Orders Only [facility] MEDICINE [address] [place] [phone] Kandice Bush MD [address] [place], [place] [phone] Heel pain, bilateral (Primary Dx) Social History [...] Description 02/20/2025 9:00 AM EDT Office Visit [facility] OPTOMETRY [address] [place] [address] Sallie Renee, OD [address] [place] [address] Scheduled Referrals Name Type Priority Associated Diagnoses Orde r Schedule Referral to Podiatry Outpatient Referral Urgent Heel pain, bilateral Expected: 06/03/2024 (Approximate), Expires: 06/03/2025 documented as of this encounter Visit Diagnoses Diagnosis Heel pain, bilateral- Primary documented in this encounter Additional Health Concerns Assessment Noted Time PHQ-9 Depression Total Score: 8 03/04/20 24 8:22 AM EDT documented as of this encounter Care Teams Yield Engineer Relationship Specialty Start Date End Date Kandice Bush MD [address] [place] [phone] PCP - General Family Medicine 06/18/23 documented as of this encounter
--- OUTSIDE RECORDS SUMMARY | 2025-01-24 08:28 | XMS_ITS | Encounter Summary ---
Author Organization [employer] [facility] Address [address] [place] [address] 7 [place] [address] Care Team Providers Care Photographer'S Assistant Name Role Phone Kandice Bush MD Primary Care Provider [phone] Reason for Referral * Consultation (Routine) - Closed Specialty Diagnoses / Procedures Referred By Radha bell Referred To Contact Urology Diagnoses Erectile dysfunction, unspecified erectile dysfunction type Low testosterone Kandice Bush MD [address] [place] [phone] Phone: tel: fax: [facility] Referral ID Status Reason Start Date Expiration Date V isits Requested Visits Authorized [id number] Closed Specialty Services Required 01/21/2024 01/20/2025 6 6 Encounter Details Date Type Department Care Team (Late st Contact Info) Description 01/18/2024 Orders Only [facility] MEDICINE [address] [place] [address] [phone] Kandice Bush MD [address] [place] [phone] Erectile dysfunction, unspecified erectile dysfunction type (Primary [...] 9:00 AM EDT Office Visit [facility] OPTOMETRY [address] [place] [address] Sallie Renee, OD [address] [place] [address] Scheduled Referrals Name Type Priority Associated Diagnoses [...] documented as of this encounter Care Teams Photographer'S Assistant Relationship Specialty Start Date End Date Kandice Bush MD [address] [place] [phone] PCP - General Family Medicine 06/18/23 documented as of this encounter
--- OUTSIDE RECORDS SUMMARY | 2025-01-24 08:28 | XMS_ITS | Encounter Summary ---
Author Organization [employer] Address [address] [facility] 7t [place] [address] Care Team Providers Care Print And Pattern Designer Name Role Phone Kandice Bush MD Primary Care Provider [phone] Reason for Visit * Reason Onset Date Comments FYI 08/12/2023 Encounter Details Date Type Department Care Team ([facility] Contact Info) Description 08/12/2023 Telephone [facility] MEDICINE [address] [place], [place] [phone] Kandice Bush MD [address] [place] [address] FYI Social History Tobacco Use Types Packs/Day [...] cancelled due to pt being admitted at [facility] yesterday (08/11) for an overdose. Health Concierge did advise rosaura to call after pt is discharged. documented in this encounter Plan of Treatment Upcoming Encounters Date Type Department Care Team (Late st Contact Info) Description 02/20/2025 9:00 AM EDT Office Visit [facility] OPTOMETRY [address] [place] [address] Sallie Renee, OD [address] [place] [address] documented as of this encounter Visit Diagnoses Not on filedocumented in this encounter Care Teams Print And Pattern Designer Relationship Specialty Start Date End Date Kandice Bush MD [address] [place] [address] PCP - General Family Medicine 06/18/23 documented as of this encounter
--- NOTE | 2025-01-24 08:53 | MHC.OFFVIS ---
Intake Visit Reasons: 3m fu/Med Refill Intake Note: Patient presents today for follow up on: Erectile Dysfunction and lab results Urology Medications: tadalafil Blood Thinner: none Divorce Lawyer Required: No Accompanied by: Self / Same As Patient Allergies Penicillins [PCN] Allergy (Verified 01/24/25 09:25) Rash Medication List - Last Reconciled 01/24/[address] [facility] blood pressure test kit-large As directed cholecalciferol (vitamin D3) 25 mcg PO DAILY esomeprazole magnesium (Nexium) 40 mg PO DAILY melatonin 3 - 9 mg (1 - 3 x 3 mg) PO DAILY 30 days sertraline 50 mg PO DAILY tadalafil (Cialis) 10 mg PO .PRN PRN 30 days tadalafil (Cialis) 5 mg PO DAILY 90 days HPI Comments Details: Alejandro is a very pleasant 44-year-old male patient of Dr. Bush. He has a past medical history of admission bilateral osteoarthritis of knees, daytime sleepiness, snoring, alcohol use disorder and major depressive disorder. He presents to the office today for follow-up. Of note, patient was seen approximately 10 months ago as a new patient for ongoing issues with his erections at which time labs were ordered for further assessment evaluation and recommendations were made for a 1-3 month follow-up however this was never followed through. Patient reports he had been doing well with p.r.n. Cialis and did not feel he needed to schedule a follow-up however most recently has tried to refill his medication and recommendations were made for follow-up. We discussed importance of following up as planned. He reports feeling p.r.n. dosing of tadalafil has been extremely helpful in maintaining his erections. He currently denies any bothersome urinary issues. He denies urinary urgency, urinary frequency, incontinence, nocturia, hematuria, dysuria, foul smelling urine, changes to urinary stream, flank pain, fever, and or chills. He is happy with his current voiding parameters. Previous labs that were ordered during last office visit were reviewed with the patient today as noted and trended below: Estradiol: 03/30 Luteinizing hormone: 03/30 2.8 Prolactin: 03/30 9.3 Total testosterone: 03/30 342 Free testosterone: 03/30 59.5 SHB/24 26 PSA: 02/28 0.5 We discussed trial of stim testing with Clomid as LH borderline low normal. However he feels daily dosing of tadalafil as well as p.r.n. dosing has been helpful and would like to continue with this current management. He reports feeling shortly after having COVID and the flu erectile dysfunction symptom arised. We discussed at length potential causes of erectile dysfunction as well as lifestyle modifications. Discussed at length contributing factors. In office urinalysis results reviewed with the patient today. He otherwise denies any bothersome urinary issues. He denies urinary urgency, urinary frequency, incontinence, nocturia, hematuria, dysuria, foul smelling urine, changes to urinary stream, flank pain, fever, and or chills. He is happy with her current voiding parameters. PFSH Medical History CAD (coronary artery disease) Transaminitis Long COVID Abnormal stress test Cardiomyopathy Blood pressure elevated without history of HTN History of Helicobacter pylori infection Varicose vein of leg Alcohol use disorder MDD (major depressive disorder), recurrent severe, without psychosis Alcohol abuse Surgical History History of surgery on lower extremity Social History Household Members: Other Household Members Other:: girlfriend Housing: Apartment Are you a primary day care attendant to a significant other at home: No Do you presently have visiting nurse or other home services: No Unable to assess alcohol history related to: Unknown Alcohol intake: current Alcohol intake frequency: former alcohol drinker Alcohol type: beer and hard liquor Patient Tobacco Use Status: Former Tobacco user Second Hand Smoke Exposure: No (Unknown, pt unable to participate fully in admission.) Substance Use Type: Marijuana service: No Sexual orientation: Straight/Heterosexual Review of Systems Const All systems reviewed & are unremarkable except as noted in HPI and below Physical Exam Const General: cooperative, healthy appearing, comfortable, no acute distress, well developed, alert and awake Nutritional Appearance: overweight Orientation/consciousness: patient oriented x3 Limitations: no limitations HEENT Head: Yes normal to inspection, Yes normocephalic and Yes atraumatic Ears: hearing grossly normal bilaterally Eyes General: appearance normal, both eyes and all related structures Neck Neck: Yes normal visual inspection and Yes trachea midline Chest Chest palpation & inspection: normal inspection of the chest Resp Effort & Inspection: normal respiratory effort and able to speak in complete sentences Cardio Rate: regular rate GI Inspection: Yes normal to inspection General: Yes no CVA tenderness Back/Spine/Pelvis Back: no CVA tenderness Skin General skin exam: no rashes or lesions noted Neuro General: patient oriented x3 Extrem General: Yes normal to inspection Psych Appearance: grossly normal and well kempt Mental Status: mental status grossly normal Speech and movement: Normal speech and movement present and Clear speech present Affect: normal affect Attitude: cooperative Thought process: Normal thought process present Thought content: Normal thought content present Insight: Fair insight present (Psych) Judgement: Fair judgement present (Psych) Results AMB Urinalysis, Automated UA Leukoctes 0 Vira/uL Last Edit by JavierTocomailseema Mobleymadelin on 01/24/25 09:54 UA Nitrite Last Edit by JavierTocomailseema Mobleymadelin on 01/24/25 09:54 UA Urobilinogen 0.2 mg/dL Last Edit by JavierTocomailseema Mobleymadelin on 01/24/25 09:54 UA Protein 0 mg/dL Last Edit by Radha Mobleymadelin on 01/24/25 09:54 UA pH 6.0 Last Edit by Synapse Biomedicalseema Mobleymadelin on 01/24/25 09:54 UA Blood 80 Reilly/uL Last Edit by [employer] Leandramadelin on 01/24/25 09:54 UA Specific [place] 1.025 Last Edit by JavierTocomailseema Mobleymadelin on 01/24/25 09:54 UA Ketone Last Edit by Javierhandsomexcutive Leandramadelin on 01/24/25 09:54 UA Bilirubin 0 mg/dL Last Edit by JavierTocomailseema Mobleymadelin on 01/24/25 09:54 UA Glucose 0 mg/dL Last Edit by Audley Travelmadelin on 01/24/25 09:54 Results Reviewed Results Reviewed: Laboratory Last Values Urine pH (Auto) 6.0 01/24/25 09:53 Specific [place] (Auto) 1.025 01/24/25 09:53 Urine Protein (Auto) 0 mg/dL 01/24/25 09:53 Glucose (UA)(Auto) 0 mg/dL 01/24/25 09:53 Urine Blood (Auto) 80 Reilly/uL 01/24/25 09:53 Urine Bilirubin (Auto) 0 mg/dL 01/24/25 09:53 Urine Urobilinogen (Auto) 0.2 mg/dL 01/24/25 09:53 Leukocyte Esterase (Auto) 0 Vira/uL 01/24/25 09:53 Assessment & Plan Assessment & Plan (1) Microscopic hematuria: Code(s): R31.29 - Other microscopic hematuria Category: Medical (2) Erectile dysfunction: Code(s): N52.9 - Male erectile dysfunction, unspecified Category: Medical Plan In office urinalysis results reviewed with the patient today; as noted above; will send for urine cytology. Previous labs were reviewed with the patient today; as noted above. We discussed stim testing with trial of Clomid We discussed potential causes of ED as well as further treatment options and risks and benefits of these treatment options Will continue low-dose Cialis; refill provided P.r.n. prescription provided for Cialis He currently denies any bothersome urinary issues or concerns. He reports be happy with current voiding parameters. Will continue with surveillance monitoring. Will obtain PSA and testosterone in 6 months. Follow-up in 6 months with PSA to be completed prior; or sooner with any issues, concerns, and or questions. Orders: Orders Urine Cytology Today R31.29 - Other microscopic hematuria Testosterone, Free/Total 6 Months E11.69 - Type 2 diabetes mellitus with other specified complication, N52.1 - Erectile dysfunction due to diseases classified elsewhere AMB Urinalysis Automated Today Z13.9 - Encounter for screening, unspecified Prostate Specific Antigen 6 Months N52.9 - Male erectile dysfunction, unspecified Medications: New tadalafil (Cialis) Take 1 tablet as needed prior to sexual activity; not to exceed more than 3 times per week [id number] [facility] [id number] Member [id number] 10 mg PO .PRN 30 days PRN 10 tabs 6RF sexual activity Refilled tadalafil (Cialis) [id number] [facility] [id number] Member [id number] 5 mg PO DAILY 90 days 90 tabs 1RF Patient Instructions: The patient had an opportunity to ask questions regarding the treatment plan. All questions were answered. Physical exam, labs, and imaging were discussed and reviewed in detail. As well as risks, benefits, and discussion of treatment choices. No major barriers to understanding were identified. The patient expressed understanding and agreement with the above treatment plan. The patient was made aware they should contact our office by phone for worsening of their current condition, the appearance of new symptoms, or with any questions or concerns. Compliance is encouraged with any medications and follow up testing that is ordered. It is a privilege to be allowed the opportunity to participate in? your urological care.? Again, if you have any questions or concerns If you have any questions or concerns please do not hesitate to contact me. The office is [phone]. This note is constructed using voice recognition software. While every effort has been made to ensure accuracy fermentologist errors may have been included. Yours sincerely, LYNDSEY Fish Coding Level of Care Code Est Pt Level 3 (22367) Diagnoses Microscopic hematuria R31.29 Erectile dysfunction N52.9
== END 2025-01-24 09:26 | disposition home or self-care (01) ==
LOC: HO.HUSH 08:21
PROVIDERS: PCP Family Medicine; Visit Provider Nurse Practitioner Family
DX: R31.29 Other microscopic hematuria (principal); N52.9 Male erectile dysfunction, unspecified
CPT/HCPCS: 99213

== ENCOUNTER 2025-01-31 11:52 | Outpatient (AMB) | payer MEDICAID, SELFPAY ==
--- NOTE | 2025-01-31 12:03 | A.OFFVIS_ITS ---
Vital Signs 01/31/25 12:12 Height 6 ft 1 in Weight 284 lb BMI 37.5 BP 115/62 Blood Pressure Location Lt brachial Position Sitting Pulse 96 Pulse Oximetry (%) 99 Oxygen Delivery Method Room Air Intake Visit Reasons: EGD; Dr. De La O Intake Note: Patient follow up for EGD results. Patientcc: Nauseas and abdominal pain in the morning with every food or liquid intake, early satiety with poor appetite, acid reflux with burning sensation on his esophagus with white flame. Poem Writer Required: No Accompanied by: Self / Same As Patient Allergies Penicillins [PCN] Allergy (Verified 01/31/25 12:03) Rash HPI HPI EGD; Dr. De La O: Details: LAST VISIT History of Helicobacter pylori infection Postprandial diarrhea Postprandial epigastric pain Early satiety GERD (gastroesophageal reflux disease) Plan Patient will continue taking Nexium every morning. Will change sucralfate to taking any afternoon and at bedtime. Avoid dietary triggers. Patient was encouraged to eat smaller meals and more often. List of him to recommended given to patient. Discussed with him low FODMAP diet. Patient will be sent for upper endoscopy. Denies any cardiac or respiratory symptoms. Patient is not on any anticoagulation therapy. Patient will be set up for upper endoscopy. He is agreeable to this plan and verbalizes understanding of instructions. He was given the opportunity to ask questions and all questions answered. We will skip going for colonoscopy as patient's bowel regimen got better. Denies any melena, hematochezia. I will see him after the procedure, sooner on as needed basis. He is agreeable to this plan and verbalizes understanding of instructions. He was given the opportunity to ask questions and all questions answered. ? Thank you for allowing me to participate in his care Medications Changed Changed From sucralfate 10 mL PO BEDTIME 400 mL 3RF K21.9 Changed To sucralfate 10 mL PO BID 400 mL 3RF K21.9 UPPER ENDOSCOPY EGD Findings:? * Esophagus:? Localized patch of heterotopic gastric mucosa was noted in the upper esophagus. Single erosion measuring 5 mm noted at GE junction. at 38 cm. Middle and lower esophagus forceps biopsies were obtained to rule out eosinophilic esophagitis. * Stomach:? Normal mucosa was noted in the stomach. Retroflexion was performed in the cardia. Random cold forceps gastric biopsies were taken to rule out H Pylori infection. * Duodenum:? Normal mucosa was noted in the whole of the examined duodenum. Cold forceps biopsies were taken from duodenal bulb and second portion of the duodenum to rule out celiac sprue. ? EGD Impressions:? * Inlet patch * Grade A esophagitis (biopsy) * Normal stomach (biopsy) * Normal duodenum (biopsy)?? Recommendations:?? * Follow biopsy results. Our office will call or send a letter with results within 7-10 days. * Continue PPI therapy. * If H pylori +, patient will be prescribed eradication therapy followed by test of cure. * Avoid NSAIDs. Above has been reviewed with the patient. PATHOLOGY RESULTS A. Duodenum, biopsy: Duodenal mucosa with predominantly preserved villi and features of chronic/non- specific duodenitis. B. Stomach, random, biopsy: Gastric antral and body mucosa with minimal chronic inactive gastritis; negative for H. pylori, intestinal metaplasia and dysplasia. C. Esophagus, lower, biopsy: Squamous mucosa with no specific change; no columnar mucosa present. D. Esophagus, middle, biopsy: Squamous mucosa with no specific change; no columnar mucosa present TODAY'S VISIT Patient is here today follow-up and to discuss upper endoscopy results. Upper endoscopy results discussed with patient. Patient continues to have epigastric pain and acid reflux. Sometimes feels like mucus is coming up. Patient woke up this morning with epigastric pain and acid reflux. Ate [place] food last night around 19:00. Patient reports that throughout the day he did not eat much. He is only taking ibuprofen maybe once a month for discomfort. Denies any dyspepsia, dysphagia or odynophagia. Takes Nexium in the morning. Last night patient took Amelie-Bowers and it helped with discomfort. PFSH Medical History CAD (coronary artery disease) Transaminitis Long COVID Abnormal stress test Cardiomyopathy Blood pressure elevated without history of HTN History of Helicobacter pylori infection Varicose vein of leg Alcohol use disorder MDD (major depressive disorder), recurrent severe, without psychosis Alcohol abuse Surgical History History of surgery on lower extremity Social History Household Members: Other Household Members Other:: girlfriend Housing: Apartment Are you a primary summer child caregiver to a significant other at home: No Do you presently have visiting nurse or other home services: No Unable to assess alcohol history related to: Unknown Alcohol intake: current Alcohol intake frequency: former alcohol drinker Alcohol type: beer and hard liquor Patient Tobacco Use Status: Former Tobacco user Second Hand Smoke Exposure: No (Unknown, pt unable to participate fully in admission.) Substance Use Type: Marijuana service: No Sexual orientation: Straight/Heterosexual Review of Systems Const Denies weight gain and Denies weight loss ENT Reports no additional complaints, Denies dysphagia and Denies odynophagia Card Reports no additional complaints Resp Reports no additional complaints GI Reports abdominal pain (Epigastric), Denies belching, Denies melena, Reports bloating, Denies change in bowel habits, Denies constipation, Denies dysphagia, Denies excessive flatus, Denies dyspepsia, Reports heartburn, Denies diarrhea, Denies loose stools, Denies nausea, Denies odynophagia and Denies vomiting Reports no additional complaints Musc Reports no additional complaints Neuro Reports no additional complaints Psych Reports no additional complaints Endo Reports no additional complaints Physical Exam Const General: healthy appearing and no acute distress Nutritional Appearance: obese Orientation/consciousness: patient oriented x3 Resp Effort & Inspection: normal respiratory effort, able to speak in complete sentences, no tracheal deviation and symmetric chest movement Auscultation: clear to auscultation bilaterally Cardio Rate: regular rate GI Inspection: Yes normal to inspection, No distended and Yes obesity Palpation (GI): Soft to palpation, not firm, nontender and No hepatosplenomegaly present Auscultation: normal bowel sounds General: Yes no CVA tenderness Back/Spine/Pelvis Back: no CVA tenderness Skin General skin exam: elasticity normal, turgor normal and dry skin Neuro General: patient oriented x3 Psych Appearance: grossly normal Mental Status: mental status grossly normal Assessment & Plan Assessment & Plan (1) History of Helicobacter pylori infection: Code(s): Z86.19 - Personal history of other infectious and parasitic diseases Category: Medical (2) Postprandial epigastric pain: Code(s): R10.13 - Epigastric pain (3) Early satiety: Code(s): R68.81 - Early satiety (4) GERD (gastroesophageal reflux disease): Code(s): K21.9 - Gastro-esophageal reflux disease without esophagitis Qualifiers: Esophagitis presence: esophagitis presence not specified Qualified Code(s): K21.9 - Gastro-esophageal reflux disease without esophagitis Plan Patient will continue taking Nexium in the morning and will add famotidine and he can take it at bedtime. Patient was encouraged not to be eating for minimum 3 hours before bedtime. Staying upright after meals stressed. Patient was also encouraged to avoid dietary triggers. Avoid fast food meals. Patient will be returning to the office in 6 months. He will call us if he will have any GI concerning symptoms. Patient will be due to go for screening colonoscopy after May. He is agreeable to this plan and verbalizes understanding of instructions. He was given the opportunity to ask questions and all questions answered. Thank you for allowing me to participate in his care Orders: Referrals Pulmonology Referral R06.02 - Shortness of breath Medications: New famotidine (Pepcid) 20 mg PO BEDTIME 30 tabs 3RF K21.9 - Gastro-esophageal reflux disease without esophagitis Coding Level of Care Code Est Pt Level 3 (58757) Diagnoses History of Helicobacter pylori infection Z86.19 Postprandial epigastric pain R10.13 Early satiety R68.81 Gastroesophageal reflux disease, unspecified whether esophagitis present K21.9 Esophagitis presence: esophagitis presence not specified Time Spent (min) 25 Comment 15 minutes spent with patient and additional 10 minutes spent reviewing his records
[2025-01-31 12:12] VITALS: BP 115/62; PULSE 96; O2SAT 99; BMI 37.5
--- OUTSIDE RECORDS SUMMARY | 2025-01-31 12:24 | XMS_ITS | Clinical Summary ---
Author Organization [employer] Address [address] [facility] 7[address] [place] [address] Care Team Providers Care Agricultural Extension Officer Name Role Phone Kandice Bush MD Primary Care Provider [phone] Allergies Active Allergy Reactions Criticality Noted Date [...] (12/03/2024 6:07 AM EDT): - following with [facility], last seen in [...] - patient has already been referred to sustainability project coordinator, patient will call to reschedule appt Assessment & Plan (05/12/2024 12:07 PM EDT): - likely plantar fascitis - continue wearing comfortable shoes - ice and stretching exercises - patient has already been referred to sustainability project coordinator, will check its status Erectile dysfunction [...] 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 Gimenez / AUD clinic in [facility] - continue current recovery effort and [...] with Dr. Gimenez / AUD clinic in [facility] - continue current recovery effort and support Assessment & Plan (10/12/2023 4:12 PM EST): - following with Dr. Gimenez / AUD clinic in [facility] - continue current recovery effort and support Assessment & Plan (06/17/2023 5:34 PM EDT): - pt drinks large amount - pt may need to go to Detox first before starting medication - will refer to kids activities coach and AUD clinic Elevated blood pressure [...] self-monitoring BP. -Pt is already following with behavioral medical director for cardiomyopathy -Follow up in 3 mo, sooner if any problem arises Cardiomyopathy 06/17/2023 Assessment & Plan (11/29/2024 9:48 AM EDT): - behavioral medical director: Dr. Henderson, [facility], last seen on 01/27/23 - Hx [...] & Plan (01/17/2024 3:15 PM EDT): - [facility] seen on 01/27/23 - [...] & Plan (10/12/2023 5:44 AM EST): - behavioral medical director: Rasheed Farr, last seen on 01/27/23 - [...] & Plan (06/17/2023 6:13 PM EDT): - behavioral medical director: Rasheed Farr Pitkin, last seen on 01/27/23 - Hx abnormal [...] PM EDT): - continue following specialists at [facility] declines COVID vaccine Assessment & Plan (10/12/2023 4:13 PM EST): - continue following specialists at [facility] declines COVID vaccine Assessment & Plan (06/17/2023 6:17 PM EDT): - continue following specialists at [facility] declines COVID vaccine Headache 06/17/2023 Assessment [...] EDT): - followed by Dr. Genao / [facility] clinic. Last seen [...] [facility] - [facility] [place] Dr. Genao [facility] - Radiofrequencyy ablation of right GSV and accessory right GSV on 12/18/23 - Radiofrequencyy ablation of right SSV on 01/29/24 - Right leg microphlebectomy and ligation of venous cluster x 2 - compression stocking, leg elevation, reduce sodium and alcohol consumption Assessment & Plan (10/12/2023 4:11 PM EST): - s/p phlebectomy or venous ablation in [facility] - currently following with Dr. Genao [facility] - compression stocking, leg elevation, reduce sodium [...] organization. Date Type Department Care Team Description 01/31/2025 10:00 AM EDT Office Visit [facility] [address] [place] [address] Zelda Seo MD ZACHARY (generalized anxiety disorder) (Primary Dx); Moderate episode of recurrent major depressive disorder (CMS/HCC) 01/31/2025 Travel 01/24/2025 Orders Only GENERIC EXTERNAL DATA DEPARTMENT Provider, Generic External Data 01/17/2025 Patient Outreach [facility] Vu [place] [address] Neto Gonzales Recovery Supports 01/16/2025 Patient Outreach [facility] [address] [place] [address] Neto Gonzales Recovery Supports 01/13/2025 Telephone [facility] [address] [facility] [place] [id number] Danielle Romo [place] 01/12/2025 Orders Only GENERIC EXTERNAL DATA DEPARTMENT Provider, Generic External Data 01/11/2025 9:00 AM EDT Office Visit [facility] [place] [id number] Av Gimenez MD Alcohol use disorder, severe, dependence (CMS/HCC) (Primary Dx) 01/11/2025 Travel 01/04/2025 9:00 AM EDT Office Visit [facility] [place] [id number] Av Gimenez MD Alcohol use disorder, severe, dependence (CMS/HCC) (Primary Dx) 01/04/2025 Travel 01/03/2025 Patient Outreach [facility] [place] [address] Joe Rosenthal Recovery Supports 01/02/2025 Patient Outreach [facility] [place] [address] Neto Gonzales Recovery Supports 12/23/2024 Telephone [facility] [place] [address] Di Yoon [place] may recall 12/22/2024 Patient Outreach [facility] [address] [facility] [place] [address] Neto Gonzales Recovery Supports 12/21/2024 Patient Outreach [facility] [place] [id number] Joe Rosenthal Recovery Supports 12/20/2024 Patient Outreach [facility] [address] [facility] [place] [address] Joe Rosenthal Recovery Supports 12/06/2024 Patient Outreach [facility] [address] [facility] [address] Lai Rosenthals Recovery Supports 11/30/2024 9:00 AM EDT Office Visit [facility] [address] [place] [address] Av Gimenez MD Alcohol use disorder, severe, dependence (CMS/HCC) (Primary Dx) 11/30/2024 Travel 11/29/2024 1:15 PM EDT Office Visit [address] [address] Kandice Bush MD Heel pain, bilateral (Primary [...] screening for respiratory tuberculosis 11/29/2024 Patient Outreach [address] [address] Neto Gonzales Recovery Supports 11/29/2024 Travel 11/25/[address] [address] Kandice Bush MD chart prep 11/25/2024 Refill [facility] [address] [place] [address] Jr Garcia MD 11/21/2024 Patient Outreach [address] [address] Kandice Bush MD Care Coordination (CHW outreach for SDOH food needs-LVM /) 11/21/2024 Patient Outreach [address] [address] Kandice Bush MD Pre-visit Planning (SDOH Screening positive and Tobacco screening negative) 11/18/2024 Population Health Risk Score [facility] () Department [address] [place] [phone] Provider, Population Health Generic 11/15/2024 8:40 AM EDT Office Visit [facility] [place] [address] [place] [address] Jr Garcia MD Influenza-like symptoms (Primary Dx); [...] your housing situation today? I have marion penny 11/21/[address] you li [...] Description 02/20/2025 9:00 AM EDT Office Visit [facility] [address] [place] [address] Sallie Renee, OD [address] [place] [address] Health Maintenance Due Date Last Done Comments [...] Procedure Name Priority Date/Time Associated Diagnosis Comments CYTOPATH-CELL ENHANCED Routine 01/24/2025 4:11 PM EDT HEMATOXYLIN AND EOSIN STAIN Routine 01/12/2025 2:17 [...] Recently Relevant to Health Maintenance Results * Cytopath-cell enhanced (01/24/2025 4:11 PM EDT) 01/24/2025 4:11 PM EDT 01/25/2025 10:20 AM EDT [facility] - 01/25/2025 3:21 PM EDT ----- ------- Name: Alejandro Sanchez ?Age/Sex: 44/M ? : 1980 Unit#: [id number] ?? Attend : Tammie Brown [facility] ?Re01/24/25 ?Status: DEP REF ? Location: .LAB ?Disch: ? ----- ------- SPEC : [id number] ? RECD: 01/25/25-0 ? STATUS: ??SOUT ? REQ NUM: [id number] ? ALYCIA: 01/24/25-1610 ? SUBM DR: Tammie Brown ? ENTERED: ??01/25/25-1052 ?SP TYPE: Cytology ? OTHR DR: Kandice Bush MD ? ORDERED: ??Cyto-enhanced ? Diagnosis ?? Urine: ??Negative for high-grade urothelial carcinoma. ??See comment. ? COMMENT: Moderately cellular specimen consisting of relatively numerous red blood cells, ?? single urothelial cells with degenerative changes, squamous cells and occasional ?? lymphocytes. ?Clinical History Other microscopic hematuria ? Material Received ?? Urine ? Gross Description Received is 45 cc of cloudy yellow fluid from which a ThinPrep slide is prepared. Copies To: ?? Tammie Brown ?? [facility] Services ?? [address] [place] [address] [facility] [address] ?? [place] [address] ?? [phone] ?? [email or web address] ?? Kandice Bush MD ?? [facility] ?? [address] [facility] ?? [place] [address] ?? [phone] ----- ------- Signed (signature on file) Leon Irene MD 01/25/25 1521 ? ----- ------- ? END OF REPORT ? us Generic External Data Provider LAB CYTOLOGY MARTIN ZAVALETA Final Result [facility] [address] [place] [phone] * Hematoxylin and Eosin Stain (01/12/2025 2:17 PM EDT) 01/12/2025 2:1 7 PM EDT 01/12/2025 3:06 PM EDT Melody [facility] - 01/16/2025 5:16 PM EDT ----- ------- Name: Kulwant ConradAlejandro N ?Age/Sex: 44/M ? : 1980 Unit#: [id number] ?? Attend Dr: Ilsa De La O MD ?Re01/12/25 ?Status: REG SDC ? Location: HO.SSS ?Disch: ? ----- ------- SPEC : [id number] ? RECD: 01/12/25-1505 ? STATUS: ??SOUT ? REQ NUM: [id number] ? ALYCIA: 01/12/25-1416 ? SUBM DR: Ilsa De La O [...] Sanchez ?Age/Sex: 44/M ? : 1980 Unit#: [id number] ?? Attend Dr: Ilsa De La O MD ?Re01/12/25 ?Status: REG SDC ? Location: HO.SSS ?Disch: ? ----- ------- SPEC : [id number] ? RECD: 01/12/25-1505 ? STATUS: ??SOUT ? REQ NUM: [id number] ? ALYCIA: 01/12/25-141 ? SUBM DR: Ilsa De La O [...] submitted in toto in a cassette labeled Cindy MUHAMMAD Special studies ordered and performed: Immunostain for H. pylori on B1. Copies To: ?? Kandice Bush MD ?? [facility] ?? [address] [facility] ?? [place] [id number] ?? [phone] ?? Ilsa De La O MD ?? [facility]ology Services ?? [address] ?? [place] [id number] ?? [phone] ?? [email or web address] ----- ------- Signed (signature on file) eJssica Ventura 01/16/25 9696 ? ----- ------- ? END OF REPORT ? Generic External Data Provider LAB BLOOD ORDERAB LES Final Result Performing Organization Address [facility] de Phone Number [facility] [address] [place] [address] [phone] * Influenza B (ID NOW Rapid Molecular) (11/15/2024 8:54 AM EDT) Pathologist [facility] Influenza B Negative Negative, Indeterminate [facility] Swab 11/15/2024 8:54 AM EDT Jr Garcia MD POINT OF CARE TEST ENTER/EDIT OR DERABLES Final Result Performing Organization Address [facility] de Phone Number [facility] [address] [place] [phone] * Influenza A (ID NOW Rapid Molecular) (11/15/2024 8:54 AM EDT) [facility] Influenza A Negative Negative, Indeterminate [facility] Swab 11/15/2024 8:54 AM EDT Jr Garcia MD POINT OF CARE TEST ENTER/EDIT OR DERABLES Final Result Performing Organization Address [facility] de Phone Number [facility] [address] [place] [phone] * POCT Rapid COVID Ag (11/15/2024 8:54 AM EDT) Rapid COVID Ag Negative [facility] Swab 11/15/2024 8:54 AM EDT Jr Garcia MD POINT OF CARE TEST ENTER/EDIT OR DERABLES Final Result Performing Organization Address [facility]/ZIP Co de Phone Number [facility] [address] [place] [address] [phone] * POCT rapid strep A manually resulted (11/15/2024 8:54 AM EDT) Rapid Strep A Screen Negative Negative, None Detected [facility] Swab 11/15/2024 8:54 AM EDT Jr Garcia MD POINT OF CARE TEST ENTER/EDIT OR DERABLES Final Result Performing Organization Address [facility] de Phone Number [facility] [address] [place] [address] [phone] * (ABNORMAL) Lipid Panel with Reflex to Direct LDL (10/12/2023 1:46 PM EST) [facility] Triglycerides 125 <150 mg/dL [facility] Comment:Desirable Triglyceri de: less than 150 mg/dLBorderline High Triglyceride 150-199 mg/dLHigh Triglyceride: 200-499 mg/dLVery High Triglyceride: greater than or equal to 5OO mg/dL Cholesterol 206(H) <200 mg/dL [facility] Comment:Desirable Cholestero l: less than 200 mg/dLBorderline High Cholesterol: 200-239 mg/dLHigh Cholesterol: greater than 239 mg/dL LDL Cholesterol Calculated 124(H) <100 mg/dL [facility] Comment:Desirable LDL: less than 100 mg/dLNear Optimal/Above Optimal LDL: 110- 129 mg/dLBorderline High LDL: 130-159 mg/dLHigh LDL: 160-189 mg/dLVery High LDL: greater than or equal to 190 mg/dL HDL Cholesterol 57 >40 mg/dL [facility] Comment:Desirable HDL: great er than 40 mg/dL Note: This HDL assay may give artificially low results in patients with liver disease. Blood 10/12/2023 1:46 PM EST 10/12/2023 4:25 PM EST Kandice Bush MD LAB BLOOD ORDERABLES Final Resul t Performing Organization Address [facility] de Phone Number [facility] [address] [place] [phone] * Hepatitis C Antibody with Reflex to HCV, RNA, Quantitative, Real-Time PCR (10/12/2023 1:46 PM EST) Hepatitis C Antibody Nonreactive Nonreactive [facility] Comment:Antibodies to HCV no t detected; does not exclude early acuteHCV infection. Blood Venous blood specimen / Unknown 10/12/2023 1:46 PM EST 10/12/2023 4:19 PM EST us Kandice Bush MD LAB BLOOD ORDERABLES Final Resul t Performing Organization Address [facility] Number [facility] [address] [place] [phone] * HIV-1/2 Antigen and Antibodies, Fourth Generation, with Reflexes (10/12/2023 1:46 PM EST) HIV AB/AG Nonreactive Nonreactive [facility] Comment:HIV-1 p24 Ag and/or HIV-1/HIV-2 Ab not detected.A test result that is nonreactive does not exclude thepossibility of exposure to or infection with HIV-1 and/orHIV-2. Nonreactive results in this assay for individualswith prior exposure to HIV-1 and/or HIV-2 may be due toantigen and antibody levels that are below the limit ofdetection of this assay.The [employer] HIV Ag/Ab Combo assay result andsupplemental assay results should be interpreted inconjunction with the patient's clinical presentation,history and other laboratory results. If the results areinconsistent with clinical evidence, additional testing issuggested to confirm the result. Blood Venous blood specimen / Unknown 10/12/2023 1:46 PM EST 10/12/2023 4:19 PM EST us Kandice Bush MD LAB BLOOD ORDERABLES Final Resul t [facility] [address] [place] [address] [phone] from Last 3 Months or Most Recently Relevant to Health Maintenance Insurance [facility] C3 HSN FULL Care Teams Agricultural Extension Officer Relationship Specialty Start Date End Date Kandice Bush MD [address] [place] [address] PCP - General Family Medicine 06/18/23
== END 2025-01-31 12:57 | disposition home or self-care (01) ==
LOC: HO.HGI 11:53
PROVIDERS: PCP Family Medicine; Visit Provider Nurse Practitioner Family
DX: Z86.19 Personal history of other infectious and parasitic diseases (principal); R10.13 Epigastric pain; R68.81 Early satiety; K21.9 Gastro-esophageal reflux disease without esophagitis
CPT/HCPCS: 99213

== ENCOUNTER → 2025-01-31 11:52 | Outpatient (BNVA) | payer MEDICAID, SELFPAY | PROVIDERS: PCP Family Medicine; Visit Provider Nurse Practitioner Family | DX: K21.9 Gastro-esophageal reflux disease without esophagitis (principal); R10.13 Epigastric pain; R68.81 Early satiety; R06.02 Shortness of breath; Z86.19 Personal history of other infectious and parasitic diseases | CPT/HCPCS: 99212 ==

== ENCOUNTER 2025-02-02 10:42 | Outpatient (AMB) | payer MEDICAID, SELFPAY ==
--- NOTE | 2025-02-02 10:55 | MHC.OFFVIS ---
Intake Visit Reasons: follow up on L leg Intake Note: Patient states he has pain in the upper thigh/groin area. Pain is worse after walking. Has states the varicose veins in his left leg are still popping out . Accompanied by: Self / Same As Patient Allergies Penicillins [PCN] Allergy (Verified 02/02/25 10:56) Rash HPI HPI follow up on L leg: Details: Pleasant 44-year-old gentleman presents for routine follow-up regarding venous disease. He had undergone right lower extremity microphlebectomy on 09/19/2024 in the OR. Reports he is doing fairly well from that. He is now concerned about his left lower extremity. He has significantly swollen varicosities which have been a source of pain and discomfort for him. He now presents for routine follow-up. [facility] Medical History CAD (coronary artery disease) Transaminitis Long COVID Abnormal stress test Cardiomyopathy Blood pressure elevated without history of HTN History of Helicobacter pylori infection Varicose vein of leg Alcohol use disorder MDD (major depressive disorder), recurrent severe, without psychosis Alcohol abuse Surgical History History of surgery on lower extremity Social History Household Members: Other Household Members Other:: girlfriend Housing: Apartment Are you a primary care partner to a significant other at home: No Do you presently have visiting nurse or other home services: No Unable to assess alcohol history related to: Unknown Alcohol intake: current Alcohol intake frequency: former alcohol drinker Alcohol type: beer and hard liquor Patient Tobacco Use Status: Former Tobacco user Second Hand Smoke Exposure: No (Unknown, pt unable to participate fully in admission.) Substance Use Type: Marijuana service: No Sexual orientation: Straight/Heterosexual Review of Systems Const Reports as per HPI ENT Reports no additional complaints Card Denies chest pain, Denies chest pain at rest and Denies chest pain with activity Resp Denies chest congestion and Denies cough GI Reports no additional complaints Musc Details: pain over varicosities, aching of lower extremities, swelling, cramping, heaviness and tiredness, itching Denies abnormal gait Skin/Breast Reports pruritus and Denies wounds Neuro Reports no additional complaints and Denies abnormal gait Psych Denies no additional complaints Physical Exam Const General: cooperative, healthy appearing and comfortable Orientation/consciousness: oriented to person, oriented to place and oriented to time Neck Carotids: no bruits Chest Chest palpation & inspection: normal inspection of the chest and normal palpation of entire chest wall Resp Effort & Inspection: normal respiratory effort and able to speak in complete sentences Cardio Rate: regular rate Heart sounds: S1 normal heart sound present and S2 normal heart sound present Peripheral pulses: Peripheral pulses 2+ throughout GI Inspection: Yes normal to inspection Skin Other: +2 edema, large rope-like varicosities greater than 4 mm left calf and thigh CEAP Classification C4 - skin color changes Ep - Etiology Primary As - superficial veins P - reflux General skin exam: dry skin Neuro General: oriented to person, oriented to place and oriented to time Extrem Right lower extremity: full ROM, normal capillary refill and edema Left lower extremity: full ROM, normal capillary refill and edema Psych Mental Status: mental status grossly normal Assessment & Plan Assessment & Plan (1) Varicose veins of left lower extremity with inflammation: Comment: 05/13/2024 - left great saphenous vein Cyanoacralate ablation Code(s): I83.12 - Varicose veins of left lower extremity with inflammation Category: Medical Plan: This patient has varicose veins with inflammation. They continue to be a source of discomfort for the patient. The patient has tried conservative treatment with compression, leg elevation and exercise program for over 3 months time. They have been compliant with all treatment. This has provided minimal relief for the patient. I do not anticipate this course of treatment will alter the underlying etiology. The patient has been scheduled for lower extremity venous treatment inclusive of --- left leg microphlebectomy. Risks, benefits, and complications of this procedure has been discussed in detail with the patient including but not limited to bleeding, infection, and the development of a DVT. The patient has demonstrated a clear understanding and has consented. We will schedule the patient as soon as possible. Thank you for allowing us to participate in this patient's care. If there are any questions or concerns please do not hesitate to contact us. Coding Level of Care Code Est Pt Level 4 (07939) Diagnoses Varicose veins of left lower extremity with inflammation I83.12
--- OUTSIDE RECORDS SUMMARY | 2025-02-02 11:13 | XMS_ITS | Encounter Summary ---
Author Organization [employer] Address [address] [facility] 7[address] [place] [address] Care Team Providers Care Theater Usher Name Role Phone Kandice Bush MD Primary Care Provider [phone] Encounter Details Date Type Department Care Team (Latest Contact Info) Description 02/01/2025 Travel Social History Tobacco Use Types Packs/Day [...] Description 02/20/2025 9:00 AM EDT Office Visit [facility] [address] [place] [address] Sallie Renee, OD [address] [place] [address] documented as of this encounter Visit Diagnoses Not on filedocumented in this encounter Additional Health Concerns Assessment Noted Time PHQ-9 Depression Total Score: 23 025 12:30 PM EDT documented as of this encounter Care Teams Theater Usher Relationship Specialty Start Date End Date Kandice Bush MD [address] [place] [phone] PCP - General Family Medicine 06/18/23 documented as of this encounter
== END 2025-02-02 11:12 | disposition home or self-care (01) ==
LOC: HO.HVS 10:43
PROVIDERS: PCP Family Medicine; Visit Provider Surgery Vascular Surgery
DX: I83.12 Varicose veins of left lower extremity with inflammation (principal)
CPT/HCPCS: 99214

== ENCOUNTER → 2025-02-02 10:42 | Outpatient (BNVA) | payer MEDICAID, SELFPAY | PROVIDERS: PCP Family Medicine; Visit Provider Surgery Vascular Surgery | DX: I83.12 Varicose veins of left lower extremity with inflammation (principal) | CPT/HCPCS: 99212 ==

== ENCOUNTER 2025-03-06 09:04 | Day surgery (SDC) | payer MEDICAID, SELFPAY ==
[2025-03-02 11:41] VITALS: BMI 36.1
--- NOTE | 2025-03-03 12:15 | HO.ANESPROP2 ---
Documented by User: Mayra Clark NP 03/03/25 12:17 HPI - Anesthesia Eval Consult details Narrative: 44yo M for MicroPhlebectomy s/p same 09/2024 with GA-LMA 5 s/p EGD with TIVA 01/2025 Hx ETOH abuse causing cardiomyopathy. Follows [facility] Cardiology. Last office visit 2022 and ECHO 2022 with EF 58%. (? true CMP) ? Current ETOH use PMFSH Active Problems Active Problems: All Active Problems Microscopic hematuria (Acute) Excessive daytime sleepiness (Acute) Sleep difficulties (Acute) Nightmare disorder (Acute) Toe fracture, left (Acute) Erectile dysfunction (Acute) Hypogonadism in male (Acute) Bunion of left foot (Acute) Osteoarthritis of knees, bilateral (Acute) Daytime sleepiness (Acute) Snoring (Acute) Varicose veins of right lower extremity with inflammation (Acute) Varicose veins of left lower extremity with inflammation (Acute) History of Helicobacter pylori infection (Acute) Alcohol use disorder (Acute) MDD (major depressive disorder), recurrent severe, without psychosis (Acute) Past Medical History Medical History Asthma CAD (coronary artery disease) Transaminitis Long COVID Abnormal stress test Cardiomyopathy Blood pressure elevated without history of HTN History of Helicobacter pylori infection Varicose vein of leg Alcohol use disorder MDD (major depressive disorder), recurrent severe, without psychosis Alcohol abuse Family History Family history of problems with anesthesia: No Surgical History Surgical History History of surgery on lower extremity History of Problems with Anesthesia: No Social History Social History Household Members: Other Household Members Other:: girlfriend Housing: Apartment Are you a primary critical care educator to a significant other at home: No Do you presently have visiting nurse or other home services: No Unable to assess alcohol history related to: Unknown Alcohol intake: current Alcohol intake frequency: former alcohol drinker Alcohol type: beer and hard liquor Patient Tobacco Use Status: Former Tobacco user Second Hand Smoke Exposure: No (Unknown, pt unable to participate fully in admission.) Use of substances other than those prescribed or required for medical reasons: Yes Substance Use Type: Marijuana Are you DNR?: No Advance Directives: No Advance Directives Information Provided: Yes Poor oral hygiene: No service: No Sexual orientation: Straight/Heterosexual Meds Allergies Allergy/AdvReac Type Severity Reaction Status Date / Time Penicillins (PCN) Allergy Rash Verified 02/02/25 10:56 Home Medications ?Medication ?Instructions ?Recorded ?Confirmed ?Last Taken ?Type blood pressure test kit-large #Sumit ea 09/22/23 01/24/25 Unknown History cholecalciferol (vitamin D3) 25 25 mcg PO DAILY 06/21/24 01/24/25 01/08/25 History mcg (1,000 unit) tablet sertraline 50 mg tablet 50 mg PO DAILY 01/06/25 01/24/25 01/05/25 History Exam Height,Weight and Vital Signs: Height 6 ft 1 in Weight 124 kg Narrative Narrative: ECHO 2022 Nml LV sys function. LVEF 58% by biplane method. Nml LV diastolic function. LV concentric remodeling Nml RV size and sys function No signif valve disease EKG 2022 NSR @ 86 Assessment and Plan Assessment Anesthesia Assessment: Chart Reviewed Final Anesthetic Review Family History of Problems with Anesthesia: No History of Problems with Anesthesia: No Documented by User: Gisele Luis MD 03/06/25 10:24 [facility] Past Medical History Medical History Asthma CAD (coronary artery disease) Transaminitis Long COVID Abnormal stress test Cardiomyopathy Blood pressure elevated without history of HTN History of Helicobacter pylori infection Varicose vein of leg Alcohol use disorder MDD (major depressive disorder), recurrent severe, without psychosis Alcohol abuse Surgical History Surgical History History of surgery on lower extremity Social History Social History Household Members: Other Household Members Other:: girlfriend Housing: Apartment Are you a primary critical care educator to a significant other at home: No Do you presently have visiting nurse or other home services: No Unable to assess alcohol history related to: Unknown Alcohol intake: current Alcohol intake frequency: former alcohol drinker Alcohol type: beer and hard liquor Patient Tobacco Use Status: Former Tobacco user Second Hand Smoke Exposure: No (Unknown, pt unable to participate fully in admission.) Use of substances other than those prescribed or required for medical reasons: Yes Substance Use Type: Marijuana Are you DNR?: No Advance Directives: No Advance Directives Information Provided: Yes Poor oral hygiene: No service: No Sexual orientation: Straight/Heterosexual Meds Allergies Allergy/AdvReac Type Severity Reaction Status Date / Time Penicillins (PCN) Allergy Rash Verified 02/02/25 10:56 Home Medications ?Medication ?Instructions ?Recorded ?Confirmed ?Last Taken ?Type blood pressure test kit-large #1 ea 09/22/23 01/24/25 Unknown History cholecalciferol (vitamin D3) 25 25 mcg PO DAILY 06/21/24 01/24/25 01/08/25 History mcg (1,000 unit) tablet sertraline 50 mg tablet 50 mg PO DAILY 01/06/25 01/24/25 01/05/25 History Exam Airway Mallampati Class: II (missing a couple teeth) TM Dist: >3cm Neck ROM: Full Heart: rrr Lungs: cta Assessment and Plan Assessment Anesthesia Assessment: Anesthesia Plan Discussed Final Anesthetic Review NPO: Yes ASA Class: II Final Preanesthetic Review: No Changes in Pt Med Stat, Meds/Allgs Chart Reviewed and Consent Obtained/Reviewed Patient Risk: Intermediate Procedure Risk: Low Anesthetic Plan Anesthetic Plan: GA Disposition: Standard PACU
[2025-03-06] VITALS (11 sets, daily range): BP systolic 110–135; BP diastolic 69–88; PULSE 53–78; RESP 16–20; TEMP 36.1–36.2; O2SAT 94–100; BMI 36.1
--- NOTE | 2025-03-06 07:39 | MHC.SHP ---
Pre-Procedural Eval Section A - 24 Hr Update-Section A only Date of Service: 03/06/25 Section B - Complete if H&P > 30 days Chief Complaint: Varicose veins of left lower extremity with inflam Relevant Social History: None Present Medications: see Short Stay Collaborative assessment Medical History: No relevant PMH Allergies: Allergies Allergy/AdvReac Type Severity Reaction Status Date / Time Penicillins (PCN) Allergy Rash Verified 02/02/25 10:56 Review of Systems Sugical H&P ROS: Negative: Constitution, Cardiovascular, Respiratory, Neurological, Musculoskeletal and Integumentary Exam Surgical H&P Exam: Normal: HEENT, Normal: Heart and Normal: Lungs and Significant Findings: Extremities (large varicose veins) Plan Diagnosis/Plan: Unchanged I have reviewed the history and physical and performed a pertinent physical examination on my patient. No changes have occurred unless specified. Time Spent With Patient Time: Total time managing care of this patient today ____ minutes.
[2025-03-06] MEDS: Lactated Ringers 1,000 ML 100 ML IVCONT (10:04)
[2025-03-06] MEDS: vancomycin/NS 2,000 MG/500 ML PLAST..BAG 250 MG IV (10:04)
--- NOTE | 2025-03-06 11:49 | W.PM.OPN ---
Operative Note Operative Note Date of Service: 03/06/25 Narrative: Operative note by [facility] Preoperative diagnosis: Left leg varicose veins with inflammation Postoperative diagnosis: Same Procedure:1. Left leg microphlebectomy(23) 2. Ligation of venous cluster Surgeon:Lorenzo Genao M.D. 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 He now presents for microphlebectomy. The patient has signed the informed consent after reviewing risks, complications, benefits, and alternatives previously discussed with the patient. The patient was given the opportunity to ask any additional questions or voice any concerns. All questions were answered to the patient's satisfaction. Procedure in detail: Varicose veins were marked in the standing position on the left leg and the patient was then placed in the supine position. The left lower extremity was prepared and draped to allow knee flexion in the sterile field. The patient had large superficial varicose veins with significant symptoms of pain. It was therefore determined to perform microphlebectomies of the clusters of varicose veins. The patient had bulging varicose veins which were previously marked in the standing position. A small stab incision was made longitudinally directly overlying the varicose vein in the calf and the varicose vein was grasped with a hemostat aided by a vein hook. It was then dissected as far proximally and distally as possible and avulsed. A total of 23 stab incisions were made and the procedure of stab phlebectomies was repeated 23 times. Following this on the pretibial surface there was a cluster of varicosities. Eleven blade was used to get down to the base through the skin and the base. Once this was accomplished we ligated the base with a 4 0 Polysorb suture. Residual varicosities were removed as well. Hemostasis was checked and stab incision sites were closed with steri-strips and sterile dressing was given with gauze and krilex wrap followed by an laina bandage. There were no complications and blood loss was minimal. Post-Op instructions were given and a follow-up appointment was recommended. This note is constructed using voice recognition software. While every effort has been made to ensure accuracy, research technologist errors may have been included. Thank you for allowing me to participate in the care of your patient. Yours sincerely, Lorenzo Genao MD, FACS, R.P.V.I.
[2025-03-06] MEDS: fentaNYL citrate/PF 100 MCG/2 ML VIAL 50 MCG IVPUSH (12:09)
== END 2025-03-06 13:33 | disposition home or self-care (01) ==
PROVIDERS: PCP Family Medicine; Visit Provider Surgery Vascular Surgery
PROC: (CPT 37766; principal; 2025-03-06 11:00)
DX: I83.12 Varicose veins of left lower extremity with inflammation (principal); M79.652 Pain in left thigh; M79.605 Pain in left leg; I25.10 Atherosclerotic heart disease of native coronary artery without angina pectoris; R03.0 Elevated blood-pressure reading, without diagnosis of hypertension; I42.9 Cardiomyopathy, unspecified; R74.01 Elevation of levels of liver transaminase levels; F33.2 Major depressive disorder, recurrent severe without psychotic features; F10.10 Alcohol abuse, uncomplicated; Z79.899 Other long term (current) drug therapy; Z88.0 Allergy status to penicillin; Z98.890 Other specified postprocedural states; Z87.891 Personal history of nicotine dependence
CPT/HCPCS: 37766; 37785; 88304; J0131; J1100; J1885; J2003; J2250; J2405; J2704; J2795; J3010; J3370

== ENCOUNTER → 2025-03-06 09:04 | Outpatient (BNV) | payer MEDICAID, SELFPAY | PROVIDERS: PCP Family Medicine; Visit Provider Surgery Vascular Surgery | DX: I83.12 Varicose veins of left lower extremity with inflammation (principal) | CPT/HCPCS: 37766; 37785 ==

== ENCOUNTER 2025-03-30 10:44 | Outpatient (AMB) | payer MEDICAID, SELFPAY ==
--- NOTE | 2025-03-30 10:46 | A.OFFVIS_ITS ---
Intake Visit Reasons: 2w follow up s/p L Leg Micro in OR 02/27/25 Intake Note: Patient presents for follow up left leg micro performed 02/27/25. Patient states his incisions are red and sometimes painful. Accompanied by: Self / Same As Patient Allergies Penicillins (PCN) Allergy (Verified 03/30/25 10:50) Rash HPI HPI 2w follow up s/p L Leg Micro in OR 02/27/25: Details: Very pleasant 44-year-old gentleman presents for follow-up status post operative left leg microphlebectomy. Reports he is doing fairly well. Overall pain and discomfort have significantly improved. He does have a few residual varicosities. In addition he is noticing some more varicosities on the right lower extremity. Now presents for routine postprocedure follow-up. PFSH Medical History Asthma CAD (coronary artery disease) Transaminitis Long COVID Abnormal stress test Cardiomyopathy Blood pressure elevated without history of HTN History of Helicobacter pylori infection Varicose vein of leg Alcohol use disorder MDD (major depressive disorder), recurrent severe, without psychosis Alcohol abuse Surgical History History of surgery on lower extremity Social History Household Members: Other Household Members Other:: girlfriend Housing: Apartment Are you a primary lawn care technician to a significant other at home: No Do you presently have visiting nurse or other home services: No Unable to assess alcohol history related to: Unknown Alcohol intake: current Alcohol intake frequency: former alcohol drinker Alcohol type: beer and hard liquor Patient Tobacco Use Status: Former Tobacco user Second Hand Smoke Exposure: No (Unknown, pt unable to participate fully in admission.) Substance Use Type: Marijuana service: No Sexual orientation: Straight/Heterosexual Review of Systems Const All systems reviewed & are unremarkable except as noted in HPI and below Reports no additional complaints ENT Reports Normal hearing present Card Denies chest pain, Denies chest pain at rest, Denies chest pain with activity and Denies pedal edema Resp Denies cough GI Denies abdominal pain Musc Denies abnormal gait, Denies muscle cramps and Denies radiating pain into limb Skin/Breast Denies skin ulcer and Denies wounds Neuro Reports Normal hearing present and Denies abnormal gait Psych Reports no additional complaints Physical Exam Const General: cooperative, healthy appearing and comfortable Orientation/consciousness: oriented to person, oriented to place and oriented to time HEENT Head: Yes normal to inspection Neck Neck: Yes normal visual inspection Carotids: no bruits Chest Chest palpation & inspection: normal inspection of the chest Resp Effort & Inspection: normal respiratory effort and able to speak in complete sentences Auscultation: clear to auscultation bilaterally, no crackles, no rales, no rhonchi and no wheezes Cardio Rate: regular rate Rhythm: regular rhythm Heart sounds: S1 normal heart sound present and S2 normal heart sound present Bruits: no carotid bruits Peripheral pulses: Peripheral pulses 2+ throughout GI Inspection: Yes normal to inspection Skin Wounds: no wounds Hair: normal Neuro General: oriented to person, oriented to place and oriented to time Cranial nerves: Yes CN's II-XII intact bilaterally and Yes Normal hearing present Cognition (Neuro): normal cognition Motor exam (neuro): 5/5 motor strength present throughout Extrem Other: venous exam: +2 edema, incisions healed Right leg large varicosities in the medial thigh General: No clubbing, No cyanosis and No edema Psych Appearance: grossly normal Mental Status: mental status grossly normal Speech and movement: Normal speech and movement present Assessment & Plan Assessment & Plan (1) Varicose veins of right lower extremity with inflammation: Comment: 2014 - right great saphenous vein [facility]18/2023 - right great saphenous and accessory saphenous vein radiofrequency ablation 01/29/2024 - right small saphenous vein radiofrequency ablation Code(s): I83.11 - Varicose veins of right lower extremity with inflammation Category: Medical Plan: Patient does have some residual varicosities. Would like the left leg to heal prior to re-dressing the right lower extremity. Will re-evaluate him in approximately 3 months time for possible right leg microphlebectomy. (2) Varicose veins of left lower extremity with inflammation: Comment: 05/13/2024 - left great saphenous vein Cyanoacralate ablation 03/06/2025 - left leg operative microphlebectomy Code(s): I83.12 - Varicose veins of left lower extremity with inflammation Category: Medical Plan: The patient has done extremely well with all venous treatments. Patient's may often experience postprocedure phlebitic episodes and I have discussed with the patient use of warm compresses and NSAIDS if tolerated for pain discomfort. In addition, I have discussed continued conservative measures including use of compression, leg elevation, and exercise. The patient was also given an information sheet regarding appropriate use of compression stockings and future purchases. Thank you for allowing us to care for your patient with venous disease. Coding Level of Care Code Est Pt Level 3 (92219) Diagnoses Varicose veins of right lower extremity with inflammation I83.11 Varicose veins of left lower extremity with inflammation I83.12
--- OUTSIDE RECORDS SUMMARY | 2025-03-30 11:36 | XMS_ITS | Data Portability ---
Author Organization [place] - [facility], Allergy Address [address] [address] Care Team Providers Care Manufacturing Project Manager Name Role Phone BRYSONJOSE CURTIS Primary Care Provider Assessment Encounter Date Assessment Date Assessment LastModified by Organization Details LastModified Time 02/24/2024 02/24/2024 Today we discuss ed the pathophysiology of tinnitus and the absence of consistently successful pharmacologic treatments for tinnitus. We discussed masking strategies to decrease awareness of the tinnitus, including using a white noise machine, music, or television.We discussed how exposure to loud noise can [...] Organization Details Recorded Time Abnormal auditory perception [id number] Active 2023 JACQUELINE MUÑOZ [address] [facility],[address] [address], [place], [phone], [facility] 4 15:21:55 Tinnitus of left ear [id number] Active 2023 ANTONIETTA SAM MD [address] [address], [place], [phone], [facility] 4 15:41:05 Problem Notes None recorded. Procedures Surgical History Date Name Laterality Status Provider Name and Address Organization Details Recorded Time 02/24/2024 Air & Speech Audio with Tymps - 60236, 23779 & 47851 completed JACQUELINE MUÑOZ [address] [place] [address], [phone], [facility] 02/24/2024 15:21:44 Imaging Results None recorded. Procedure Notes None recorded. Medical Equipment None Reported. Allergies Allergen ID Allergen Name Allergen Category Reaction Reaction Severity Criticality Documentation Date Start Date Code Code System Note Provider Name and Address Organization Details Recorded Time 964082 Product containin g penicilli n (product) medicatio n hives Not available Not available 02/24/2024 86702 [id number] SNOMED Samantha Nolan [facility] 4 15:17:00 Vitals Date Recorded Body height Body mass index (BMI) Body weight Provider Name and Address Organization Details Last Updated DateTime 02/24/2024 185.42 cm 38.5 kg/m2 988089.97 g Samantha Nolan [facility] 02/24/2024 15:31:31 Social History None recorded. Functional [...] Diagnosis Note [id number] ANTONIETTA SAM MD [facility] [address] [place] [address] 02/24/2024 15:01:17 02/24/2024 15:45:33 Abnormal auditory perception [id number] H93.299 Right Ear:Normal hearing with excellent speech discrimina tion.Type A tympanogra m.Left Ear:Normal hearing with excellent speech discrimina tion.Type A tympanogra m. Tinnitus of left ear 746 [id number] H93.12 Health Concerns Section Related Observation LastModified by Organization Detai ls LastModified Time None Recorded Concern Status LastModified by Organization Details LastModified Time None Recorded Advance Directives Directive None Recorded Payers Insurance Date Sequence Insurance Name Policy Number Policy Scott Covered Member ID Scott Member ID Guarantor Name 02/24/2024 1 [place]: [facility] Aman CalvinBlum [id number] Alejandro Blum Notes Date Note Type Note [...] some blood last year ANTONIETTA SAM MD [address], [address], [facility] - [facility] 02/24/2024 15:44:07 OBGyn Episode No OBEpisode recorded.
--- OUTSIDE RECORDS SUMMARY | 2025-03-30 11:36 | XMS_ITS | Encounter Summary ---
Author Organization [facility] Address [address] [place] [address] Care Team Providers Care Paper Bag Making Machinist Name Role Phone Patient, Has No Pcp Or Ref Primary Care Provider Unavailable Encounter Details Date Type Department Care Team (Late st Contact Info) Description 01/07/2023 Telephone [facility] [address] [place] [address] Crystal Canchola NP [address], [place] [phone] Social History Tobacco Use Types Packs/Day Years [...] documented as of this encounter Care Teams Paper Bag Making Machinist Relationship Specialty Start Date End Date Patient, Has No Pcp Or Ref DO NOT EDIT THIS RECORD VIA PROVIDER ON THE FLY PCP - General [place] Machine Operator 01/26/23 documented as of this encounter
--- OUTSIDE RECORDS SUMMARY | 2025-03-30 11:36 | XMS_ITS | Clinical Summary ---
Author Organization [facility] ity Address [address] [place] [phone] Care Team Providers Care Commercial Engineer Name Role Phone Unavailable Primary Care Provider Unavailabl e Social History Tobacco Use Types Packs/Day Years Used Date Smoking Tobacco: Never Assessed Sex and Gender Information Value Date Recorded Sex Assigned at Not on file Legal Sex Male 11:38 AM EDT Gender Identity Not on file Sexual Orientation Not on file Plan of Treatment Upcoming Encounters Date Type Department Care Team ([facility] st Contact Info) Description 04/04/2025 2:15 PM EDT Consult Orthopedic Surgery - [place] [address] [phone] Diaz Rojo, DPM [address] [address] Health Maintenance Due Date Last Done Comments DTaP,Tdap,and Td Vaccines (1 - Tdap) 1999 Hepatitis B Vaccines (1 of 3 - 19+ 3-dose series) 1999 COVID-19 Vaccine ( - 2023-2 5 season) 2024 Cholesterol Screening (Lipid Panel) 07/02/2024 HIV Screening 07/02/2024 Hepatitis C Screening 07/02/2024 Social Influencers of Health Screening 07/02/2024 Depression Screening 09/07/2024 Influenza Vaccine (#1) 2025 HIB Vaccines Aged Out No longer eligi [...] on patient's age to complete this topic MMR Vaccines Aged Out No longer eligi ble based on patient's age to complete this topic Meningococcal ACWY Vaccine Aged Out N o longer eligible based on patient's age to complete this topic Meningococcal B Vaccine Aged Out No l onger eligible based on patient's age to complete this topic Pneumococcal Vaccine: Pediat rics (0 to 5 Years) and At-Risk Patients (6 to 49 Years) Aged Out No longer eligible b ased on patient's age to complete this topic RSV Immunization Patients Un brannon 20 months Aged Out No longer eligible b ased on patient's age to complete this topic Varicella Vaccines Aged Out No longer eligible based on patient's age to complete this topic Insurance [place] - [place]
== END 2025-03-30 11:20 | disposition home or self-care (01) ==
LOC: HO.HVS 10:45
PROVIDERS: PCP Family Medicine; Visit Provider Surgery Vascular Surgery
DX: I83.11 Varicose veins of right lower extremity with inflammation (principal); I83.12 Varicose veins of left lower extremity with inflammation
CPT/HCPCS: 99024

== ENCOUNTER → 2025-03-30 10:44 | Outpatient (BNVA) | payer MEDICAID, SELFPAY | PROVIDERS: PCP Family Medicine; Visit Provider Surgery Vascular Surgery | DX: I83.11 Varicose veins of right lower extremity with inflammation (principal); I83.12 Varicose veins of left lower extremity with inflammation; Z98.890 Other specified postprocedural states | CPT/HCPCS: 99212 ==

== ENCOUNTER 2025-06-15 16:29 | Emergency (ER) | payer MEDICAID, SELFPAY ==
[2025-06-15 16:55] VITALS: BP 146/82; PULSE 74; RESP 20; TEMP 36.3; O2SAT 99; BMI 33.1
--- NOTE | 2025-06-15 16:55 | ED.GENADULT ---
HPI - General Adult General Chief complaint: Wound/Laceration Stated complaint: left hand 1st digit laceration Time Seen by Provider: 06/15/25 16:59 Source: patient, RN notes reviewed and old records reviewed Mode of arrival: ambulatory Limitations: no limitations History of Present Illness ED Provider: Mayra HPI narrative: Patient is a 45y/o right hand dominant male presenting to the ED with complaint of laceration to left thumb. 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 Unknown last Tdap. Denies numbness/tingling. complaint: laceration Related Data Home Medications ?Medication ?Instructions ?Recorded ?Confirmed blood pressure test kit-large #1 ea 09/22/23 01/24/25 cholecalciferol (vitamin D3) 25 25 mcg PO DAILY 06/21/24 01/24/25 mcg (1,000 unit) tablet sertraline 50 mg tablet 50 mg PO DAILY 01/06/25 01/24/25 Previous Rx's ?Medication ?Instructions ?Recorded melatonin 3 mg tablet 3 - 9 mg (1 - 3 x 3 mg) PO DAILY 06/27/24 sleep 30 days #90 tabs esomeprazole magnesium 40 mg 40 mg PO DAILY #30 caps 10/19/24 capsule,delayed release (Nexium) tadalafil 10 mg tablet (Cialis) 10 mg PO .PRN PRN sexual activity 01/24/25 30 days #10 tabs tadalafil 5 mg tablet (Cialis) 5 mg PO DAILY 90 days #90 tabs 01/24/25 famotidine 20 mg tablet 20 mg PO BEDTIME #30 tabs 04/24/25 Allergies Allergy/AdvReac Type Severity Reaction Status Date / Time Penicillins (PCN) Allergy Rash Verified 06/15/25 16:58 Review of Systems Review of Systems: as per hpi Yes all other systems are reviewed and are negative Constitutional: Constitutional: Reports as per HPI PMFSH Past Medical History Medical History Asthma CAD (coronary artery disease) Transaminitis Long COVID Abnormal stress test Cardiomyopathy Blood pressure elevated without history of HTN History of Helicobacter pylori infection Varicose vein of leg Alcohol use disorder MDD (major depressive disorder), recurrent severe, without psychosis Alcohol abuse Surgical History History of surgery on lower extremity Social History Social History Household Members: Other Household Members Other:: girlfriend Housing: Apartment Are you a primary care professionals to a significant other at home: No Do you presently have visiting nurse or other home services: No Alcohol intake: current Alcohol intake frequency: former alcohol drinker Alcohol type: beer and hard liquor Patient Tobacco Use Status: Former Tobacco user Second Hand Smoke Exposure: No (Unknown, pt unable to participate fully in admission.) Substance Use Type: Marijuana Advance Directives: No Advance Directives Information Provided: Yes Do you have a plan to hurt others: No Plan service: No Sexual orientation: Straight/Heterosexual Physical Exam ED Vital Signs: Vital Signs - 24 hr 06/15/25 16:55 Temperature 97.4 F Pulse Rate 74 Respiratory Rate 20 Blood Pressure 146/82 H Pulse Oximetry 99 Oxygen Delivery Method Room Air BMI result Body Mass Index 33.1 Vital signs have been reviewed and appear to be correct. Blood pressure normal. Heart rate normal. Respiratory rate normal. Temperature normal. Oxygen saturation normal. Const General: cooperative, healthy appearing and no acute distress Orientation/consciousness: oriented to person, oriented to place, oriented to time and patient oriented x3 Limitations: no limitations HENMT Head: Yes normocephalic and Yes atraumatic Ears: external ears normal General nose exam: Normal external nose present Face and sinus: Yes face symmetric Mouth: oropharynx normal and moist mucous membranes Throat: Yes uvula midline Eyes Pupils: Equal, round and reactive pupils present Neck Neck: Yes normal visual inspection and Yes supple Resp Effort & Inspection: normal respiratory effort and able to speak in complete sentences Auscultation: clear to auscultation bilaterally Cardio Rate: regular rate Rhythm: regular rhythm Heart sounds: S1 normal heart sound present and S2 normal heart sound present GI Palpation (GI): Soft to palpation and nontender Auscultation: normoactive bowel sounds General: Yes no CVA tenderness Back/Spine/Pelvis Back: no CVA tenderness Skin General skin exam: elasticity normal and turgor normal Neuro General: oriented to person, oriented to place, oriented to time, patient oriented x3, moves all extremities, no focal motor deficits and CN's II-XI intact bilaterally Cranial nerves: Yes Equal, round and reactive pupils present Cognition (Neuro): normal cognition Extrem General: Yes full ROM, Yes no pedal edema and Yes no calf tenderness Left upper extremity: hand Details: normal ROM of fingers and laceration thumb palmar aspect distal Details: linear, with motor nerve function intact and with sensation intact Psych Mental Status: mental status grossly normal Affect: normal affect Thought process: Normal thought process present Medications Administered Discontinued Medications Generic Name Dose Route Start Last Admin Trade Name Chavoq PRN Reason Stop Dose Admin Bacitracin 1 appl 06/15/25 17:00 06/15/25 17:08 Bacitracin Oint 0.9 Gm Packet TOPICAL 06/15/25 17:01 1 appl ONCE ONE Administration Protocol Diphtheria/Tetanus/Acell Pertussis 0.5 ml 06/15/25 17:00 06/15/25 17:09 Diphth,Pertus(Acell),Tet Adult 0.5 Ml Syringe IM 06/15/25 17:01 0.5 ml .ONCE ONE Administration Lidocaine HCl 5 ml 06/15/25 17:00 06/15/25 17:08 Lidocaine Hcl 1 % Mpf 5 Ml Vial INFILTRATI 06/15/25 17:01 5 ml ONCE ONE Administration Procedures Laceration Laceration 1: Site: hand (thumb) Side (If applicable): left Size (cm): 2 Description: linear Depth: simple, single layer Local Anesthetic: lidocaine 1% Amount of anesthesia used (mL): 2.5 Pre-repair: wound explored, irrigated extensively and deep structures intact Skin layer closed with: other (prolene) Size (cm): 5-0 Number of sutures: 6 Technique: simple, interrupted Medical Decision Making Medical Decision Making [facility] Narrative: Patient is a 45y/o right hand dominant M presenting to the ED with complaint of laceration to left thumb. On exam patient is awake, A+Ox3, VS WNL, afebrile, normal neurological exam without focal deficits, physical exam findings as above. Given reported symptoms and physical exam findings, initial differential includes but is not limited to laceration. No evidence of tendon or nerve injury. Tdap updated. Laceration repaired as per procedure note. Patient tolerated well. Wound care instructions and return precautions discussed at bedside. Patient verbalized understanding of and agreement with plan. Differential Diagnosis Differential Diagnoses: The differential diagnosis associated with the presentation includes As per MDM Admission/Observation Consideration of admission/observation: Escalation of care including admission/observation considered Patient would have been admitted to the hospital and transferred to appropriate facility had their clinical presentation warranted hospital admission. External Record Review External record reviewed: Inpatient record, Office record and Outpatient record Discharge Plan Discharge Clinical Impression: Laceration of left thumb Instructions: Care For Your Stitches (DC), Finger Laceration (ED), Stitches Removal (ED) Additional Instructions: You have been evaluated in the emergency department today for a laceration to your thumb. Your laceration was repaired in the emergency department with 6 sutures. Please keep the area surrounding the laceration clean and dry and keep dressing in place for the next 24 hours. After that please change the dressing and assess the wound daily. Do not submerge the wound in water until the stitches has been removed and the wound has fully healed (no washing dishes, swimming, hot tubs, etc. and ESPECIALLY no outdoor water). Keep the area out of direct sunlight for the next 6 months to help prevent scarring. You should have the sutures removed in 7-10 days. If you develop fever, redness, swelling at the site of your laceration, or thick yellow drainage please come back to the ER for a wound check. Prescriptions: No Action famotidine 20 mg tablet 20 mg PO BEDTIME Qty: 30 3RF melatonin 3 mg tablet 3 - 9 mg PO DAILY 30 Days Qty: 90 3RF Rx Instructions: at sunset sertraline 50 mg tablet 50 mg PO DAILY (DME) blood pressure test kit-large Kit See Rx Instructions .ROUTE DAILY Qty: 1 Rx Instructions: As directed cholecalciferol (vitamin D3) 25 mcg (1,000 unit) tablet 25 mcg PO DAILY esomeprazole magnesium [Nexium] 40 mg capsule,delayed release(DR/EC) 40 mg PO DAILY Qty: 30 5RF tadalafil [Cialis] 5 mg tablet 5 mg PO DAILY 90 Days Qty: 90 1RF Rx Instructions: [id number] [facility] [id number] Member [id number] tadalafil [Cialis] 10 mg tablet 10 mg PO .PRN PRN (Reason: sexual activity) 30 Days Qty: 10 6RF Rx Instructions: Take 1 tablet as needed prior to sexual activity; not to exceed more than 3 times per week [id number] [facility] [id number] Member [id number] Print Language: Kinyarwanda
[2025-06-15] MEDS: Lidocaine HCl 1 % MPF 5 ML VIAL INFILTRATI (17:08)
[2025-06-15] MEDS: Diphth,Pertus(ACell),Tet Adult 0.5 ML SYRINGE IM (17:09)
[2025-06-15 17:52] VITALS: BP 146/82; PULSE 74; RESP 20; TEMP 36.3; O2SAT 99
== END 2025-06-15 17:53 | disposition home or self-care (01) ==
PROVIDERS: Emergency Provider Emergency Medicine; PCP Family Medicine
DX: S61.012A Laceration without foreign body of left thumb without damage to nail, initial encounter (principal); Z23 Encounter for immunization; W26.0XXA Contact with knife, initial encounter; Y93.G3 Activity, cooking and baking; Y92.89 Other specified places as the place of occurrence of the external cause; Y99.0 Civilian activity done for income or pay; Z88.0 Allergy status to penicillin
CPT/HCPCS: 12001; 90471; 90715; 99282; 99284; J2003

== ENCOUNTER 2025-07-13 10:49 | Outpatient (REF) | payer MEDICAID, SELFPAY ==
[2025-07-13 12:37] LABS: Prostate Specific Antigen 0.45 ng/mL (<0.05-4.0)
--- OUTSIDE RECORDS SUMMARY | 2025-07-13 13:09 | XMS_ITS | Encounter Summary ---
Author Organization [facility] Address [address] [place] [address] Care Team Providers Care Fish Bait Picker Name Role Phone Ref, Has No Pcp Or Primary Care Provider Unavail able Encounter Details Date Type Department Care Team (Late st Contact Info) Description 01/21/2023 Telephone [facility] [address] [place] [phone] Diaz Carrera, RN Social History Tobacco Use Types Packs/Day Years Used Date Smoking Tobacco: Former Cigarettes 0.2 5 1 995 - 1999 Smokeless Tobacco: Never Alcohol Use Standard Drinks/Week [...] documented as of this encounter Care Teams Fish Bait Picker Relationship Specialty Start Date End Date Ref, Has No Pcp Or DO NOT EDIT THIS RECORD VIA PROVIDER ON THE FLY PCP - General Aerosol Supervisor 01/26/23 documented as of this encounter
--- OUTSIDE RECORDS SUMMARY | 2025-07-13 13:09 | XMS_ITS | Encounter Summary ---
Author Organization [facility] Address [address] [place] [address] Care Team Providers Care Electric Accounting Machine Operator Name Role Phone Ref, Has No Pcp Or Primary Care Provider Unavail able Encounter Details Date Type Department Care Team (Late st Contact Info) Description 01/07/2023 Telephone [facility] [address] [place] [address] Crystal Canchola NP [address], [place] [id number] Social History Tobacco Use Types Packs/Day Years [...] documented as of this encounter Care Teams Electric Accounting Machine Operator Relationship Specialty Start Date End Date Ref, Has No Pcp Or DO NOT EDIT THIS RECORD VIA PROVIDER ON THE FLY PCP - General Manager Brand 01/26/23 documented as of this encounter
--- OUTSIDE RECORDS SUMMARY | 2025-07-13 13:09 | XMS_ITS | Encounter Summary ---
Author Organization [facility] Address [address] [place] [address] Care Team Providers Care Residential Collections Name Role Phone Ref, Has No Pcp Or Primary Care Provider Unavail able Encounter Details Date Type Department Care Team (Late st Contact Info) Description 01/07/2023 Orders Only [facility] [address] [place] [address] Crystal Canchola, DINO [address] [place] [address] Social History Tobacco Use Types Packs/Day Years [...] documented as of this encounter Care Teams Residential Collections Relationship Specialty Start Date End Date Ref, Has No Pcp Or DO NOT EDIT THIS RECORD VIA PROVIDER ON THE FLY PCP - General Bag Sealer 01/26/23 documented as of this encounter
--- OUTSIDE RECORDS SUMMARY | 2025-07-13 13:09 | XMS_ITS | Clinical Summary ---
Author Organization [employer] Address [address] [facility] 7t [place] [address] Care Team Providers Care Boat Loader Name Role Phone Kandice Bush MD Primary Care Provider [phone] Maynor Yoon RN Unavailable [phone] Kaylin Romo Unavailable Allergies Active Allergy Reactions Criticality Noted Date Comments Penicillins Hives 07/09/2018 Medications * This document contains information received from the source organization and may not represent a complete record from that organization. Blood Pressure Monitor kit Check blood pressure once daily and as needed 1 kit 3 Active docusate sodium (Colace) 100 MG capsule Take 1 tab po bid prn constipation 60 capsule 1 4 Active naproxen (Naprosyn) 500 MG tablet Take 1 tablet (500 mg) by mouth if needed in the morning and at bedtime for moderate pain. 50 tablet 1 4 Active cholecalcifero l (Vitamin D-3) 25 MCG (1000 UT) tablet Take 1 tablet (25 mcg) by mouth Once per day. 90 tablet 3 4 Active sertraline (Zoloft) 50 MG tabletIndicati ons:Moderate episode of recurrent major depressive disorder (CMS/HCC) (HCC),ZACHARY (generalized anxiety disorder) Take 1 tablet (50 mg) by mouth Once per day. 30 tablet 2 5 Active hydrOXYzine HCl (Atarax) 10 MG tabletIndicati ons:ZACHARY (generalized anxiety disorder) Take 1 tablet (10 mg) by mouth every 8 (eight) hours if needed for anxiety. 30 tablet 1 5 Active Spacer/Aero-Ho lding Chambers (OptiChamber Jennifer) misc 1 each every 4 (four) hours if needed (asthma). 1 each 5 Active acetaminophen (Tylenol) 500 MG tablet Take 2 tablets (1,000 mg) by mouth every 6 (six) hours if needed for moderate pain or fever for up to 25 doses. 50 tablet 5 Active Ventolin HFA 108 (90 Base) MCG/ACT inhaler INHALE 2 PUFFS BY MOUTH EVERY 4 HOURS NEEDED FOR WHEEZING OR SHORTNESS OF BREATH 18 g 2 5 Active esomeprazole (NexIUM) [address] capsule Take 1 capsule by mouth Once per day. 5 Active prazosin (Minipress) 1 MG capsule Take 1 mg by mouth at bedtime. 4 Active Cialis 5 MG tablet Active sucralfate (Carafate) 1 GM/10ML suspension GIVE 10 ML BY MOUTH AT BEDTIME 5 Active naltrexone ER (Vivitrol) injectionIndic ations:Alcohol use disorder, severe, dependence (CMS/HCC) ([facility]) Inject 4 mL (380 mg) into the muscle every 28 (twenty-eight) days. 1.2 each 1 5 Active fluticasone (Flonase) 50 MCG/ACT nasal spray USE 1 SPRAY IN EACH NOSTRIL ONCE DAILY 48 g 5 Active lidocaine (Lidoderm) 5 % patchIndicatio ns:Foot pain, bilateral Apply 1 patch topically Once per day. Remove & discard patch within 12 hours or as directed by MD. May use 2 patches at once. 60 patch 2 4 06/29/20 25 Active Problems Problem Noted Date Diagnosed Date At high risk for self harm 01/13/2025 Cannabis use disorder 01/13/2025 GERD (gastroesophageal reflux disease) 5 Assessment & Plan (12/03/2024 6:07 AM EDT): - following with [facility], last seen in Oct 2024 - [...] - patient has already been referred to medical investigator, patient will call to reschedule appt Assessment & Plan (05/12/2024 12:07 PM EDT): - likely plantar fascitis - continue wearing comfortable shoes - ice and stretching exercises - patient has already been referred to medical investigator, will check its status Erectile dysfunction 05/12/2024 [...] recurrent major depressive disorder, without psychotic features ([facility]) 10/12/2023 Assessment & Plan (12/03/2024 6:17 AM EDT): - compounding factors: Loss of his mother; stressful divorce; separation from his son; 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 Alcohol use disorder in remission 06/17/2023 Assessment & Plan (12/03/2024 6:11 AM EDT): - following with Dr. Gimenez / [facility] clinic in [facility] - continue current recovery effort [...] with Dr. Gimenez / [facility] in [facility] - continue current recovery effort and support Assessment & Plan (10/12/2023 4:12 PM EST): - following with Dr. Gimenez / [facility] clinic in [facility] - continue current recovery effort and support Assessment & Plan (06/17/2023 5:34 PM EDT): - pt drinks large amount - pt may need to go to Detox first before starting medication - will refer to basketball coach and AUD clinic Elevated blood pressure [...] self-monitoring BP. -Pt is already following with employment services director for cardiomyopathy -Follow up in 3 mo, sooner if any problem arises Cardiomyopathy 06/17/2023 Assessment & Plan (11/29/2024 9:48 AM EDT): - employment services director: Dr. Henderson, [facility], last seen on 01/27/23 - Hx [...] & Plan (01/17/2024 3:15 PM EDT): [facility] on [facility] - Hx abnormal [...] & Plan (10/12/2023 5:44 AM EST): - employment services director: Rasheed Farr, last seen on 01/27/23 [...] & Plan (06/17/2023 6:13 PM EDT): - employment services director: Rasheed Farr, last seen on 01/27/23 [...] PM EDT): - continue following specialists at [facility] declines COVID vaccine Assessment & Plan (10/12/2023 4:13 PM EST): - continue following specialists at [facility] COVID vaccine Assessment & Plan (06/17/2023 6:17 PM EDT): - continue following specialists at [facility] declines COVID vaccine Headache 06/17/2023 Assessment [...] EDT): - followed by Dr. Genao / [facility]. Last seen in Oct 2024 [...] - s/p phlebectomy or venous ablation in [facility] - currently following with Dr. Genao [facility] - Radiofrequencyy ablation of right GSV and accessory right GSV on 12/18/23 - Radiofrequencyy ablation of right SSV on 01/29/24 - Right leg microphlebectomy and ligation of venous cluster x 2 - compression stocking, leg elevation, reduce sodium and alcohol consumption Assessment & Plan (10/12/2023 4:11 PM EST): - s/p phlebectomy or venous ablation in [facility] - currently following with Dr. Genao [facility] - compression stocking, leg elevation, reduce sodium [...] organization. Date Type Department Care Team Description 07/13/2025 Orders Only GENERIC EXTERNAL DATA DEPARTMENT Provider, Generic External Data 06/21/2025 Patient Outreach [address] [address] Kandice Bush MD Care Coordination (CM/CHW outreach) 06/19/2025 Patient Outreach [address] [address] Kandice Bush MD Care Coordination (CM/CHW outreach) 06/16/2025 Patient Outreach [address] [address] Kandice Bush MD Care Coordination (CHW chart review) 06/16/2025 Patient Outreach [address] [address] Kandice Bush MD Care Management (C3CM- chart review) 06/16/2025 Patient Outreach [facility] [address] [place] [address] Kandice Bush MD 06/05/2025 Orders Only [facility] [address] [facility] [place] [address] Kandice Bush MD Encounter for screening for respiratory tuberculosis from Last 3 Months Immunizations Immunization Administration [...] 111 11/29/2024 1:06 PM EDT Temperature 36.3 C (97.3 F) 11/29/2024 1:06 PM EDT Respiratory Rate 17 11/29/2024 1:06 PM EDT Oxygen Saturation 98% 11/29/2024 1:06 PM EDT Inhaled Oxygen Concentration - - Weight 129 kg (284 lb) 11/29/2024 1:06 PM EDT Height 188 cm (6' 2 ) 11/29/2024 1:06 PM EDT Body Mass Index 36.46 11/29/2024 1:06 PM EDT Plan of Treatment Health Maintenance Due Date Last Done Comments CT Colonography 1980 Colonoscopy 1980 FIT DNA/Cologuard 1980 Sigmoidoscopy 1980 Alcohol/Substance Use Screening 1992 Family Planning (PISQ) 1995 HPV Vaccines (1 - Male 3-dos e series) 1995 Hepatitis B Vaccines (1 of 3 - 19+ 3-dose series) 1999 Pneumococcal Vaccine: Pediatrics (0 to 5 Years) and At-Risk Patients (6 to 49) Years (1 of 2 - PCV) 1999 Colorectal Cancer Screening 06/11/2024 FIT 06/11/2024 06/11/2023 FOBT 06/11/2024 06/11/2023 COVID-19 Vaccine (1 - 2023-2 5 season) 2025 Influenza Vaccine (#1) 2025 Depression Monitoring 07/16/2025 01/13/2025 , 01/13/2025 SDOH Screening 11/21/2025 11/21/2024 Disability Screening 11/29/2025 11/29/2024 Tobacco Screening 02/20/2026 02/20/2025 DTaP/Tdap/Td Vaccines (2 - T d or [...] Procedure Name Priority Date/Time Associated Diagnosis Comments PSA, TOTAL Routine 07/13/2025 11:02 AM EST HEPATITIS C AB W/REFL TO HCV RNA, QN, PCR Routine 10/12/2023 1:46 PM EST Dysuria HIV 1/2 ANTIGEN/ANTIBODY, FOURTH GENERATION W/RFL Routine 10/12/2023 1:46 PM EST Dysuria LIPID PANEL WITH REFLEX TO DIRECT LDL Routine 10/12/2023 1:46 PM EST Cardiomyopathy, unspecified type (CMS/HCC) FECAL GLOBIN BY IMMUNOCHEMISTRY Routine 06/11/2023 10:30 PM EDT LFT elevation Hematochezia from Last 3 Months or Most Recently Relevant to Health Maintenance Results * PSA,Total (07/13/2025 11:02 AM EST) Prostate Specific Antigen 0.45 <0.05 - 4.0 ng/mL [facility] Comment:PSA methodology: Carl Hodge i ChemiluminescentMicroparticle Immunoassay (CMIA) 07/13/2025 11:0 2 AM EST 07/13/2025 11:02 AM EST us Generic External Data Provider LAB BLOOD ORDERAB LES Final Result Performing Organization Address [facility] Co de Phone Number [facility] [address] [place] [address] [phone] * (ABNORMAL) Lipid Panel with Reflex to Direct LDL (10/12/2023 1:46 PM EST) Triglycerides 125 <150 mg/dL [facility] Comment:Desirable Triglyceri de: less than 150 mg/dLBorderline High Triglyceride 150-199 mg/dLHigh Triglyceride: 200-499 mg/dLVery High Triglyceride: greater than or equal to 5OO mg/dL Cholesterol 206(H) <200 mg/dL [facility] Comment:Desirable Cholestero l: less than 200 mg/dLBorderline High Cholesterol: 200-239 mg/dLHigh Cholesterol: greater than 239 mg/dL LDL Cholesterol Calculated 124(H) <100 mg/dL [facility] Comment:Desirable LDL: less than 100 mg/dLNear Optimal/Above Optimal LDL: 110- 129 mg/dLBorderline High LDL: 130-159 mg/dLHigh LDL: 160-189 mg/dLVery High LDL: greater than or equal to 190 mg/dL HDL Cholesterol 57 >40 mg/dL [facility] Comment:Desirable HDL: great er than 40 mg/dL Note: This HDL assay may give artificially low results in patients with liver disease. Blood 10/12/2023 1:46 PM EST 10/12/2023 4:25 PM EST us Kandice Bush MD LAB BLOOD ORDERABLES Final Resul t [facility] [address] [place] [phone] * Hepatitis C Antibody with Reflex to HCV, RNA, Quantitative, Real-Time PCR (10/12/2023 1:46 PM EST) Hepatitis C Antibody Nonreactive Nonreactive [facility] Comment:Antibodies to HCV no t detected; does not exclude early acuteHCV infection. Blood Venous blood specimen / Unknown 10/12/2023 1:46 PM EST 10/12/2023 4:19 PM EST us Kandice Bush MD LAB BLOOD ORDERABLES Final Resul t Performing Organization Address [facility] Co de Phone Number [facility] [address] [place] [phone] * HIV-1/2 Antigen and Antibodies, Fourth Generation, with Reflexes (10/12/2023 1:46 PM EST) HIV AB/AG Nonreactive Nonreactive [facility] Comment:HIV-1 p24 Ag and/or HIV-1/HIV-2 Ab not detected.A test result that is nonreactive does not exclude thepossibility of exposure to or infection with HIV-1 and/orHIV-2. Nonreactive results in this assay for individualswith prior exposure to HIV-1 and/or HIV-2 may be due toantigen and antibody levels that are below the limit ofdetection of this assay.[employer] HIV Ag/Ab Combo assay result andsupplemental assay results should be interpreted inconjunction with the patient's clinical presentation,history and other laboratory results. If the results areinconsistent with clinical evidence, additional testing issuggested to confirm the result. Blood Venous blood specimen / Unknown 10/12/2023 1:46 PM EST 10/12/2023 4:19 PM EST us Kandice Bush MD LAB BLOOD ORDERABLES Final Resul t Performing Organization Address [facility] Co de Phone Number [facility] [address] [place] [address] [phone] * Fecal Globin by Immunochemistry (06/11/2023 10:30 PM EDT) Fecal Globin By Immunochemistry SEE NOTE [facility] Comment:FECAL GLOBIN BY IMMU NOCHEMISTRY Micro Number: [id number] Test Status: Final Specimen Source: Not given Specimen Quality: Adequate Fecal Globin: Not DetectedTHIS TEST WAS PERFORMED AT:[employer] [place] [phone] SWAN MD Stool Rectal contents / Unknown 06/11/2023 10:30 PM EDT 06/12/2023 9:[address] MACHINERY INSPECTOR LAB BODY FLUIDS AND STOOLS ORD ERABLES Final Result [facility] [address] [place] [address] [phone] from Last 3 Months or Most Recently Relevant to Health Maintenance Insurance [facility] C3 HSN FULL Care Teams Boat Loader Relationship Specialty Start Date End Date Kandice Bush MD [address] [place] [address] PCP - General Family Medicine 06/18/23 Maynor Yoon RN [address] [place] [phone] Registered Nurse Family Medicine 06/16/25 Kaylin Romo 06/16/25
--- OUTSIDE RECORDS SUMMARY | 2025-07-13 13:09 | XMS_ITS | Encounter Summary ---
Author Organization [employer] Address [address] [place] [address] 7 [place] [address] Care Team Providers Care Back Sizer Name Role Phone Kandice Bush MD Primary Care Provider [phone] Maynor Yoon RN Unavailable [phone] Kaylin Room Unavailable Reason for Referral * Consultation (Urgent) - Closed Specialty Diagnoses / Procedures Referred By Contrafael t Referred To Contact Podiatry Diagnoses Heel pain, bilateral Kandice Bush MD [address] [place] [phone] Phone: tel: fax: Diaz Rojo DPM Phone: tel: fax: Referral ID Status Reason Start Date Expiration Date V isits Requested Visits Authorized [id number] Closed Specialty Services Required 06/07/2024 06/07/2025 6 6 Encounter Details Date Type Department Care Team (Late st Contact Info) Description 06/03/2024 Orders Only [facility] [address] [place] [address] [phone] Kandice Bush MD [address] [place], [place] [phone] Heel pain, bilateral (Primary Dx) Social History [...] documented as of this encounter Care Teams Back Sizer Relationship Specialty Start Date End Date Kandice Bush MD [address] [place] [address] PCP - General Family Medicine 06/18/23 Maynor Yoon RN [address] [place] [address] Registered Nurse Family Medicine 06/16/25 Kaylin Romo 06/16/25 documented as of this encounter
--- OUTSIDE RECORDS SUMMARY | 2025-07-13 13:10 | XMS_ITS | Encounter Summary ---
Author Organization [employer] Address [address] [facility] 7t [place] [address] Care Team Providers Care Flaker Operator Name Role Phone Kandice Bush MD Primary Care Provider [phone] Maynor Yoon RN Unavailable [phone] Kaylin Romo Unavailable Encounter Details Date Type Department Care Team ([facility] st Contact Info) Description 06/05/2025 Orders Only [facility] [address] [place] [address] Kandice Bush MD [address] [place], [place] [phone] Encounter for screening for respiratory tuberculosis Social History Tobacco Use Types Packs/Day Years [...] as of this encounter Visit Diagnoses Diagnosis Encounter for screening for respiratory tuberculosis documented in this encounter Additional Health Concerns Assessment Noted Time PHQ-9 Depression Total Score: 23 025 12:30 PM EDT documented as of this encounter Care Teams Flaker Operator Relationship Specialty Start Date End Date Kandice Bush MD [address] [place] [address] PCP - General Family Medicine 06/18/23 Maynor Yoon RN [address] [place] [phone] Registered Nurse Family Medicine 06/16/25 Kaylin Romo 06/16/25 documented as of this encounter
--- OUTSIDE RECORDS SUMMARY | 2025-07-13 13:10 | XMS_ITS | Encounter Summary ---
Author Organization [employer] Address [address] [place] [address] 7 [place] [address] Care Team Providers Care Reading Teacher Name Role Phone Kandice Bush MD Primary Care Provider [phone] Maynor Yoon RN Unavailable [phone] Kaylin Romo Unavailable Reason for Referral * Consultation (Routine) - Closed Specialty Diagnoses / Procedures Referred By Contrafael t Referred To Contact Urology Diagnoses Erectile dysfunction, unspecified erectile dysfunction type Low testosterone Kandice Bush MD [address] [place] [phone] Phone: tel: fax: [facility] Referral ID Status Reason Start Date Expiration Date V isits Requested Visits Authorized [id number] Closed Specialty Services Required 01/21/2024 01/20/2025 6 6 Encounter Details Date Type Department Care Team (Late st Contact Info) Description 01/18/2024 Orders Only [facility] [address] [place] [address] [phone] Kandice Bush MD [address] [place] [address] [phone] Erectile dysfunction, unspecified erectile dysfunction type (Primary [...] documented as of this encounter Care Teams Reading Teacher Relationship Specialty Start Date End Date Kandice Bush MD [address] [place] [address] PCP - General Family Medicine 06/18/23 Maynor Yoon RN [address] [place], [place] [address] [address] Registered Nurse Family Medicine 06/16/25 Kaylin Romo 06/16/25 documented as of this encounter
--- OUTSIDE RECORDS SUMMARY | 2025-07-13 13:10 | XMS_ITS | Encounter Summary ---
Author Organization [employer] Address [address] [place] [address] [address]t [place] [address] Care Team Providers Care Career Technical Counselor Name Role Phone Kandice Bush MD Primary Care Provider [phone] Maynor Yoon RN Unavailable [phone] Kaylin Romo Unavailable Reason for Referral * Imaging (Routine) - Closed Specialty Diagnoses / Procedures Referred By Contac t Referred To Contact Radiology Diagnoses Left-sided tinnitus Dizziness Other headache syndrome Procedures Mr Brain w/ and w/o Contrast Kandice Bush MD [address] [place] [address] Phone: tel: fax: [address] Phone: tel: fax: Referral ID Status Reason Start Date Expiration Date Visits Re quested Visits Authorized [id number] Closed 10/13/2023 10/12/2024 1 1 Encounter Details Date Type Department Care Team (Late st Contact Info) Description 10/13/2023 Orders Only [facility] [address] [place] [phone] Kandice Bush MD [address] [place] [address] [phone] Left-sided tinnitus (Primary Dx); Dizziness; Other headache [...] AM EST Narrative 11/13/2023 4:45 PM EST [address] [address] Magnetic Resonance Report Signed Patient: Alejandro Sanchez MR #: [id number] : 1980 Acct:[id number] Age/Sex: 43 / M ADM Date: 11/10/23 Loc: HO.MRI Attending Dr: Kandice Bush MD Ordering Physician: Kandice Bush MD Date of Service: 11/10/23 Procedure(s): MR head/brain wo/w con Accession Number(s): [id number] cc: Kandice Bush MD EXAMINATION: MR BRAIN [...] in OV> 11/13/23 1641 DD/ 0858 TD/TT: Telephone Station Repairer: Procedure Note Donotuseinterpreter, Image - 11/13/2023 [place] [address] Magnetic Resonance Report Signed Patient: Alejandro Sanchez [facility] #: [id number] : 1980Acct:[id number] Age/Sex: 43 / MADM Date: 11/10/23 Loc: HO.MRI Attending Dr: Kandice Bush MD Ordering Physician: Kandice Bush MD Date of Service: 11/10/23 Procedure(s): MR head/brain wo/w con Accession Number(s): [id number] cc: Kandice Bush MD EXAMINATION: MR BRAIN [...] in OV> 11/13/23 1641 DD/ 0858 TD/TT: Telephone Station Repairer: Kandice Bsuh MD IMG MRI PROCEDURES Final Result documented in this encounter Visit Diagnoses Diagnosis Left-sided tinnitus- Primary Unspecified tinnitus Dizziness Dizziness and giddiness Other headache syndrome documented in this encounter Care Teams Career Technical Counselor Relationship Specialty Start Date End Date Kandice Bush MD [address] [place] [address] PCP - General Family Medicine 06/18/23 Maynor Yoon RN [address] [place] [address] Registered Nurse Family Medicine 06/16/25 Kaylin Romo 06/16/25 documented as of this encounter
--- OUTSIDE RECORDS SUMMARY | 2025-07-13 13:10 | XMS_ITS ---
Author Organization [employer] Address [address] [place] [address] [address]t [place] [address] Care Team Providers Care Landfill Attendant Name Role Phone Kandice Bush MD Primary Care Provider [phone] Maynor Yoon RN Unavailable [phone] Kaylin Romo Unavailable CHW Complex Status:Outreach In Progress (Enrolling) Start date:06/16/2025 Enrollment reason:ADT Feed Overview ADT- [facility] 06/15/25. Please outreach for enrollment. Case Team Name Relationship Phone Kaylin Romo(Responsible Staff) [phone] Continued Care and Services Coordination
--- OUTSIDE RECORDS SUMMARY | 2025-07-13 13:10 | XMS_ITS | Encounter Summary ---
Author Organization [employer] Address [address] [facility] 7t [place] [address] Care Team Providers Care Twister Doffer Name Role Phone Kandice Bush MD Primary Care Provider [phone] Maynor Yoon RN Unavailable [phone] Kaylin Romo Unavailable Encounter Details Date Type Department Care Team ([facility] st Contact Info) Description 10/13/2023 Orders Only [facility] [address] [place], [place] [phone] Kandice Bush MD [address] [place], [place] [phone] Social History Tobacco Use Types Packs/Day Years [...] on filedocumented in this encounter Care Teams Twister Doffer Relationship Specialty Start Date End Date Kandice Bush MD [address] [place] [address] PCP - General Family Medicine 06/18/23 Maynor Yoon RN [address] [place] [address] Registered Nurse Family Medicine 06/16/25 Kaylin Romo 06/16/25 documented as of this encounter
--- OUTSIDE RECORDS SUMMARY | 2025-07-13 13:10 | XMS_ITS | Data Portability ---
Author Organization [place] - [facility], Allergy Address [address] [address] Care Team Providers Care Clinical Application Manager Name Role Phone BRYSONJOSE CURTIS Primary [...] Organization Details Recorded Time Abnormal auditory perception 95740137 Active [address] JACQUELINE MUÑOZ 100 [facility],[address] [address], [place], [address], [facility] 4 15:21:55 Tinnitus of left ear [id number] Active 2023 ANTONIETTA SAM MD [address] [address], [place], [address], [facility] 4 15:41:05 Problem Notes None recorded. Procedures Surgical History Date Name Laterality Status Provider Name and Address Organization Details Recorded Time 02/24/2024 Air & Speech Audio with Tymps - 21561, 65156 & 73439 completed JACQUELINE MUÑOZ [address] [place] [address], [phone], [facility] 02/24/2024 15:21:44 Imaging Results None recorded. Procedure Notes None recorded. Medical Equipment None Reported. Allergies Allergen ID Allergen Name Allergen Category Reaction Reaction Severity Criticality Documentation Date Start Date Code Code System Note Provider Name and Address Organization Details Recorded Time 155621 Product containin g penicilli n (product) medicatio n hives Not available Not available 02/24/2024 33931 8001 SNOMED Samantha Nolan [facility] 4 15:17:00 Vitals Date Recorded Body height Body mass index (BMI) Body weight Provider Name and Address Organization Details Last Updated DateTime 02/24/2024 185.42 cm 38.5 kg/m2 415819.97 g Samantha Nolan [facility] 02/24/2024 15:31:31 Social History None recorded. [...] Diagnosis SNOMED-CT Code Diagnosis ICD10 Code Diagnosis IMO Codes Diagnosis Note 4749 ANTONIETTA SAM MD [facility] [address] [place] [address] 02/24/2024 15:01:17 02/24/2024 15:45:33 Abnormal auditory perception 52720745 H93.299 Right Ear:Normal hearing with excellent speech discrimina tion.Type A tympanogra m.Left Ear:Normal hearing with excellent speech discrimina tion.Type A tympanogra m. Tinnitus of left ear 189 3002463 106 H93.12 Health Concerns Section Related Observation LastModified by Organization Detai ls LastModified Time None Recorded Concern Status LastModified by Organization Details LastModified Time None Recorded Advance Directives Directive None Recorded Payers Insurance Date Sequence Insurance Name Policy Number Policy Scott Covered Member ID Scott Member ID Guarantor Name 02/24/2024 1 [place]: [facility] [id number] Alejandro Blum Notes Date Note Type Note Provider Name and Address Organization Details Recorded Time 02/24/2024 text/html ROS as noted in the HPI Left Tinnitusonset 2022 around time he was dx with long COVID5 infections of COVID, 2 RSVhigh alcohol consumption, a handle a day and 10 beers daily x 20 yrshearing left side tinnitus high pitch, non pulsatile.when gets angry emotional feels some left otalgiascratched left ear with qtip and got some blood last year ANTONIETTA SAM MD [address] [place] [address], [phone], [place] - [facility] 02/24/2024 15:44:07 OBGyn Episode No OBEpisode recorded.
--- OUTSIDE RECORDS SUMMARY | 2025-07-13 13:10 | XMS_ITS ---
Author Organization [employer] Address [address] [place] [address] [address] [place] [address] Care Team Providers Care Compression Molding Machine Tender Name Role Phone Kandice Bush MD Primary Care Provider [phone] Maynor Yoon RN Unavailable [phone] Kaylin Romo Unavailable CM Complex Status:Outreach In Progress (Enrolling) Start date:06/16/2025 Enrollment reason:ADT Feed Overview ADT- [facility] ED 06/15/25 Case Team Name Relationship Phone Maynor Yoon RN(Responsible Staff) Registered Nurse [phone] Continued Care and Services Coordination
--- OUTSIDE RECORDS SUMMARY | 2025-07-13 13:10 | XMS_ITS | Encounter Summary ---
Author Organization [employer] Address 75 [facility] 7t [place] [address] Care Team Providers Care Child Care Coordinator Name Role Phone Kandice Bush MD Primary Care Provider [phone] Maynor Yoon RN Unavailable Kaylin Romo Unavailable Encounter Details Date Type Department Care Team (Late st Contact Info) Description 07/13/2025 Orders Only GENERIC EXTERNAL DATA [...] PSA, TOTAL Routine 07/13/2025 11:02 AM EST documented in this encounter Results * PSA,Total (07/13/2025 11:02 AM EST) Prostate Specific Antigen 0.45 <0.05 - 4.0 ng/mL [facility] Comment:PSA methodology: Carl Hodge i ChemiluminescentMicroparticle Immunoassay (CMIA) 07/13/2025 11:0 2 AM EST 07/13/2025 11:02 AM EST us Generic External Data Provider LAB BLOOD ORDERAB LES Final Result [facility] [address] [place] [phone] documented in this encounter Visit Diagnoses Not on filedocumented in this encounter Additional Health Concerns Assessment Noted Time PHQ-9 Depression Total Score: 23 025 12:30 PM EDT documented as of this encounter Care Teams Child Care Coordinator Relationship Specialty Start Date End Date Kandice Bush MD [address] [place] [address] PCP - General Family Medicine 06/18/23 Maynor Yoon RN [address] [place] [address] Registered Nurse Family Medicine 06/16/25 Kaylin Romo 06/16/25 documented as of this encounter
--- OUTSIDE RECORDS SUMMARY | 2025-07-13 13:10 | XMS_ITS | Clinical Summary ---
Author Organization [facility] Address [address] [place] [address] Care Team Providers Care Television Cable Installer Name Role Phone Ref, Has No Pcp Or Primary Care Provider Unavail able Allergies Active Allergy Reactions Criticality Noted Date [...] 88 01/27/2023 12:43 PM EDT Temperature 36.6 C (97.9 F) 01/21/2023 1:52 PM EDT Respiratory Rate 18 01/27/2023 12:43 PM EDT Oxygen Saturation 100% 01/27/2023 12:43 PM EDT Inhaled Oxygen Concentration - - Weight 121.6 kg (268 lb) 03/31/2023 2:19 PM EDT Height 185.4 cm (6' 1 ) 03/31/2023 2:19 PM EDT Body Mass Index 35.36 03/31/2023 2:19 PM EDT Plan of Treatment Health Maintenance Due Date Last Done Comments Cologuard 1980 Colon Cancer Screening 1980 Colonoscopy 1980 FOBT / Fit Test 1980 HIV Screening 1980 Sigmoidoscopy 1980 Varicella Vaccines (1 of 2 - 13+ 2-dose series) 1993 Hepatitis B Vaccines (1 of 3 - 19+ 3-dose series) 1999 Alcohol/Substance Use Screening 09/07/2024 Depression Screening and Follow-Up 09/07/2024 Social Drivers of Health Annual Screening 09/07/2024 COVID-19 Vaccine (3 - 2024-2 6 season) 2025 02/03/2021, 01/04/2021 Influenza Vaccine (#1) 2025 DTaP,Tdap,and Td Vaccines (2 - Td or Tdap) 07/13/2028 07/13/2018 RSV Vaccine (60+ years old a nd patients) (1 - 1-dose 75+ series) 2055 Hepatitis C Screening Completed 03/30/2009 Pneumococcal Vaccine: Pediatric (0-5 Years) and At-Risk Patients (6-50 Years) Aged Out No longer eligible based on patient's age to complete this topic Procedures * Due to [employer] law, this organization might not be sharing negative HIV tests. Procedure Name Priority Date/Time Associated Diagnosis Comments HEPATITIS PANEL, ACUTE STAT 03/30/2009 12:15 PM EDT from Last 3 Months or Most Recently Relevant to Health Maintenance Results * Due to [employer] law, this organization might not be sharing negative HIV tests. * Hepatitis Panel, Acute (03/30/2009 12:15 PM EDT) Hepatitis A IgM Antibody Negative Negative [facility] Hepatitis B Core IgM Antibody Negative Negative [facility] Hepatitis B Surface Ag Negative Negative [facility] Hepatitis C Antibody Negative Negative [facility] 03/30/2009 12:1 5 PM EDT 03/30/2009 2:27 PM EDT us Christiane Mathur MD LAB BLOOD ORDERABLES Vonda oreilly Result [facility] [address] [place] [address], from Last 3 Months or Most Recently Relevant to Health Maintenance Insurance [facility] MEDICAID Care Teams Television Cable Installer Relationship Specialty Start Date End Date Ref, Has No Pcp Or DO NOT EDIT THIS RECORD VIA PROVIDER ON THE FLY PCP - General Shift Nurse Manager 01/26/23
--- OUTSIDE RECORDS SUMMARY | 2025-07-13 13:10 | XMS_ITS | Encounter Summary ---
Author Organization [employer] Address 75 [facility] 7t [place] [address] Care Team Providers Care Apprenticeship Representative Name Role Phone Kandice Bush MD Primary Care Provider [phone] Maynor Yoon RN Unavailable [phone] Kaylin Romo Unavailable Reason for Visit * Reason Onset Date Comments FYI 08/12/2023 Encounter Details Date Type Department Care Team (Late st Contact Info) Description 08/12/2023 Telephone [facility] [address] [place] [address] Kandice Bush MD [address] [place], [place] [phone] FYI Social History Tobacco Use Types Packs/Day [...] Miscellaneous Notes * Telephone Encounter - Mallory Car - 08/12/2023 9:00 AM EST Tc from rosaura calling to advise PCP appointment was cancelled due to pt being admitted at [facility] yesterday (08/11) for an overdose. Tow Feeder did advise rosaura to call after pt is discharged. documented in this encounter Plan of Treatment Not on file documented as of this encounter Visit Diagnoses Not on filedocumented in this encounter Care Teams Apprenticeship Representative Relationship Specialty Start Date End Date Kandice Bush MD [address] [place] [address] PCP - General Family Medicine 06/18/23 Maynor Yoon RN [address] [place] [address] Registered Nurse Family Medicine 06/16/25 Kaylin Romo 06/16/25 documented as of this encounter
[2025-07-18 14:32] LABS: Testosterone, Free 57.8 pg/mL (35.0-155.0)
== END 2025-07-13 10:50 | disposition home or self-care (01) ==
LOC: HO.LAB 10:49
PROVIDERS: PCP Family Medicine; Visit Provider Nurse Practitioner Family
DX: E11.69 Type 2 diabetes mellitus with other specified complication (principal); N52.1 Erectile dysfunction due to diseases classified elsewhere
CPT/HCPCS: 36415; 84153; 84402; 84403

== ENCOUNTER 2025-07-27 08:32 | Outpatient (AMB) | payer MEDICAID, SELFPAY ==
--- NOTE | 2025-07-27 08:36 | A.OFFVIS_ITS ---
Intake Visit Reasons: 6M follow up/ PSA/ Testo Intake Note: Patient is present for 6M/PSA/TESTO Urology Medication:TADALAFIL Antibiotic Allergy:PENICILLINS Blood Thinner:NONE Bulb Grader Required: No Allergies Penicillins (PCN) Allergy (Verified 07/27/25 09:01) Rash Medication List - Last Reconciled 07/27/25 by VERNA FishP- blood pressure test kit-large As directed cholecalciferol (vitamin D3) 25 mcg PO DAILY esomeprazole magnesium (Nexium) 40 mg PO DAILY famotidine 20 mg PO BEDTIME melatonin 3 - 9 mg (1 - 3 x 3 mg) PO DAILY 30 days sertraline 50 mg PO DAILY tadalafil (Cialis) 5 mg PO DAILY 90 days tadalafil (Cialis) 10 mg PO .PRN PRN 30 days HPI Comments Details: Alejandro is a very pleasant 45-year-old male patient of Dr. Bush. He has a past medical history of admission bilateral osteoarthritis of knees, daytime sleepiness, snoring, alcohol use disorder and major depressive disorder. He presents to the office today for follow-up of his erectile dysfunction. In discussion with the patient today he reports significant improvement in her his erections with daily dosing of tadalafil as well as p.r.n. dosing 10 mg prior to sexual activity. He currently denies any bothersome urinary issues or concerns. Most recent testosterone lab values were reviewed with the patient today as noted and trended below. He denies urinary urgency, urinary frequency, incontinence, nocturia, hematuria, dysuria, foul smelling urine, changes to urinary stream, flank pain, fever, and or chills. He is happy with his current voiding parameters. Estradiol: 03/30 Luteinizing hormone: 03/30 2.8 Prolactin: 03/30 9.3 Total testosterone: 03/30 342, 08/01 419 Free testosterone: 03/30 59.5 SHB/24 26 PSA: 02/28 0.5, 08/01 0.5 We did discussed slight increase in testosterone levels over the last 8-10 months. We discussed at length potential causes of erectile dysfunction as well as lifestyle modifications to assist with ED we Discussed at length contributing factors at length. In office urinalysis results reviewed with the patient today. All questions were answered. He otherwise offers no other issues or concerns at this time. PFSH Medical History Asthma CAD (coronary artery disease) Transaminitis Long COVID Abnormal stress test Cardiomyopathy Blood pressure elevated without history of HTN History of Helicobacter pylori infection Varicose vein of leg Alcohol use disorder MDD (major depressive disorder), recurrent severe, without psychosis Alcohol abuse Surgical History History of surgery on lower extremity Social History Household Members: Other Household Members Other:: girlfriend Housing: Apartment Are you a primary respiratory care program director to a significant other at home: No Do you presently have visiting nurse or other home services: No Alcohol intake: current Alcohol intake frequency: former alcohol drinker Alcohol type: beer and hard liquor Patient Tobacco Use Status: Former Tobacco user Second Hand Smoke Exposure: No (Unknown, pt unable to participate fully in admission.) Substance Use Type: Marijuana service: No Sexual orientation: Straight/Heterosexual Review of Systems Const All systems reviewed & are unremarkable except as noted in HPI and below Physical Exam Const General: cooperative, healthy appearing, comfortable, no acute distress, well developed, alert and awake Nutritional Appearance: overweight Orientation/consciousness: patient oriented x3 Limitations: no limitations HEENT Head: Yes normal to inspection, Yes normocephalic and Yes atraumatic Ears: hearing grossly normal bilaterally Eyes General: appearance normal, both eyes and all related structures Neck Neck: Yes normal visual inspection and Yes trachea midline Chest Chest palpation & inspection: normal inspection of the chest Resp Effort & Inspection: normal respiratory effort and able to speak in complete sentences Cardio Rate: regular rate GI Inspection: Yes normal to inspection General: Yes no CVA tenderness Back/Spine/Pelvis Back: no CVA tenderness Skin General skin exam: no rashes or lesions noted Neuro General: patient oriented x3 Extrem General: Yes normal to inspection Psych Appearance: grossly normal and well kempt Mental Status: mental status grossly normal Speech and movement: Normal speech and movement present and Clear speech present Affect: normal affect Attitude: cooperative Thought process: Normal thought process present Thought content: Normal thought content present Insight: Fair insight present (Psych) Judgement: Fair judgement present (Psych) Results AMB Urinalysis, Automated UA Leukoctes 0 Vira/uL Last Edit by KATHE Mccurdy on 07/27/25 09:00 UA Nitrite Negative Last Edit by KATHE Mccurdy on 07/27/25 09:00 UA Urobilinogen 0.2 mg/dL Last Edit by KATHE Mccurdy on 07/27/25 09:0 0 UA Protein 0 mg/dL Last Edit by KATHE Mccurdy on 07/27/25 09:00 UA pH 6.0 Last Edit by KATHE Mccurdy on 07/27/25 09:00 UA Blood 0 Reilly/uL Last Edit by KATHE Mccurdy on 07/27/25 09:00 UA Specific [place] 1.020 Last Edit by KATHE Mccurdy on 07/27/25 09: 00 UA Ketone Negative Last Edit by KATHE Mccurdy on 07/27/25 09:00 UA Bilirubin 0 mg/dL Last Edit by KATHE Mccurdy on 07/27/25 09:00 UA Glucose 0 mg/dL Last Edit by KATHE Mccurdy on 07/27/25 09:00 Results Reviewed Results Reviewed: Laboratory Last Values Urine pH (Auto) 6.0 07/27/25 08:41 Specific [place] (Auto) 1.020 07/27/25 08:41 Urine Protein (Auto) 0 mg/dL 07/27/25 08:41 Glucose (UA)(Auto) 0 mg/dL 07/27/25 08:41 Urine Ketones (Auto) Negative 07/27/25 08:41 Urine Blood (Auto) 0 Reilly/uL 07/27/25 08:41 Urine Nitrite (Auto) Negative 07/27/25 08:41 Urine Bilirubin (Auto) 0 mg/dL 07/27/25 08:41 Urine Urobilinogen (Auto) 0.2 mg/dL 07/27/25 08:41 Leukocyte Esterase (Auto) 0 Vira/uL 07/27/25 08:41 Assessment & Plan Assessment & Plan (1) Erectile dysfunction: Code(s): N52.9 - Male erectile dysfunction, unspecified Category: Medical Plan In office urinalysis results reviewed with the patient today; as noted above. Most recent testosterone results reviewed with the patient today; as noted above. He currently denies any bothersome urinary issues or concerns. He reports be happy with current voiding parameters. We did discussed the importance of lifestyle modifications to assist with ED as well as overall health and well-being. Continue daily dosing of tadalafil; refill provided Prescription provided for p.r.n. dosing. Will continue with surveillance monitoring Follow-up in 6 months with labs; or sooner with any issues, concerns, and or questions. Orders: Orders AMB Urinalysis Automated Today Z13.9 - Encounter for screening, unspecified Prostate Specific Antigen 6 Months N52.9 - Male erectile dysfunction, unspecified Testosterone, Free/Total 6 Months N52.9 - Male erectile dysfunction, unspecified Medications: Refilled tadalafil (Cialis) [id number] [facility] [id number] Member [id number] 5 mg PO DAILY 90 tabs 4RF 90 days tadalafil (Cialis) Take 1 tablet as needed prior to sexual activity; not to exceed more than 3 times per week [id number] [facility] [id number] Member [id number] 10 mg PO .PRN PRN 10 tabs 6RF sexual activity 30 days Patient Instructions: The patient had an opportunity to ask questions regarding the treatment plan. All questions were answered. Physical exam, labs, and imaging were discussed and reviewed in detail. As well as risks, benefits, and discussion of treatment choices. No major barriers to understanding were identified. The patient expressed understanding and agreement with the above treatment plan. The patient was made aware they should contact our office by phone for worsening of their current condition, the appearance of new symptoms, or with any questions or concerns. Compliance is encouraged with any medications and follow up testing that is ordered. It is a privilege to be allowed the opportunity to participate in? your urological care.? Again, if you have any questions or concerns If you have any questions or concerns please do not hesitate to contact me. The office is [phone]. This note is constructed using voice recognition software. While every effort has been made to ensure accuracy tow motor operator errors may have been included. Yours sincerely, LYNDSEY Fish Coding Level of Care Code Est Pt Level 3 (43744) Diagnoses Erectile dysfunction N52.9
--- NOTE | 2025-07-27 08:36 | MHC.PC.OV ---
Intake Visit Reasons: 6M follow up/ PSA/ Testo Allergies Penicillins (PCN) Allergy (Verified 06/15/25 16:58) Rash PFSH Medical History Asthma CAD (coronary artery disease) Transaminitis Long COVID Abnormal stress test Cardiomyopathy Blood pressure elevated without history of HTN History of Helicobacter pylori infection Varicose vein of leg Alcohol use disorder MDD (major depressive disorder), recurrent severe, without psychosis Alcohol abuse Surgical History History of surgery on lower extremity Social History Household Members: Other Household Members Other:: girlfriend Housing: Apartment Are you a primary lpn care manager to a significant other at home: No Do you presently have visiting nurse or other home services: No Unable to assess alcohol history related to: Unknown Alcohol intake: current Alcohol intake frequency: former alcohol drinker Alcohol type: beer and hard liquor Patient Tobacco Use Status: Former Tobacco user Second Hand Smoke Exposure: No (Unknown, pt unable to participate fully in admission.) Substance Use Type: Marijuana service: No Sexual orientation: Straight/Heterosexual Physical exam (Primary Care) Tobacco/Smoking Status: Tobacco use Status Patient Tobacco Use Status Former Tobacco user 03/06/25 11:47 Coding
--- OUTSIDE RECORDS SUMMARY | 2025-07-27 09:40 | XMS_ITS | Data Portability ---
Author Organization [place] - [facility], Allergy Address [address] [address] Care Team Providers Care Safety Coordinator Name Role Phone BRYSONJOSE CURTIS Primary Care [...] Organization Details Recorded Time Abnormal auditory perception 34984303 Active 2023 JACQUELINE MUÑOZ 100 [facility],[address] [address], [place], [address], [facility] 4 15:21:55 Tinnitus of left ear 9225913514474 Active 2023 ANTONIETTA SAM MD [address] [address], [place], [address], [facility] 4 15:41:05 Problem Notes None recorded. Procedures Surgical History Date Name Laterality Status Provider Name and Address Organization Details Recorded Time 02/24/2024 Air & Speech Audio with Tymps - 38512, 55833 & 90996 completed JACQUELINE MUÑOZ [address] [place] [address], [phone], [facility] 02/24/2024 15:21:44 Imaging Results None recorded. Procedure Notes None recorded. Medical Equipment None Reported. Allergies Allergen ID Allergen Name Allergen Category Reaction Reaction Severity Criticality Documentation Date Start Date Code Code System Note Provider Name and Address Organization Details Recorded Time 311778 Product containin g penicilli n (product) medicatio n hives Not available Not available 02/24/2024 70034 8001 SNOMED Samantha Nolan [facility] 4 15:17:00 Vitals Date Recorded Body height Body mass index (BMI) Body weight Provider Name and Address Organization Details Last Updated DateTime 02/24/2024 185.42 cm 38.5 kg/m2 465526.97 g Samantha Nolan [facility] 02/24/2024 15:31:31 Social History None recorded. [...] Note 4749 ANTONIETTA SAM MD [facility] [address] [place] [address] 02/24/2024 15:01:17 02/24/2024 15:45:33 Abnormal auditory perception 71540932 H93.299 Right Ear:Normal hearing with excellent speech discrimina tion.Type A tympanogra m.Left Ear:Normal hearing with excellent speech discrimina tion.Type A tympanogra m. Tinnitus of left ear 524 0053374 106 H93.12 Health Concerns Section Related Observation LastModified by Organization Detai ls LastModified Time None Recorded Concern Status LastModified by Organization Details LastModified Time None Recorded Advance Directives Directive None Recorded Payers Insurance Date Sequence Insurance Name Policy Number Policy Scott Covered Member ID Scott Member ID Guarantor Name 02/24/2024 1 [place]: [facility] [id number] Alejandro Blum Notes Date Note Type Note [...] some blood last year ANTONIETTA SAM MD [address] [place] [address], [phone], [place] - [facility] 02/24/2024 15:44:07 OBGyn Episode No OBEpisode recorded.
== END 2025-07-27 09:11 | disposition home or self-care (01) ==
LOC: HO.HUSH 08:32
PROVIDERS: PCP Family Medicine; Visit Provider Nurse Practitioner Family
DX: N52.9 Male erectile dysfunction, unspecified (principal); Z13.9 Encounter for screening, unspecified
CPT/HCPCS: 99213

== ENCOUNTER → 2025-07-27 08:32 | Outpatient (BNVA) | payer MEDICAID, SELFPAY | PROVIDERS: PCP Family Medicine; Visit Provider Nurse Practitioner Family | DX: N52.9 Male erectile dysfunction, unspecified (principal) | CPT/HCPCS: 81003; 99212 ==